=== PATIENT | female | born 1955 | race Caucasian/White ===

== ENCOUNTER 2018-05-23 21:36 | Inpatient (IN) | payer MEDICARE, OTHER ==
[2018-05-23 21:37] VITALS: BMI 39.9
[2018-05-23] MEDS ORDERED: (Novolin R) Insulin Human Regular 100 units/ml vial IV STA (21:51)
[2018-05-23] MEDS ORDERED: Albuterol-Ipratrop 3 mg / 0.5 (3 ml) UD ONE (22:05)
[2018-05-23 22:27] LABS: BASO # 0.1 K/uL (0.0-0.2); BASO % 0.5 % (0.0-2.0); EOS # 0.1 K/uL (0.0-0.7); EOS % 0.5 % (0.0-4.0); HEMOGLOBIN 10.4 g/dL (11.0-16.0); LYMPH # 2.6 K/uL (1.0-4.3); LYMPH % 11.9 % (20.0-40.0); MEAN CELL VOLUME 92.2 fL (81.0-99.0); MEAN CORPUSCULAR HEMOGLOBIN 29.3 pg (27.0-31.0); MEAN CORPUSCULAR HGB CONC 31.8 g/dL (33.0-37.0); MEAN PLATELET VOLUME 9.6 fL (7.2-11.7); MONO % 4.4 % (0.0-10.0); NEUT # 17.9 K/uL (1.8-7.0); NEUT % 82.7 % (50.0-75.0); NRBC % 0.1 % (0.0-2.0); RBC 3.56 Mil/uL (3.80-5.20); RED CELL DISTRIBUTION WIDTH 15.1 % (11.5-14.5); WHITE BLOOD COUNT 21.7 K/uL (4.8-10.8)
[2018-05-23 22:28] LABS: VENOUS BLOOD GAS BASE EXCESS -8.9 mmol/L (0.0-2.0); VENOUS BLOOD GAS PCO2 57 mmHg (40-60); VENOUS BLOOD GAS PO2 28 mm/Hg (30-55); VENOUS BLOOD PH 7.16 (7.32-7.43)
[2018-05-23] MEDS ORDERED: (Novolin R) Insulin Human Regular 100 units/ml vial ONE (22:28)
[2018-05-23 22:34] LABS: INR 0.9
[2018-05-23 22:36] LABS: PROTHROMBIN TIME 9.8 SECONDS (9.7-12.2)
[2018-05-23 22:48] LABS: URINE BACTERIA RARE (<OCC); URINE BILIRUBIN NEGATIVE (NEGATIVE); URINE BLOOD NEGATIVE (NEGATIVE); URINE CLARITY Clear (Clear); URINE COLOR Colorless (YELLOW); URINE GLUCOSE (UA) 3+ mg/dL (Normal); URINE LEUKOCYTE ESTERASE NEG Leu/uL (Negative); URINE PROTEIN 2+ mg/dL (NEGATIVE); URINE UROBILINOGEN NORMAL mg/dL (0.2-1.0)
[2018-05-23 22:51] LABS: TROPONIN I 0.088 ng/mL (0.00-0.120)
[2018-05-23 22:53] LABS: ALB/GLOB RATIO 1.2 (1.0-2.1); ALBUMIN 3.5 g/dL (3.5-5.0); CALCIUM 8.6 mg/dl (8.6-10.4)
[2018-05-23] MEDS ORDERED: (Novolog) Insulin Aspart, Recombinant 100 u/ml 10 ml vial SC SCH (23:15)
[2018-05-23] MEDS ORDERED: (Lantus) Insulin Glargine, Recombinant SC SCH (23:30)
[2018-05-23 23:33] LABS: B-TYPE NATRIURETIC PEPTIDE 1010 pg/mL (0-900)
[2018-05-23 23:34] LABS: BARBITURATES, UR NEGATIVE (NEGATIVE); BENZODIAZEPINES, UR NEGATIVE (NEGATIVE); OPIATES, UR NEGATIVE (NEGATIVE); PHENCYCLIDINE, UR NEGATIVE (NEGATIVE)
[2018-05-23] MEDS ORDERED: (Lantus) Insulin Glargine, Recombinant SC ONE (23:54)
--- NOTE | 2018-05-24 00:34 | C.PDOC ---
History Of Present Illness 63 year old female brought in by ALS for respiratory arrest with transient cardiac arrest in the field. Patient with Hx of COPD, CHF, uncontrolled diabetes, had significant respiratory distress during the day, BLS witnessed respiratory arrest and loss of pulse, CPR initiated for 1-2 minutes, ALS claims patient had banding pulses and was aao, started on bipap in the field. Time Seen by Provider: 05/23/18 21:50 Chief Complaint (Nursing): Respiratory Distress History Per: EMS History/Exam Limitations: no limitations Onset/Duration Of Symptoms: Hrs Current Symptoms Are (Timing): Still Present Current Respiratory Medications: See Home Med List Recent travel outside of the [place]: No Past Medical History Reviewed: Historical Data, Nursing Documentation, Vital Signs Vital Signs: Last Vital Signs Temp 99.2 F 05/23/18 22:40 Pulse 105 H 05/23/18 23:45 Resp 20 05/23/18 23:45 BP 161/77 H 05/23/18 23:45 Pulse Ox 95 05/23/18 23:45 - Medical History PMH: Anemia, Asthma, Depression, Diabetes, HTN, Hypercholesterolemia, Osteoporosis Denies: Chronic Kidney Disease Surgical History: [facility] CLOSURE SKIN & SUBCUTANEOUS NEC (07/01/13) EXCIS DEBRIDE OF WOUND, INFECT, OR BURN (07/01/13) OCCUPATIONAL THERAPY (07/01/13) OTH WOUND IRRIGATION (07/01/13) PHYSICAL THERAPY NEC (07/01/13) PRESSURE DRESSING APPLIC (07/01/13) VENOUS CATHETERIZATION NEC (06/26/13) Family History: States: Unknown Family Hx - Social History Hx Tobacco Use: No Hx Alcohol Use: No Hx Substance Use: No - Immunization History Hx Tetanus Toxoid Vaccination: No Hx Influenza Vaccination: No Hx Pneumococcal Vaccination: No Review Of Systems Review Of Systems: ROS cannot be obtained secondary to pt's inabilty to answer questions. Physical Exam - Physical Exam Appears: Other (Severe respiratory distress, morbidly obese female) Skin: Normal Color, Warm Head: Atraumatic, Normacephalic Eye(s): bilateral: Normal Inspection Oral Mucosa: Moist Neck: Supple Chest: Symmetrical Cardiovascular: Rhythm Regular, JVD Respiratory: Rales, No Rhonchi, Wheezing (Throughout) Gastrointestinal/Abdominal: Soft, No Tenderness, Other (Obese, Globus) Extremity: Other (Lower extremity 2/4 pitting edema) ED Course And Treatment - Laboratory Results Result Diagrams: 05/24/18 06:09 05/24/18 06:09 Lab Results: pO2 28 mm/Hg (30-55) L 05/23/18 22:20 VBG pH 7.16 (7.32-7.43) L* 05/23/18 22:20 VBG pCO2 57 mmHg (40-60) 05/23/18 22:20 VBG HCO3 16.3 mmol/L 05/23/18 22:20 VBG Total CO2 22.0 mmol/L (22-28) 05/23/18 22:20 VBG O2 Sat (Calc) 49.7 % (40-65) 05/23/18 22:20 VBG Base Excess -8.9 mmol/L (0.0-2.0) L 05/23/18 22:20 VBG Potassium 4.7 mmol/L (3.6-5.2) 05/23/18 22:20 Sodium 139.0 mmol/l (132-148) 05/23/18 22:20 Chloride 104.0 mmol/L (98-107) 05/23/18 22:20 Glucose 525 mg/dl (65-105) H* 05/23/18 22:20 Lactate 4.6 mmol/L (0.7-2.1) H* 05/23/18 22:20 FiO2 70.0 % 05/23/18 22:20 Expiratory BiPAP 9 05/23/18 22:20 Crit Value Called To Dr burgess 05/23/18 22:20 Crit Value Called By [facility] 05/23/18 22:20 Crit Value Read Back Y 05/23/18 22:20 Blood Gas Notified Time 222705/23/18 22:20 PT 9.8 SECONDS (9.7-12.2) 05/23/18 10:10 INR 0.9 05/23/18 10:10 APTT 32 SECONDS (21-34) 05/23/18 10:10 Troponin I 0.0890 ng/mL (0.00-0.120) 05/23/18 23:07 NT-Pro-B Natriuret Pep 1010 pg/mL (0-900) H 05/23/18 23:07 Total Bilirubin 0.4 mg/dL (0.2-1.3) 05/23/18 10:10 AST 36 U/L (14-36) 05/23/18 10:10 ALT 18 U/L (9-52) 05/23/18 10:10 Alkaline Phosphatase 121 U/L (38-126) 05/23/18 10:10 Total Protein 6.4 g/dL (6.3-8.3) 05/23/18 10:10 Albumin 3.5 g/dL (3.5-5.0) 05/23/18 10:10 Globulin 2.9 gm/dL (2.2-3.9) 05/23/18 10:10 Albumin/Globulin Ratio 1.2 (1.0-2.1) 05/23/18 10:10 Urine Color Colorless (YELLOW) 05/23/18 22:42 Urine Clarity Clear (Clear) 05/23/18 22:42 Urine pH 6.0 (5.0-8.0) 05/23/18 22:42 Ur Specific [place] 1.007 (1.003-1.030) 05/23/18 22:42 Urine Protein 2+ mg/dL (NEGATIVE) H 05/23/18 22:42 Urine Glucose (UA) 3+ mg/dL (Normal) H 05/23/18 22:42 Urine Ketones Negative mg/dL (NEGATIVE) 05/23/18 22:42 Urine Blood Negative (NEGATIVE) 05/23/18 22:42 Urine Nitrate Negative (NEGATIVE) 05/23/18 22:42 Urine Bilirubin Negative (NEGATIVE) 05/23/18 22:42 Urine Urobilinogen Normal mg/dL (0.2-1.0) 05/23/18 22:42 Ur Leukocyte Esterase Neg [place]/uL (Negative) 05/23/18 22:42 Urine WBC (Auto) 2 /hpf (0-5) 05/23/18 22:42 Urine RBC (Auto) 1 /hpf (0-3) 05/23/18 22:42 Urine Bacteria Rare (<OCC) 05/23/18 22:42 O2 Sat by Pulse Oximetry: 95 Disposition Doctor Will See Patient In The: Hospital Counseled Patient/Family Regarding: Studies Performed, Diagnosis - Disposition Disposition: HOSPITALIZED Disposition Time: 06:00 Condition: GOOD - Clinical Impression Clinical Impression: Asthma with status asthmaticus, Congestive heart failure - Scribe Statement The provider has reviewed the documentation as recorded by the Scribe Juan Gray All medical record entries made by the Scribe were at my direction and personally dictated by me. I have reviewed the chart and agree that the record accurately reflects my personal performance of the history, physical exam, medical decision making, and the department course for this patient. I have also personally directed, reviewed, and agree with the discharge instructions and disposition.
[2018-05-24] MEDS ORDERED: (Novolin R) Insulin Human Regular 100 units/ml vial IVP ONE (00:46)
--- NOTE | 2018-05-24 00:57 | CP.PCM.CON ---
History of Present Illness - History of Present Illness History of Present Illness: 63 y/o female with pmx of COPD, CAD (not taking antiplatelets), Dm (uncontrolled/?compliance insulin), presents to [facility] w/ith SOB. EMS reported ?cardiac arrest. Patient not able to provide much details as patient currently on bi-pAP. Pmx: CAD/Dm/COPD/obseity SH: s/p PCI unable to provide where stent was placed Social history: (+)smoking "tracey", deneis any other illicit drugs Review of Systems - Review of Systems Systems not reviewed;Unavailable: Unstable Vital Signs, Respiratory Distress Past Patient History - Infectious Disease Hx of Infectious Diseases: None - Tetanus Immunizations Tetanus Immunization: Unknown - Past Medical History & Family History Past Medical History?: Yes - Past Social History Smoking Status: Current Some Days Smoker - CARDIAC Hx Hypercholesterolemia: Yes Hx Hypertension: Yes - PULMONARY Hx Asthma: Yes - NEUROLOGICAL Hx Neurological Disorder: No - HEENT Hx HEENT Problems: No - RENAL Hx Chronic Kidney Disease: No - ENDOCRINE/METABOLIC Hx Endocrine Disorders: Yes Hx Diabetes Mellitus Type 1: Yes (diabetic right foot) Hx Diabetes Mellitus Type 2: Yes - HEMATOLOGICAL/ONCOLOGICAL Hx Anemia: Yes - INTEGUMENTARY Hx Dermatological Problems: Yes Other/Comment: CELLULITIS OF RIGHT BIG TOE.H/O OF OSTEOMYELITIS - MUSCULOSKELETAL/RHEUMATOLOGICAL Hx Osteoporosis: Yes - GASTROINTESTINAL Hx Gastrointestinal Disorders: No - GENITOURINARY/GYNECOLOGICAL Hx Genitourinary Disorders: No - PSYCHIATRIC Hx Depression: Yes Hx Substance Use: No - SURGICAL HISTORY Hx Coronary Stent: Yes (2 stents) - ANESTHESIA Hx Anesthesia: Yes Hx Anesthesia Reactions: No (unknown) Hx Malignant Hyperthermia: No Meds Allergies/Adverse Reactions: Allergies Allergy/AdvReac Type Severity Reaction Status Date / Time No Known Allergies Allergy Verified 05/23/18 21:48 - Medications Medications: Current Medications Albuterol/Ipratropium (Duoneb 3 Mg/0.5 Mg (3 Ml) Ud) 3 ml INH RQ6 [facility] Carvedilol (Coreg) 12.5 mg PO BID [facility] Last Admin: 05/23/18 23:43 Dose: 12.5 mg Heparin Sodium (Porcine) (Heparin) 5,000 units SC Q8 [facility] Last Admin: 05/24/18 00:00 Dose: 5,000 units Hydralazine HCl (Apresoline) 50 mg PO BID [facility] Last Admin: 05/23/18 23:43 Dose: 50 mg Ceftriaxone Sodium 2 gm/ (Sodium Chloride) 100 mls @ 100 mls/hr IVPB DAILY FRANCY; Protocol Insulin Aspart (Novolog) 0 unit SC Q4H FRANCY; Protocol Insulin Glargine (Lantus) 30 unit SC BID [facility] Last Admin: 05/24/18 00:00 Dose: 30 unit Insulin Human Regular (Novolin R) 10 unit IVP ONCE ONE Stop: 05/24/18 00:47 Pantoprazole Sodium (Protonix Inj) 40 mg IVP Q12H [facility] Last Admin: 05/24/18 00:01 Dose: 40 mg Ticagrelor (Brilinta) 60 mg PO BID [facility] Physical Exam - Head Exam Head Exam: ATRAUMATIC, NORMAL INSPECTION, NORMOCEPHALIC - Eye Exam Eye Exam: EOMI Pupil Exam: PERRL - ENT Exam ENT Exam: Mucous Membranes Moist - Respiratory Exam Respiratory Exam: Decreased Breath Sounds, Rales, Respiratory Distress. absent: Chest Wall Tenderness, Prolonged Expiratory Phase, Rhonchi, Wheezes, Stridor - Cardiovascular Exam Cardiovascular Exam: REGULAR RHYTHM, +S1, +S2, Systolic Murmur - GI/Abdominal Exam GI & Abdominal Exam: Normal Bowel Sounds, Soft. absent: Distended, Guarding, Hernia, Tenderness - Neurological Exam Neurological exam: Alert, Oriented x3 - Skin Skin Exam: Normal Color, Warm Results - Vital Signs Recent Vital Signs: Last Vital Signs Temp 99.2 F 05/23/18 22:40 Pulse 105 H 05/23/18 23:45 Resp 20 05/23/18 23:45 BP 161/77 H 05/23/18 23:45 Pulse Ox 95 05/24/18 00:36 - Labs Result Diagrams: 05/24/18 06:09 05/24/18 06:09 Labs: Laboratory Results - last 24 hr 05/23/18 05/23/18 05/23/18 10:10 10:10 10:10 WBC 21.7 H D RBC 3.56 L Hgb 10.4 L Hct 32.8 L MCV 92.2 D MCH 29.3 MCHC 31.8 L RDW 15.1 H Plt Count 478 H D MPV 9.6 Neut % (Auto) 82.7 H Lymph % (Auto) 11.9 L [place] % (Auto) 4.4 Eos % (Auto) 0.5 Baso % (Auto) 0.5 Neut # (Auto) 17.9 H Lymph # (Auto) 2.6 [place] # (Auto) 1.0 H Eos # (Auto) 0.1 Baso # (Auto) 0.1 PT 9.8 INR 0.9 APTT 32 pO2 VBG pH VBG pCO2 VBG HCO3 VBG Total CO2 VBG O2 Sat (Calc) VBG Base Excess VBG Potassium Glucose Lactate FiO2 Expiratory BiPAP Crit Value Called To Crit Value Called By Crit Value Read Back Blood Gas Notified Time Sodium 135 Potassium 4.8 Chloride 106 Carbon Dioxide 19 L Anion Gap 15 BUN 20 H Creatinine 2.3 H Est GFR ( Amer) 26 Est GFR (Non-Af Amer) 21 POC Glucose (mg/dL) Random Glucose 517 H* D Calcium 8.6 Total Bilirubin 0.4 AST 36 ALT 18 Alkaline Phosphatase 121 Troponin I 0.0880 NT-Pro-B Natriuret Pep 1030 H Total Protein 6.4 Albumin 3.5 Globulin 2.9 Albumin/Globulin Ratio 1.2 TSH 3rd Generation Venous Blood Potassium Urine Color Urine Clarity Urine pH Ur Specific [place] Urine Protein Urine Glucose (UA) Urine Ketones Urine Blood Urine Nitrate Urine Bilirubin Urine Urobilinogen Ur Leukocyte Esterase Urine WBC (Auto) Urine RBC (Auto) Urine Bacteria Urine Opiates Screen Urine Methadone Screen Ur Barbiturates Screen Ur Phencyclidine Scrn Ur Amphetamines Screen U Benzodiazepines Scrn U Oth Cocaine Metabols U Cannabinoids Screen Alcohol, Quantitative B-Hydroxybutyrate 05/23/18 05/23/18 05/23/18 21:45 22:20 22:42 WBC RBC Hgb Hct MCV MCH MCHC RDW Plt Count MPV Neut % (Auto) Lymph % (Auto) [place] % (Auto) Eos % (Auto) Baso % (Auto) Neut # (Auto) Lymph # (Auto) [place] # (Auto) Eos # (Auto) Baso # (Auto) PT INR APTT pO2 28 L VBG pH 7.16 L* VBG pCO2 57 VBG HCO3 16.3 VBG Total CO2 22.0 VBG O2 Sat (Calc) 49.7 VBG Base Excess -8.9 L VBG Potassium 4.7 Glucose 525 H* Lactate 4.6 H* FiO2 70.0 Expiratory BiPAP 9 Crit Value Called To Dr jenifer Crit Value Called By [facility] Crit Value Read Back Y Blood Gas Notified Time 2228 Sodium 139.0 Potassium Chloride 104.0 Carbon Dioxide Anion Gap BUN Creatinine Est GFR ( Amer) Est GFR (Non-Af Amer) POC Glucose (mg/dL) 465 H* Random Glucose Calcium Total Bilirubin AST ALT Alkaline Phosphatase Troponin I NT-Pro-B Natriuret Pep Total Protein Albumin Globulin Albumin/Globulin Ratio TSH 3rd Generation Venous Blood Potassium 4.7 Urine Color Colorless Urine Clarity Clear Urine pH 6.0 Ur Specific [place] 1.007 Urine Protein 2+ H Urine Glucose (UA) 3+ H Urine Ketones Negative Urine Blood Negative Urine Nitrate Negative Urine Bilirubin Negative Urine Urobilinogen Normal Ur Leukocyte Esterase Neg Urine WBC (Auto) 2 Urine RBC (Auto) 1 Urine Bacteria Rare Urine Opiates Screen Urine Methadone Screen Ur Barbiturates Screen Ur Phencyclidine Scrn Ur Amphetamines Screen U Benzodiazepines Scrn U Oth Cocaine Metabols U Cannabinoids Screen Alcohol, Quantitative B-Hydroxybutyrate 05/23/18 05/23/18 05/23/18 22:53 23:07 23:07 WBC RBC Hgb Hct MCV MCH MCHC RDW Plt Count MPV Neut % (Auto) Lymph % (Auto) [place] % (Auto) Eos % (Auto) Baso % (Auto) Neut # (Auto) Lymph # (Auto) [place] # (Auto) Eos # (Auto) Baso # (Auto) PT INR APTT pO2 VBG pH VBG pCO2 VBG HCO3 VBG Total CO2 VBG O2 Sat (Calc) VBG Base Excess VBG Potassium Glucose Lactate FiO2 Expiratory BiPAP Crit Value Called To Crit Value Called By Crit Value Read Back Blood Gas Notified Time Sodium Potassium Chloride Carbon Dioxide Anion Gap BUN Creatinine Est GFR ( Amer) Est GFR (Non-Af Amer) POC Glucose (mg/dL) 487 H* Random Glucose Calcium Total Bilirubin AST ALT Alkaline Phosphatase Troponin I 0.0890 NT-Pro-B Natriuret Pep 1010 H Total Protein Albumin Globulin Albumin/Globulin Ratio TSH 3rd Generation Venous Blood Potassium Urine Color Urine Clarity Urine pH Ur Specific [place] Urine Protein Urine Glucose (UA) Urine Ketones Urine Blood Urine Nitrate Urine Bilirubin Urine Urobilinogen Ur Leukocyte Esterase Urine WBC (Auto) Urine RBC (Auto) Urine Bacteria Urine Opiates Screen Negative Urine Methadone Screen Negative Ur Barbiturates Screen Negative Ur Phencyclidine Scrn Negative Ur Amphetamines Screen Negative U Benzodiazepines Scrn Negative U Oth Cocaine Metabols Negative U Cannabinoids Screen Negative Alcohol, Quantitative < 10 B-Hydroxybutyrate 0.16 05/23/18 23:40 WBC RBC Hgb Hct MCV MCH MCHC RDW Plt Count MPV Neut % (Auto) Lymph % (Auto) [place] % (Auto) Eos % (Auto) Baso % (Auto) Neut # (Auto) Lymph # (Auto) [place] # (Auto) Eos # (Auto) Baso # (Auto) PT INR APTT pO2 VBG pH VBG pCO2 VBG HCO3 VBG Total CO2 VBG O2 Sat (Calc) VBG Base Excess VBG Potassium Glucose Lactate FiO2 Expiratory BiPAP Crit Value Called To Crit Value Called By Crit Value Read Back Blood Gas Notified Time Sodium Potassium Chloride Carbon Dioxide Anion Gap BUN Creatinine Est GFR ( Amer) Est GFR (Non-Af Amer) POC Glucose (mg/dL) Random Glucose Calcium Total Bilirubin AST ALT Alkaline Phosphatase Troponin I NT-Pro-B Natriuret Pep Total Protein Albumin Globulin Albumin/Globulin Ratio TSH 3rd Generation 2.12 Venous Blood Potassium Urine Color Urine Clarity Urine pH Ur Specific [place] Urine Protein Urine Glucose (UA) Urine Ketones Urine Blood Urine Nitrate Urine Bilirubin Urine Urobilinogen Ur Leukocyte Esterase Urine WBC (Auto) Urine RBC (Auto) Urine Bacteria Urine Opiates Screen Urine Methadone Screen Ur Barbiturates Screen Ur Phencyclidine Scrn Ur Amphetamines Screen U Benzodiazepines Scrn U Oth Cocaine Metabols U Cannabinoids Screen Alcohol, Quantitative B-Hydroxybutyrate Assessment & Plan - Assessment and Plan (Free Text) Assessment: - ACute hypoxic respiratory failure: 2nd fluid overloaded/heart failure/ucontrolled blood sugar and uncontrolled blood pressure, continue bi-pap to keep Spo2 >91 -BILLY: suspect 2nd losartan, avoid neprhotoxi drugs, continue to monitor -DM: check HBA1c, Insulin, monitor serial blood sugar -CAD/likely chronic diastolic heart failure: at risk, patient stopped taking brilynta (exact reason unknown), start DAPT, hold acei 2nd renal failure, lasix, avoid fluid overloaded, continue oral nitrates and hydralazine -Leukocytosis: suspect aspiration, start empirical abx, serial lactic, briceño culture, continue to monitor -dvt ppx heparin SQ -PUD ppx protonix -History is not clear as to whether patient had cardiac arrest, since patient is not intubated and awake without any distress -Prognosis guarded, as patient is not compliant with likely diabetes and smoking related ASHD and CKD. patient will benefit from ICU level care. - Date & Time Date: 05/24/18 Time: 01:06
[2018-05-24] MEDS ORDERED: Labetalol 25mg/5ml Syringe IVP STA (01:06)
--- NOTE | 2018-05-24 01:09 | PCM.SEPTIC ---
Sepsis Progress Note - Reassessment Type Date of Evaluation: 05/24/18 Time of Evaluation: 01:08 Reassessment Type: Non-invasive reassessment - Non Invasive Reassessment Were the most recent vital sign reviewed: Yes Vital Sign (Latest): Temp Pulse Resp BP Pulse Ox 99.2 F 105 H 20 161/77 H 95 05/23/18 22:40 05/23/18 23:45 05/23/18 23:45 05/23/18 23:45 05/24/18 00:36 Cardiovascular: Yes: Regular Rate, Rhythm. No: Bradycardia, Tachycardia Respiratory: Yes: Normal Breath Sounds, Rales. No: Wheezing Capillary Refill: Normal (Less than 2 sec) Pulses: Normal Radial, Normal Dorsalis Pedis, Normal Posterior Tibialis Skin: Normal Color - Invasive Reassessment (complete 2 of 4) Was a Central Venous Pressure Measurement obtained within 6 Hours after the presentation of septic shock: No Was a central venous oxygen measurement obtained within 6 hours after the presentation of septic shock: No Was a bedside cardiovascular ultrasound performed within 6 hours after the presentation of septic shock: No Was a passive leg raise performed or was a fluid challenge performed within 6 hrs of the initial fluid bolus: No
[2018-05-24] MEDS ORDERED: hydrALAZINE 12.5 mg Tab PO ONE (01:26)
[2018-05-24] MEDS ORDERED: Insulin Human Regular 100 UNIT in Sodium Chloride 0.9% 99 ML SC SCH (02:30)
[2018-05-24] MEDS: Albuterol-Ipratrop 3 mg / 0.5 (3 ml) UD INH SCH ×4 (02:47→19:37)
[2018-05-24] MEDS: Insulin Human Regular 100 UNIT in Sodium Chloride 0.9% 99 ML IV PRN ×2 (02:50→09:47)
[2018-05-24] MEDS ORDERED: Insulin Human Regular 100 UNIT in Sodium Chloride 0.9% 99 ML IV SCH (03:00)
[2018-05-24] MEDS: Nitroglycerin 50mg in D5W 50 MG/250 ML BOTTLE IV SCH (03:28)
[2018-05-24 06:20] LABS: BASO % 0.2 % (0.0-2.0); HEMOGLOBIN 9.9 g/dL (11.0-16.0); LYMPH % 6.1 % (20.0-40.0); MEAN CORPUSCULAR HEMOGLOBIN 28.7 pg (27.0-31.0); MEAN CORPUSCULAR HGB CONC 31.9 g/dL (33.0-37.0); MEAN PLATELET VOLUME 9.7 fL (7.2-11.7); MONO # 0.2 K/uL (0.0-0.8); MONO % 1.4 % (0.0-10.0); NEUT # 14.4 K/uL (1.8-7.0); NEUT % 92.3 % (50.0-75.0); PLATELET COUNT 446 K/uL (130-400); RBC 3.46 Mil/uL (3.80-5.20); RED CELL DISTRIBUTION WIDTH 14.5 % (11.5-14.5); WHITE BLOOD COUNT 15.6 K/uL (4.8-10.8)
[2018-05-24 06:36] LABS: ALB/GLOB RATIO 1.1 (1.0-2.1); ALBUMIN 3.6 g/dL (3.5-5.0); CALCIUM 9.5 mg/dl (8.6-10.4)
[2018-05-24 06:48] LABS: TROPONIN I 0.649 ng/mL (0.00-0.120)
[2018-05-24 09:38] LABS: ABG ALLEN TEST N/A ALINE; ARTERIAL BLOOD GAS HCO3 23.8 mmol/L (21-28); ARTERIAL BLOOD GAS O2 SAT 99.9 % (95-98); ARTERIAL BLOOD GAS PCO2 44 mm/Hg (35-45); ARTERIAL BLOOD GAS PH 7.35 (7.35-7.45); ARTERIAL BLOOD GAS PO2 322 mm/Hg (80-100); ARTERIAL BLOOD GAS TCO2 25.7 mmol/L (22-28)
[2018-05-24] MEDS: cefTRIAXone 2 GM in Sodium Chloride 0.9% 100 ML IVPB SCH (09:43)
[2018-05-24 10:02] LABS: BANDS 1 % (0-2); LYMPHOCYTE 7 % (20-40); MONOCYTE 2 % (0-10); NEUTROPHIL 90 % (50-75); PLATELET ESTIMATE SLIGHTLY INCREASED (NORMAL); TOTAL CELLS COUNTED 100
[2018-05-24 10:03] LABS: HYPOCHROMIC SLIGHT; LARGE PLATELETS PRESENT
--- NOTE | 2018-05-24 10:37 | RAD ---
Date of service: 05/23/2018 PROCEDURE: CHEST RADIOGRAPH, 1 VIEW HISTORY: SOB COMPARISON: Comparison is made with 06/29/2013 FINDINGS: LUNGS: DIFFUSE PROMINENT RETICULAR OPACITIES NOTED IN THE LUNGS. POSSIBLE MODERATE PULMONARY VASCULAR CONGESTION. PATCHY OPACITIES AT THE RIGHT LUNG IS ALSO NOTED. PLEURA: There is small right pleural effusion. CARDIOVASCULAR: No aortic atherosclerotic calcification present. The cardiac silhouette is mildly enlarged. OSSEOUS STRUCTURES: No significant abnormalities. VISUALIZED UPPER ABDOMEN: Normal. OTHER FINDINGS: None. IMPRESSION: Findings suggestive of CHF and moderate pulmonary vascular congestion. Small right pleural effusion.
--- NOTE | 2018-05-24 11:23 | CP.PCM.CON ---
History of Present Illness - History of Present Illness History of Present Illness: 63 year old lady with DM, HTN, ? CAD, COPD, no details reported severe SOB, ? loss of pulse, found by ALS alert oriented with adequate pulse. no reported CP, no EKG changes 3rd TNI 0.6 with GFR of 25. no VT. needs ECho, unlikely CHF with adequate oxygenation, ok BNP, elevated lactate, uncontrolled DM discussed with daughter, patient had coronary artery disease with stent deployment in 2014 and 2016 was not taken medication since then, when the medics arrived no treatment was given and the patient was okay as per daughter. Discussed with the aws developer unlikely cardiac arrest to recover at this good. Currently the patient is awake alert oriented x3 with stable vitals. With renal failure we will observe her coronary artery disease status and no cardiac catheterization urgent at this time. Review of Systems - Review of Systems Systems not reviewed;Unavailable: Respiratory Distress - Constitutional Constitutional: Anorexia, Weakness - EENT Eyes: absent: Discharge Ears: absent: Ear Discharge Nose/Mouth/Throat: absent: Epistaxis - Cardiovascular Cardiovascular: absent: Acrocyanosis, Chest Pain, Diaphoresis, Edema, Lightheadedness, Palpitations, Syncope - Respiratory Respiratory: Cough, Dyspnea. absent: Hemoptysis - Gastrointestinal Gastrointestinal: absent: Abdominal Pain, Constipation, Diarrhea, Melena, Vomiting - Genitourinary Genitourinary: absent: Change in Urinary Stream - Reproductive: Female Reproductive:Female: Menopausal Past Patient History - Infectious Disease Hx of Infectious Diseases: None - Tetanus Immunizations Tetanus Immunization: Unknown - Past Medical History & Family History Past Medical History?: Yes - Past Social History Smoking Status: Current Some Days Smoker - CARDIAC Hx Hypercholesterolemia: Yes Hx Hypertension: Yes - PULMONARY Hx Asthma: Yes - NEUROLOGICAL Hx Neurological Disorder: No - HEENT Hx HEENT Problems: No - RENAL Hx Chronic Kidney Disease: No - ENDOCRINE/METABOLIC Hx Endocrine Disorders: Yes Hx Diabetes Mellitus Type 1: Yes (diabetic right foot) Hx Diabetes Mellitus Type 2: Yes - HEMATOLOGICAL/ONCOLOGICAL Hx Anemia: Yes - INTEGUMENTARY Hx Dermatological Problems: Yes Other/Comment: CELLULITIS OF RIGHT BIG TOE.H/O OF OSTEOMYELITIS - MUSCULOSKELETAL/RHEUMATOLOGICAL Hx Osteoporosis: Yes - GASTROINTESTINAL Hx Gastrointestinal Disorders: No - GENITOURINARY/GYNECOLOGICAL Hx Genitourinary Disorders: No - PSYCHIATRIC Hx Depression: Yes Hx Substance Use: No - SURGICAL HISTORY Hx Coronary Stent: Yes (2 stents) - ANESTHESIA Hx Anesthesia: Yes Hx Anesthesia Reactions: No (unknown) Hx Malignant Hyperthermia: No Meds Allergies/Adverse Reactions: Allergies Allergy/AdvReac Type Severity Reaction Status Date / Time No Known Allergies Allergy Verified 05/23/18 21:48 - Medications Medications: Current Medications Albuterol/Ipratropium (Duoneb 3 Mg/0.5 Mg (3 Ml) Ud) 3 ml INH RQ6 [facility] Last Admin: 05/24/18 07:30 Dose: 3 ml Aspirin (Aspirin Chewable) 81 mg PO DAILY [facility] Last Admin: 05/24/18 09:35 Dose: 81 mg Carvedilol (Coreg) 12.5 mg PO BID [facility] Last Admin: 05/24/18 09:35 Dose: 12.5 mg Furosemide (Lasix) 40 mg PO DAILY [facility] Last Admin: 05/24/18 09:34 Dose: 40 mg Heparin Sodium (Porcine) (Heparin) 5,000 units SC Q8 [facility] Last Admin: 05/24/18 06:02 Dose: 5,000 units Hydralazine HCl (Apresoline) 100 mg PO TID [facility] Last Admin: 05/24/18 09:33 Dose: 100 mg Ceftriaxone Sodium 2 gm/ (Sodium Chloride) 100 mls @ 100 mls/hr IVPB DAILY [facility]; Protocol Last Admin: 05/24/18 09:43 Dose: 100 mls/hr Insulin Human Regular 100 unit (/ Sodium Chloride) 100 mls @ 10.204 mls/hr IV .Q9H48M PRN; Protocol Last Titration: 05/24/18 10:04 Dose: 5 units/hr, 5 mls/hr Nitroglycerin/Dextrose (Nitroglycerin 50 Mg/250 Ml D5w) 50 mg in 250 mls @ 1.5 mls/hr IV .Q24H [facility]; Protocol Last Titration: 05/24/18 09:00 Dose: 15 mcg/min, 4.5 mls/hr Isosorbide Mononitrate (Imdur Er) 30 mg PO DAILY [facility] Last Admin: 05/24/18 09:34 Dose: 30 mg Pantoprazole Sodium (Protonix Inj) 40 mg IVP Q12H [facility] Last Admin: 05/24/18 10:33 Dose: 40 mg Ticagrelor (Brilinta) 60 mg PO BID [facility] Last Admin: 05/24/18 09:46 Dose: 60 mg Physical Exam - Constitutional Appears: Non-toxic - Head Exam Head Exam: ATRAUMATIC - Eye Exam Eye Exam: EOMI - ENT Exam ENT Exam: Mucous Membranes Moist - Neck Exam Neck exam: Negative for: Lymphadenopathy, Thyromegaly - Respiratory Exam Respiratory Exam: Rhonchi, Wheezes. absent: Rales - Cardiovascular Exam Cardiovascular Exam: REGULAR RHYTHM, Systolic Murmur. absent: Gallop - GI/Abdominal Exam GI & Abdominal Exam: Normal Bowel Sounds. absent: Organomegaly - Rectal Exam Rectal Exam: Deferred - Extremities Exam Extremities exam: Positive for: normal capillary refill, pedal pulses present. Negative for: calf tenderness - Neurological Exam Neurological exam: Alert, Oriented x3 - Psychiatric Exam Psychiatric exam: Normal Affect - Skin Skin Exam: Dry Results - Vital Signs Recent Vital Signs: Last Vital Signs Temp 98.1 F 05/24/18 04:00 Pulse 76 05/24/18 08:09 Resp 18 05/24/18 08:09 BP 170/80 H 05/24/18 09:35 Pulse Ox 90 L 05/24/18 08:09 - Labs Result Diagrams: 05/24/18 06:09 05/24/18 06:09 Labs: Laboratory Results - last 24 hr 05/23/18 05/23/18 05/23/18 10:10 10:10 10:10 WBC 21.7 H D RBC 3.56 L Hgb 10.4 L Hct 32.8 L MCV 92.2 D MCH 29.3 MCHC 31.8 L RDW 15.1 H Plt Count 478 H D MPV 9.6 Neut % (Auto) 82.7 H Lymph % (Auto) 11.9 L [place] % (Auto) 4.4 Eos % (Auto) 0.5 Baso % (Auto) 0.5 Neut # (Auto) 17.9 H Lymph # (Auto) 2.6 [place] # (Auto) 1.0 H Eos # (Auto) 0.1 Baso # (Auto) 0.1 Neutrophils % (Manual) Band Neutrophils % Lymphocytes % (Manual) Monocytes % (Manual) Platelet Estimate Large Platelets Hypochromasia (manual) PT 9.8 INR 0.9 APTT 32 Puncture Site pCO2 pO2 HCO3 ABG pH ABG Total CO2 ABG O2 Saturation ABG Base Excess Enrique Test ABG Potassium VBG pH VBG pCO2 VBG HCO3 VBG Total CO2 VBG O2 Sat (Calc) VBG Base Excess VBG Potassium A-a O2 Difference Respiratory Index Glucose Lactate Vent Mode Mechanical Rate FiO2 Tidal Volume PEEP Expiratory BiPAP Crit Value Called To Crit Value Called By Crit Value Read Back Blood Gas Notified Time Sodium 135 Potassium 4.8 Chloride 106 Carbon Dioxide 19 L Anion Gap 15 BUN 20 H Creatinine 2.3 H Est GFR ( Amer) 26 Est GFR (Non-Af Amer) 21 POC Glucose (mg/dL) Random Glucose 517 H* D Hemoglobin A1c Lactic Acid Calcium 8.6 Phosphorus Magnesium Total Bilirubin 0.4 AST 36 ALT 18 Alkaline Phosphatase 121 Troponin I 0.0880 NT-Pro-B Natriuret Pep 1030 H Total Protein 6.4 Albumin 3.5 Globulin 2.9 Albumin/Globulin Ratio 1.2 Procalcitonin TSH 3rd Generation Arterial Blood Potassium Venous Blood Potassium Urine Color Urine Clarity Urine pH Ur Specific [place] Urine Protein Urine Glucose (UA) Urine Ketones Urine Blood Urine Nitrate Urine Bilirubin Urine Urobilinogen Ur Leukocyte Esterase Urine WBC (Auto) Urine RBC (Auto) Urine Bacteria Urine Opiates Screen Urine Methadone Screen Ur Barbiturates Screen Ur Phencyclidine Scrn Ur Amphetamines Screen U Benzodiazepines Scrn U Oth Cocaine Metabols U Cannabinoids Screen Alcohol, Quantitative B-Hydroxybutyrate 05/23/18 05/23/18 05/23/18 21:45 22:20 22:42 WBC RBC Hgb Hct MCV MCH MCHC RDW Plt Count MPV Neut % (Auto) Lymph % (Auto) [place] % (Auto) Eos % (Auto) Baso % (Auto) Neut # (Auto) Lymph # (Auto) [place] # (Auto) Eos # (Auto) Baso # (Auto) Neutrophils % (Manual) Band Neutrophils % Lymphocytes % (Manual) Monocytes % (Manual) Platelet Estimate Large Platelets Hypochromasia (manual) PT INR APTT Puncture Site pCO2 pO2 28 L HCO3 ABG pH ABG Total CO2 ABG O2 Saturation ABG Base Excess Enrique Test ABG Potassium VBG pH 7.16 L* VBG pCO2 57 VBG HCO3 16.3 VBG Total CO2 22.0 VBG O2 Sat (Calc) 49.7 VBG Base Excess -8.9 L VBG Potassium 4.7 A-a O2 Difference Respiratory Index Glucose 525 H* Lactate 4.6 H* Vent Mode Mechanical Rate FiO2 70.0 Tidal Volume PEEP Expiratory BiPAP 9 Crit Value Called To Dr burgess Crit Value Called By [facility] Crit Value Read Back Y Blood Gas Notified Time 2228 Sodium 139.0 Potassium Chloride 104.0 Carbon Dioxide Anion Gap BUN Creatinine Est GFR ( Amer) Est GFR (Non-Af Amer) POC Glucose (mg/dL) 465 H* Random Glucose Hemoglobin A1c Lactic Acid Calcium Phosphorus Magnesium Total Bilirubin AST ALT Alkaline Phosphatase Troponin I NT-Pro-B Natriuret Pep Total Protein Albumin Globulin Albumin/Globulin Ratio Procalcitonin TSH 3rd Generation Arterial Blood Potassium Venous Blood Potassium 4.7 Urine Color Colorless Urine Clarity Clear Urine pH 6.0 Ur Specific [place] 1.007 Urine Protein 2+ H Urine Glucose (UA) 3+ H Urine Ketones Negative Urine Blood Negative Urine Nitrate Negative Urine Bilirubin Negative Urine Urobilinogen Normal Ur Leukocyte Esterase Neg Urine WBC (Auto) 2 Urine RBC (Auto) 1 Urine Bacteria Rare Urine Opiates Screen Urine Methadone Screen Ur Barbiturates Screen Ur Phencyclidine Scrn Ur Amphetamines Screen U Benzodiazepines Scrn U Oth Cocaine Metabols U Cannabinoids Screen Alcohol, Quantitative B-Hydroxybutyrate 05/23/18 05/23/18 05/23/18 22:53 23:07 23:07 WBC RBC Hgb Hct MCV MCH MCHC RDW Plt Count MPV Neut % (Auto) Lymph % (Auto) [place] % (Auto) Eos % (Auto) Baso % (Auto) Neut # (Auto) Lymph # (Auto) [place] # (Auto) Eos # (Auto) Baso # (Auto) Neutrophils % (Manual) Band Neutrophils % Lymphocytes % (Manual) Monocytes % (Manual) Platelet Estimate Large Platelets Hypochromasia (manual) PT INR APTT Puncture Site pCO2 pO2 HCO3 ABG pH ABG Total CO2 ABG O2 Saturation ABG Base Excess Enrique Test ABG Potassium VBG pH VBG pCO2 VBG HCO3 VBG Total CO2 VBG O2 Sat (Calc) VBG Base Excess VBG Potassium A-a O2 Difference Respiratory Index Glucose Lactate Vent Mode Mechanical Rate FiO2 Tidal Volume PEEP Expiratory BiPAP Crit Value Called To Crit Value Called By Crit Value Read Back Blood Gas Notified Time Sodium Potassium Chloride Carbon Dioxide Anion Gap BUN Creatinine Est GFR ( Amer) Est GFR (Non-Af Amer) POC Glucose (mg/dL) 487 H* Random Glucose Hemoglobin A1c Lactic Acid Calcium Phosphorus Magnesium Total Bilirubin AST ALT Alkaline Phosphatase Troponin I 0.0890 NT-Pro-B Natriuret Pep 1010 H Total Protein Albumin Globulin Albumin/Globulin Ratio Procalcitonin TSH 3rd Generation Arterial Blood Potassium Venous Blood Potassium Urine Color Urine Clarity Urine pH Ur Specific [place] Urine Protein Urine Glucose (UA) Urine Ketones Urine Blood Urine Nitrate Urine Bilirubin Urine Urobilinogen Ur Leukocyte Esterase Urine WBC (Auto) Urine RBC (Auto) Urine Bacteria Urine Opiates Screen Negative Urine Methadone Screen Negative Ur Barbiturates Screen Negative Ur Phencyclidine Scrn Negative Ur Amphetamines Screen Negative U Benzodiazepines Scrn Negative U Oth Cocaine Metabols Negative U Cannabinoids Screen Negative Alcohol, Quantitative < 10 B-Hydroxybutyrate 0.16 05/23/18 05/23/18 05/24/18 23:40 23:40 00:45 WBC RBC Hgb Hct MCV MCH MCHC RDW Plt Count MPV Neut % (Auto) Lymph % (Auto) [place] % (Auto) Eos % (Auto) Baso % (Auto) Neut # (Auto) Lymph # (Auto) [place] # (Auto) Eos # (Auto) Baso # (Auto) Neutrophils % (Manual) Band Neutrophils % Lymphocytes % (Manual) Monocytes % (Manual) Platelet Estimate Large Platelets Hypochromasia (manual) PT INR APTT Puncture Site pCO2 pO2 HCO3 ABG pH ABG Total CO2 ABG O2 Saturation ABG Base Excess Enrique Test ABG Potassium VBG pH VBG pCO2 VBG HCO3 VBG Total CO2 VBG O2 Sat (Calc) VBG Base Excess VBG Potassium A-a O2 Difference Respiratory Index Glucose Lactate Vent Mode Mechanical Rate FiO2 Tidal Volume PEEP Expiratory BiPAP Crit Value Called To Crit Value Called By Crit Value Read Back Blood Gas Notified Time Sodium Potassium Chloride Carbon Dioxide Anion Gap BUN Creatinine Est GFR ( Amer) Est GFR (Non-Af Amer) POC Glucose (mg/dL) > 500 H* Random Glucose Hemoglobin A1c 7.9 H D Lactic Acid Calcium Phosphorus Magnesium Total Bilirubin AST ALT Alkaline Phosphatase Troponin I NT-Pro-B Natriuret Pep Total Protein Albumin Globulin Albumin/Globulin Ratio Procalcitonin TSH 3rd Generation 2.12 Arterial Blood Potassium Venous Blood Potassium Urine Color Urine Clarity Urine pH Ur Specific [place] Urine Protein Urine Glucose (UA) Urine Ketones Urine Blood Urine Nitrate Urine Bilirubin Urine Urobilinogen Ur Leukocyte Esterase Urine WBC (Auto) Urine RBC (Auto) Urine Bacteria Urine Opiates Screen Urine Methadone Screen Ur Barbiturates Screen Ur Phencyclidine Scrn Ur Amphetamines Screen U Benzodiazepines Scrn U Oth Cocaine Metabols U Cannabinoids Screen Alcohol, Quantitative B-Hydroxybutyrate 05/24/18 05/24/18 05/24/18 02:13 02:50 04:12 WBC RBC Hgb Hct MCV MCH MCHC RDW Plt Count MPV Neut % (Auto) Lymph % (Auto) [place] % (Auto) Eos % (Auto) Baso % (Auto) Neut # (Auto) Lymph # (Auto) [place] # (Auto) Eos # (Auto) Baso # (Auto) Neutrophils % (Manual) Band Neutrophils % Lymphocytes % (Manual) Monocytes % (Manual) Platelet Estimate Large Platelets Hypochromasia (manual) PT INR APTT Puncture Site pCO2 pO2 HCO3 ABG pH ABG Total CO2 ABG O2 Saturation ABG Base Excess Enrique Test ABG Potassium VBG pH VBG pCO2 VBG HCO3 VBG Total CO2 VBG O2 Sat (Calc) VBG Base Excess VBG Potassium A-a O2 Difference Respiratory Index Glucose Lactate Vent Mode Mechanical Rate FiO2 Tidal Volume PEEP Expiratory BiPAP Crit Value Called To Crit Value Called By Crit Value Read Back Blood Gas Notified Time Sodium Potassium Chloride Carbon Dioxide Anion Gap BUN Creatinine Est GFR ( Amer) Est GFR (Non-Af Amer) POC Glucose (mg/dL) 471 H* 374 H Random Glucose Hemoglobin A1c Lactic Acid 3.7 H Calcium Phosphorus Magnesium Total Bilirubin AST ALT Alkaline Phosphatase Troponin I NT-Pro-B Natriuret Pep Total Protein Albumin Globulin Albumin/Globulin Ratio Procalcitonin TSH 3rd Generation Arterial Blood Potassium Venous Blood Potassium Urine Color Urine Clarity Urine pH Ur Specific [place] Urine Protein Urine Glucose (UA) Urine Ketones Urine Blood Urine Nitrate Urine Bilirubin Urine Urobilinogen Ur Leukocyte Esterase Urine WBC (Auto) Urine RBC (Auto) Urine Bacteria Urine Opiates Screen Urine Methadone Screen Ur Barbiturates Screen Ur Phencyclidine Scrn Ur Amphetamines Screen U Benzodiazepines Scrn U Oth Cocaine Metabols U Cannabinoids Screen Alcohol, Quantitative B-Hydroxybutyrate 05/24/18 05/24/18 05/24/18 06:09 06:09 06:09 WBC 15.6 H RBC 3.46 L Hgb 9.9 L Hct 31.2 L MCV 90.0 D MCH 28.7 MCHC 31.9 L RDW 14.5 Plt Count 446 H MPV 9.7 Neut % (Auto) 92.3 H Lymph % (Auto) 6.1 L [place] % (Auto) 1.4 Eos % (Auto) 0.0 Baso % (Auto) 0.2 Neut # (Auto) 14.4 H Lymph # (Auto) 1.0 [place] # (Auto) 0.2 Eos # (Auto) 0.0 Baso # (Auto) 0.0 Neutrophils % (Manual) 90 H Band Neutrophils % 1 Lymphocytes % (Manual) 7 L Monocytes % (Manual) 2 Platelet Estimate Slightly increased H Large Platelets Present Hypochromasia (manual) Slight PT INR APTT Puncture Site pCO2 pO2 HCO3 ABG pH ABG Total CO2 ABG O2 Saturation ABG Base Excess Enrique Test ABG Potassium VBG pH VBG pCO2 VBG HCO3 VBG Total CO2 VBG O2 Sat (Calc) VBG Base Excess VBG Potassium A-a O2 Difference Respiratory Index Glucose Lactate Vent Mode Mechanical Rate FiO2 Tidal Volume PEEP Expiratory BiPAP Crit Value Called To Crit Value Called By Crit Value Read Back Blood Gas Notified Time Sodium 137 Potassium 5.5 H Chloride 109 H Carbon Dioxide 20 L Anion Gap 14 BUN 24 H Creatinine 2.4 H Est GFR ( Amer) 25 Est GFR (Non-Af Amer) 20 POC Glucose (mg/dL) Random Glucose 304 H D Hemoglobin A1c Lactic Acid Calcium 9.5 Phosphorus 2.6 Magnesium 2.7 H Total Bilirubin 0.4 AST 37 H ALT 10 Alkaline Phosphatase 106 Troponin I 0.6490 H* NT-Pro-B Natriuret Pep Total Protein 6.7 Albumin 3.6 Globulin 3.1 Albumin/Globulin Ratio 1.1 Procalcitonin 8.05 H TSH 3rd Generation Arterial Blood Potassium Venous Blood Potassium Urine Color Urine Clarity Urine pH Ur Specific [place] Urine Protein Urine Glucose (UA) Urine Ketones Urine Blood Urine Nitrate Urine Bilirubin Urine Urobilinogen Ur Leukocyte Esterase Urine WBC (Auto) Urine RBC (Auto) Urine Bacteria Urine Opiates Screen Urine Methadone Screen Ur Barbiturates Screen Ur Phencyclidine Scrn Ur Amphetamines Screen U Benzodiazepines Scrn U Oth Cocaine Metabols U Cannabinoids Screen Alcohol, Quantitative B-Hydroxybutyrate 05/24/18 05/24/18 05/24/18 06:15 08:01 08:20 WBC RBC Hgb Hct MCV MCH MCHC RDW Plt Count MPV Neut % (Auto) Lymph % (Auto) [place] % (Auto) Eos % (Auto) Baso % (Auto) Neut # (Auto) Lymph # (Auto) [place] # (Auto) Eos # (Auto) Baso # (Auto) Neutrophils % (Manual) Band Neutrophils % Lymphocytes % (Manual) Monocytes % (Manual) Platelet Estimate Large Platelets Hypochromasia (manual) PT INR APTT Puncture Site Gladys pCO2 44 pO2 322 H HCO3 23.8 ABG pH 7.35 ABG Total CO2 25.7 ABG O2 Saturation 99.9 H ABG Base Excess -1.5 Enrique Test N/a gladys ABG Potassium 3.3 L VBG pH VBG pCO2 VBG HCO3 VBG Total CO2 VBG O2 Sat (Calc) VBG Base Excess VBG Potassium A-a O2 Difference 336.0 Respiratory Index 1.0 Glucose 123 H Lactate 1.3 Vent Mode Prvc Mechanical Rate 10 FiO2 100.0 Tidal Volume 500 PEEP 5 Expiratory BiPAP Crit Value Called To Crit Value Called By Crit Value Read Back Blood Gas Notified Time Sodium 155.0 H Potassium Chloride 126.0 H Carbon Dioxide Anion Gap BUN Creatinine Est GFR ( Amer) Est GFR (Non-Af Amer) POC Glucose (mg/dL) 254 H Random Glucose Hemoglobin A1c Lactic Acid 2.9 H Calcium Phosphorus Magnesium Total Bilirubin AST ALT Alkaline Phosphatase Troponin I NT-Pro-B Natriuret Pep Total Protein Albumin Globulin Albumin/Globulin Ratio Procalcitonin TSH 3rd Generation Arterial Blood Potassium 3.3 L Venous Blood Potassium Urine Color Urine Clarity Urine pH Ur Specific [place] Urine Protein Urine Glucose (UA) Urine Ketones Urine Blood Urine Nitrate Urine Bilirubin Urine Urobilinogen Ur Leukocyte Esterase Urine WBC (Auto) Urine RBC (Auto) Urine Bacteria Urine Opiates Screen Urine Methadone Screen Ur Barbiturates Screen Ur Phencyclidine Scrn Ur Amphetamines Screen U Benzodiazepines Scrn U Oth Cocaine Metabols U Cannabinoids Screen Alcohol, Quantitative B-Hydroxybutyrate 05/24/18 08:59 WBC RBC Hgb Hct MCV MCH MCHC RDW Plt Count MPV Neut % (Auto) Lymph % (Auto) [place] % (Auto) Eos % (Auto) Baso % (Auto) Neut # (Auto) Lymph # (Auto) [place] # (Auto) Eos # (Auto) Baso # (Auto) Neutrophils % (Manual) Band Neutrophils % Lymphocytes % (Manual) Monocytes % (Manual) Platelet Estimate Large Platelets Hypochromasia (manual) PT INR APTT Puncture Site pCO2 pO2 HCO3 ABG pH ABG Total CO2 ABG O2 Saturation ABG Base Excess Enrique Test ABG Potassium VBG pH VBG pCO2 VBG HCO3 VBG Total CO2 VBG O2 Sat (Calc) VBG Base Excess VBG Potassium A-a O2 Difference Respiratory Index Glucose Lactate Vent Mode Mechanical Rate FiO2 Tidal Volume PEEP Expiratory BiPAP Crit Value Called To Crit Value Called By Crit Value Read Back Blood Gas Notified Time Sodium Potassium Chloride Carbon Dioxide Anion Gap BUN Creatinine Est GFR ( Amer) Est GFR (Non-Af Amer) POC Glucose (mg/dL) 231 H Random Glucose Hemoglobin A1c Lactic Acid Calcium Phosphorus Magnesium Total Bilirubin AST ALT Alkaline Phosphatase Troponin I NT-Pro-B Natriuret Pep Total Protein Albumin Globulin Albumin/Globulin Ratio Procalcitonin TSH 3rd Generation Arterial Blood Potassium Venous Blood Potassium Urine Color Urine Clarity Urine pH Ur Specific [place] Urine Protein Urine Glucose (UA) Urine Ketones Urine Blood Urine Nitrate Urine Bilirubin Urine Urobilinogen Ur Leukocyte Esterase Urine WBC (Auto) Urine RBC (Auto) Urine Bacteria Urine Opiates Screen Urine Methadone Screen Ur Barbiturates Screen Ur Phencyclidine Scrn Ur Amphetamines Screen U Benzodiazepines Scrn U Oth Cocaine Metabols U Cannabinoids Screen Alcohol, Quantitative B-Hydroxybutyrate Assessment & Plan (1) Elevated troponin I measurement Status: Acute Comment: unlikely VT f/u with echo and likely a cardiac arrest at this (2) Cellulitis Status: Acute (3) History of percutaneous coronary intervention Status: Chronic Comment: Apparently with stent deployment in 2014 and 16
--- NOTE | 2018-05-24 13:44 | RAD ---
Date of service: 05/24/2018 HISTORY: CHF COMPARISON: Comparison is made with 05/23/2018 TECHNIQUE: 1 view obtained. FINDINGS: LUNGS: Again noted are diffuse reticular and reticulonodular opacities in the lungs likely associated with pulmonary vascular congestion. PLEURA: No significant pleural effusion identified, no pneumothorax apparent. CARDIOVASCULAR: No aortic atherosclerotic calcification present. Cardiomegaly is again noted. 0 OSSEOUS STRUCTURES: No significant abnormalities. VISUALIZED UPPER ABDOMEN: Normal. OTHER FINDINGS: None. IMPRESSION: Possible moderate pulmonary vascular congestion and cardiomegaly. Diffuse reticular opacities in the lungs.
[2018-05-24] MEDS ORDERED: (Novolin R) Insulin Human Regular 100 units/ml vial SC SCH (16:30)
[2018-05-24] MEDS: (Novolog) Insulin Aspart, Recombinant 100 u/ml 10 ml vial SC SCH ×3 (16:41→21:17)
[2018-05-24] MEDS ORDERED: (Lantus) Insulin Glargine, Recombinant SC SCH (22:00)
--- NOTE | 2018-05-25 01:28 | CON ---
DATE: 05/24/2018 ENDOCRINOLOGY CONSULTATION LOCATION: ICU room 14-A. HISTORY OF PRESENT ILLNESS: This is a 63-year-old female with known history of type 2 insulin-requiring diabetes, presenting here with acute and marked respiratory distress with supervening acute respiratory failure and subsequent intubation and is now being referred for diabetic evaluation for persistent hyperglycemic accelerations as noted thereof. PAST MEDICAL HISTORY: As mentioned above, history of type 2 insulin-requiring diabetes, on a combination of Levemir given as 100 units daily and NovoLog given at the variable dose per sliding scale at home. Again, the exact details are not known at this time as the patient is unable to give further history on her exact insulin dose. She was also on Janumet b.i.d. History of hypertension and dyslipidemia. History of coronary artery disease with previous coronary stent placements. History of hypertension and dyslipidemia, on antihypertensive and statin medications as given. History of generalized anxiety and depression. History of chronic bronchial asthma with subsequent chronic obstructive lung disease and previous admissions for exacerbations of the same. History of diffuse osteoarthritis and underlying osteoporosis. FAMILY HISTORY: Positive for hypertension and diabetes. SOCIAL HISTORY: The patient is an active current smoker at this time with no other substance use, has a supportive family otherwise. REVIEW OF SYSTEMS: Not possible at this time, but the chart has been reviewed in detail and the consultants notes have also been reviewed with the current ICU management as noted. PHYSICAL EXAMINATION: GENERAL: This is an obese female who was just extubated and currently placed on oxygen by nasal cannula. VITAL SIGNS: With a blood pressure of 150/90, pulse of 100 beats per minute and regular, temperature 99, respirations 20. Height is 5 feet 6 inches. Weight is 239 pounds. HEENT: Head: Normocephalic. Eyes: Anicteric with pink conjunctivae. Funduscopy not possible at this time. Ears, nose and throat: Otherwise, normal. NECK: Supple. Thyroid gland is in normal size. No carotid bruits or any cervical adenopathy. CARDIOPULMONARY: Some adynamic precordium. S1 and S2. Rapid and regular. LUNGS: Shows scattered rhonchi. ABDOMEN: Obese, soft with positive bowel sounds. EXTREMITIES: No peripheral edema. Pulses are +2 bilaterally. LABORATORY DATA: Today shows a BUN of 24, sodium 137, potassium 5.5, chloride 109, CO2 of 20, glucose 304, and creatinine 2.4. Her A1c is 7.9%. TSH is 2.12. The proBNP is 1010. The initial glucose levels were extremely elevated at 465 to 487 mg/dL, and the initial random glucose done yesterday was 517 mg/dL. ASSESSMENT: This is a 63-year-old female with uncontrolled and decompensated type 2 insulin-requiring diabetes with marked hyperglycemic accelerations, presenting here with hyperosmolar hyperglycemic state and mild ketosis and with supervening acute respiratory failure and concomitant congestive heart failure and is now being referred for diabetic evaluation and management. She also has diabetic microvascular complications of retinopathy, polyneuropathy, and nephropathy with underlying chronic kidney disease and diabetic macrovascular complications of coronary artery disease and peripheral vasculopathy as noted. PLAN OF MANAGEMENT: As the patient has just been extubated and is tolerating fairly well the oxygen delivery by nasal cannula and her diet has also been advanced as noted then, we will start her also on a more physiologic basal and bolus insulin drug combination today as ordered. We will modify the coverage scale using a low-dose NovoLog coverage as ordered to obviate hypoglycemia, and detailed orders have been given. We will add NovoLog given as 6 units t.i.d. before meals to start today as ordered. We will add basal insulin with Lantus given as 24 units subcutaneous at bedtime daily to start tonight. We will titrate incrementally as indicated to optimize metabolic control. We will also obtain serial chemistries and supplement accordingly as needed. We will follow. Rachel Brown MD
[2018-05-25] MEDS: Albuterol-Ipratrop 3 mg / 0.5 (3 ml) UD INH SCH ×4 (02:44→19:13)
[2018-05-25 06:25] LABS: BASO % 0.2 % (0.0-2.0); HEMOGLOBIN 10.1 g/dL (11.0-16.0); LYMPH # 2.3 K/uL (1.0-4.3); LYMPH % 11.6 % (20.0-40.0); MEAN CELL VOLUME 88.9 fL (81.0-99.0); MEAN CORPUSCULAR HGB CONC 32.6 g/dL (33.0-37.0); MEAN PLATELET VOLUME 9.7 fL (7.2-11.7); MONO % 5.2 % (0.0-10.0); NEUT # 16.5 K/uL (1.8-7.0); RBC 3.51 Mil/uL (3.80-5.20); RED CELL DISTRIBUTION WIDTH 15.1 % (11.5-14.5); WHITE BLOOD COUNT 19.9 K/uL (4.8-10.8)
[2018-05-25 06:40] LABS: ALB/GLOB RATIO 1.1 (1.0-2.1); ALBUMIN 3.5 g/dL (3.5-5.0); CALCIUM 9.4 mg/dl (8.6-10.4)
--- NOTE | 2018-05-25 07:34 | CP.CCUPN ---
CCU Subjective - Physician Review Subjective (Free Text): ICU Progress Note for Dr. Nolasco Pt seen and examined at bedside this am. Denies any acute complaints, observed OOB to chair, saturating well on 4 L NC. No acute events reported overnight by staff. 12-point ROS obtained, otherwise neg as per pt. CCU Objective - Vital Signs / Intake & Output Vital Signs (Last 4 hours): Vital Signs Pulse Resp BP Pulse Ox 05/25/18 06:20 95 05/25/18 06:12 83 25 H 194/91 H 95 05/25/18 05:08 83 18 171/83 H 94 L 05/25/18 04:08 88 23 165/58 H 93 L Intake and Output (Last 8hrs): Intake & Output 05/24/18 05/25/18 05/25/18 22:59 06:59 14:59 Intake Total 375 100 Output Total 800 200 Balance -425 -100 Weight 237 lb 10.533 oz Intake: Oral 375 100 Output: Urine 800 200 Urine, Voided 800 200 Other: # Voids Urine, Voided 1 1 - Physical Exam Head: Positive for: Atraumatic, Normocephalic Pupils: Positive for: PERRL Extroacular Muscles: Positive for: EOMI Conjunctiva: Positive for: Normal Mouth: Positive for: Moist Mucous Membranes Neck: Positive for: Normal Range of Motion. Negative for: JVD Respiratory/Chest: Positive for: Clear to Auscultation, Good Air Exchange. Negative for: Respiratory Distress, Accessory Muscle Use, Wheezes, Rales, Rhonchi Cardiovascular: Positive for: Regular Rate and Rhythm, Normal S1, S2. Negative for: Murmurs, Rub, Gallop Abdomen: Positive for: Normal Bowel Sounds. Negative for: Tenderness, Distention, Mass/Organomegaly Upper Extremity: Positive for: Normal Inspection, NORMAL PULSES, Neurovascularly Intact, Capillary Refill < 2s. Negative for: Cyanosis, Edema Lower Extremity: Positive for: Normal Inspection, NORMAL PULSES, Neurovascularly Intact, Capillary Refill < 2 s. Negative for: Edema Neurological: Positive for: GCS=15, CN II-XII Intact Skin: Positive for: Warm, Dry, Normal Color Psychiatric: Positive for: Alert, Oriented x 3 - Medications Active Medications: Active Medications Generic Name Dose Route Start Last Admin Trade Name Freq PRN Reason Stop Dose Admin Albuterol/Ipratropium 3 ml 05/24/18 02:00 05/25/18 02:44 Duoneb 3 Mg/0.5 Mg (3 Ml) Ud INH Not Given RQ6 FRANCY Aspirin 81 mg 05/24/18 10:00 05/24/18 09:35 Aspirin Chewable PO 81 mg DAILY FRANCY Administration Carvedilol 12.5 mg 05/23/18 23:15 05/24/18 17:08 Coreg PO 12.5 mg BID FRANCY Administration Furosemide 40 mg 05/24/18 10:00 05/24/18 09:34 Lasix PO 40 mg DAILY FRANCY Administration Heparin Sodium (Porcine) 5,000 units 05/23/18 23:30 05/25/18 05:55 Heparin SC 5,000 units Q8 FRANCY Administration Hydralazine HCl 100 mg 05/24/18 10:00 05/24/18 17:10 Apresoline PO 100 mg TID FRANCY Administration Ceftriaxone Sodium 2 gm/ 100 mls @ 100 mls/hr 05/24/18 10:00 05/24/18 09:43 Sodium Chloride IVPB 100 mls/hr DAILY FRANCY Administration Protocol Nitroglycerin/Dextrose 50 mg in 250 mls @ 1.5 mls/hr 05/24/18 03:30 05/24/18 12:30 Nitroglycerin 50 Mg/250 Ml D5w IV 0 mcg/min .Q24H FRANCY 0 mls/hr Titration Protocol 5 MCG/MIN Insulin Aspart 6 unit 05/24/18 16:30 05/24/18 16:41 Novolog SC 6 units AC FRANCY Administration Insulin Aspart 0 unit 05/24/18 16:30 05/24/18 21:17 Novolog SC Not Given ACHS [facility] Insulin Glargine 24 unit 05/24/18 22:00 05/24/18 21:23 Lantus SC 24 units HS FRANCY Administration Isosorbide Mononitrate 30 mg 05/24/18 10:00 05/25/18 06:16 Imdur Er PO 30 mg DAILY FRANCY Administration Pantoprazole Sodium 40 mg 05/23/18 23:30 05/24/18 23:35 Protonix Inj IVP 40 mg Q12H FRANCY Administration Ticagrelor 60 mg 05/24/18 10:00 05/24/18 17:08 Brilinta PO 60 mg BID FRANCY Administration - Patient Studies Lab Studies: Microbiology Studies 05/24/18 01:51 Blood Culture - Preliminary Blood NO GROWTH AFTER 24 HOURS 05/24/18 01:50 Blood Culture - Preliminary Blood NO GROWTH AFTER 24 HOURS Lab Studies 05/25/18 05/25/18 05/24/18 Range/Units 06:13 06:12 16:17 WBC 19.9 H (4.8-10.8) K/uL RBC 3.51 L (3.80-5.20) Mil/uL Hgb 10.1 L (11.0-16.0) g/dL Hct 31.2 L (34.0-47.0) % MCV 88.9 (81.0-99.0) fL MCH 29.0 (27.0-31.0) pg MCHC 32.6 L (33.0-37.0) g/dL RDW 15.1 H (11.5-14.5) % Plt Count 500 H (130-400) K/uL MPV 9.7 (7.2-11.7) fL Neut % (Auto) 83.0 H (50.0-75.0) % Lymph % (Auto) 11.6 L (20.0-40.0) % Alexander % (Auto) 5.2 (0.0-10.0) % Eos % (Auto) 0.0 (0.0-4.0) % Baso % (Auto) 0.2 (0.0-2.0) % Neut # (Auto) 16.5 H (1.8-7.0) K/uL Lymph # (Auto) 2.3 (1.0-4.3) K/uL Alexander # (Auto) 1.0 H (0.0-0.8) K/uL Eos # (Auto) 0.0 (0.0-0.7) K/uL Baso # (Auto) 0.0 (0.0-0.2) K/uL Neutrophils % (Manual) (50-75) % Band Neutrophils % (0-2) % Lymphocytes % (Manual) (20-40) % Monocytes % (Manual) (0-10) % Platelet Estimate (NORMAL) Large Platelets Hypochromasia (manual) Puncture Site pCO2 (35-45) mm/Hg pO2 (80-100) mm/Hg HCO3 (21-28) mmol/L ABG pH (7.35-7.45) ABG Total CO2 (22-28) mmol/L ABG O2 Saturation (95-98) % ABG Base Excess (-2.0-3.0) mmol/L Enrique Test ABG Potassium (3.6-5.2) mmol/L A-a O2 Difference mm/Hg Respiratory Index Sodium 137 (132-148) mmol/l Chloride 109 H (98-107) mmol/L Glucose (65-105) mg/dl Lactate (0.7-2.1) mmol/L Vent Mode Mechanical Rate FiO2 % Tidal Volume PEEP Potassium 4.8 (3.6-5.2) mmol/L Carbon Dioxide 23 (22-30) mmol/L Anion Gap 11 (10-20) BUN 33 H (7-17) mg/dL Creatinine 2.5 H (0.7-1.2) mg/dL Est GFR ( Amer) 24 Est GFR (Non-Af Amer) 19 POC Glucose (mg/dL) 306 H (65-110) mg/dL Random Glucose 191 H D (65-105) mg/dL Hemoglobin A1c (4.2-6.5) % Calcium 9.4 (8.6-10.4) mg/dl Phosphorus 4.2 (2.5-4.5) mg/dL Magnesium 2.4 H (1.6-2.3) mg/dL Total Bilirubin 0.6 (0.2-1.3) mg/dL AST 35 (14-36) U/L ALT 20 (9-52) U/L Alkaline Phosphatase 102 (38-126) U/L Total Protein 6.7 (6.3-8.3) g/dL Albumin 3.5 (3.5-5.0) g/dL Globulin 3.2 (2.2-3.9) gm/dL Albumin/Globulin Ratio 1.1 (1.0-2.1) Procalcitonin (0.19-0.49) NG/ML Arterial Blood Potassium (3.6-5.2) mmol/L 05/24/18 05/24/18 05/24/18 Range/Units 11:01 09:53 08:59 WBC (4.8-10.8) K/uL RBC (3.80-5.20) Mil/uL Hgb (11.0-16.0) g/dL Hct (34.0-47.0) % MCV (81.0-99.0) fL MCH (27.0-31.0) pg MCHC (33.0-37.0) g/dL RDW (11.5-14.5) % Plt Count (130-400) K/uL MPV (7.2-11.7) fL Neut % (Auto) (50.0-75.0) % Lymph % (Auto) (20.0-40.0) % Alexander % (Auto) (0.0-10.0) % Eos % (Auto) (0.0-4.0) % Baso % (Auto) (0.0-2.0) % Neut # (Auto) (1.8-7.0) K/uL Lymph # (Auto) (1.0-4.3) K/uL Alexander # (Auto) (0.0-0.8) K/uL Eos # (Auto) (0.0-0.7) K/uL Baso # (Auto) (0.0-0.2) K/uL Neutrophils % (Manual) (50-75) % Band Neutrophils % (0-2) % Lymphocytes % (Manual) (20-40) % Monocytes % (Manual) (0-10) % Platelet Estimate (NORMAL) Large Platelets Hypochromasia (manual) Puncture Site pCO2 (35-45) mm/Hg pO2 (80-100) mm/Hg HCO3 (21-28) mmol/L ABG pH (7.35-7.45) ABG Total CO2 (22-28) mmol/L ABG O2 Saturation (95-98) % ABG Base Excess (-2.0-3.0) mmol/L Enrique Test ABG Potassium (3.6-5.2) mmol/L A-a O2 Difference mm/Hg Respiratory Index Sodium (132-148) mmol/l Chloride (98-107) mmol/L Glucose (65-105) mg/dl Lactate (0.7-2.1) mmol/L Vent Mode Mechanical Rate FiO2 % Tidal Volume PEEP Potassium (3.6-5.2) mmol/L Carbon Dioxide (22-30) mmol/L Anion Gap (10-20) BUN (7-17) mg/dL Creatinine (0.7-1.2) mg/dL Est GFR ( Amer) Est GFR (Non-Af Amer) POC Glucose (mg/dL) 180 H 204 H 231 H (65-110) mg/dL Random Glucose (65-105) mg/dL Hemoglobin A1c (4.2-6.5) % Calcium (8.6-10.4) mg/dl Phosphorus (2.5-4.5) mg/dL Magnesium (1.6-2.3) mg/dL Total Bilirubin (0.2-1.3) mg/dL AST (14-36) U/L ALT (9-52) U/L Alkaline Phosphatase (38-126) U/L Total Protein (6.3-8.3) g/dL Albumin (3.5-5.0) g/dL Globulin (2.2-3.9) gm/dL Albumin/Globulin Ratio (1.0-2.1) Procalcitonin (0.19-0.49) NG/ML Arterial Blood Potassium (3.6-5.2) mmol/L 05/24/18 05/24/18 05/24/18 Range/Units 08:20 08:01 06:09 WBC (4.8-10.8) K/uL RBC (3.80-5.20) Mil/uL Hgb (11.0-16.0) g/dL Hct (34.0-47.0) % MCV (81.0-99.0) fL MCH (27.0-31.0) pg MCHC (33.0-37.0) g/dL RDW (11.5-14.5) % Plt Count (130-400) K/uL MPV (7.2-11.7) fL Neut % (Auto) (50.0-75.0) % Lymph % (Auto) (20.0-40.0) % Alexander % (Auto) (0.0-10.0) % Eos % (Auto) (0.0-4.0) % Baso % (Auto) (0.0-2.0) % Neut # (Auto) (1.8-7.0) K/uL Lymph # (Auto) (1.0-4.3) K/uL Alexander # (Auto) (0.0-0.8) K/uL Eos # (Auto) (0.0-0.7) K/uL Baso # (Auto) (0.0-0.2) K/uL Neutrophils % (Manual) 90 H (50-75) % Band Neutrophils % 1 (0-2) % Lymphocytes % (Manual) 7 L (20-40) % Monocytes % (Manual) 2 (0-10) % Platelet Estimate Slightly increased H (NORMAL) Large Platelets Present Hypochromasia (manual) Slight Puncture Site [place] pCO2 44 (35-45) mm/Hg pO2 322 H (80-100) mm/Hg HCO3 23.8 (21-28) mmol/L ABG pH 7.35 (7.35-7.45) ABG Total CO2 25.7 (22-28) mmol/L ABG O2 Saturation 99.9 H (95-98) % ABG Base Excess -1.5 (-2.0-3.0) mmol/L Enrique Test N/a gladys ABG Potassium 3.3 L (3.6-5.2) mmol/L A-a O2 Difference 336.0 mm/Hg Respiratory Index 1.0 Sodium 155.0 H (132-148) mmol/l Chloride 126.0 H (98-107) mmol/L Glucose 123 H (65-105) mg/dl Lactate 1.3 (0.7-2.1) mmol/L Vent Mode Prvc Mechanical Rate 10 FiO2 100.0 % Tidal Volume 500 PEEP 5 Potassium (3.6-5.2) mmol/L Carbon Dioxide (22-30) mmol/L Anion Gap (10-20) BUN (7-17) mg/dL Creatinine (0.7-1.2) mg/dL Est GFR ( Amer) Est GFR (Non-Af Amer) POC Glucose (mg/dL) 254 H (65-110) mg/dL Random Glucose (65-105) mg/dL Hemoglobin A1c (4.2-6.5) % Calcium (8.6-10.4) mg/dl Phosphorus (2.5-4.5) mg/dL Magnesium (1.6-2.3) mg/dL Total Bilirubin (0.2-1.3) mg/dL AST (14-36) U/L ALT (9-52) U/L Alkaline Phosphatase (38-126) U/L Total Protein (6.3-8.3) g/dL Albumin (3.5-5.0) g/dL Globulin (2.2-3.9) gm/dL Albumin/Globulin Ratio (1.0-2.1) Procalcitonin (0.19-0.49) NG/ML Arterial Blood Potassium 3.3 L (3.6-5.2) mmol/L 05/24/18 05/23/18 Range/Units 06:09 23:40 WBC (4.8-10.8) K/uL RBC (3.80-5.20) Mil/uL Hgb (11.0-16.0) g/dL Hct (34.0-47.0) % MCV (81.0-99.0) fL MCH (27.0-31.0) pg MCHC (33.0-37.0) g/dL RDW (11.5-14.5) % Plt Count (130-400) K/uL MPV (7.2-11.7) fL Neut % (Auto) (50.0-75.0) % Lymph % (Auto) (20.0-40.0) % Alexander % (Auto) (0.0-10.0) % Eos % (Auto) (0.0-4.0) % Baso % (Auto) (0.0-2.0) % Neut # (Auto) (1.8-7.0) K/uL Lymph # (Auto) (1.0-4.3) K/uL Alexander # (Auto) (0.0-0.8) K/uL Eos # (Auto) (0.0-0.7) K/uL Baso # (Auto) (0.0-0.2) K/uL Neutrophils % (Manual) (50-75) % Band Neutrophils % (0-2) % Lymphocytes % (Manual) (20-40) % Monocytes % (Manual) (0-10) % Platelet Estimate (NORMAL) Large Platelets Hypochromasia (manual) Puncture Site pCO2 (35-45) mm/Hg pO2 (80-100) mm/Hg HCO3 (21-28) mmol/L ABG pH (7.35-7.45) ABG Total CO2 (22-28) mmol/L ABG O2 Saturation (95-98) % ABG Base Excess (-2.0-3.0) mmol/L Enrique Test ABG Potassium (3.6-5.2) mmol/L A-a O2 Difference mm/Hg Respiratory Index Sodium (132-148) mmol/l Chloride (98-107) mmol/L Glucose (65-105) mg/dl Lactate (0.7-2.1) mmol/L Vent Mode Mechanical Rate FiO2 % Tidal Volume PEEP Potassium (3.6-5.2) mmol/L Carbon Dioxide (22-30) mmol/L Anion Gap (10-20) BUN (7-17) mg/dL Creatinine (0.7-1.2) mg/dL Est GFR ( Amer) Est GFR (Non-Af Amer) POC Glucose (mg/dL) (65-110) mg/dL Random Glucose (65-105) mg/dL Hemoglobin A1c 7.9 H D (4.2-6.5) % Calcium (8.6-10.4) mg/dl Phosphorus (2.5-4.5) mg/dL Magnesium (1.6-2.3) mg/dL Total Bilirubin (0.2-1.3) mg/dL AST (14-36) U/L ALT (9-52) U/L Alkaline Phosphatase (38-126) U/L Total Protein (6.3-8.3) g/dL Albumin (3.5-5.0) g/dL Globulin (2.2-3.9) gm/dL Albumin/Globulin Ratio (1.0-2.1) Procalcitonin 8.05 H (0.19-0.49) NG/ML Arterial Blood Potassium (3.6-5.2) mmol/L Laboratory Results - last 24 hr 05/23/18 05/24/18 05/24/18 23:40 06:09 06:09 WBC RBC Hgb Hct MCV MCH MCHC RDW Plt Count MPV Neut % (Auto) Lymph % (Auto) Alexander % (Auto) Eos % (Auto) Baso % (Auto) Neut # (Auto) Lymph # (Auto) Alexander # (Auto) Eos # (Auto) Baso # (Auto) Neutrophils % (Manual) 90 H Band Neutrophils % 1 Lymphocytes % (Manual) 7 L Monocytes % (Manual) 2 Platelet Estimate Slightly increased H Large Platelets Present Hypochromasia (manual) Slight Puncture Site pCO2 pO2 HCO3 ABG pH ABG Total CO2 ABG O2 Saturation ABG Base Excess Enrique Test ABG Potassium A-a O2 Difference Respiratory Index Sodium Chloride Glucose Lactate Vent Mode Mechanical Rate FiO2 Tidal Volume PEEP Potassium Carbon Dioxide Anion Gap BUN Creatinine Est GFR ( Amer) Est GFR (Non-Af Amer) POC Glucose (mg/dL) Random Glucose Hemoglobin A1c 7.9 H D Calcium Phosphorus Magnesium Total Bilirubin AST ALT Alkaline Phosphatase Total Protein Albumin Globulin Albumin/Globulin Ratio Procalcitonin 8.05 H Arterial Blood Potassium 05/24/18 05/24/18 05/24/18 08:01 08:20 08:59 WBC RBC Hgb Hct MCV MCH MCHC RDW Plt Count MPV Neut % (Auto) Lymph % (Auto) Alexander % (Auto) Eos % (Auto) Baso % (Auto) Neut # (Auto) Lymph # (Auto) Alexander # (Auto) Eos # (Auto) Baso # (Auto) Neutrophils % (Manual) Band Neutrophils % Lymphocytes % (Manual) Monocytes % (Manual) Platelet Estimate Large Platelets Hypochromasia (manual) Puncture Site Gladys pCO2 44 pO2 322 H HCO3 23.8 ABG pH 7.35 ABG Total CO2 25.7 ABG O2 Saturation 99.9 H ABG Base Excess -1.5 Enrique Test N/a gladys ABG Potassium 3.3 L A-a O2 Difference 336.0 Respiratory Index 1.0 Sodium 155.0 H Chloride 126.0 H Glucose 123 H Lactate 1.3 Vent Mode Prvc Mechanical Rate 10 FiO2 100.0 Tidal Volume 500 PEEP 5 Potassium Carbon Dioxide Anion Gap BUN Creatinine Est GFR ( Amer) Est GFR (Non-Af Amer) POC Glucose (mg/dL) 254 H 231 H Random Glucose Hemoglobin A1c Calcium Phosphorus Magnesium Total Bilirubin AST ALT Alkaline Phosphatase Total Protein Albumin Globulin Albumin/Globulin Ratio Procalcitonin Arterial Blood Potassium 3.3 L 05/24/18 05/24/18 05/24/18 09:53 11:01 16:17 WBC RBC Hgb Hct MCV MCH MCHC RDW Plt Count MPV Neut % (Auto) Lymph % (Auto) Alexander % (Auto) Eos % (Auto) Baso % (Auto) Neut # (Auto) Lymph # (Auto) Alexander # (Auto) Eos # (Auto) Baso # (Auto) Neutrophils % (Manual) Band Neutrophils % Lymphocytes % (Manual) Monocytes % (Manual) Platelet Estimate Large Platelets Hypochromasia (manual) Puncture Site pCO2 pO2 HCO3 ABG pH ABG Total CO2 ABG O2 Saturation ABG Base Excess Enrique Test ABG Potassium A-a O2 Difference Respiratory Index Sodium Chloride Glucose Lactate Vent Mode Mechanical Rate FiO2 Tidal Volume PEEP Potassium Carbon Dioxide Anion Gap BUN Creatinine Est GFR ( Amer) Est GFR (Non-Af Amer) POC Glucose (mg/dL) 204 H 180 H 306 H Random Glucose Hemoglobin A1c Calcium Phosphorus Magnesium Total Bilirubin AST ALT Alkaline Phosphatase Total Protein Albumin Globulin Albumin/Globulin Ratio Procalcitonin Arterial Blood Potassium 05/25/18 05/25/18 06:12 06:13 WBC 19.9 H RBC 3.51 L Hgb 10.1 L Hct 31.2 L MCV 88.9 MCH 29.0 MCHC 32.6 L RDW 15.1 H Plt Count 500 H MPV 9.7 Neut % (Auto) 83.0 H Lymph % (Auto) 11.6 L Alexander % (Auto) 5.2 Eos % (Auto) 0.0 Baso % (Auto) 0.2 Neut # (Auto) 16.5 H Lymph # (Auto) 2.3 Alexander # (Auto) 1.0 H Eos # (Auto) 0.0 Baso # (Auto) 0.0 Neutrophils % (Manual) Band Neutrophils % Lymphocytes % (Manual) Monocytes % (Manual) Platelet Estimate Large Platelets Hypochromasia (manual) Puncture Site pCO2 pO2 HCO3 ABG pH ABG Total CO2 ABG O2 Saturation ABG Base Excess Enrique Test ABG Potassium A-a O2 Difference Respiratory Index Sodium 137 Chloride 109 H Glucose Lactate Vent Mode Mechanical Rate FiO2 Tidal Volume PEEP Potassium 4.8 Carbon Dioxide 23 Anion Gap 11 BUN 33 H Creatinine 2.5 H Est GFR ( Amer) 24 Est GFR (Non-Af Amer) 19 POC Glucose (mg/dL) Random Glucose 191 H D Hemoglobin A1c Calcium 9.4 Phosphorus 4.2 Magnesium 2.4 H Total Bilirubin 0.6 AST 35 ALT 20 Alkaline Phosphatase 102 Total Protein 6.7 Albumin 3.5 Globulin 3.2 Albumin/Globulin Ratio 1.1 Procalcitonin Arterial Blood Potassium Radiology Impressions: Radiology Impressions Chest X-Ray 05/23/18 21:51 IMPRESSION: Findings suggestive of CHF and moderate pulmonary vascular congestion. Small right pleural effusion. Chest X-Ray 05/24/18 13:05 IMPRESSION: Possible moderate pulmonary vascular congestion and cardiomegaly. Diffuse reticular opacities in the lungs. Fingerstick Blood Sugar Results: 268 Review of Systems - EENT Eyes: UNREMARKABLE Ears: UNREMARKABLE Nose/Mouth/Throat: UNREMARKABLE - Cardiovascular Cardiovascular: UNREMARKABLE - Respiratory Respiratory: UNREMARKABLE - Gastrointestinal Gastrointestinal: UNREMARKABLE - Genitourinary Genitourinary: UNREMARKABLE - Musculoskeletal Musculoskeletal: UNREMARKABLE - Integumentary Integumentary: UNREMARKABLE - Neurological Neurological: Tremor Critical Care Progress Note - Nutrition Nutrition: Nutrition Category Date Time Status Heart Healthy Diet [DIET] Diets 05/24/18 Lunch Active Assessment/Plan - Assessment and Plan (Free Text) Assessment: 63 y o female with PMhx HLD, DM, HTN, CAD s/p 2 stents, asthma, depression, COPD, CHF, osteoporosis, hx non-compliance with medications, who presented to the ED [facility] for respiratory arrest with ?transient cardiac arrest in field. CPR initiated for 1-2 mins, pt then had bounding pulse as per EMS, and was started on BiPap in field. Pt admitted to ICU for management of acute hypoxic respiratory failure, likely 2/2 fluid overload, heart failure, hyperglycemia. Plan: Neuro: -AAOx3 -No gross deficits on exam -Will cont to monitor Cardio: -Hx HLD, HTN, CAD s/p 2 stents, CHF -EKG on admission: sinus tachycardia with short [place] interval, ST depressions in lateral leads -Tachycardia resolved, hemodynamically stable, cont to monitor -Echo ordered -Dr. Conteh consulted, recs appreciated -Trop 0.64 on 05/24/18 -V/Q scan and venous doppler LE b/l ordered to r/o PE and DVT, respectively -Briilinta bid, ASA daily -Coreg, Lasix, Hydralazine, Imdur Pulm: -Acute hypoxic respiratory failure, may be 2/2 fluid overload, CHF, hyperglycemia, HTN -Did not require intubation on admission -Saturating well on NC, titrated down from BiPap -Cont to titrate down -Pulm toilet -Maintain O2 sat > 92% -Recent CXR 3/31: Possible moderate pulmonary vascular congestion and cardiomegaly. Diffuse reticular opacities in the lungs. -Duonebs q6h -C/w Rocephin for possible aspiration PNA -Blood cxs NGTD -Leukocytosis trending up -Lactate 3.7 => 2.9 GI: -HHD -Protonix q12h Endo: -Hyperosmolar hyperglycemic state, FS 517 on admission -Hx DM2 -Fingersticks q6h -Hypoglycemic protocol -Insulin glargine 24 U sc hs, Insulin aspart 6 U sc ac -Endocrinology (Dr. Brown) consulted, recs appreciated Heme: -H/H stable ID: -Ceftriaxone, possible aspiration PNA -Lactate trending down -Blood cxs NGTD -Leukocytosis trending up -CXR findings as noted above PPX: -Protonix bid -SCD, Heparin q8h Pt seen, examined with, and plan discussed with Dr. Nolasco, attending physician. Enrique Willams DO PGY-1, [employer] Pager #[phone]
--- NOTE | 2018-05-25 08:05 | CP.PCM.PN ---
Subjective - Date & Time of Evaluation Date of Evaluation: 05/25/18 Time of Evaluation: 07:30 - Subjective Subjective: [id number] Endocrinology Progress note for Dr. Brown Patient seen and examined at bedside in ICU. Overnight patient was hypertensive. AM blood sugar was 191. Patient denies any abd pain, chest pain but reports headache. She states she has not eaten breakfast yet. 12 point ROS negative except as stated. Objective - Vital Signs/Intake and Output Vital Signs (last 24 hours): Temp Pulse Resp BP Pulse Ox 98.2 F 78 20 158/78 H 99 05/25/18 00:00 05/25/18 07:48 05/25/18 07:48 05/25/18 07:48 05/25/18 07:48 Intake and Output: 05/25/18 05/25/18 06:59 18:59 Intake Total 300 100 Output Total 400 Balance -100 100 - Medications Medications: Current Medications Albuterol/Ipratropium (Duoneb 3 Mg/0.5 Mg (3 Ml) Ud) 3 ml INH RQ6 [facility] Last Admin: 05/25/18 02:44 Dose: Not Given Aspirin (Aspirin Chewable) 81 mg PO DAILY [facility] Last Admin: 05/24/18 09:35 Dose: 81 mg Carvedilol (Coreg) 12.5 mg PO BID [facility] Last Admin: 05/24/18 17:08 Dose: 12.5 mg Furosemide (Lasix) 40 mg PO DAILY [facility] Last Admin: 05/24/18 09:34 Dose: 40 mg Heparin Sodium (Porcine) (Heparin) 5,000 units SC Q8 [facility] Last Admin: 05/25/18 05:55 Dose: 5,000 units Hydralazine HCl (Apresoline) 100 mg PO TID [facility] Last Admin: 05/24/18 17:10 Dose: 100 mg Ceftriaxone Sodium 2 gm/ (Sodium Chloride) 100 mls @ 100 mls/hr IVPB DAILY [facility]; Protocol Last Admin: 05/24/18 09:43 Dose: 100 mls/hr Nitroglycerin/Dextrose (Nitroglycerin 50 Mg/250 Ml D5w) 50 mg in 250 mls @ 1.5 mls/hr IV .Q24H [facility]; Protocol Last Titration: 05/24/18 12:30 Dose: 0 mcg/min, 0 mls/hr Insulin Aspart (Novolog) 6 unit SC AC [facility] Last Admin: 05/24/18 16:41 Dose: 6 units Insulin Aspart (Novolog) 0 unit SC ACHS [facility] Last Admin: 05/24/18 21:17 Dose: Not Given Insulin Glargine (Lantus) 24 unit SC HS [facility] Last Admin: 05/24/18 21:23 Dose: 24 units Isosorbide Mononitrate (Imdur Er) 30 mg PO DAILY [facility] Last Admin: 05/25/18 06:16 Dose: 30 mg Pantoprazole Sodium (Protonix Inj) 40 mg IVP Q12H [facility] Last Admin: 05/24/18 23:35 Dose: 40 mg Ticagrelor (Brilinta) 60 mg PO BID [facility] Last Admin: 05/24/18 17:08 Dose: 60 mg - Labs Labs: 05/25/18 06:13 05/25/18 06:12 PT 9.8 SECONDS (9.7-12.2) 05/23/18 10:10 INR 0.9 05/23/18 10:10 APTT 32 SECONDS (21-34) 05/23/18 10:10 - Constitutional Appears: No Acute Distress - Head Exam Head Exam: ATRAUMATIC, NORMAL INSPECTION, NORMOCEPHALIC - Eye Exam Eye Exam: EOMI, Normal appearance - ENT Exam ENT Exam: Mucous Membranes Moist - Respiratory Exam Respiratory Exam: Clear to Ausculation Bilateral, NORMAL BREATHING PATTERN. absent: Rhonchi, Wheezes, Respiratory Distress Additional comments: NC in place - Cardiovascular Exam Cardiovascular Exam: REGULAR RHYTHM, +S1, +S2. absent: Bradycardia, Tachycardia - GI/Abdominal Exam GI & Abdominal Exam: Soft, Normal Bowel Sounds. absent: Distended, Firm, Guarding, Tenderness - Extremities Exam Extremities Exam: Normal Inspection. absent: Pedal Edema, Tenderness - Neurological Exam Neurological Exam: Alert, Awake, Oriented x3 - Skin Skin Exam: Dry, Intact, Normal Color, Warm Assessment and Plan - Assessment and Plan (Free Text) Assessment: 63 yo female with PMH of uncontrolled type 2 insulin dependent diabetes, HTN, hyperlidpemia, CAD presented to hospital with acute respiratory failure requiring intubation, currently extubated on nasal cannula. Endocrinology was consulted for hyperosmolar hyperglycemic states. Plan: This morning patients blood sugar was 191. Over the past 24 hours her sugars have ranged from 180- 306. Currently patient is in heart health, carb consistent diet. She is on Lantus 24 units HS, novolog 6 units ac and insulin sliding scale. Yesterday afternoon she require 3 units. On 05/23 Hgba1c was 7.5 and TSH was within normal range. Will continue to monitor. case reviewed and discussed with Dr. Brown
[2018-05-25] MEDS: (Novolog) Insulin Aspart, Recombinant 100 u/ml 10 ml vial SC SCH ×7 (08:06→21:41)
[2018-05-25] MEDS: Nitroglycerin 50mg in D5W 50 MG/250 ML BOTTLE IV SCH (08:30)
--- NOTE | 2018-05-25 12:23 | CP.PCM.PN ---
Subjective - Date & Time of Evaluation Date of Evaluation: 05/25/18 Time of Evaluation: 12:00 - Subjective Subjective: No acute distress, no further loss of consciousness, no arrhythmia in ICU overnight, await an echo stable hemodynamically, other campaign marketing specialist was called without notifying me? will sign off Objective - Vital Signs/Intake and Output Vital Signs (last 24 hours): Temp Pulse Resp BP Pulse Ox 98.2 F 83 22 131/53 L 90 L 05/25/18 00:00 05/25/18 09:08 05/25/18 09:08 05/25/18 09:08 05/25/18 09:08 Intake and Output: 05/25/18 05/25/18 06:59 18:59 Intake Total 300 350 Output Total 400 200 Balance -100 150 - Medications Medications: Current Medications Albuterol/Ipratropium (Duoneb 3 Mg/0.5 Mg (3 Ml) Ud) 3 ml INH RQ6 [facility] Last Admin: 05/25/18 07:50 Dose: 3 ml Aspirin (Aspirin Chewable) 81 mg PO DAILY [facility] Last Admin: 05/24/18 09:35 Dose: 81 mg Carvedilol (Coreg) 12.5 mg PO BID [facility] Last Admin: 05/24/18 17:08 Dose: 12.5 mg Furosemide (Lasix) 40 mg PO DAILY [facility] Last Admin: 05/24/18 09:34 Dose: 40 mg Heparin Sodium (Porcine) (Heparin) 5,000 units SC Q8 [facility] Last Admin: 05/25/18 05:55 Dose: 5,000 units Hydralazine HCl (Apresoline) 100 mg PO TID [facility] Last Admin: 05/24/18 17:10 Dose: 100 mg Ceftriaxone Sodium 2 gm/ (Sodium Chloride) 100 mls @ 100 mls/hr IVPB DAILY [facility]; Protocol Last Admin: 05/24/18 09:43 Dose: 100 mls/hr Nitroglycerin/Dextrose (Nitroglycerin 50 Mg/250 Ml D5w) 50 mg in 250 mls @ 1.5 mls/hr IV .Q24H [facility]; Protocol Last Admin: 05/25/18 08:30 Dose: Not Given Insulin Aspart (Novolog) 6 unit SC AC [facility] Last Admin: 05/24/18 16:41 Dose: 6 units Insulin Aspart (Novolog) 0 unit SC ACHS [facility] Last Admin: 05/25/18 08:50 Dose: Not Given Insulin Glargine (Lantus) 24 unit SC HS [facility] Last Admin: 05/24/18 21:23 Dose: 24 units Isosorbide Mononitrate (Imdur Er) 30 mg PO DAILY [facility] Last Admin: 05/25/18 06:16 Dose: 30 mg Pantoprazole Sodium (Protonix Inj) 40 mg IVP Q12H [facility] Last Admin: 05/24/18 23:35 Dose: 40 mg Ticagrelor (Brilinta) 60 mg PO BID [facility] Last Admin: 05/24/18 17:08 Dose: 60 mg - Labs Labs: 05/25/18 06:13 05/25/18 06:12 PT 9.8 SECONDS (9.7-12.2) 05/23/18 10:10 INR 0.9 05/23/18 10:10 APTT 32 SECONDS (21-34) 05/23/18 10:10 - Constitutional Appears: Non-toxic - Head Exam Head Exam: ATRAUMATIC - Eye Exam Eye Exam: EOMI - ENT Exam ENT Exam: Mucous Membranes Moist - Neck Exam Neck Exam: absent: Lymphadenopathy, Thyromegaly - Respiratory Exam Respiratory Exam: Clear to Ausculation Bilateral. absent: Rales - Cardiovascular Exam Cardiovascular Exam: REGULAR RHYTHM, Murmur - GI/Abdominal Exam GI & Abdominal Exam: Normal Bowel Sounds. absent: Organomegaly - Rectal Exam Rectal Exam: Deferred - Extremities Exam Extremities Exam: Normal Capillary Refill. absent: Calf Tenderness - Neurological Exam Neurological Exam: Alert, Oriented x3 - Psychiatric Exam Psychiatric exam: Normal Mood - Skin Skin Exam: Dry Assessment and Plan (1) Elevated troponin I measurement Status: Acute (2) Cellulitis Status: Acute (3) History of percutaneous coronary intervention Status: Chronic
[2018-05-25] MEDS: cefTRIAXone 2 GM in Sodium Chloride 0.9% 100 ML IVPB SCH (12:30)
--- NOTE | 2018-05-25 13:20 | NM ---
Date of service: 05/25/2018 COMPARISON: 05/24/2018. Single-view chest TECHNIQUE: 7.9 mCi technetium 99-m Xe-133 Gas. 3.4 mCI technetium 99-m MAA administered intravenously. FINDINGS: VENTILATION COMPONENT: Heterogeneous consistent with findings on recent chest x-ray. PERFUSION COMPONENT: Heterogeneous distribution of radionuclide. No geographic, segmental, lobar abnormalities apparent on the present examination. IMPRESSION: Low probability ventilation perfusion scan for pulmonary embolism.
--- NOTE | 2018-05-25 17:47 | CP.PCM.PN ---
Subjective - Date & Time of Evaluation Date of Evaluation: 05/25/18 Time of Evaluation: 17:56 - Subjective Subjective: Pt reports feeling better. Per RN pt had one episode of hypoxemia in the 80's off oxygen. Pt did not however complained of sob at the time. Pt reports she was placed on Brelinta recently when she was admitted to [facility] with similar episode of sob and states it was given for her heart. Pt today however reports some rectal bledding at home recently. Today she has been coughing up blood. Pt however in no acute distress. Pt sister at bed time. Pt has sleep apnea, but has not gotten CPAP for home as she reports did not want to go to sleep in the hospital overnight. Pt repots her sugars have been in the 150-200 range at home, but tend to be elevated in the morning in the 300. Pt states she checks her sugars frequently. Pt had sugars in the 500 range on admission, was placed on IV drip but now on sq injections. Objective - Vital Signs/Intake and Output Vital Signs (last 24 hours): Temp Pulse Resp BP Pulse Ox 98.2 F 76 20 156/77 H 96 05/25/18 00:00 05/25/18 17:00 05/25/18 17:00 05/25/18 13:03 05/25/18 17:00 Intake and Output: 05/25/18 05/25/18 06:59 18:59 Intake Total 300 1050 Output Total 400 850 Balance -100 200 - Medications Medications: Current Medications Albuterol/Ipratropium (Duoneb 3 Mg/0.5 Mg (3 Ml) Ud) 3 ml INH RQ6 [facility] Last Admin: 05/25/18 13:44 Dose: 3 ml Aspirin (Aspirin Chewable) 81 mg PO DAILY [facility] Last Admin: 05/25/18 12:28 Dose: Not Given Carvedilol (Coreg) 12.5 mg PO BID [facility] Last Admin: 05/25/18 12:29 Dose: Not Given Furosemide (Lasix) 40 mg PO DAILY [facility] Last Admin: 05/25/18 12:30 Dose: Not Given Hydralazine HCl (Apresoline) 100 mg PO Q8H [facility] Ceftriaxone Sodium 2 gm/ (Sodium Chloride) 100 mls @ 100 mls/hr IVPB DAILY [facility]; Protocol Last Admin: 05/25/18 12:30 Dose: Not Given Nitroglycerin/Dextrose (Nitroglycerin 50 Mg/250 Ml D5w) 50 mg in 250 mls @ 1.5 mls/hr IV .Q24H [facility]; Protocol Last Admin: 05/25/18 08:30 Dose: Not Given Insulin Aspart (Novolog) 0 unit SC ACHS [facility] Last Admin: 05/25/18 13:07 Dose: Not Given Insulin Aspart (Novolog) 8 unit SC AC [facility] Insulin Glargine (Lantus) 28 unit SC HS [facility] Isosorbide Mononitrate (Imdur Er) 30 mg PO DAILY [facility] Last Admin: 05/25/18 12:29 Dose: Not Given Pantoprazole Sodium (Protonix Inj) 40 mg IVP Q12H [facility] Last Admin: 05/25/18 12:30 Dose: Not Given Ticagrelor (Brilinta) 60 mg PO BID [facility] Last Admin: 05/25/18 12:29 Dose: Not Given - Labs Labs: 05/25/18 06:13 05/25/18 06:12 PT 9.8 SECONDS (9.7-12.2) 05/23/18 10:10 INR 0.9 05/23/18 10:10 APTT 32 SECONDS (21-34) 05/23/18 10:10 - Constitutional Appears: Well, Non-toxic, No Acute Distress - Eye Exam Eye Exam: Normal appearance - ENT Exam ENT Exam: Mucous Membranes Moist - Respiratory Exam Respiratory Exam: Decreased Breath Sounds. absent: Rales, Rhonchi - Cardiovascular Exam Cardiovascular Exam: REGULAR RHYTHM. absent: JVD - GI/Abdominal Exam GI & Abdominal Exam: absent: Tenderness - Extremities Exam Extremities Exam: absent: Joint Swelling - Neurological Exam Neurological Exam: Alert, Awake, Oriented x3 Assessment and Plan - Assessment and Plan (Free Text) Plan: 1. Sp cardiao/pumonary arrest VQ low prob CXR; congestion and opacities +initial cardiac enzyme 2. hempotysis 3. Diabetes latest aic 11.3 compliance? ho of extremely high insulin tolerance , was in study protocol at [facility] years ago, but sugars much better inpatient with hospital dietuys 4. Acute renal failure 5. anemia ( ho recent bloody stools) 6. Sleep apnea 7. Diabetic neuropathy has been on Lyria for many years started by previous primary 8. HTN 9. Transient mental status changes Discussed hemoptysis with Dr. Nolasco will hold off asa and Rebekahlinta follow cbc closely, stool studies consulted her cardiologyst Dr. Joshua Cuellar who has been following her outpatient. case discussed in detail with patient and sister at bedside.
[2018-05-25] MEDS ORDERED: (Novolog) Insulin Aspart, Recombinant 100 u/ml 10 ml vial SC ONE (18:00)
[2018-05-25] MEDS: (Lantus) Insulin Glargine, Recombinant SC SCH (22:40)
--- NOTE | 2018-05-26 00:30 | PN ---
DATE: 05/25/2018 ENDOCRINOLOGY FOLLOWUP NOTE LOCATION: ICU room 14 A. SUBJECTIVE: This is a 63-year-old female with recent uncontrolled type 2 insulin-requiring diabetes, presenting here with progressive shortness of breath and supervening acute respiratory failure and is now being followed closely for metabolic management. She has since then extubated and currently tolerating oxygen by nasal cannula delivery as noted. Her glycemic levels are fluctuating as noted overnight, and the glucose values have ranged from 183 to 268 mg/dL. It was 306 at bedtime last night. LABORATORY DATA: Her chemistry showed a BUN of 33, sodium 137, potassium 4.8, chloride 109, CO2 of 23, glucose 191, and creatinine 2.5. ASSESSMENT: This is a 63-year-old female with uncontrolled type 2 insulin-requiring diabetes with recent acute respiratory failure and endotracheal intubation and has since then improved clinically and hemodynamically with subsequent extubation and now is tolerating oxygen by nasal cannula delivery as noted. She also has diabetic microvascular complications of retinopathy, polyneuropathy, and nephropathy with underlying chronic kidney disease as noted. She also has diabetic macrovascular complications of coronary artery disease and peripheral arterial disease and vasculopathy. PLAN OF MANAGEMENT: We will modify once again her basal and bolus insulin regimen and increase the NovoLog to 8 units t.i.d. before meals to start today as ordered. We will also modify her basal insulin and increase the Lantus to 28 units subcu at bedtime daily to start tonight. We will continue the low-dose correction scale using NovoLog insulin as ordered to obviate hypoglycemia and detailed orders have been given. We will obtain serial chemistries and supplement accordingly as needed. We will follow. Rachel Brown MD
[2018-05-26] MEDS: Albuterol-Ipratrop 3 mg / 0.5 (3 ml) UD INH SCH ×4 (02:21→19:46)
[2018-05-26] MEDS: Nitroglycerin 50mg in D5W 50 MG/250 ML BOTTLE IV SCH (03:00)
[2018-05-26] MEDS: (Novolog) Insulin Aspart, Recombinant 100 u/ml 10 ml vial SC SCH ×8 (05:20→21:27)
[2018-05-26 06:12] LABS: BASO # 0.2 K/uL (0.0-0.2); BASO % 1.2 % (0.0-2.0); EOS % 0.4 % (0.0-4.0); HEMOGLOBIN 10.2 g/dL (11.0-16.0); LYMPH # 2.7 K/uL (1.0-4.3); LYMPH % 21.7 % (20.0-40.0); MEAN CELL VOLUME 89.2 fL (81.0-99.0); MEAN CORPUSCULAR HEMOGLOBIN 29.1 pg (27.0-31.0); MEAN CORPUSCULAR HGB CONC 32.6 g/dL (33.0-37.0); MEAN PLATELET VOLUME 9.6 fL (7.2-11.7); MONO # 1.1 K/uL (0.0-0.8); MONO % 8.4 % (0.0-10.0); NEUT # 8.6 K/uL (1.8-7.0); NEUT % 68.3 % (50.0-75.0); RBC 3.5 Mil/uL (3.80-5.20); RED CELL DISTRIBUTION WIDTH 15.1 % (11.5-14.5); WHITE BLOOD COUNT 12.5 K/uL (4.8-10.8)
[2018-05-26 06:29] LABS: IRON 25 ug/dL (37-170)
[2018-05-26 06:39] LABS: % IRON SATURATION 10 (20-55); TOTAL IRON BINDING CAPACITY 242 ug/dL (250-450)
[2018-05-26 06:47] LABS: ALB/GLOB RATIO 1.2 (1.0-2.1); ALBUMIN 3.5 g/dL (3.5-5.0); ALT/SGPT < 6 U/L (9-52); AST/SGOT 27 U/L (14-36); BLOOD UREA NITROGEN 32 mg/dL (7-17); CALCIUM 8.8 mg/dl (8.6-10.4); CK-MB 1.12 ng/mL (0.0-3.38); GFR NON-AFRICAN AMERICAN 16
[2018-05-26 07:04] LABS: FERRITIN 59.9 ng/mL
--- NOTE | 2018-05-26 07:14 | CP.CCUPN ---
<Enrique Willams - Last Filed: 05/26/18 14:20> CCU Subjective - Physician Review Subjective (Free Text): ICU Progress Note for Dr. Staton Pt seen and examined at bedside this am. C/o pinpoint chest pain that comes and goes this am, non-radiating, denies associated shortness of breath or chest tig htness. No acute events reported overnight by staff. 12-point ROS obtained, otherwise neg as per pt. CCU Objective - Vital Signs / Intake & Output Vital Signs (Last 4 hours): Vital Signs Pulse Resp BP Pulse Ox 05/26/18 06:08 72 18 123/63 96 05/26/18 05:52 77 19 120/65 94 L 05/26/18 05:07 74 17 126/59 L 95 05/26/18 04:08 77 22 119/59 L 90 L Intake and Output (Last 8hrs): Intake & Output 05/25/18 05/26/18 05/26/18 22:59 06:59 14:59 Intake Total 470 120 240 Output Total 650 400 0 Balance -180 -280 240 Weight 243 lb 2.718 oz Intake: Intake, IV Amount 0 Left Hand 0 Right Hand Y-Site 0 Oral 470 120 240 Output: Urine 650 400 0 Urine, Voided 650 400 0 - Physical Exam Head: Positive for: Atraumatic, Normocephalic Pupils: Positive for: PERRL Extroacular Muscles: Positive for: EOMI Conjunctiva: Positive for: Normal Mouth: Positive for: Moist Mucous Membranes Neck: Positive for: Normal Range of Motion. Negative for: JVD Respiratory/Chest: Positive for: Clear to Auscultation, Good Air Exchange. Negative for: Respiratory Distress, Accessory Muscle Use, Wheezes, Rales, Rhonchi Cardiovascular: Positive for: Regular Rate and Rhythm, Normal S1, S2. Negative for: Murmurs, Rub, Gallop Abdomen: Positive for: Normal Bowel Sounds. Negative for: Tenderness, Distention, Mass/Organomegaly Upper Extremity: Positive for: Normal Inspection, NORMAL PULSES, Neurovascularly Intact, Capillary Refill < 2s. Negative for: Cyanosis, Edema Lower Extremity: Positive for: Normal Inspection, NORMAL PULSES, Neurovascularly Intact, Capillary Refill < 2 s. Negative for: Edema Neurological: Positive for: GCS=15, CN II-XII Intact Skin: Positive for: Warm, Dry, Normal Color Psychiatric: Positive for: Alert, Oriented x 3 - Medications Active Medications: Active Medications Generic Name Dose Route Start Last Admin Trade Name Jose David PRN Reason Stop Dose Admin Albuterol/Ipratropium 3 ml 05/24/18 02:00 05/26/18 02:21 Duoneb 3 Mg/0.5 Mg (3 Ml) Ud INH Not Given RQ6 [facility] Aspirin 81 mg 05/24/18 10:00 05/25/18 12:28 Aspirin Chewable PO Not Given DAILY [facility] Carvedilol 12.5 mg 05/23/18 23:15 05/25/18 18:37 Coreg PO 12.5 mg BID FRANCY Administration Furosemide 40 mg 05/24/18 10:00 05/25/18 12:30 Lasix PO Not Given DAILY [facility] Hydralazine HCl 100 mg 05/25/18 14:30 05/26/18 06:12 Apresoline PO 100 mg Q8H [facility] Administration Ceftriaxone Sodium 2 gm/ 100 mls @ 100 mls/hr 05/24/18 10:00 05/25/18 12:30 Sodium Chloride IVPB Not Given DAILY [facility] Protocol Nitroglycerin/Dextrose 50 mg in 250 mls @ 1.5 mls/hr 05/24/18 03:30 05/26/18 03:00 Nitroglycerin 50 Mg/250 Ml D5w IV Not Given .Q24H [facility] Protocol 5 MCG/MIN Insulin Aspart 0 unit 05/24/18 16:30 05/25/18 21:41 Novolog SC Not Given ACHS [facility] Insulin Aspart 8 unit 05/25/18 16:30 05/25/18 18:38 Novolog SC Not Given AC [facility] Insulin Glargine 28 unit 05/25/18 22:00 05/25/18 22:40 Lantus SC 28 units HS [facility] Administration Isosorbide Mononitrate 30 mg 05/24/18 10:00 05/25/18 12:29 Imdur Er PO Not Given DAILY [facility] Pantoprazole Sodium 40 mg 05/23/18 23:30 05/25/18 22:44 Protonix Inj IVP 40 mg Q12H FRANCY Administration Ticagrelor 60 mg 05/24/18 10:00 05/25/18 12:29 Brilinta PO Not Given BID FRANCY - Patient Studies Lab Studies: Microbiology Studies 05/24/18 01:51 Blood Culture - Preliminary Blood NO GROWTH AFTER 48 HOURS 05/24/18 01:50 Blood Culture - Preliminary Blood NO GROWTH AFTER 48 HOURS 05/24/18 09:31 MRSA Culture (Admit) - Final Naris MRSA NOT DETECTED Lab Studies 05/26/18 05/26/18 05/26/18 Range/Units 06:00 06:00 06:00 WBC 12.5 H (4.8-10.8) K/uL RBC 3.50 L (3.80-5.20) Mil/uL Hgb 10.2 L (11.0-16.0) g/dL Hct 31.3 L (34.0-47.0) % MCV 89.2 (81.0-99.0) fL MCH 29.1 (27.0-31.0) pg MCHC 32.6 L (33.0-37.0) g/dL RDW 15.1 H (11.5-14.5) % Plt Count 487 H (130-400) K/uL MPV 9.6 (7.2-11.7) fL Neut % (Auto) 68.3 (50.0-75.0) % Lymph % (Auto) 21.7 (20.0-40.0) % Real % (Auto) 8.4 (0.0-10.0) % Eos % (Auto) 0.4 (0.0-4.0) % Baso % (Auto) 1.2 (0.0-2.0) % Neut # (Auto) 8.6 H (1.8-7.0) K/uL Lymph # (Auto) 2.7 (1.0-4.3) K/uL Real # (Auto) 1.1 H (0.0-0.8) K/uL Eos # (Auto) 0.0 (0.0-0.7) K/uL Baso # (Auto) 0.2 (0.0-0.2) K/uL Sodium 137 (132-148) mmol/L Potassium 4.6 (3.6-5.2) mmol/L Chloride 108 H (98-107) mmol/L Carbon Dioxide 22 (22-30) mmol/L Anion Gap 12 (10-20) BUN 32 H (7-17) mg/dL Creatinine 2.9 H (0.7-1.2) mg/dL Est GFR ( Amer) 20 Est GFR (Non-Af Amer) 16 POC Glucose (mg/dL) (65-110) mg/dL Random Glucose 157 H (65-105) mg/dL Calcium 8.8 (8.6-10.4) mg/dl Phosphorus 5.2 H (2.5-4.5) mg/dL Magnesium 2.2 (1.6-2.3) mg/dL Iron 25 L (37-170) ug/dL TIBC 242 L (250-450) ug/dL % Saturation 10 L (20-55) Ferritin 59.9 ng/mL Total Bilirubin 0.5 (0.2-1.3) mg/dL AST 27 (14-36) U/L ALT < 6 L D (9-52) U/L Alkaline Phosphatase 101 (38-126) U/L Total Creatine Kinase 74 (30-135) U/L CK-MB (Mass) 1.12 (0.0-3.38) ng/mL Troponin I 0.1420 H* (0.00-0.120) ng/mL Total Protein 6.5 (6.3-8.3) g/dL Albumin 3.5 (3.5-5.0) g/dL Globulin 2.9 (2.2-3.9) gm/dL Albumin/Globulin Ratio 1.2 (1.0-2.1) 05/26/18 Range/Units 04:16 WBC (4.8-10.8) K/uL RBC (3.80-5.20) Mil/uL Hgb (11.0-16.0) g/dL Hct (34.0-47.0) % MCV (81.0-99.0) fL MCH (27.0-31.0) pg MCHC (33.0-37.0) g/dL RDW (11.5-14.5) % Plt Count (130-400) K/uL MPV (7.2-11.7) fL Neut % (Auto) (50.0-75.0) % Lymph % (Auto) (20.0-40.0) % Real % (Auto) (0.0-10.0) % Eos % (Auto) (0.0-4.0) % Baso % (Auto) (0.0-2.0) % Neut # (Auto) (1.8-7.0) K/uL Lymph # (Auto) (1.0-4.3) K/uL Real # (Auto) (0.0-0.8) K/uL Eos # (Auto) (0.0-0.7) K/uL Baso # (Auto) (0.0-0.2) K/uL Sodium (132-148) mmol/L Potassium (3.6-5.2) mmol/L Chloride (98-107) mmol/L Carbon Dioxide (22-30) mmol/L Anion Gap (10-20) BUN (7-17) mg/dL Creatinine (0.7-1.2) mg/dL Est GFR ( Amer) Est GFR (Non-Af Amer) POC Glucose (mg/dL) 131 H (65-110) mg/dL Random Glucose (65-105) mg/dL Calcium (8.6-10.4) mg/dl Phosphorus (2.5-4.5) mg/dL Magnesium (1.6-2.3) mg/dL Iron (37-170) ug/dL TIBC (250-450) ug/dL % Saturation (20-55) Ferritin ng/mL Total Bilirubin (0.2-1.3) mg/dL AST (14-36) U/L ALT (9-52) U/L Alkaline Phosphatase (38-126) U/L Total Creatine Kinase (30-135) U/L CK-MB (Mass) (0.0-3.38) ng/mL Troponin I (0.00-0.120) ng/mL Total Protein (6.3-8.3) g/dL Albumin (3.5-5.0) g/dL Globulin (2.2-3.9) gm/dL Albumin/Globulin Ratio (1.0-2.1) Laboratory Results - last 24 hr 05/26/18 05/26/18 05/26/18 04:16 06:00 06:00 WBC 12.5 H RBC 3.50 L Hgb 10.2 L Hct 31.3 L MCV 89.2 MCH 29.1 MCHC 32.6 L RDW 15.1 H Plt Count 487 H MPV 9.6 Neut % (Auto) 68.3 Lymph % (Auto) 21.7 Real % (Auto) 8.4 Eos % (Auto) 0.4 Baso % (Auto) 1.2 Neut # (Auto) 8.6 H Lymph # (Auto) 2.7 Real # (Auto) 1.1 H Eos # (Auto) 0.0 Baso # (Auto) 0.2 Sodium 137 Potassium 4.6 Chloride 108 H Carbon Dioxide 22 Anion Gap 12 BUN 32 H Creatinine 2.9 H Est GFR ( Amer) 20 Est GFR (Non-Af Amer) 16 POC Glucose (mg/dL) 131 H Random Glucose 157 H Calcium 8.8 Phosphorus 5.2 H Magnesium 2.2 Iron TIBC % Saturation Ferritin 59.9 Total Bilirubin 0.5 AST 27 ALT < 6 L D Alkaline Phosphatase 101 Total Creatine Kinase 74 CK-MB (Mass) 1.12 Troponin I 0.1420 H* Total Protein 6.5 Albumin 3.5 Globulin 2.9 Albumin/Globulin Ratio 1.2 05/26/18 06:00 WBC RBC Hgb Hct MCV MCH MCHC RDW Plt Count MPV Neut % (Auto) Lymph % (Auto) Real % (Auto) Eos % (Auto) Baso % (Auto) Neut # (Auto) Lymph # (Auto) Real # (Auto) Eos # (Auto) Baso # (Auto) Sodium Potassium Chloride Carbon Dioxide Anion Gap BUN Creatinine Est GFR ( Amer) Est GFR (Non-Af Amer) POC Glucose (mg/dL) Random Glucose Calcium Phosphorus Magnesium Iron 25 L TIBC 242 L % Saturation 10 L Ferritin Total Bilirubin AST ALT Alkaline Phosphatase Total Creatine Kinase CK-MB (Mass) Troponin I Total Protein Albumin Globulin Albumin/Globulin Ratio Radiology Impressions: Radiology Impressions Lung Scan Nuclear Medicine 05/25/18 11:20 IMPRESSION: Low probability ventilation perfusion scan for pulmonary embolism. Fingerstick Blood Sugar Results: 132 Review of Systems - Constitutional Constitutional: absent: Fever, Chills - EENT Eyes: UNREMARKABLE - Cardiovascular Cardiovascular: Chest Pain. absent: Diaphoresis, Dyspnea, Edema, Palpitations, Syncope - Respiratory Respiratory: absent: Cough, Dyspnea, Wheezing - Gastrointestinal Gastrointestinal: absent: Abdominal Pain, Constipation, Diarrhea, Nausea, Vomiting - Genitourinary Genitourinary: UNREMARKABLE Critical Care Progress Note - Nutrition Nutrition: Nutrition Category Date Time Status Heart Healthy Diet [DIET] Diets 05/24/18 Lunch Active Assessment/Plan - Assessment and Plan (Free Text) Assessment: 63 y o female with PMhx HLD, DM, HTN, CAD s/p 2 stents, asthma, depression, COPD, CHF, osteoporosis, hx non-compliance with medications, who presented to the ED [facility] for respiratory arrest with ?transient cardiac arrest in field. CPR initiated for 1-2 mins, pt then had bounding pulse as per EMS, and was started on BiPap in field. Pt admitted to ICU for management of acute hypoxic respiratory failure, likely 2/2 fluid overload, heart failure, hyperglycemia. Nuclear stress test ordered as per Cardiology recs. Plan: Neuro: -AAOx3 -No gross deficits on exam -Will cont to monitor Cardio: -Hx HLD, HTN, CAD s/p 2 stents, CHF -EKG on admission: sinus tachycardia with short OK interval, ST depressions in lateral leads; repeat EKG this am no acute changes -Tachycardia resolved, hemodynamically stable, cont to monitor -Echo done, f/u results -Dr. Rodriguez consulted, recs appreciated -Trop 0.64 on 05/24/18 => 0.14 this am -V/Q scan and venous doppler LE b/l neg for PE and DVT, respectively -Briilinta on hold, ASA daily -Coreg, Lasix, Hydralazine, Imdur -Pending nuclear stress test as per Cardio recs Pulm: -Acute hypoxic respiratory failure, may be 2/2 fluid overload, CHF, hyperglycemia, HTN -Did not require intubation on admission -Saturating well on NC, titrated down from BiPap -ABG this am improved compared to admission -Cont to titrate down -Pulm toilet -Maintain O2 sat > 92% -Recent CXR 05/24: Possible moderate pulmonary vascular congestion and cardiomegaly. Diffuse reticular opacities in the lungs. -Duonebs q6h -C/w Rocephin for possible aspiration PNA -Blood cxs NGTD -Leukocytosis trending up -Lactate 3.7 => 2.9 GI: -HHD -Protonix q12h Endo: -Hyperosmolar hyperglycemic state, FS 517 on admission -Hx DM2 -Fingersticks q6h -Hypoglycemic protocol -Insulin glargine 28 U sc hs, Insulin aspart 8 U sc ac -Endocrinology (Dr. Brown) consulted, recs appreciated Heme: -H/H stable -Iron studies low ID: -Ceftriaxone, possible aspiration PNA -Lactate trending down -Blood cxs NGTD -Leukocytosis trending down -CXR findings as noted above PPX: -Protonix bid -SCD, Heparin q8h Pt seen, examined with, and plan discussed with Dr. Staton, attending physician. Enrique Willams DO PGY-1, Plating Engineer Pager #[phone] <Osvaldo Staton S - Last Filed: 05/26/18 17:13> CCU Subjective - Physician Review Critical Care Time Spent (in minutes): 40 CCU Objective - Vital Signs / Intake & Output Vital Signs (Last 4 hours): Vital Signs Pulse Resp 05/26/18 14:00 76 21 Intake and Output (Last 8hrs): Intake & Output 05/26/18 05/26/18 05/26/18 06:59 14:59 22:59 Intake Total 120 1300 Output Total 400 400 Balance -280 900 Weight 243 lb 2.718 oz Intake: Intake, IV Amount 100 Right Hand Y-Site 100 Oral 120 1200 Output: Urine 400 400 Urine, Voided 400 400 Stool 0 Emesis 0 Other: # Voids Urine, Voided 1 - Medications Active Medications: Active Medications Generic Name Dose Route Start Last Admin Trade Name Freq PRN Reason Stop Dose Admin Albuterol/Ipratropium 3 ml 05/24/18 02:00 05/26/18 14:13 Duoneb 3 Mg/0.5 Mg (3 Ml) Ud INH 3 ml RQ6 FRANCY Administration Aspirin 81 mg 05/24/18 10:00 05/25/18 12:28 Aspirin Chewable PO Not Given DAILY FRANCY Carvedilol 12.5 mg 05/23/18 23:15 05/26/18 09:54 Coreg PO 12.5 mg BID FRANCY Administration Docusate Sodium 100 mg 05/26/18 15:00 05/26/18 15:14 Colace PO 100 mg BID FRANCY Administration Furosemide 40 mg 05/24/18 10:00 05/26/18 09:56 Lasix PO 40 mg DAILY FRANCY Administration Heparin Sodium (Porcine) 5,000 units 05/26/18 10:00 05/26/18 11:31 Heparin SC 5,000 units Q12H FRANCY Administration Hydralazine HCl 100 mg 05/25/18 14:30 05/26/18 15:14 Apresoline PO 100 mg Q8H FRANCY Administration Ceftriaxone Sodium 2 gm/ 100 mls @ 100 mls/hr 05/24/18 10:00 05/26/18 09:53 Sodium Chloride IVPB 100 mls/hr DAILY FRANCY Administration Protocol Insulin Aspart 0 unit 05/24/18 16:30 05/26/18 12:16 Novolog SC Not Given ACHS FRANCY Insulin Aspart 8 unit 05/25/18 16:30 05/26/18 12:15 Novolog SC 8 units AC FRANCY Administration Insulin Glargine 28 unit 05/25/18 22:00 05/25/18 22:40 Lantus SC 28 units HS FRANCY Administration Isosorbide Mononitrate 30 mg 05/24/18 10:00 05/26/18 09:56 Imdur Er PO 30 mg DAILY FRANCY Administration Pantoprazole Sodium 40 mg 05/23/18 23:30 05/26/18 12:25 Protonix Inj IVP 40 mg Q12H FRANCY Administration Polyethylene Glycol 17 gm 05/26/18 14:47 Miralax PO DAILY PRN Constipation Ticagrelor 60 mg 05/24/18 10:00 05/25/18 12:29 Brilinta PO Not Given BID [facility] - Patient Studies Lab Studies: Microbiology Studies 05/24/18 01:51 Blood Culture - Preliminary Blood NO GROWTH AFTER 48 HOURS 05/24/18 01:50 Blood Culture - Preliminary Blood NO GROWTH AFTER 48 HOURS 05/24/18 09:31 MRSA Culture (Admit) - Final Naris MRSA NOT DETECTED Lab Studies 05/26/18 05/26/18 05/26/18 Range/Units 12:27 11:19 07:24 WBC (4.8-10.8) K/uL RBC (3.80-5.20) Mil/uL Hgb (11.0-16.0) g/dL Hct (34.0-47.0) % MCV (81.0-99.0) fL MCH (27.0-31.0) pg MCHC (33.0-37.0) g/dL RDW (11.5-14.5) % Plt Count (130-400) K/uL MPV (7.2-11.7) fL Neut % (Auto) (50.0-75.0) % Lymph % (Auto) (20.0-40.0) % Real % (Auto) (0.0-10.0) % Eos % (Auto) (0.0-4.0) % Baso % (Auto) (0.0-2.0) % Neut # (Auto) (1.8-7.0) K/uL Lymph # (Auto) (1.0-4.3) K/uL Real # (Auto) (0.0-0.8) K/uL Eos # (Auto) (0.0-0.7) K/uL Baso # (Auto) (0.0-0.2) K/uL Puncture Site Lb pCO2 36 (35-45) mm/Hg pO2 68 L (80-100) mm/Hg HCO3 23.7 (21-28) mmol/L ABG pH 7.41 (7.35-7.45) ABG Total CO2 23.9 (22-28) mmol/L ABG O2 Saturation 97.0 (95-98) % ABG Base Excess -1.4 (-2.0-3.0) mmol/L Enrique Test Na ABG Potassium 4.7 (3.6-5.2) mmol/L Glucose 231 H (65-105) mg/dl Lactate 0.8 (0.7-2.1) mmol/L Liter Flow 3.0 Sodium 138.0 (132-148) mmol/L Potassium (3.6-5.2) mmol/L Chloride 107.0 (98-107) mmol/L Carbon Dioxide (22-30) mmol/L Anion Gap (10-20) BUN (7-17) mg/dL Creatinine (0.7-1.2) mg/dL Est GFR ( Amer) Est GFR (Non-Af Amer) POC Glucose (mg/dL) 262 H 197 H (65-110) mg/dL Random Glucose (65-105) mg/dL Calcium (8.6-10.4) mg/dl Phosphorus (2.5-4.5) mg/dL Magnesium (1.6-2.3) mg/dL Iron (37-170) ug/dL TIBC (250-450) ug/dL % Saturation (20-55) Ferritin ng/mL Total Bilirubin (0.2-1.3) mg/dL AST (14-36) U/L ALT (9-52) U/L Alkaline Phosphatase (38-126) U/L Total Creatine Kinase (30-135) U/L CK-MB (Mass) (0.0-3.38) ng/mL Troponin I (0.00-0.120) ng/mL Total Protein (6.3-8.3) g/dL Albumin (3.5-5.0) g/dL Globulin (2.2-3.9) gm/dL Albumin/Globulin Ratio (1.0-2.1) Arterial Blood Potassium 4.7 (3.6-5.2) mmol/L Butalbital Confirm Opiates (GC/MS) Codeine Confirmation Morphine Confirm Hydrocodone Confirm Oxycodone Confirm Methadone (GC/MS) Methadone Confirm Free Hydromorphone Conf Propoxyphenes Norpropoxyphene Barbiturates Phencyclidine (PCP) Phencyclidine (GC/MS) Amphetamines Amphetamines Confirm Methamphetamine Confirm Methylenedioxyamph MDA MDMA Amobarbital Confirm Butabarbital Pentobarbital Confirm Phenobarbital Confirm Secobarbital Confirm Alprazolam Confirm Benzodiazepines Nordiazepam Confirm Desalkylfluraze Cnfrm Lorazepam Confirm Oxazepam Confirmation Cocaine & Metabolite Cocaine Confirmation Cocaethylene Confirm Benzoylecgonine Confrm Ecgonine Methyl Adeline Marijuana THC Confirmation Carboxy THC Confirm Drugs of Abuse Comment 05/26/18 05/26/18 05/26/18 Range/Units 06:00 06:00 06:00 WBC 12.5 H (4.8-10.8) K/uL RBC 3.50 L (3.80-5.20) Mil/uL Hgb 10.2 L (11.0-16.0) g/dL Hct 31.3 L (34.0-47.0) % MCV 89.2 (81.0-99.0) fL MCH 29.1 (27.0-31.0) pg MCHC 32.6 L (33.0-37.0) g/dL RDW 15.1 H (11.5-14.5) % Plt Count 487 H (130-400) K/uL MPV 9.6 (7.2-11.7) fL Neut % (Auto) 68.3 (50.0-75.0) % Lymph % (Auto) 21.7 (20.0-40.0) % Real % (Auto) 8.4 (0.0-10.0) % Eos % (Auto) 0.4 (0.0-4.0) % Baso % (Auto) 1.2 (0.0-2.0) % Neut # (Auto) 8.6 H (1.8-7.0) K/uL Lymph # (Auto) 2.7 (1.0-4.3) K/uL Real # (Auto) 1.1 H (0.0-0.8) K/uL Eos # (Auto) 0.0 (0.0-0.7) K/uL Baso # (Auto) 0.2 (0.0-0.2) K/uL Puncture Site pCO2 (35-45) mm/Hg pO2 (80-100) mm/Hg HCO3 (21-28) mmol/L ABG pH (7.35-7.45) ABG Total CO2 (22-28) mmol/L ABG O2 Saturation (95-98) % ABG Base Excess (-2.0-3.0) mmol/L Enrique Test ABG Potassium (3.6-5.2) mmol/L Glucose (65-105) mg/dl Lactate (0.7-2.1) mmol/L Liter Flow Sodium 137 (132-148) mmol/L Potassium 4.6 (3.6-5.2) mmol/L Chloride 108 H (98-107) mmol/L Carbon Dioxide 22 (22-30) mmol/L Anion Gap 12 (10-20) BUN 32 H (7-17) mg/dL Creatinine 2.9 H (0.7-1.2) mg/dL Est GFR ( Amer) 20 Est GFR (Non-Af Amer) 16 POC Glucose (mg/dL) (65-110) mg/dL Random Glucose 157 H (65-105) mg/dL Calcium 8.8 (8.6-10.4) mg/dl Phosphorus 5.2 H (2.5-4.5) mg/dL Magnesium 2.2 (1.6-2.3) mg/dL Iron 25 L (37-170) ug/dL TIBC 242 L (250-450) ug/dL % Saturation 10 L (20-55) Ferritin 59.9 ng/mL Total Bilirubin 0.5 (0.2-1.3) mg/dL AST 27 (14-36) U/L ALT < 6 L D (9-52) U/L Alkaline Phosphatase 101 (38-126) U/L Total Creatine Kinase 74 (30-135) U/L CK-MB (Mass) 1.12 (0.0-3.38) ng/mL Troponin I 0.1420 H* (0.00-0.120) ng/mL Total Protein 6.5 (6.3-8.3) g/dL Albumin 3.5 (3.5-5.0) g/dL Globulin 2.9 (2.2-3.9) gm/dL Albumin/Globulin Ratio 1.2 (1.0-2.1) Arterial Blood Potassium (3.6-5.2) mmol/L Butalbital Confirm Opiates (GC/MS) Codeine Confirmation Morphine Confirm Hydrocodone Confirm Oxycodone Confirm Methadone (GC/MS) Methadone Confirm Free Hydromorphone Conf Propoxyphenes Norpropoxyphene Barbiturates Phencyclidine (PCP) Phencyclidine (GC/MS) Amphetamines Amphetamines Confirm Methamphetamine Confirm Methylenedioxyamph MDA MDMA Amobarbital Confirm Butabarbital Pentobarbital Confirm Phenobarbital Confirm Secobarbital Confirm Alprazolam Confirm Benzodiazepines Nordiazepam Confirm Desalkylfluraze Cnfrm Lorazepam Confirm Oxazepam Confirmation Cocaine & Metabolite Cocaine Confirmation Cocaethylene Confirm Benzoylecgonine Confrm Ecgonine Methyl Adeline Marijuana THC Confirmation Carboxy THC Confirm Drugs of Abuse Comment 05/26/18 05/24/18 Range/Units 04:16 06:09 WBC (4.8-10.8) K/uL RBC (3.80-5.20) Mil/uL Hgb (11.0-16.0) g/dL Hct (34.0-47.0) % MCV (81.0-99.0) fL MCH (27.0-31.0) pg MCHC (33.0-37.0) g/dL RDW (11.5-14.5) % Plt Count (130-400) K/uL MPV (7.2-11.7) fL Neut % (Auto) (50.0-75.0) % Lymph % (Auto) (20.0-40.0) % Real % (Auto) (0.0-10.0) % Eos % (Auto) (0.0-4.0) % Baso % (Auto) (0.0-2.0) % Neut # (Auto) (1.8-7.0) K/uL Lymph # (Auto) (1.0-4.3) K/uL Real # (Auto) (0.0-0.8) K/uL Eos # (Auto) (0.0-0.7) K/uL Baso # (Auto) (0.0-0.2) K/uL Puncture Site pCO2 (35-45) mm/Hg pO2 (80-100) mm/Hg HCO3 (21-28) mmol/L ABG pH (7.35-7.45) ABG Total CO2 (22-28) mmol/L ABG O2 Saturation (95-98) % ABG Base Excess (-2.0-3.0) mmol/L Enrique Test ABG Potassium (3.6-5.2) mmol/L Glucose (65-105) mg/dl Lactate (0.7-2.1) mmol/L Liter Flow Sodium (132-148) mmol/L Potassium (3.6-5.2) mmol/L Chloride (98-107) mmol/L Carbon Dioxide (22-30) mmol/L Anion Gap (10-20) BUN (7-17) mg/dL Creatinine (0.7-1.2) mg/dL Est GFR ( Amer) Est GFR (Non-Af Amer) POC Glucose (mg/dL) 131 H (65-110) mg/dL Random Glucose (65-105) mg/dL Calcium (8.6-10.4) mg/dl Phosphorus (2.5-4.5) mg/dL Magnesium (1.6-2.3) mg/dL Iron (37-170) ug/dL TIBC (250-450) ug/dL % Saturation (20-55) Ferritin ng/mL Total Bilirubin (0.2-1.3) mg/dL AST (14-36) U/L ALT (9-52) U/L Alkaline Phosphatase (38-126) U/L Total Creatine Kinase (30-135) U/L CK-MB (Mass) (0.0-3.38) ng/mL Troponin I (0.00-0.120) ng/mL Total Protein (6.3-8.3) g/dL Albumin (3.5-5.0) g/dL Globulin (2.2-3.9) gm/dL Albumin/Globulin Ratio (1.0-2.1) Arterial Blood Potassium (3.6-5.2) mmol/L Butalbital Confirm TNP Opiates (GC/MS) TNP Codeine Confirmation TNP Morphine Confirm TNP Hydrocodone Confirm TNP Oxycodone Confirm TNP Methadone (GC/MS) TNP Methadone Confirm TNP Free Hydromorphone Conf TNP Propoxyphenes TNP Norpropoxyphene TNP Barbiturates TNP Phencyclidine (PCP) TNP Phencyclidine (GC/MS) TNP Amphetamines TNP Amphetamines Confirm TNP Methamphetamine Confirm TNP Methylenedioxyamph MDA TNP MDMA TNP Amobarbital Confirm TNP Butabarbital TNP Pentobarbital Confirm TNP Phenobarbital Confirm TNP Secobarbital Confirm TNP Alprazolam Confirm TNP Benzodiazepines TNP Nordiazepam Confirm TNP Desalkylfluraze Cnfrm TNP Lorazepam Confirm TNP Oxazepam Confirmation TNP Cocaine & Metabolite TNP Cocaine Confirmation TNP Cocaethylene Confirm TNP Benzoylecgonine Confrm TNP Ecgonine Methyl Adeline TNP Marijuana TNP THC Confirmation TNP Carboxy THC Confirm TNP Drugs of Abuse Comment TNP Laboratory Results - last 24 hr 05/24/18 05/26/18 05/26/18 06:09 04:16 06:00 WBC 12.5 H RBC 3.50 L Hgb 10.2 L Hct 31.3 L MCV 89.2 MCH 29.1 MCHC 32.6 L RDW 15.1 H Plt Count 487 H MPV 9.6 Neut % (Auto) 68.3 Lymph % (Auto) 21.7 Real % (Auto) 8.4 Eos % (Auto) 0.4 Baso % (Auto) 1.2 Neut # (Auto) 8.6 H Lymph # (Auto) 2.7 Real # (Auto) 1.1 H Eos # (Auto) 0.0 Baso # (Auto) 0.2 Puncture Site pCO2 pO2 HCO3 ABG pH ABG Total CO2 ABG O2 Saturation ABG Base Excess Enrique Test ABG Potassium Glucose Lactate Liter Flow Sodium Potassium Chloride Carbon Dioxide Anion Gap BUN Creatinine Est GFR ( Amer) Est GFR (Non-Af Amer) POC Glucose (mg/dL) 131 H Random Glucose Calcium Phosphorus Magnesium Iron TIBC % Saturation Ferritin Total Bilirubin AST ALT Alkaline Phosphatase Total Creatine Kinase CK-MB (Mass) Troponin I Total Protein Albumin Globulin Albumin/Globulin Ratio Arterial Blood Potassium Butalbital Confirm TNP Opiates (GC/MS) TNP Codeine Confirmation TNP Morphine Confirm TNP Hydrocodone Confirm TNP Oxycodone Confirm TNP Methadone (GC/MS) TNP Methadone Confirm TNP Free Hydromorphone Conf TNP Propoxyphenes TNP Norpropoxyphene TNP Barbiturates TNP Phencyclidine (PCP) TNP Phencyclidine (GC/MS) TNP Amphetamines TNP Amphetamines Confirm TNP Methamphetamine Confirm TNP Methylenedioxyamph MDA TNP MDMA TNP Amobarbital Confirm TNP Butabarbital TNP Pentobarbital Confirm TNP Phenobarbital Confirm TNP Secobarbital Confirm TNP Alprazolam Confirm TNP Benzodiazepines TNP Nordiazepam Confirm TNP Desalkylfluraze Cnfrm TNP Lorazepam Confirm TNP Oxazepam Confirmation TNP Cocaine & Metabolite TNP Cocaine Confirmation TNP Cocaethylene Confirm TNP Benzoylecgonine Confrm TNP Ecgonine Methyl Adeline TNP Marijuana TNP THC Confirmation TNP Carboxy THC Confirm TNP Drugs of Abuse Comment TNP 05/26/18 05/26/18 05/26/18 06:00 06:00 07:24 WBC RBC Hgb Hct MCV MCH MCHC RDW Plt Count MPV Neut % (Auto) Lymph % (Auto) Real % (Auto) Eos % (Auto) Baso % (Auto) Neut # (Auto) Lymph # (Auto) Real # (Auto) Eos # (Auto) Baso # (Auto) Puncture Site pCO2 pO2 HCO3 ABG pH ABG Total CO2 ABG O2 Saturation ABG Base Excess Enrique Test ABG Potassium Glucose Lactate Liter Flow Sodium 137 Potassium 4.6 Chloride 108 H Carbon Dioxide 22 Anion Gap 12 BUN 32 H Creatinine 2.9 H Est GFR ( Amer) 20 Est GFR (Non-Af Amer) 16 POC Glucose (mg/dL) 197 H Random Glucose 157 H Calcium 8.8 Phosphorus 5.2 H Magnesium 2.2 Iron 25 L TIBC 242 L % Saturation 10 L Ferritin 59.9 Total Bilirubin 0.5 AST 27 ALT < 6 L D Alkaline Phosphatase 101 Total Creatine Kinase 74 CK-MB (Mass) 1.12 Troponin I 0.1420 H* Total Protein 6.5 Albumin 3.5 Globulin 2.9 Albumin/Globulin Ratio 1.2 Arterial Blood Potassium Butalbital Confirm Opiates (GC/MS) Codeine Confirmation Morphine Confirm Hydrocodone Confirm Oxycodone Confirm Methadone (GC/MS) Methadone Confirm Free Hydromorphone Conf Propoxyphenes Norpropoxyphene Barbiturates Phencyclidine (PCP) Phencyclidine (GC/MS) Amphetamines Amphetamines Confirm Methamphetamine Confirm Methylenedioxyamph MDA MDMA Amobarbital Confirm Butabarbital Pentobarbital Confirm Phenobarbital Confirm Secobarbital Confirm Alprazolam Confirm Benzodiazepines Nordiazepam Confirm Desalkylfluraze Cnfrm Lorazepam Confirm Oxazepam Confirmation Cocaine & Metabolite Cocaine Confirmation Cocaethylene Confirm Benzoylecgonine Confrm Ecgonine Methyl Adeline Marijuana THC Confirmation Carboxy THC Confirm Drugs of Abuse Comment 05/26/18 05/26/18 11:19 12:27 WBC RBC Hgb Hct MCV MCH MCHC RDW Plt Count MPV Neut % (Auto) Lymph % (Auto) Real % (Auto) Eos % (Auto) Baso % (Auto) Neut # (Auto) Lymph # (Auto) Real # (Auto) Eos # (Auto) Baso # (Auto) Puncture Site Lb pCO2 36 pO2 68 L HCO3 23.7 ABG pH 7.41 ABG Total CO2 23.9 ABG O2 Saturation 97.0 ABG Base Excess -1.4 Enrique Test Na ABG Potassium 4.7 Glucose 231 H Lactate 0.8 Liter Flow 3.0 Sodium 138.0 Potassium Chloride 107.0 Carbon Dioxide Anion Gap BUN Creatinine Est GFR ( Amer) Est GFR (Non-Af Amer) POC Glucose (mg/dL) 262 H Random Glucose Calcium Phosphorus Magnesium Iron TIBC % Saturation Ferritin Total Bilirubin AST ALT Alkaline Phosphatase Total Creatine Kinase CK-MB (Mass) Troponin I Total Protein Albumin Globulin Albumin/Globulin Ratio Arterial Blood Potassium 4.7 Butalbital Confirm Opiates (GC/MS) Codeine Confirmation Morphine Confirm Hydrocodone Confirm Oxycodone Confirm Methadone (GC/MS) Methadone Confirm Free Hydromorphone Conf Propoxyphenes Norpropoxyphene Barbiturates Phencyclidine (PCP) Phencyclidine (GC/MS) Amphetamines Amphetamines Confirm Methamphetamine Confirm Methylenedioxyamph MDA MDMA Amobarbital Confirm Butabarbital Pentobarbital Confirm Phenobarbital Confirm Secobarbital Confirm Alprazolam Confirm Benzodiazepines Nordiazepam Confirm Desalkylfluraze Cnfrm Lorazepam Confirm Oxazepam Confirmation Cocaine & Metabolite Cocaine Confirmation Cocaethylene Confirm Benzoylecgonine Confrm Ecgonine Methyl Adeline Marijuana THC Confirmation Carboxy THC Confirm Drugs of Abuse Comment Radiology Impressions: Radiology Impressions Duplex Scan Lower Extremity Artery 05/25/18 10:24 IMPRESSION: Right: No evidence of deep or superficial vein thrombosis of the right lower extremity. Normal valve function noted of the right side. Left: No evidence of deep or superficial vein thrombosis of the left lower extremity. Normal valve function noted of the left side. EKG/Cardiology Studies: Cardiology / EKG Studies 05/26/18 08:12 EKG [ELECTROCARDIOGRAM] Stat Comment: Mode Of Transportation: Reason For Exam: chest pain Critical Care Progress Note - Nutrition Nutrition: Nutrition Category Date Time Status Heart Healthy Diet [DIET] Diets 05/24/18 Lunch Active Attending/Attestation - Attestation I have personally seen and examined this patient.: Yes I have fully participated in the care of the patient.: Yes I have reviewed all pertinent clinical information: Yes Notes (Text): 05/26/18 17:13 Patient seen and examined in the intensive care unit. Case discussed with housestaff in the morning rounds. Seen by cardiology and ordered nuclear stress test Patient awake alert oriented Continue present treatment for now Monitor renal function
--- NOTE | 2018-05-26 07:56 | CP.PCM.PN ---
Subjective - Date & Time of Evaluation Date of Evaluation: 05/26/18 Time of Evaluation: 07:30 - Subjective Subjective: Endocrinology Progress note for Dr. Brown Patient seen and examined at bedside in ICU. Overnight patient was comfortable. Patient reports chest wall tenderness. She denies any abd pain, nausea or vomiting,headache or dizziness. Yesterday she was able to eat without any issues. 12 point ROS negative except as stated. Objective - Vital Signs/Intake and Output Vital Signs (last 24 hours): Temp Pulse Resp BP Pulse Ox 98.0 F 72 18 123/63 96 05/26/18 04:00 05/26/18 06:08 05/26/18 06:08 05/26/18 06:08 05/26/18 06:08 Intake and Output: 05/26/18 05/26/18 06:59 18:59 Intake Total 240 240 Output Total 400 0 Balance -160 240 - Medications Medications: Current Medications Albuterol/Ipratropium (Duoneb 3 Mg/0.5 Mg (3 Ml) Ud) 3 ml INH RQ6 [facility] Last Admin: 05/26/18 07:25 Dose: 3 ml Aspirin (Aspirin Chewable) 81 mg PO DAILY [facility] Last Admin: 05/25/18 12:28 Dose: Not Given Carvedilol (Coreg) 12.5 mg PO BID [facility] Last Admin: 05/25/18 18:37 Dose: 12.5 mg Furosemide (Lasix) 40 mg PO DAILY [facility] Last Admin: 05/25/18 12:30 Dose: Not Given Hydralazine HCl (Apresoline) 100 mg PO Q8H [facility] Last Admin: 05/26/18 06:12 Dose: 100 mg Ceftriaxone Sodium 2 gm/ (Sodium Chloride) 100 mls @ 100 mls/hr IVPB DAILY [facility]; Protocol Last Admin: 05/25/18 12:30 Dose: Not Given Nitroglycerin/Dextrose (Nitroglycerin 50 Mg/250 Ml D5w) 50 mg in 250 mls @ 1.5 mls/hr IV .Q24H [facility]; Protocol Last Admin: 05/26/18 03:00 Dose: Not Given Insulin Aspart (Novolog) 0 unit SC ACHS [facility] Last Admin: 05/25/18 21:41 Dose: Not Given Insulin Aspart (Novolog) 8 unit SC AC [facility] Last Admin: 05/25/18 18:38 Dose: Not Given Insulin Glargine (Lantus) 28 unit SC HS [facility] Last Admin: 05/25/18 22:40 Dose: 28 units Isosorbide Mononitrate (Imdur Er) 30 mg PO DAILY [facility] Last Admin: 05/25/18 12:29 Dose: Not Given Pantoprazole Sodium (Protonix Inj) 40 mg IVP Q12H [facility] Last Admin: 05/25/18 22:44 Dose: 40 mg Ticagrelor (Brilinta) 60 mg PO BID [facility] Last Admin: 05/25/18 12:29 Dose: Not Given - Labs Labs: 05/26/18 06:00 05/26/18 06:00 PT 9.8 SECONDS (9.7-12.2) 05/23/18 10:10 INR 0.9 05/23/18 10:10 APTT 32 SECONDS (21-34) 05/23/18 10:10 - Additional Findings Additional findings: - Constitutional Appears: No Acute Distress - Head Exam Head Exam: ATRAUMATIC, NORMAL INSPECTION, NORMOCEPHALIC - Eye Exam Eye Exam: EOMI, Normal appearance - ENT Exam ENT Exam: Mucous Membranes Moist - Respiratory Exam Respiratory Exam: Clear to Ausculation Bilateral, NORMAL BREATHING PATTERN. absent: Rhonchi, Wheezes, Respiratory Distress - Cardiovascular Exam Cardiovascular Exam: REGULAR RHYTHM, +S1, +S2. absent: Bradycardia, Tachycardia Additional comments: tenderness to palpation left chest wall - GI/Abdominal Exam GI & Abdominal Exam: Soft, Normal Bowel Sounds. absent: Distended, Firm, Guarding, Tenderness - Extremities Exam Extremities Exam: Normal Inspection. absent: Pedal Edema, Tenderness - Neurological Exam Neurological Exam: Alert, Awake, Oriented x3 - Skin Skin Exam: Dry, Intact, Normal Color, Warm Assessment and Plan - Assessment and Plan (Free Text) Assessment: 63 yo female with PMH of type 2 insulin dependent diabetes, HTN, hyperlidpemia, CAD presented to hospital with acute respiratory failure requiring intubation, currently extubated on nasal cannula. Endocrinology was consulted for hyperosmolar hyperglycemic states. Plan: This morning patients blood sugar was 157. Over the past 24 hours her sugars have ranged from 131- 306. Currently patient is in heart health, carb consistent diet. Her insulin was increased yesterday, currently she is on Lantus 28 units HS, novolog 8 units ac and insulin sliding scale. On 05/23 Hgba1c was 7.5 and TSH was within normal range. Will continue to monitor. Continue care per primary team. case reviewed and discussed with Dr. Brown
[2018-05-26] MEDS: cefTRIAXone 2 GM in Sodium Chloride 0.9% 100 ML IVPB SCH (09:53)
--- NOTE | 2018-05-26 10:23 | CP.PCM.CON ---
History of Present Illness - History of Present Illness History of Present Illness: The pt is a 63 yo female diabetic with HTN and CAD. Pt had [facility] to [facility] in 2016. the patient was at home, had recent increasing CHU and finally dyspnea at rest, 911 was called. On the scene pt recieved brief cpr fir apparent PEA, but in retrospect probably just hypotensive. Pt came to ICU, never intubated or needed pressors, and treated with Bipap. There is a trivial TNI elevation. CXR is read as chf. Echo, unread, but my interpretation: normal LV EF, moderate LVH, type II pseudonornal diastolic dysfunction (elevated filling pressures). Pt has chronic CKD, sees Dr Dailey, and baseline cr 2.0, now higher. Pt now has atypical chest pain both upper left side of chest, comes and goes, repeat ecg no acute changes. The pt had an almost identical presentation to [facility] two months ago in Feb 2018, with again trivial TNi elevation. Pt was advised to undergo angelito nuc stress test, and had not so far. Cr is now higher. The pts ecg today is unchanged from outpatient ecg. pt is now on brillinta, she was not as an outpatient. Review of Systems - Review of Systems All systems: reviewed and no additional remarkable complaints except (as above.) Past Patient History - Infectious Disease Hx of Infectious Diseases: None - Tetanus Immunizations Tetanus Immunization: Unknown - Past Medical History & Family History Past Medical History?: Yes - Past Social History Smoking Status: Current Some Days Smoker - CARDIAC Hx Hypercholesterolemia: Yes Hx Hypertension: Yes - PULMONARY Hx Asthma: Yes - NEUROLOGICAL Hx Neurological Disorder: No - HEENT Hx HEENT Problems: No - RENAL Hx Chronic Kidney Disease: No - ENDOCRINE/METABOLIC Hx Endocrine Disorders: Yes Hx Diabetes Mellitus Type 1: Yes (diabetic right foot) Hx Diabetes Mellitus Type 2: Yes - HEMATOLOGICAL/ONCOLOGICAL Hx Anemia: Yes - INTEGUMENTARY Hx Dermatological Problems: Yes Other/Comment: CELLULITIS OF RIGHT BIG TOE.H/O OF OSTEOMYELITIS - MUSCULOSKELETAL/RHEUMATOLOGICAL Hx Osteoporosis: Yes - GASTROINTESTINAL Hx Gastrointestinal Disorders: No - GENITOURINARY/GYNECOLOGICAL Hx Genitourinary Disorders: No - PSYCHIATRIC Hx Depression: Yes Hx Substance Use: No - SURGICAL HISTORY Hx Coronary Stent: Yes (2 stents) - ANESTHESIA Hx Anesthesia: Yes Hx Anesthesia Reactions: No (unknown) Hx Malignant Hyperthermia: No Meds Allergies/Adverse Reactions: Allergies Allergy/AdvReac Type Severity Reaction Status Date / Time No Known Allergies Allergy Verified 05/23/18 21:48 - Medications Medications: Current Medications Albuterol/Ipratropium (Duoneb 3 Mg/0.5 Mg (3 Ml) Ud) 3 ml INH RQ6 [facility] Last Admin: 05/26/18 07:25 Dose: 3 ml Aspirin (Aspirin Chewable) 81 mg PO DAILY [facility] Last Admin: 05/25/18 12:28 Dose: Not Given Carvedilol (Coreg) 12.5 mg PO BID [facility] Last Admin: 05/26/18 09:54 Dose: 12.5 mg Furosemide (Lasix) 40 mg PO DAILY [facility] Last Admin: 05/26/18 09:56 Dose: 40 mg Heparin Sodium (Porcine) (Heparin) 5,000 units SC Q12H [facility] Hydralazine HCl (Apresoline) 100 mg PO Q8H [facility] Last Admin: 05/26/18 06:12 Dose: 100 mg Ceftriaxone Sodium 2 gm/ (Sodium Chloride) 100 mls @ 100 mls/hr IVPB DAILY [facility]; Protocol Last Admin: 05/26/18 09:53 Dose: 100 mls/hr Insulin Aspart (Novolog) 0 unit SC ACHS [facility] Last Admin: 05/26/18 07:30 Dose: Not Given Insulin Aspart (Novolog) 8 unit SC AC [facility] Last Admin: 05/26/18 07:30 Dose: 8 units Insulin Glargine (Lantus) 28 unit SC HS [facility] Last Admin: 05/25/18 22:40 Dose: 28 units Isosorbide Mononitrate (Imdur Er) 30 mg PO DAILY [facility] Last Admin: 05/26/18 09:56 Dose: 30 mg Pantoprazole Sodium (Protonix Inj) 40 mg IVP Q12H [facility] Last Admin: 05/25/18 22:44 Dose: 40 mg Ticagrelor (Brilinta) 60 mg PO BID [facility] Last Admin: 05/25/18 12:29 Dose: Not Given Physical Exam - Constitutional Appears: Well - Head Exam Head Exam: ATRAUMATIC - Eye Exam Eye Exam: EOMI - ENT Exam ENT Exam: Mucous Membranes Moist - Neck Exam Neck exam: Positive for: Normal Inspection - Respiratory Exam Respiratory Exam: NORMAL BREATHING PATTERN - Cardiovascular Exam Cardiovascular Exam: REGULAR RHYTHM - GI/Abdominal Exam GI & Abdominal Exam: Normal Bowel Sounds - Extremities Exam Extremities exam: Positive for: normal inspection - Back Exam Back exam: NORMAL INSPECTION - Neurological Exam Neurological exam: Alert, Normal Gait, Oriented x3 - Psychiatric Exam Psychiatric exam: Normal Affect - Skin Skin Exam: Normal Color Results - Vital Signs Recent Vital Signs: Last Vital Signs Temp 98.0 F 05/26/18 04:00 Pulse 76 05/26/18 08:08 Resp 17 05/26/18 08:08 BP 130/67 05/26/18 09:56 Pulse Ox 97 05/26/18 08:08 - Labs Result Diagrams: 05/26/18 06:00 05/26/18 06:00 Labs: Laboratory Results - last 24 hr 05/26/18 05/26/18 05/26/18 04:16 06:00 06:00 WBC 12.5 H RBC 3.50 L Hgb 10.2 L Hct 31.3 L MCV 89.2 MCH 29.1 MCHC 32.6 L RDW 15.1 H Plt Count 487 H MPV 9.6 Neut % (Auto) 68.3 Lymph % (Auto) 21.7 [place] % (Auto) 8.4 Eos % (Auto) 0.4 Baso % (Auto) 1.2 Neut # (Auto) 8.6 H Lymph # (Auto) 2.7 [place] # (Auto) 1.1 H Eos # (Auto) 0.0 Baso # (Auto) 0.2 Sodium 137 Potassium 4.6 Chloride 108 H Carbon Dioxide 22 Anion Gap 12 BUN 32 H Creatinine 2.9 H Est GFR ( Amer) 20 Est GFR (Non-Af Amer) 16 POC Glucose (mg/dL) 131 H Random Glucose 157 H Calcium 8.8 Phosphorus 5.2 H Magnesium 2.2 Iron TIBC % Saturation Ferritin 59.9 Total Bilirubin 0.5 AST 27 ALT < 6 L D Alkaline Phosphatase 101 Total Creatine Kinase 74 CK-MB (Mass) 1.12 Troponin I 0.1420 H* Total Protein 6.5 Albumin 3.5 Globulin 2.9 Albumin/Globulin Ratio 1.2 05/26/18 06:00 WBC RBC Hgb Hct MCV MCH MCHC RDW Plt Count MPV Neut % (Auto) Lymph % (Auto) [place] % (Auto) Eos % (Auto) Baso % (Auto) Neut # (Auto) Lymph # (Auto) [place] # (Auto) Eos # (Auto) Baso # (Auto) Sodium Potassium Chloride Carbon Dioxide Anion Gap BUN Creatinine Est GFR ( Amer) Est GFR (Non-Af Amer) POC Glucose (mg/dL) Random Glucose Calcium Phosphorus Magnesium Iron 25 L TIBC 242 L % Saturation 10 L Ferritin Total Bilirubin AST ALT Alkaline Phosphatase Total Creatine Kinase CK-MB (Mass) Troponin I Total Protein Albumin Globulin Albumin/Globulin Ratio - EKG Data EKG Interpreted by: Myself (Last st [facility]ron, chronic. peaked t waves. by me) EKG shows normal: Sinus rhythm Assessment & Plan - Assessment and Plan (Free Text) Assessment: 1. The pt has recurrent chf, likely due to signficant to diastolic dysfunction. Normal LV EF and LVH. Small TNI elevations are seen with heart failure and not necessarily acute ischemia. As pt has h/o cad, investigation is therefore warranted nevertheless, but cath not advised due to elevated CR. A nuclear stress test is advised. 2. Chest pain is also atypical, and possible from cpr. Stress test ordered.
--- NOTE | 2018-05-26 11:26 | VASCLAB ---
Date of service: 05/25/2018 PROCEDURE: Lower Extremity Venous Duplex Exam. HISTORY: Leg pain PRIORS: None. TECHNIQUE: Bilateral common femoral, femoral, popliteal and posterior tibial, peroneal and great saphenous veins were evaluated. Flow was assessed with color Doppler, compressibility, assessment of phasic flow and augmentation response. Report prepared by Juan Fulton, FRED, RVT FINDINGS: RIGHT: 1. Common Femoral Vein: 1.1. Compressibility - Fully compressible: Thrombus - None : Flow - Phasic: Augmentation -Normal: Reflux - None. 2. Femoral Vein: 2.1. Compressibility - Fully compressible: Thrombus - None : Flow - Phasic: Augmentation -Normal: Reflux - None. 3. Popliteal Vein: 3.1. Compressibility - Fully compressible: Thrombus - None : Flow - Phasic: Augmentation -Normal: Reflux - None. 4. Posterior Tibial Vein: 4.1. Compressibility - Fully compressible: Thrombus - None: Flow - Phasic: Augmentation -Normal: Reflux - None. 5. Peroneal Vein: 5.1. Compressibility - Fully compressible: Thrombus - None: Flow - Phasic: Augmentation -Normal: Reflux - None. 6. Great Saphenous Vein: 6.1. Compressibility - Fully compressible: Thrombus - None: Flow - Phasic: Augmentation - Normal: Reflux - None. LEFT: 1. Common Femoral Vein: 1.1. Compressibility - Fully compressible: Thrombus - None: Flow - Phasic: Augmentation -Normal: Reflux - None. 2. Femoral Vein: 2.1. Compressibility - Fully compressible: Thrombus - None: Flow - Phasic: Augmentation -Normal: Reflux - None. 3. Popliteal Vein: 3.1. Compressibility - Fully compressible: Thrombus - None : Flow - Phasic: Augmentation -Normal: Reflux - None. 4. Posterior Tibial Vein: 4.1. Compressibility - Fully compressible: Thrombus - None: Flow - Phasic: Augmentation -Normal: Reflux - None. 5. Peroneal Vein: 5.1. Compressibility - Fully compressible: Thrombus - None: Flow - Phasic: Augmentation -Normal: Reflux - None. 6. Great Saphenous Vein: 6.1. Compressibility - Fully compressible: Thrombus - None: Flow - Phasic: Augmentation - Normal: Reflux - None. OTHER FINDINGS: Right: None significant. Left: None significant. IMPRESSION: Right: No evidence of deep or superficial vein thrombosis of the right lower extremity. Normal valve function noted of the right side. Left: No evidence of deep or superficial vein thrombosis of the left lower extremity. Normal valve function noted of the left side.
[2018-05-26 12:30] LABS: ARTERIAL BLOOD GAS HCO3 23.7 mmol/L (21-28); ARTERIAL BLOOD GAS PCO2 36 mm/Hg (35-45); ARTERIAL BLOOD GAS PH 7.41 (7.35-7.45); ARTERIAL BLOOD GAS PO2 68 mm/Hg (80-100); ARTERIAL BLOOD GAS TCO2 23.9 mmol/L (22-28)
--- NOTE | 2018-05-26 14:19 | PN ---
DATE: 05/26/2018 ENDOCRINOLOGY FOLLOWUP NOTE LOCATION: In ICU room 14 A. SUBJECTIVE: This is a 63-year-old female with recent uncontrolled type 2 insulin-requiring diabetes, presenting here with diabetic ketoacidosis and dehydration and since then improved clinically and metabolically as noted thereof. She also had supervening acute respiratory failure and since then improved hemodynamically with subsequent extubation and is doing very well on the nasal cannula oxygen delivery as noted. However, her appetite is quite variable with suboptimal meal portions as per the nursing staff with supervening glycemic fluctuations thereof. Her glucose levels have ranged from 152-197 and 123 mg/dL. LABORATORY DATA: Her chemistry showed a BUN of 32, sodium 137, potassium 4.6, chloride 108, CO2 of 22, glucose 157, and creatinine 2.9. ASSESSMENT AND PLAN: So at this time, we will continue the same basal and bolus insulin regimen to allow for full dose equilibration and keep her on the Lantus given as 28 unit subcutaneous at bedtime daily as given. We will also continue the NovoLog given as 8 units t.i.d. before meals as ordered. We will obtain serial chemistries and supplement accordingly as needed. We will follow and advise accordingly. Rachel Brown MD
--- NOTE | 2018-05-26 18:40 | CP.PCM.PN ---
Subjective - Date & Time of Evaluation Date of Evaluation: 05/26/18 Time of Evaluation: 18:45 - Subjective Subjective: PT states she feels very tired. States she had feels very sob with minimal exertion. PT states she has had a few episodes of chest pain. PT states at home she has been having similar episodes. She states much less blood in her sputum o r nose. ASA and BRilinta held yesterday and today. Hemoglobin has been stable. Objective - Vital Signs/Intake and Output Vital Signs (last 24 hours): Temp Pulse Resp BP Pulse Ox 98.0 F 83 23 143/58 L 95 05/26/18 04:00 05/26/18 18:08 05/26/18 18:08 05/26/18 18:08 05/26/18 18:08 Intake and Output: 05/26/18 05/26/18 06:59 18:59 Intake Total 240 1540 Output Total 400 400 Balance -160 1140 - Medications Medications: Current Medications Albuterol/Ipratropium (Duoneb 3 Mg/0.5 Mg (3 Ml) Ud) 3 ml INH RQ6 [facility] Last Admin: 05/26/18 14:13 Dose: 3 ml Aspirin (Aspirin Chewable) 81 mg PO DAILY [facility] Last Admin: 05/25/18 12:28 Dose: Not Given Aspirin (Aspirin Chewable) 81 mg PO DAILY [facility] Carvedilol (Coreg) 12.5 mg PO BID [facility] Last Admin: 05/26/18 09:54 Dose: 12.5 mg Docusate Sodium (Colace) 100 mg PO BID [facility] Last Admin: 05/26/18 15:14 Dose: 100 mg Furosemide (Lasix) 40 mg PO DAILY [facility] Last Admin: 05/26/18 09:56 Dose: 40 mg Heparin Sodium (Porcine) (Heparin) 5,000 units SC Q12H [facility] Last Admin: 05/26/18 11:31 Dose: 5,000 units Hydralazine HCl (Apresoline) 100 mg PO Q8H [facility] Last Admin: 05/26/18 15:14 Dose: 100 mg Ceftriaxone Sodium 2 gm/ (Sodium Chloride) 100 mls @ 100 mls/hr IVPB DAILY [facility]; Protocol Last Admin: 05/26/18 09:53 Dose: 100 mls/hr Insulin Aspart (Novolog) 0 unit SC ACHS [facility] Last Admin: 05/26/18 17:47 Dose: Not Given Insulin Aspart (Novolog) 8 unit SC AC [facility] Last Admin: 05/26/18 12:15 Dose: 8 units Insulin Glargine (Lantus) 28 unit SC HS [facility] Last Admin: 05/25/18 22:40 Dose: 28 units Isosorbide Mononitrate (Imdur Er) 30 mg PO DAILY [facility] Last Admin: 05/26/18 09:56 Dose: 30 mg Pantoprazole Sodium (Protonix Inj) 40 mg IVP Q12H [facility] Last Admin: 05/26/18 12:25 Dose: 40 mg Polyethylene Glycol (Miralax) 17 gm PO DAILY PRN PRN Reason: Constipation Ticagrelor (Brilinta) 60 mg PO BID [facility] Last Admin: 05/25/18 12:29 Dose: Not Given - Labs Labs: 05/26/18 06:00 05/26/18 06:00 PT 9.8 SECONDS (9.7-12.2) 05/23/18 10:10 INR 0.9 05/23/18 10:10 APTT 32 SECONDS (21-34) 05/23/18 10:10 - Constitutional Appears: Non-toxic - Eye Exam Eye Exam: Normal appearance - ENT Exam ENT Exam: Mucous Membranes Moist - Respiratory Exam Respiratory Exam: Decreased Breath Sounds. absent: Accessory Muscle Use, Wheezes - Cardiovascular Exam Cardiovascular Exam: REGULAR RHYTHM, +S1, +S2 - GI/Abdominal Exam GI & Abdominal Exam: absent: Tenderness - Extremities Exam Extremities Exam: absent: Joint Swelling - Neurological Exam Neurological Exam: Alert, Awake Assessment and Plan - Assessment and Plan (Free Text) Assessment: 63 year old sp cardiopulmonary event, no coughing of blood or nasal bleeding. Her hemoglobin has remained stable. +TNI mild elevation, further work up by Cardio. Read and appreciate cardio input. Diabetes. on insulin and being closely monitor HTN [id number]. will continue to work on getting her a CPAP study Anemia: stable hbg, Monitor closely.
[2018-05-26] MEDS: (Lantus) Insulin Glargine, Recombinant SC SCH (21:26)
--- NOTE | 2018-05-26 23:07 | CARD ---
APPROVED REPORT Date of service: 05/25/2018 EXAM: Two-dimensional and M-mode echocardiogram with Doppler and color Doppler. Other Information Quality : GoodRhythm : INDICATION Chest Pain Congestive Heart Failure COPD RISK FACTORS Hypertension Hyperlipidemia Diabetes 2D DIMENSIONS IVSd1.3 (0.7-1.1cm)LVDd4.9 (3.9-5.9cm) PWd1.3 (0.7-1.1cm)LA [id number] (18-58mL) LVDs3.1 (2.5-4.0cm)FS (%) 35.7 % LVEF (%)65.0 (>50%)LVEF (Chan's)65 % M-Mode DIMENSIONS Left Atrium (MM)4.98 (2.5-4.0cm)IVSd1.34 (0.7-1.1cm) Aortic Root3.16 (2.2-3.7cm)LVDd5.14 (4.0-5.6cm) Aortic Cusp Exc.2.00 (1.5-2.0cm)PWd1.24 (0.7-1.1cm) FS (%) 42 %LVDs3.00 (2.0-3.8cm) LVEF (%)72 (>50%) Mitral Valve MV E [id number]/sMV A Rhurxofm05.7cm/sE/A ratio2.1 TDI Lateral E' Peak V5.64cm/sMedial E' Peak V4.22cm/sE/Lateral E'20.8 E/Medial E'27.7 Tricuspid Valve TR Peak [id number] Peak [id number] <Conclusion> Left ventricle: thickness: mild concentric thickening; size: normal; overall ejection fraction: 65%: diastolic filling pressures: elevated Mitral valve: annulus: normal: leaflets: normal: excursion: normal; no significant trans-mitral gradient: mild incompetence: left atrium: dilated Aortic valve: leaflets: normal: excursion: normal; no significant trans-aortic gradient: No significant incompetence: aortic root: normal Right sided Structures: Pulmonary valve: normal; no significant incompetence; Tricuspid valve: normal; no significant incompetence: Intra-cardiac hemodynamics: pulmonary systolic pressures: 40 mmHg; central venous pressures: normal No pericardial effusion
[2018-05-27] MEDS: Albuterol-Ipratrop 3 mg / 0.5 (3 ml) UD INH SCH ×3 (02:56→19:00)
[2018-05-27 05:56] LABS: BASO # 0.1 K/uL (0.0-0.2); BASO % 0.7 % (0.0-2.0); EOS # 0.1 K/uL (0.0-0.7); HEMOGLOBIN 9.8 g/dL (11.0-16.0); LYMPH # 2.3 K/uL (1.0-4.3); LYMPH % 18.1 % (20.0-40.0); MEAN CELL VOLUME 89.3 fL (81.0-99.0); MEAN CORPUSCULAR HEMOGLOBIN 28.3 pg (27.0-31.0); MEAN CORPUSCULAR HGB CONC 31.7 g/dL (33.0-37.0); MEAN PLATELET VOLUME 9.9 fL (7.2-11.7); MONO % 8.2 % (0.0-10.0); NEUT # 9.2 K/uL (1.8-7.0); RBC 3.47 Mil/uL (3.80-5.20); RED CELL DISTRIBUTION WIDTH 15.1 % (11.5-14.5); WHITE BLOOD COUNT 12.7 K/uL (4.8-10.8)
[2018-05-27 06:11] LABS: ALB/GLOB RATIO 1.1 (1.0-2.1); ALBUMIN 3.4 g/dL (3.5-5.0); CALCIUM 8.8 mg/dl (8.6-10.4)
[2018-05-27 07:15] LABS: ARTERIAL BLOOD GAS HCO3 22.6 mmol/L (21-28); ARTERIAL BLOOD GAS O2 SAT 97.5 % (95-98); ARTERIAL BLOOD GAS PCO2 33 mm/Hg (35-45); ARTERIAL BLOOD GAS PH 7.41 (7.35-7.45); ARTERIAL BLOOD GAS PO2 69 mm/Hg (80-100); ARTERIAL BLOOD GAS TCO2 21.9 mmol/L (22-28)
--- NOTE | 2018-05-27 07:28 | CP.PCM.PN ---
Subjective - Date & Time of Evaluation Date of Evaluation: 05/27/18 Time of Evaluation: 07:24 - Subjective Subjective: Endocrinology Progress note for Dr. Brown Patient seen and examined at bedside in ICU. No acute events overnight per nurse, patient is comfortable. Patient denies any abd pain, chest pain, sob, nausea or vomiting,headache or dizziness. She is tolertaing diet but is NPO for stress test. 12 point ROS negative except as stated. Objective - Vital Signs/Intake and Output Vital Signs (last 24 hours): Temp Pulse Resp BP Pulse Ox 99.5 F 84 19 124/53 L 95 05/27/18 04:00 05/27/18 06:00 05/27/18 06:00 05/27/18 05:53 05/27/18 06:00 Intake and Output: 05/27/18 05/27/18 06:59 18:59 Intake Total 340 Output Total 800 Balance -460 - Medications Medications: Current Medications Albuterol/Ipratropium (Duoneb 3 Mg/0.5 Mg (3 Ml) Ud) 3 ml INH RQ6 [facility] Last Admin: 05/27/18 02:56 Dose: Not Given Aspirin (Aspirin Chewable) 81 mg PO DAILY [facility] Last Admin: 05/25/18 12:28 Dose: Not Given Aspirin (Aspirin Chewable) 81 mg PO DAILY [facility] Carvedilol (Coreg) 12.5 mg PO BID [facility] Last Admin: 05/26/18 19:20 Dose: 12.5 mg Docusate Sodium (Colace) 100 mg PO BID [facility] Last Admin: 05/26/18 19:22 Dose: 100 mg Furosemide (Lasix) 40 mg PO DAILY [facility] Last Admin: 05/26/18 09:56 Dose: 40 mg Heparin Sodium (Porcine) (Heparin) 5,000 units SC Q12H [facility] Last Admin: 05/26/18 21:26 Dose: 5,000 units Hydralazine HCl (Apresoline) 100 mg PO Q8H [facility] Last Admin: 05/27/18 06:24 Dose: 100 mg Ceftriaxone Sodium 2 gm/ (Sodium Chloride) 100 mls @ 100 mls/hr IVPB DAILY [facility]; Protocol Last Admin: 05/26/18 09:53 Dose: 100 mls/hr Insulin Aspart (Novolog) 0 unit SC ACHS [facility] Last Admin: 05/26/18 21:27 Dose: Not Given Insulin Aspart (Novolog) 8 unit SC AC [facility] Last Admin: 05/26/18 12:15 Dose: 8 units Insulin Glargine (Lantus) 28 unit SC HS [facility] Last Admin: 05/26/18 21:26 Dose: 28 units Isosorbide Mononitrate (Imdur Er) 30 mg PO DAILY [facility] Last Admin: 05/26/18 09:56 Dose: 30 mg Pantoprazole Sodium (Protonix Inj) 40 mg IVP Q12H [facility] Last Admin: 05/26/18 23:25 Dose: 40 mg Polyethylene Glycol (Miralax) 17 gm PO DAILY PRN PRN Reason: Constipation Ticagrelor (Brilinta) 60 mg PO BID [facility] Last Admin: 05/25/18 12:29 Dose: Not Given - Labs Labs: 05/27/18 05:47 05/27/18 05:47 PT 9.8 SECONDS (9.7-12.2) 05/23/18 10:10 INR 0.9 05/23/18 10:10 APTT 32 SECONDS (21-34) 05/23/18 10:10 - Additional Findings Additional findings: - Constitutional Appears: No Acute Distress, sitting up on edge of bed - Head Exam Head Exam: ATRAUMATIC, NORMAL INSPECTION, NORMOCEPHALIC - Eye Exam Eye Exam: EOMI, Normal appearance - ENT Exam ENT Exam: Mucous Membranes Moist - Respiratory Exam Respiratory Exam: Clear to Ausculation Bilateral, NORMAL BREATHING PATTERN. absent: Rhonchi, Wheezes, Respiratory Distress - Cardiovascular Exam Cardiovascular Exam: REGULAR RHYTHM, +S1, +S2. absent: Bradycardia, Tachycardia - GI/Abdominal Exam GI & Abdominal Exam: Soft, Normal Bowel Sounds. absent: Distended, Firm, Guarding, Tenderness - Extremities Exam Extremities Exam: Normal Inspection. absent: Pedal Edema, Tenderness - Neurological Exam Neurological Exam: Alert, Awake, Oriented x3 - Skin Skin Exam: Dry, Intact, Normal Color, Warm Assessment and Plan - Assessment and Plan (Free Text) Assessment: 63 yo female with PMH of type 2 insulin dependent diabetes, HTN, hyperlidpemia, CAD presented to hospital with acute respiratory failure requiring intubation, currently extubated on nasal cannula. Endocrinology was consulted for hyperosmolar hyperglycemic states. Plan: This morning patients blood sugar was 200. Over the past 24 hours her sugars have ranged from 152- 222. Currently patient is NPO for stress test. Currently she is on Lantus 28 units HS, novolog 8 units ac and insulin sliding scale. On 05/23 Hgba1c was 7.5 and TSH was within normal range. Will continue to monitor. Continue care per primary team. case reviewed and discussed with Dr. Brown
--- NOTE | 2018-05-27 07:40 | CP.CCUPN ---
CCU Subjective - Physician Review Subjective (Free Text): ICU Progress Note for Dr. Staton Pt seen and examined at bedside this am. C/o pinpoint chest pain that comes and goes this am, non-radiating, denies associated shortness of breath or chest tightness. No acute events reported overnight by staff. 12-point ROS obtained, otherwise neg as per pt. CCU Objective - Vital Signs / Intake & Output Vital Signs (Last 4 hours): Vital Signs Temp Pulse Resp BP Pulse Ox 05/27/18 06:00 84 19 95 05/27/18 05:53 124/53 L 05/27/18 05:00 80 17 95 05/27/18 04:54 135/88 05/27/18 04:00 99.5 F 82 19 96 05/27/18 03:53 115/43 L Intake and Output (Last 8hrs): Intake & Output 05/26/18 05/27/18 05/27/18 22:59 06:59 14:59 Intake Total 600 100 Output Total 100 700 Balance 500 -600 Weight 244 lb Intake: Intake, IV Amount 0 Right Hand Y-Site 0 Oral 600 100 Output: Urine 100 700 Urine, Voided 100 700 Stool 0 Emesis 0 Other: # Voids Urine, Voided 0 - Physical Exam Head: Positive for: Atraumatic, Normocephalic Pupils: Positive for: PERRL Extroacular Muscles: Positive for: EOMI Conjunctiva: Positive for: Normal Mouth: Positive for: Moist Mucous Membranes Neck: Positive for: Normal Range of Motion. Negative for: JVD Respiratory/Chest: Positive for: Clear to Auscultation, Good Air Exchange. Negative for: Respiratory Distress, Accessory Muscle Use, Wheezes, Rales, Rhonchi Cardiovascular: Positive for: Regular Rate and Rhythm, Normal S1, S2. Negative for: Murmurs, Rub, Gallop Abdomen: Positive for: Normal Bowel Sounds. Negative for: Tenderness, Distention, Mass/Organomegaly Upper Extremity: Positive for: Normal Inspection, NORMAL PULSES, Neurovascularly Intact, Capillary Refill < 2s. Negative for: Cyanosis, Edema Lower Extremity: Positive for: Normal Inspection, NORMAL PULSES, Neurovascularly Intact, Capillary Refill < 2 s. Negative for: Edema Neurological: Positive for: GCS=15, CN II-XII Intact Skin: Positive for: Warm, Dry, Normal Color Psychiatric: Positive for: Alert, Oriented x 3 - Medications Active Medications: Active Medications Generic Name Dose Route Start Last Admin Trade Name Freq PRN Reason Stop Dose Admin Albuterol/Ipratropium 3 ml 05/24/18 02:00 05/27/18 02:56 Duoneb 3 Mg/0.5 Mg (3 Ml) Ud INH Not Given RQ6 FRANCY Aspirin 81 mg 05/24/18 10:00 05/25/18 12:28 Aspirin Chewable PO Not Given DAILY [facility] Aspirin 81 mg 05/27/18 10:00 Aspirin Chewable PO DAILY [facility] Carvedilol 12.5 mg 05/23/18 23:15 05/26/18 19:20 Coreg PO 12.5 mg BID [facility] Administration Docusate Sodium 100 mg 05/26/18 15:00 05/26/18 19:22 Colace PO 100 mg BID FRANCY Administration Furosemide 40 mg 05/24/18 10:00 05/26/18 09:56 Lasix PO 40 mg DAILY [facility] Administration Heparin Sodium (Porcine) 5,000 units 05/26/18 10:00 05/26/18 21:26 Heparin SC 5,000 units Q12H FRANCY Administration Hydralazine HCl 100 mg 05/25/18 14:30 05/27/18 06:24 Apresoline PO 100 mg Q8H [facility] Administration Ceftriaxone Sodium 2 gm/ 100 mls @ 100 mls/hr 05/24/18 10:00 05/26/18 09:53 Sodium Chloride IVPB 100 mls/hr DAILY FRANCY Administration Protocol Insulin Aspart 0 unit 05/24/18 16:30 05/26/18 21:27 Novolog SC Not Given ACHS [facility] Insulin Aspart 8 unit 05/25/18 16:30 05/26/18 12:15 Novolog SC 8 units AC FRANCY Administration Insulin Glargine 28 unit 05/25/18 22:00 05/26/18 21:26 Lantus SC 28 units HS [facility] Administration Isosorbide Mononitrate 30 mg 05/24/18 10:00 05/26/18 09:56 Imdur Er PO 30 mg DAILY FRANCY Administration Pantoprazole Sodium 40 mg 05/23/18 23:30 05/26/18 23:25 Protonix Inj IVP 40 mg Q12H [facility] Administration Polyethylene Glycol 17 gm 05/26/18 14:47 Miralax PO DAILY PRN Constipation Ticagrelor 60 mg 05/24/18 10:00 05/25/18 12:29 Brilinta PO Not Given BID FRANCY - Patient Studies Lab Studies: Microbiology Studies 05/24/18 01:51 Blood Culture - Preliminary Blood NO GROWTH AFTER 3 DAYS 05/24/18 01:50 Blood Culture - Preliminary Blood NO GROWTH AFTER 3 DAYS Lab Studies 05/27/18 05/27/18 05/27/18 Range/Units 06:52 05:47 05:47 WBC 12.7 H (4.8-10.8) K/uL RBC 3.47 L (3.80-5.20) Mil/uL Hgb 9.8 L (11.0-16.0) g/dL Hct 31.0 L (34.0-47.0) % MCV 89.3 (81.0-99.0) fL MCH 28.3 (27.0-31.0) pg MCHC 31.7 L (33.0-37.0) g/dL RDW 15.1 H (11.5-14.5) % Plt Count 446 H (130-400) K/uL MPV 9.9 (7.2-11.7) fL Neut % (Auto) 72.0 (50.0-75.0) % Lymph % (Auto) 18.1 L (20.0-40.0) % [place] % (Auto) 8.2 (0.0-10.0) % Eos % (Auto) 1.0 (0.0-4.0) % Baso % (Auto) 0.7 (0.0-2.0) % Neut # (Auto) 9.2 H (1.8-7.0) K/uL Lymph # (Auto) 2.3 (1.0-4.3) K/uL [place] # (Auto) 1.0 H (0.0-0.8) K/uL Eos # (Auto) 0.1 (0.0-0.7) K/uL Baso # (Auto) 0.1 (0.0-0.2) K/uL Puncture Site L brac pCO2 33 L (35-45) mm/Hg pO2 69 L (80-100) mm/Hg HCO3 22.6 (21-28) mmol/L ABG pH 7.41 (7.35-7.45) ABG Total CO2 21.9 L (22-28) mmol/L ABG O2 Saturation 97.5 (95-98) % ABG Base Excess -2.9 L (-2.0-3.0) mmol/L Enrique Test Na ABG Potassium 4.6 (3.6-5.2) mmol/L Sodium 138.0 138 (132-148) mmol/l Chloride 109.0 H 108 H (98-107) mmol/L Glucose 223 H (65-105) mg/dl Lactate 0.6 L (0.7-2.1) mmol/L Liter Flow 4.0 Potassium 4.8 (3.6-5.2) mmol/L Carbon Dioxide 21 L (22-30) mmol/L Anion Gap 13 (10-20) BUN 36 H (7-17) mg/dL Creatinine 3.1 H (0.7-1.2) mg/dL Est GFR ( Amer) 18 Est GFR (Non-Af Amer) 15 POC Glucose (mg/dL) (65-110) mg/dL Random Glucose 200 H D (65-105) mg/dL Calcium 8.8 (8.6-10.4) mg/dl Phosphorus 5.1 H (2.5-4.5) mg/dL Magnesium 2.2 (1.6-2.3) mg/dL Total Bilirubin 0.7 (0.2-1.3) mg/dL AST 32 (14-36) U/L ALT 21 (9-52) U/L Alkaline Phosphatase 101 (38-126) U/L Troponin I (0.00-0.120) ng/mL Total Protein 6.5 (6.3-8.3) g/dL Albumin 3.4 L (3.5-5.0) g/dL Globulin 3.1 (2.2-3.9) gm/dL Albumin/Globulin Ratio 1.1 (1.0-2.1) Arterial Blood Potassium 4.6 (3.6-5.2) mmol/L Butalbital Confirm Opiates (GC/MS) Codeine Confirmation Morphine Confirm Hydrocodone Confirm Oxycodone Confirm Methadone (GC/MS) Methadone Confirm Free Hydromorphone Conf Propoxyphenes Norpropoxyphene Barbiturates Phencyclidine (PCP) Phencyclidine (GC/MS) Amphetamines Amphetamines Confirm Methamphetamine Confirm Methylenedioxyamph MDA MDMA Amobarbital Confirm Butabarbital Pentobarbital Confirm Phenobarbital Confirm Secobarbital Confirm Alprazolam Confirm Benzodiazepines Nordiazepam Confirm Desalkylfluraze Cnfrm Lorazepam Confirm Oxazepam Confirmation Cocaine & Metabolite Cocaine Confirmation Cocaethylene Confirm Benzoylecgonine Confrm Ecgonine Methyl Adeline Marijuana THC Confirmation Carboxy THC Confirm Drugs of Abuse Comment 05/26/18 05/26/18 05/26/18 Range/Units 21:01 17:09 16:11 WBC (4.8-10.8) K/uL RBC (3.80-5.20) Mil/uL Hgb (11.0-16.0) g/dL Hct (34.0-47.0) % MCV (81.0-99.0) fL MCH (27.0-31.0) pg MCHC (33.0-37.0) g/dL RDW (11.5-14.5) % Plt Count (130-400) K/uL MPV (7.2-11.7) fL Neut % (Auto) (50.0-75.0) % Lymph % (Auto) (20.0-40.0) % [place] % (Auto) (0.0-10.0) % Eos % (Auto) (0.0-4.0) % Baso % (Auto) (0.0-2.0) % Neut # (Auto) (1.8-7.0) K/uL Lymph # (Auto) (1.0-4.3) K/uL [place] # (Auto) (0.0-0.8) K/uL Eos # (Auto) (0.0-0.7) K/uL Baso # (Auto) (0.0-0.2) K/uL Puncture Site pCO2 (35-45) mm/Hg pO2 (80-100) mm/Hg HCO3 (21-28) mmol/L ABG pH (7.35-7.45) ABG Total CO2 (22-28) mmol/L ABG O2 Saturation (95-98) % ABG Base Excess (-2.0-3.0) mmol/L Enrique Test ABG Potassium (3.6-5.2) mmol/L Sodium (132-148) mmol/l Chloride (98-107) mmol/L Glucose (65-105) mg/dl Lactate (0.7-2.1) mmol/L Liter Flow Potassium (3.6-5.2) mmol/L Carbon Dioxide (22-30) mmol/L Anion Gap (10-20) BUN (7-17) mg/dL Creatinine (0.7-1.2) mg/dL Est GFR ( Amer) Est GFR (Non-Af Amer) POC Glucose (mg/dL) 222 H 152 H (65-110) mg/dL Random Glucose (65-105) mg/dL Calcium (8.6-10.4) mg/dl Phosphorus (2.5-4.5) mg/dL Magnesium (1.6-2.3) mg/dL Total Bilirubin (0.2-1.3) mg/dL AST (14-36) U/L ALT (9-52) U/L Alkaline Phosphatase (38-126) U/L Troponin I 0.1040 (0.00-0.120) ng/mL Total Protein (6.3-8.3) g/dL Albumin (3.5-5.0) g/dL Globulin (2.2-3.9) gm/dL Albumin/Globulin Ratio (1.0-2.1) Arterial Blood Potassium (3.6-5.2) mmol/L Butalbital Confirm Opiates (GC/MS) Codeine Confirmation Morphine Confirm Hydrocodone Confirm Oxycodone Confirm Methadone (GC/MS) Methadone Confirm Free Hydromorphone Conf Propoxyphenes Norpropoxyphene Barbiturates Phencyclidine (PCP) Phencyclidine (GC/MS) Amphetamines Amphetamines Confirm Methamphetamine Confirm Methylenedioxyamph MDA MDMA Amobarbital Confirm Butabarbital Pentobarbital Confirm Phenobarbital Confirm Secobarbital Confirm Alprazolam Confirm Benzodiazepines Nordiazepam Confirm Desalkylfluraze Cnfrm Lorazepam Confirm Oxazepam Confirmation Cocaine & Metabolite Cocaine Confirmation Cocaethylene Confirm Benzoylecgonine Confrm Ecgonine Methyl Adeline Marijuana THC Confirmation Carboxy THC Confirm Drugs of Abuse Comment 05/26/18 05/26/18 05/26/18 Range/Units 12:27 11:19 07:24 WBC (4.8-10.8) K/uL RBC (3.80-5.20) Mil/uL Hgb (11.0-16.0) g/dL Hct (34.0-47.0) % MCV (81.0-99.0) fL MCH (27.0-31.0) pg MCHC (33.0-37.0) g/dL RDW (11.5-14.5) % Plt Count (130-400) K/uL MPV (7.2-11.7) fL Neut % (Auto) (50.0-75.0) % Lymph % (Auto) (20.0-40.0) % [place] % (Auto) (0.0-10.0) % Eos % (Auto) (0.0-4.0) % Baso % (Auto) (0.0-2.0) % Neut # (Auto) (1.8-7.0) K/uL Lymph # (Auto) (1.0-4.3) K/uL [place] # (Auto) (0.0-0.8) K/uL Eos # (Auto) (0.0-0.7) K/uL Baso # (Auto) (0.0-0.2) K/uL Puncture Site Lb pCO2 36 (35-45) mm/Hg pO2 68 L (80-100) mm/Hg HCO3 23.7 (21-28) mmol/L ABG pH 7.41 (7.35-7.45) ABG Total CO2 23.9 (22-28) mmol/L ABG O2 Saturation 97.0 (95-98) % ABG Base Excess -1.4 (-2.0-3.0) mmol/L Enrique Test Na ABG Potassium 4.7 (3.6-5.2) mmol/L Sodium 138.0 (132-148) mmol/l Chloride 107.0 (98-107) mmol/L Glucose 231 H (65-105) mg/dl Lactate 0.8 (0.7-2.1) mmol/L Liter Flow 3.0 Potassium (3.6-5.2) mmol/L Carbon Dioxide (22-30) mmol/L Anion Gap (10-20) BUN (7-17) mg/dL Creatinine (0.7-1.2) mg/dL Est GFR ( Amer) Est GFR (Non-Af Amer) POC Glucose (mg/dL) 262 H 197 H (65-110) mg/dL Random Glucose (65-105) mg/dL Calcium (8.6-10.4) mg/dl Phosphorus (2.5-4.5) mg/dL Magnesium (1.6-2.3) mg/dL Total Bilirubin (0.2-1.3) mg/dL AST (14-36) U/L ALT (9-52) U/L Alkaline Phosphatase (38-126) U/L Troponin I (0.00-0.120) ng/mL Total Protein (6.3-8.3) g/dL Albumin (3.5-5.0) g/dL Globulin (2.2-3.9) gm/dL Albumin/Globulin Ratio (1.0-2.1) Arterial Blood Potassium 4.7 (3.6-5.2) mmol/L Butalbital Confirm Opiates (GC/MS) Codeine Confirmation Morphine Confirm Hydrocodone Confirm Oxycodone Confirm Methadone (GC/MS) Methadone Confirm Free Hydromorphone Conf Propoxyphenes Norpropoxyphene Barbiturates Phencyclidine (PCP) Phencyclidine (GC/MS) Amphetamines Amphetamines Confirm Methamphetamine Confirm Methylenedioxyamph MDA MDMA Amobarbital Confirm Butabarbital Pentobarbital Confirm Phenobarbital Confirm Secobarbital Confirm Alprazolam Confirm Benzodiazepines Nordiazepam Confirm Desalkylfluraze Cnfrm Lorazepam Confirm Oxazepam Confirmation Cocaine & Metabolite Cocaine Confirmation Cocaethylene Confirm Benzoylecgonine Confrm Ecgonine Methyl Adeline Marijuana THC Confirmation Carboxy THC Confirm Drugs of Abuse Comment 05/24/18 Range/Units 06:09 WBC (4.8-10.8) K/uL RBC (3.80-5.20) Mil/uL Hgb (11.0-16.0) g/dL Hct (34.0-47.0) % MCV (81.0-99.0) fL MCH (27.0-31.0) pg MCHC (33.0-37.0) g/dL RDW (11.5-14.5) % Plt Count (130-400) K/uL MPV (7.2-11.7) fL Neut % (Auto) (50.0-75.0) % Lymph % (Auto) (20.0-40.0) % [place] % (Auto) (0.0-10.0) % Eos % (Auto) (0.0-4.0) % Baso % (Auto) (0.0-2.0) % Neut # (Auto) (1.8-7.0) K/uL Lymph # (Auto) (1.0-4.3) K/uL [place] # (Auto) (0.0-0.8) K/uL Eos # (Auto) (0.0-0.7) K/uL Baso # (Auto) (0.0-0.2) K/uL Puncture Site pCO2 (35-45) mm/Hg pO2 (80-100) mm/Hg HCO3 (21-28) mmol/L ABG pH (7.35-7.45) ABG Total CO2 (22-28) mmol/L ABG O2 Saturation (95-98) % ABG Base Excess (-2.0-3.0) mmol/L Enrique Test ABG Potassium (3.6-5.2) mmol/L Sodium (132-148) mmol/l Chloride (98-107) mmol/L Glucose (65-105) mg/dl Lactate (0.7-2.1) mmol/L Liter Flow Potassium (3.6-5.2) mmol/L Carbon Dioxide (22-30) mmol/L Anion Gap (10-20) BUN (7-17) mg/dL Creatinine (0.7-1.2) mg/dL Est GFR ( Amer) Est GFR (Non-Af Amer) POC Glucose (mg/dL) (65-110) mg/dL Random Glucose (65-105) mg/dL Calcium (8.6-10.4) mg/dl Phosphorus (2.5-4.5) mg/dL Magnesium (1.6-2.3) mg/dL Total Bilirubin (0.2-1.3) mg/dL AST (14-36) U/L ALT (9-52) U/L Alkaline Phosphatase (38-126) U/L Troponin I (0.00-0.120) ng/mL Total Protein (6.3-8.3) g/dL Albumin (3.5-5.0) g/dL Globulin (2.2-3.9) gm/dL Albumin/Globulin Ratio (1.0-2.1) Arterial Blood Potassium (3.6-5.2) mmol/L Butalbital Confirm TNP Opiates (GC/MS) TNP Codeine Confirmation TNP Morphine Confirm TNP Hydrocodone Confirm TNP Oxycodone Confirm TNP Methadone (GC/MS) TNP Methadone Confirm TNP Free Hydromorphone Conf TNP Propoxyphenes TNP Norpropoxyphene TNP Barbiturates TNP Phencyclidine (PCP) TNP Phencyclidine (GC/MS) TNP Amphetamines TNP Amphetamines Confirm TNP Methamphetamine Confirm TNP Methylenedioxyamph MDA TNP MDMA TNP Amobarbital Confirm TNP Butabarbital TNP Pentobarbital Confirm TNP Phenobarbital Confirm TNP Secobarbital Confirm TNP Alprazolam Confirm TNP Benzodiazepines TNP Nordiazepam Confirm TNP Desalkylfluraze Cnfrm TNP Lorazepam Confirm TNP Oxazepam Confirmation TNP Cocaine & Metabolite TNP Cocaine Confirmation TNP Cocaethylene Confirm TNP Benzoylecgonine Confrm TNP Ecgonine Methyl Adeline TNP Marijuana TNP THC Confirmation TNP Carboxy THC Confirm TNP Drugs of Abuse Comment TNP Laboratory Results - last 24 hr 05/24/18 05/26/18 05/26/18 06:09 07:24 11:19 WBC RBC Hgb Hct MCV MCH MCHC RDW Plt Count MPV Neut % (Auto) Lymph % (Auto) [place] % (Auto) Eos % (Auto) Baso % (Auto) Neut # (Auto) Lymph # (Auto) [place] # (Auto) Eos # (Auto) Baso # (Auto) Puncture Site pCO2 pO2 HCO3 ABG pH ABG Total CO2 ABG O2 Saturation ABG Base Excess Enrique Test ABG Potassium Sodium Chloride Glucose Lactate Liter Flow Potassium Carbon Dioxide Anion Gap BUN Creatinine Est GFR ( Amer) Est GFR (Non-Af Amer) POC Glucose (mg/dL) 197 H 262 H Random Glucose Calcium Phosphorus Magnesium Total Bilirubin AST ALT Alkaline Phosphatase Troponin I Total Protein Albumin Globulin Albumin/Globulin Ratio Arterial Blood Potassium Butalbital Confirm TNP Opiates (GC/MS) TNP Codeine Confirmation TNP Morphine Confirm TNP Hydrocodone Confirm TNP Oxycodone Confirm TNP Methadone (GC/MS) TNP Methadone Confirm TNP Free Hydromorphone Conf TNP Propoxyphenes TNP Norpropoxyphene TNP Barbiturates TNP Phencyclidine (PCP) TNP Phencyclidine (GC/MS) TNP Amphetamines TNP Amphetamines Confirm TNP Methamphetamine Confirm TNP Methylenedioxyamph MDA TNP MDMA TNP Amobarbital Confirm TNP Butabarbital TNP Pentobarbital Confirm TNP Phenobarbital Confirm TNP Secobarbital Confirm TNP Alprazolam Confirm TNP Benzodiazepines TNP Nordiazepam Confirm TNP Desalkylfluraze Cnfrm TNP Lorazepam Confirm TNP Oxazepam Confirmation TNP Cocaine & Metabolite TNP Cocaine Confirmation TNP Cocaethylene Confirm TNP Benzoylecgonine Confrm TNP Ecgonine Methyl Adeline TNP Marijuana TNP THC Confirmation TNP Carboxy THC Confirm TNP Drugs of Abuse Comment TNP 05/26/18 05/26/18 05/26/18 12:27 16:11 17:09 WBC RBC Hgb Hct MCV MCH MCHC RDW Plt Count MPV Neut % (Auto) Lymph % (Auto) [place] % (Auto) Eos % (Auto) Baso % (Auto) Neut # (Auto) Lymph # (Auto) [place] # (Auto) Eos # (Auto) Baso # (Auto) Puncture Site Lb pCO2 36 pO2 68 L HCO3 23.7 ABG pH 7.41 ABG Total CO2 23.9 ABG O2 Saturation 97.0 ABG Base Excess -1.4 Enrique Test Na ABG Potassium 4.7 Sodium 138.0 Chloride 107.0 Glucose 231 H Lactate 0.8 Liter Flow 3.0 Potassium Carbon Dioxide Anion Gap BUN Creatinine Est GFR ( Amer) Est GFR (Non-Af Amer) POC Glucose (mg/dL) 152 H Random Glucose Calcium Phosphorus Magnesium Total Bilirubin AST ALT Alkaline Phosphatase Troponin I 0.1040 Total Protein Albumin Globulin Albumin/Globulin Ratio Arterial Blood Potassium 4.7 Butalbital Confirm Opiates (GC/MS) Codeine Confirmation Morphine Confirm Hydrocodone Confirm Oxycodone Confirm Methadone (GC/MS) Methadone Confirm Free Hydromorphone Conf Propoxyphenes Norpropoxyphene Barbiturates Phencyclidine (PCP) Phencyclidine (GC/MS) Amphetamines Amphetamines Confirm Methamphetamine Confirm Methylenedioxyamph MDA MDMA Amobarbital Confirm Butabarbital Pentobarbital Confirm Phenobarbital Confirm Secobarbital Confirm Alprazolam Confirm Benzodiazepines Nordiazepam Confirm Desalkylfluraze Cnfrm Lorazepam Confirm Oxazepam Confirmation Cocaine & Metabolite Cocaine Confirmation Cocaethylene Confirm Benzoylecgonine Confrm Ecgonine Methyl Adeline Marijuana THC Confirmation Carboxy THC Confirm Drugs of Abuse Comment 05/26/18 05/27/18 05/27/18 21:01 05:47 05:47 WBC 12.7 H RBC 3.47 L Hgb 9.8 L Hct 31.0 L MCV 89.3 MCH 28.3 MCHC 31.7 L RDW 15.1 H Plt Count 446 H MPV 9.9 Neut % (Auto) 72.0 Lymph % (Auto) 18.1 L [place] % (Auto) 8.2 Eos % (Auto) 1.0 Baso % (Auto) 0.7 Neut # (Auto) 9.2 H Lymph # (Auto) 2.3 [place] # (Auto) 1.0 H Eos # (Auto) 0.1 Baso # (Auto) 0.1 Puncture Site pCO2 pO2 HCO3 ABG pH ABG Total CO2 ABG O2 Saturation ABG Base Excess Enrique Test ABG Potassium Sodium 138 Chloride 108 H Glucose Lactate Liter Flow Potassium 4.8 Carbon Dioxide 21 L Anion Gap 13 BUN 36 H Creatinine 3.1 H Est GFR ( Amer) 18 Est GFR (Non-Af Amer) 15 POC Glucose (mg/dL) 222 H Random Glucose 200 H D Calcium 8.8 Phosphorus 5.1 H Magnesium 2.2 Total Bilirubin 0.7 AST 32 ALT 21 Alkaline Phosphatase 101 Troponin I Total Protein 6.5 Albumin 3.4 L Globulin 3.1 Albumin/Globulin Ratio 1.1 Arterial Blood Potassium Butalbital Confirm Opiates (GC/MS) Codeine Confirmation Morphine Confirm Hydrocodone Confirm Oxycodone Confirm Methadone (GC/MS) Methadone Confirm Free Hydromorphone Conf Propoxyphenes Norpropoxyphene Barbiturates Phencyclidine (PCP) Phencyclidine (GC/MS) Amphetamines Amphetamines Confirm Methamphetamine Confirm Methylenedioxyamph MDA MDMA Amobarbital Confirm Butabarbital Pentobarbital Confirm Phenobarbital Confirm Secobarbital Confirm Alprazolam Confirm Benzodiazepines Nordiazepam Confirm Desalkylfluraze Cnfrm Lorazepam Confirm Oxazepam Confirmation Cocaine & Metabolite Cocaine Confirmation Cocaethylene Confirm Benzoylecgonine Confrm Ecgonine Methyl Adeline Marijuana THC Confirmation Carboxy THC Confirm Drugs of Abuse Comment 05/27/18 06:52 WBC RBC Hgb Hct MCV MCH MCHC RDW Plt Count MPV Neut % (Auto) Lymph % (Auto) [place] % (Auto) Eos % (Auto) Baso % (Auto) Neut # (Auto) Lymph # (Auto) [place] # (Auto) Eos # (Auto) Baso # (Auto) Puncture Site L brac pCO2 33 L pO2 69 L HCO3 22.6 ABG pH 7.41 ABG Total CO2 21.9 L ABG O2 Saturation 97.5 ABG Base Excess -2.9 L Enrique Test Na ABG Potassium 4.6 Sodium 138.0 Chloride 109.0 H Glucose 223 H Lactate 0.6 L Liter Flow 4.0 Potassium Carbon Dioxide Anion Gap BUN Creatinine Est GFR ( Amer) Est GFR (Non-Af Amer) POC Glucose (mg/dL) Random Glucose Calcium Phosphorus Magnesium Total Bilirubin AST ALT Alkaline Phosphatase Troponin I Total Protein Albumin Globulin Albumin/Globulin Ratio Arterial Blood Potassium 4.6 Butalbital Confirm Opiates (GC/MS) Codeine Confirmation Morphine Confirm Hydrocodone Confirm Oxycodone Confirm Methadone (GC/MS) Methadone Confirm Free Hydromorphone Conf Propoxyphenes Norpropoxyphene Barbiturates Phencyclidine (PCP) Phencyclidine (GC/MS) Amphetamines Amphetamines Confirm Methamphetamine Confirm Methylenedioxyamph MDA MDMA Amobarbital Confirm Butabarbital Pentobarbital Confirm Phenobarbital Confirm Secobarbital Confirm Alprazolam Confirm Benzodiazepines Nordiazepam Confirm Desalkylfluraze Cnfrm Lorazepam Confirm Oxazepam Confirmation Cocaine & Metabolite Cocaine Confirmation Cocaethylene Confirm Benzoylecgonine Confrm Ecgonine Methyl Adeline Marijuana THC Confirmation Carboxy THC Confirm Drugs of Abuse Comment Radiology Impressions: Radiology Impressions Duplex Scan Lower Extremity Artery 05/25/18 10:24 IMPRESSION: Right: No evidence of deep or superficial vein thrombosis of the right lower extremity. Normal valve function noted of the right side. Left: No evidence of deep or superficial vein thrombosis of the left lower extremity. Normal valve function noted of the left side. EKG/Cardiology Studies: Cardiology / EKG Studies 05/26/18 08:12 EKG [ELECTROCARDIOGRAM] Stat Comment: Mode Of Transportation: Reason For Exam: chest pain Fingerstick Blood Sugar Results: 222 Critical Care Progress Note - Nutrition Nutrition: Nutrition Category Date Time Status Heart Healthy Diet [DIET] Diets 05/24/18 Lunch Active
[2018-05-27] MEDS: (Novolog) Insulin Aspart, Recombinant 100 u/ml 10 ml vial SC SCH ×6 (08:08→22:03)
[2018-05-27] MEDS ORDERED: Caffeine Citrated **INJ** 20 MG/ML IV ONE (10:49)
--- NOTE | 2018-05-27 11:38 | RAD ---
Date of service: 05/27/2018 HISTORY: eval interval change COMPARISON: 05/24/2018 TECHNIQUE: 1 view obtained. FINDINGS: LUNGS: No active pulmonary disease. PLEURA: No significant pleural effusion identified, no pneumothorax apparent. CARDIOVASCULAR: No aortic atherosclerotic calcification present. Normal cardiac size. No pulmonary vascular congestion. OSSEOUS STRUCTURES: No significant abnormalities. VISUALIZED UPPER ABDOMEN: Normal. OTHER FINDINGS: None. IMPRESSION: No active disease.
--- NOTE | 2018-05-27 11:56 | CP.PCM.PN ---
Subjective - Date & Time of Evaluation Date of Evaluation: 05/27/18 Time of Evaluation: 11:52 - Subjective Subjective: Pt feels better, she can lie flat. had nuclear stress, waiting for images. Bp is hoigh, but meds held for test. Brillinta asa held for bleeding. Objective - Vital Signs/Intake and Output Vital Signs (last 24 hours): Temp Pulse Resp BP Pulse Ox 97.9 F 84 19 134/41 L 96 05/27/18 08:00 05/27/18 08:00 05/27/18 06:53 05/27/18 06:53 05/27/18 06:53 Intake and Output: 05/27/18 05/27/18 06:59 18:59 Intake Total 340 0 Output Total 800 250 Balance -460 -250 - Medications Medications: Current Medications Albuterol/Ipratropium (Duoneb 3 Mg/0.5 Mg (3 Ml) Ud) 3 ml INH RQ6 [facility] Last Admin: 05/27/18 07:30 Dose: 3 ml Aspirin (Aspirin Chewable) 81 mg PO DAILY [facility] Last Admin: 05/25/18 12:28 Dose: Not Given Aspirin (Aspirin Chewable) 81 mg PO DAILY [facility] Carvedilol (Coreg) 12.5 mg PO BID [facility] Last Admin: 05/26/18 19:20 Dose: 12.5 mg Docusate Sodium (Colace) 100 mg PO BID [facility] Last Admin: 05/26/18 19:22 Dose: 100 mg Furosemide (Lasix) 40 mg PO DAILY [facility] Last Admin: 05/26/18 09:56 Dose: 40 mg Heparin Sodium (Porcine) (Heparin) 5,000 units SC Q12H [facility] Last Admin: 05/26/18 21:26 Dose: 5,000 units Hydralazine HCl (Apresoline) 100 mg PO Q8H [facility] Last Admin: 05/27/18 06:24 Dose: 100 mg Ceftriaxone Sodium 2 gm/ (Sodium Chloride) 100 mls @ 100 mls/hr IVPB DAILY [facility]; Protocol Last Admin: 05/26/18 09:53 Dose: 100 mls/hr Insulin Aspart (Novolog) 0 unit SC ACHS [facility] Last Admin: 05/27/18 08:08 Dose: Not Given Insulin Aspart (Novolog) 8 unit SC AC [facility] Last Admin: 05/27/18 08:09 Dose: Not Given Insulin Glargine (Lantus) 28 unit SC HS [facility] Last Admin: 05/26/18 21:26 Dose: 28 units Isosorbide Mononitrate (Imdur Er) 30 mg PO DAILY [facility] Last Admin: 05/26/18 09:56 Dose: 30 mg Pantoprazole Sodium (Protonix Inj) 40 mg IVP Q12H [facility] Last Admin: 05/26/18 23:25 Dose: 40 mg Polyethylene Glycol (Miralax) 17 gm PO DAILY PRN PRN Reason: Constipation Ticagrelor (Brilinta) 60 mg PO BID [facility] Last Admin: 05/25/18 12:29 Dose: Not Given - Labs Labs: 05/27/18 05:47 05/27/18 05:47 PT 9.8 SECONDS (9.7-12.2) 05/23/18 10:10 INR 0.9 05/23/18 10:10 APTT 32 SECONDS (21-34) 05/23/18 10:10 - Constitutional Appears: Chronically Ill - Head Exam Head Exam: ATRAUMATIC - Eye Exam Eye Exam: EOMI - ENT Exam ENT Exam: Mucous Membranes Moist - Neck Exam Neck Exam: Full ROM - Respiratory Exam Respiratory Exam: Decreased Breath Sounds - Cardiovascular Exam Cardiovascular Exam: REGULAR RHYTHM - GI/Abdominal Exam GI & Abdominal Exam: Normal Bowel Sounds - Back Exam Back Exam: NORMAL INSPECTION - Neurological Exam Neurological Exam: Alert, Awake, Oriented x3 - Psychiatric Exam Psychiatric exam: Normal Affect, Normal Mood Assessment and Plan - Assessment and Plan (Free Text) Assessment: 1. CHF: cxr now clear: pt has normal LV EF with diastolic dysfunction. heart failure with normal EF. 2 Follow bp. 3. CAD: await nuclear images. If normal, then BP control is best way to prevent CHF recurrences. Trivial TNi elevations are commonly and chronically seen in kidney patients. 4. Once bleeding risk has subsided, asa alone will suffice, can stop brillinta.
[2018-05-27] MEDS: cefTRIAXone 2 GM in Sodium Chloride 0.9% 100 ML IVPB SCH (13:02)
--- NOTE | 2018-05-27 14:03 | CARD ---
APPROVED REPORT Date of service: 05/27/2018 Protocol: LEXISCAN Test Type: LEXISCAN STRESS Test Indications: CHF Medical History: CP Target HR: 157 bpm Resting Heart Rate: 81 bpm Resting Blood Pressure: 154/80mmHg submaximum (85%): 133 bpm TEST SUMMARY PREINFSNHYPERV.48:[id number]/80.0. INFUSIONDOSE 100:300.00.01.090/.0. [id number]:[id number]/80.0. PROCEDURE Pharmacologic stress testing was performed using 0.4mg per 5ml of regadenoson given intravenously over 7-10 seconds. POST EXERCISE Target HR: No Max HR: 90 bpm 61% of Maximum Predicted HR: 157 bpm Exercise duration: 00:30 min:sec, 0 Stage Exercise capacity: 1.0METs Max Blood Pressure: 160/80mmHg Chest Pain: Yes, Angina index: 0 Arrhythmia: Yes, ST Change: Yes, Deviation: 0 mm INTERPRETATION Stress EKG Conclusion: During pharm stress, no echo changes were noted. Negative for ischemia. No arrhythmias Blunted bp response. EXAM: Myocardial Perfusion STRESS/REST Imaging Protocol The imaging protocol used to acquire images was Stress Tc-99m/rest Tc-99m 1 day Rest Spect myocardial perfusion imaging was performed in supine position 45 minutes following the injection of 13.1 mCi of Tc-99 Myoview. Gated Stress Spect was performed 46 minutes after intravenous 32 mCi Tc-99 Myoview injection. The images were gated to evaluate regional wall motion and calculate ventricular ejection fraction.Images were reconstructed using backfilter projection method in short horizontal and verticle long axis. Spect slices were generated. RESTING DATA GRY478.08frAX9.30L/min ESV36.00mlMyocardial Nucw185.00g Av. Heart Rate79.00bpm EF69.00% STRESS DATA PCQ668.86anQO0.30L/min ESV34.00mlMyocardial Nxjw432.00g EF71.00% Regional WT score at stress:1.00 Regional WM score at stress:0.00 Summed WT score at stress:6.00 Av. Heart Rate86.00bpmSummed WM score at stress:0.00 LV Perf. Quant 17 Seg. SSS1.00 17 Seg. SRS5.00 17 Seg. SDS0.00 Stress Defect Extent (% LAD)0.00Rest Defect Extent (% LAD)0.00Rev. Defect Extent (% LAD)0.00 Stress Defect Extent (% LCX)15.00Rest Defect Extent (% LCX)56.30Rev. Defect Extent (% LCX)0.00 Stress Defect Extent (% RCA)0.00Rest Defect Extent (% RCA)0.00Rev. Defect Extent (% RCA)0.00 Stress Defect Extent (% BRIAN)2.60Rest Defect Extent (% BRIAN)11.10Rev. Defect Extent (% BRIAN)0.00 Conclusion 1. Good technical quality. 2. Both post stress and resting LV myocardial perfusion was normal. 3. Normal LV ejection fraction of 71%. 4. Impression: 5. Normal Study
--- NOTE | 2018-05-27 16:19 | CP.PCM.PN ---
Subjective - Date & Time of Evaluation Date of Evaluation: 05/27/18 Time of Evaluation: 16:20 - Subjective Subjective: Pt reports feeling much better. No sob no chest pain Denies coughing up blood Objective - Vital Signs/Intake and Output Vital Signs (last 24 hours): Temp Pulse Resp BP Pulse Ox 97.3 F L 84 20 107/57 L 100 05/27/18 14:29 05/27/18 14:29 05/27/18 14:29 05/27/18 14:29 05/27/18 14:29 Intake and Output: 05/27/18 05/27/18 06:59 18:59 Intake Total 340 150 Output Total 800 450 Balance -460 -300 - Medications Medications: Current Medications Albuterol/Ipratropium (Duoneb 3 Mg/0.5 Mg (3 Ml) Ud) 3 ml INH RQ6 [facility] Last Admin: 05/27/18 07:30 Dose: 3 ml Aspirin (Aspirin Chewable) 81 mg PO DAILY [facility] Last Admin: 05/25/18 12:28 Dose: Not Given Aspirin (Aspirin Chewable) 81 mg PO DAILY [facility] Last Admin: 05/27/18 13:08 Dose: 81 mg Carvedilol (Coreg) 12.5 mg PO BID [facility] Last Admin: 05/27/18 13:05 Dose: 12.5 mg Docusate Sodium (Colace) 100 mg PO BID [facility] Last Admin: 05/27/18 13:03 Dose: 100 mg Heparin Sodium (Porcine) (Heparin) 5,000 units SC Q12H [facility] Last Admin: 05/27/18 13:01 Dose: 5,000 units Hydralazine HCl (Apresoline) 100 mg PO Q8H [facility] Last Admin: 05/27/18 13:41 Dose: 100 mg Ceftriaxone Sodium 2 gm/ (Sodium Chloride) 100 mls @ 100 mls/hr IVPB DAILY [facility]; Protocol Last Admin: 05/27/18 13:02 Dose: 100 mls/hr Insulin Aspart (Novolog) 0 unit SC ACHS [facility] Last Admin: 05/27/18 12:55 Dose: Not Given Insulin Aspart (Novolog) 10 unit SC AC [facility] Insulin Glargine (Lantus) 30 unit SC HS [facility] Isosorbide Mononitrate (Imdur Er) 30 mg PO DAILY [facility] Last Admin: 05/27/18 13:08 Dose: 30 mg Pantoprazole Sodium (Protonix Inj) 40 mg IVP Q12H [facility] Last Admin: 05/27/18 13:03 Dose: 40 mg Polyethylene Glycol (Miralax) 17 gm PO DAILY PRN PRN Reason: Constipation - Labs Labs: 05/27/18 05:47 05/27/18 05:47 PT 9.8 SECONDS (9.7-12.2) 05/23/18 10:10 INR 0.9 05/23/18 10:10 APTT 32 SECONDS (21-34) 05/23/18 10:10 - Constitutional Appears: Well, Non-toxic - Eye Exam Eye Exam: Normal appearance - ENT Exam ENT Exam: Mucous Membranes Moist - Respiratory Exam Respiratory Exam: Clear to Ausculation Bilateral - Cardiovascular Exam Cardiovascular Exam: REGULAR RHYTHM, RRR, +S1, +S2. absent: JVD - GI/Abdominal Exam GI & Abdominal Exam: Soft. absent: Tenderness - Extremities Exam Extremities Exam: absent: Joint Swelling - Neurological Exam Neurological Exam: Alert, Awake Assessment and Plan - Assessment and Plan (Free Text) Assessment: Sp Cardiopulmonary event likely flash Pulmonary edema per Cardio stress test negative lungs are clear, DC lasix, Dc Brilinta cont asa and tight BP control pt does seem to have sleep apnea and does not have CPAP will work with her to optain cpap outpatient Diabetes; better anemia; stable OOB Ambulate Lytes in AM Home soon
--- NOTE | 2018-05-27 17:51 | PN ---
DATE: 05/27/2018 ENDOCRINOLOGY FOLLOWUP NOTE LOCATIONS: ICU room 14E. SUBJECTIVE: This is a 63-year-old female with recent acute respiratory failure that has since then improved clinically and hemodynamically as noted thereof. Her glycemic levels are fluctuating with the variability of her oral intake as noted. Her glucose levels have ranged from 222-249 mmHg. Her chemistries showed a BUN of 36, sodium 138, potassium 4.8, chloride 108, CO2 of 21, glucose 200 and creatinine 3.1. ASSESSMENT: This is a 63-year-old female with recent uncontrolled type 2 insulin-requiring diabetes presenting here with diabetic ketoacidosis and dehydration with supervening acute respiratory failure and endotracheal intubation since them improved clinically and hemodynamically and has since been extubated and is currently on oxygen delivered by nasal cannula as noted. She also has diabetic microvascular complications of retinopathy, polyneuropathy and nephropathy with underlying chronic kidney disease as noted. Moreover she also has diabetic macrovascular complications of coronary artery disease with previous multiple coronary stent placements with underlying peripheral arterial disease and vasculopathy. PLAN OF MANAGEMENT: We will modify once again her current insulin regimen and switch her to a more physiologic basal and bolus insulin drug combination as indicated. She is scheduled for a stress test today. We will modify her NovoLog to 10 units subcutaneous 3 times daily starting today as ordered. We will also continue her low-dose correction scale using NovoLog insulin as given. We will also modify her basal insulin with Lantus to be given as 30 units subcutaneous at bedtime daily to start tonight as ordered. We will obtain serial chemistries and supplement accordingly as needed. We will follow and advise accordingly. Rachel Brown MD
[2018-05-27] MEDS: (Lantus) Insulin Glargine, Recombinant SC SCH (22:04)
[2018-05-27 22:50] LABS: BASO # 0.2 K/uL (0.0-0.2); BASO % 1.4 % (0.0-2.0); EOS # 0.1 K/uL (0.0-0.7); HEMOGLOBIN 9.6 g/dL (11.0-16.0); LYMPH # 1.4 K/uL (1.0-4.3); LYMPH % 9.1 % (20.0-40.0); MEAN CELL VOLUME 88.1 fL (81.0-99.0); MEAN CORPUSCULAR HGB CONC 31.8 g/dL (33.0-37.0); MEAN PLATELET VOLUME 9.5 fL (7.2-11.7); MONO # 0.9 K/uL (0.0-0.8); MONO % 5.9 % (0.0-10.0); NEUT # 12.4 K/uL (1.8-7.0); NEUT % 82.6 % (50.0-75.0); PLATELET COUNT 450 K/uL (130-400); RBC 3.42 Mil/uL (3.80-5.20); RED CELL DISTRIBUTION WIDTH 14.8 % (11.5-14.5)
--- NOTE | 2018-05-27 23:31 | CP.PCM.PN ---
Subjective - Date & Time of Evaluation Date of Evaluation: 05/27/18 Time of Evaluation: 22:00 - Subjective Subjective: House doctor note Called at approximately 9:30pm to evaluate patient for fever and vomiting. Vitals: 101.7 Temp, 93HR, 180/79 BP, 20RR SpO2 93% on 4L NC. Patient complains of nausea and slight shortness of breath. Patient given tylenol and zofran. Patient was placed on bipap-initially refused stating it was uncomfortable, but later cooperated. The following were ordered: CBC, lactate, Blood cx, UA, urine cx and CXR. Dr. Freeman was notified and agreed with plan. I re-evaluated patient patient at 11:30. She reported improvement in symptoms and looked much more comfortable. Vitals: 98.5 Temp, 75HR, 102/56, 100% SpO2 on bipap. Dose of hydralazine was held at that time due to low blood pressure, 102/56. BP was re- checked an hour later: 115/68. Patient remained comfortable. Objective - Vital Signs/Intake and Output Vital Signs (last 24 hours): Temp Pulse Resp BP Pulse Ox 101.7 F H 73 20 165/77 H 99 05/27/18 22:43 05/27/18 16:00 05/27/18 15:20 05/27/18 18:02 05/27/18 15:20 Intake and Output: 05/27/18 05/28/18 18:59 06:59 Intake Total 150 Output Total 450 Balance -300 - Medications Medications: Current Medications Albuterol/Ipratropium (Duoneb 3 Mg/0.5 Mg (3 Ml) Ud) 3 ml INH RQ6 [facility] Last Admin: 05/27/18 07:30 Dose: 3 ml Aspirin (Aspirin Chewable) 81 mg PO DAILY [facility] Last Admin: 05/25/18 12:28 Dose: Not Given Aspirin (Aspirin Chewable) 81 mg PO DAILY [facility] Last Admin: 05/27/18 13:08 Dose: 81 mg Carvedilol (Coreg) 12.5 mg PO BID [facility] Last Admin: 05/27/18 18:02 Dose: 12.5 mg Docusate Sodium (Colace) 100 mg PO BID [facility] Last Admin: 05/27/18 18:01 Dose: 100 mg Heparin Sodium (Porcine) (Heparin) 5,000 units SC Q12H [facility] Last Admin: 05/27/18 22:04 Dose: Not Given Hydralazine HCl (Apresoline) 100 mg PO Q8H [facility] Last Admin: 05/27/18 13:41 Dose: 100 mg Ceftriaxone Sodium 2 gm/ (Sodium Chloride) 100 mls @ 100 mls/hr IVPB DAILY [facility]; Protocol Last Admin: 05/27/18 13:02 Dose: 100 mls/hr Insulin Aspart (Novolog) 0 unit SC ACHS [facility] Last Admin: 05/27/18 22:03 Dose: 3 unit Insulin Aspart (Novolog) 10 unit SC AC [facility] Last Admin: 05/27/18 18:06 Dose: Not Given Insulin Glargine (Lantus) 30 unit SC HS [facility] Last Admin: 05/27/18 22:04 Dose: Not Given Isosorbide Mononitrate (Imdur Er) 30 mg PO DAILY [facility] Last Admin: 05/27/18 13:08 Dose: 30 mg Pantoprazole Sodium (Protonix Inj) 40 mg IVP Q12H [facility] Last Admin: 05/27/18 13:03 Dose: 40 mg Polyethylene Glycol (Miralax) 17 gm PO DAILY PRN PRN Reason: Constipation - Labs Labs: 05/27/18 22:45 05/27/18 05:47 PT 9.8 SECONDS (9.7-12.2) 05/23/18 10:10 INR 0.9 05/23/18 10:10 APTT 32 SECONDS (21-34) 05/23/18 10:10
[2018-05-27 23:35] LABS: BANDS 1 % (0-2); EOSINOPHIL 2 % (0-4); LYMPHOCYTE 9 % (20-40); MONOCYTE 6 % (0-10); NEUTROPHIL 82 % (50-75); PLATELET ESTIMATE NORMAL (NORMAL); TOTAL CELLS COUNTED 100
[2018-05-27 23:36] LABS: HYPOCHROMIC SLIGHT; LARGE PLATELETS PRESENT; MICROCYTOSIS SLIGHT
[2018-05-28] MEDS: Albuterol-Ipratrop 3 mg / 0.5 (3 ml) UD INH SCH ×4 (01:23→19:38)
[2018-05-28] MEDS: (Novolog) Insulin Aspart, Recombinant 100 u/ml 10 ml vial SC SCH ×7 (07:00→21:59)
--- NOTE | 2018-05-28 07:16 | CARD ---
APPROVED REPORT Date of service: 05/23/2018 EKG Measurement Heart [id number] <Conclusion> Sinus tachycardia with short [place] Marked ST abnormality, possible lateral subendocardial injury Abnormal ECG
[2018-05-28 08:20] LABS: BASO # 0.1 K/uL (0.0-0.2); BASO % 1.2 % (0.0-2.0); EOS # 0.2 K/uL (0.0-0.7); EOS % 1.3 % (0.0-4.0); HEMOGLOBIN 9.6 g/dL (11.0-16.0); LYMPH # 2.1 K/uL (1.0-4.3); LYMPH % 18.6 % (20.0-40.0); MEAN CORPUSCULAR HEMOGLOBIN 29.1 pg (27.0-31.0); MEAN CORPUSCULAR HGB CONC 32.2 g/dL (33.0-37.0); MEAN PLATELET VOLUME 9.5 fL (7.2-11.7); MONO % 8.9 % (0.0-10.0); NEUT # 8.1 K/uL (1.8-7.0); NRBC % 0.1 % (0.0-2.0); RBC 3.3 Mil/uL (3.80-5.20); RED CELL DISTRIBUTION WIDTH 14.8 % (11.5-14.5); WHITE BLOOD COUNT 11.5 K/uL (4.8-10.8)
[2018-05-28 08:35] LABS: MEAN CELL VOLUME 90.2 fL (81.0-99.0)
[2018-05-28 08:47] LABS: ALB/GLOB RATIO 1.3 (1.0-2.1); ALBUMIN 3.6 g/dL (3.5-5.0); CALCIUM 8.9 mg/dl (8.6-10.4)
[2018-05-28] MEDS: cefTRIAXone 2 GM in Sodium Chloride 0.9% 100 ML IVPB SCH (10:00)
--- NOTE | 2018-05-28 10:59 | RAD ---
Chest x-ray single frontal view HISTORY: Shortness of breath. COMPARISON: 05/27/2018 FINDINGS: Moderate venous congestion. Confluent consolidative opacification in the right midlung zone. Biapical pleural thickening with upper lobe granulomatous changes. Cardiomegaly. Enlarged ectatic aorta. Degenerative changes in the spine. IMPRESSION: Moderate venous congestion. Confluent consolidative opacification in the right midlung zone. Biapical pleural thickening with upper lobe granulomatous changes. Cardiomegaly. Enlarged ectatic aorta.
--- NOTE | 2018-05-28 16:01 | PN ---
DATE: 05/28/2018 ENDOCRINOLOGY FOLLOWUP NOTE LOCATION: Room 656. SUBJECTIVE: This is a 63-year-old female with recent uncontrolled type 2 insulin-requiring diabetes presenting here with diabetic ketoacidosis and dehydration and has since then improved clinically and metabolically as noted thereof. However, she had episodic bouts of vomiting overnight and very nil oral intake and has been refusing the insulin therapy as per the nursing staff. Her glucose levels overnight have ranged from 240 to 324 and 308 mg/dL. Her chemistries showed a BUN of 38, sodium 136, potassium 4.7, chloride 107, CO2 of 23, glucose of 222, and creatinine 3.3. So at this time, we will modify once again her basal and bolus insulin regimen and increase the NovoLog to 12 units t.i.d. before meals to start today as ordered. We will continue the low-dose correction scale using NovoLog insulin to obviate hypoglycemia and detailed orders have been given. We will also continue the basal insulin given as Lantus at 30 units subcu at bedtime daily as given and will titrate incrementally as indicated to optimize metabolic control. We will follow and advice accordingly, Rachel Brown MD
--- NOTE | 2018-05-28 17:26 | CP.PCM.PN ---
Subjective - Date & Time of Evaluation Date of Evaluation: 05/28/18 Time of Evaluation: 17:37 - Subjective Subjective: cc; fever Spoke to international marketing coordinator last night who was called around 9:30pm to evaluate patient for fever and vomiting. Vitals: 101.7 Temp, 93HR, 180/79 BP, 20RR SpO2 93% on 4L NC. Patient complains of nausea and slight shortness of breath. Pt had repeat CXR which showed mid lung infiltrate and some pulmonary vascular congestion. Today pt had one episode of desaturation into the 80's% when she walked to the bathroom. This afternoon she has spiked another temperature. Pt is awake and alert and denies chest pain or sob. Objective - Vital Signs/Intake and Output Vital Signs (last 24 hours): Temp Pulse Resp BP Pulse Ox 102.6 F H 77 20 151/59 H 96 05/28/18 16:15 05/28/18 07:00 05/28/18 07:00 05/28/18 10:24 05/28/18 07:00 - Medications Medications: Current Medications Acetaminophen (Tylenol 325mg Tab) 650 mg PO Q6 PRN PRN Reason: Fever >100.4 F Last Admin: 05/28/18 16:15 Dose: 650 mg Albuterol/Ipratropium (Duoneb 3 Mg/0.5 Mg (3 Ml) Ud) 3 ml INH RQ6 [facility] Last Admin: 05/28/18 13:21 Dose: Not Given Aspirin (Aspirin Chewable) 81 mg PO DAILY [facility] Last Admin: 05/25/18 12:28 Dose: Not Given Aspirin (Aspirin Chewable) 81 mg PO DAILY [facility] Last Admin: 05/28/18 10:23 Dose: 81 mg Carvedilol (Coreg) 25 mg PO BID [facility] Docusate Sodium (Colace) 100 mg PO BID [facility] Last Admin: 05/28/18 10:21 Dose: 100 mg Heparin Sodium (Porcine) (Heparin) 5,000 units SC Q12H [facility] Last Admin: 05/28/18 10:22 Dose: 5,000 units Hydralazine HCl (Apresoline) 100 mg PO Q8H [facility] Last Admin: 05/28/18 13:49 Dose: 100 mg Ceftriaxone Sodium 2 gm/ (Sodium Chloride) 100 mls @ 100 mls/hr IVPB DAILY [facility]; Protocol Last Admin: 05/28/18 10:00 Dose: 100 mls/hr Vancomycin HCl 1 gm/ Sodium (Chloride) 250 mls @ 166.7 mls/hr IVPB STAT [facility]; Protocol Stop: 05/28/18 18:44 Azithromycin (Zithromax 500mg In Ns Addvantage) 500 mg in 250 mls @ 167 mls/hr IVPB Q24H [facility]; Protocol Insulin Aspart (Novolog) 0 unit SC ACHS [facility] Last Admin: 05/28/18 12:12 Dose: Not Given Insulin Aspart (Novolog) 12 unit SC AC [facility] Insulin Glargine (Lantus) 30 unit SC HS [facility] Last Admin: 05/27/18 22:04 Dose: Not Given Isosorbide Mononitrate (Imdur Er) 30 mg PO DAILY [facility] Last Admin: 05/28/18 10:22 Dose: 30 mg Ondansetron HCl (Zofran Inj) 4 mg IVP Q6H PRN PRN Reason: Nausea/Vomiting Pantoprazole Sodium (Protonix Inj) 40 mg IVP Q12H [facility] Last Admin: 05/28/18 12:30 Dose: 40 mg Pneumococcal Polyvalent Vaccine (Pneumovax 23 Vaccine) 0.5 ml IM .ONCE ONE Stop: 06/01/18 10:01 Polyethylene Glycol (Miralax) 17 gm PO DAILY PRN PRN Reason: Constipation - Labs Labs: 05/28/18 08:07 05/28/18 08:07 PT 9.8 SECONDS (9.7-12.2) 05/23/18 10:10 INR 0.9 05/23/18 10:10 APTT 32 SECONDS (21-34) 05/23/18 10:10 - Constitutional Appears: Non-toxic, Chronically Ill - Eye Exam Eye Exam: Normal appearance - ENT Exam ENT Exam: Mucous Membranes Moist - Respiratory Exam Respiratory Exam: Rales, Rhonchi - Cardiovascular Exam Cardiovascular Exam: REGULAR RHYTHM. absent: JVD, RRR - GI/Abdominal Exam GI & Abdominal Exam: Soft, Normal Bowel Sounds. absent: Tenderness - Extremities Exam Extremities Exam: absent: Joint Swelling - Psychiatric Exam Psychiatric exam: Flat Affect Assessment and Plan - Assessment and Plan (Free Text) Plan: 63 year old 1. Pnem[place]; mid lung consolidation 2. fever 3. ua pending 4. Pulmonary vascular congestion 5. DM with renal insuff 6. SP cardiopulmonary arrest 7. DM; insulin and checks Repeat blood culture UA sent one dose of Vanco, added zithromax cont ROcephin ID eval Pulm consult BP is better but not ideal tight bp control as recommended by cardio increased coreg likely sleep apnea cpap at night for sleep resume sp herparin no further coughing up sputum
[2018-05-28] MEDS ORDERED: Azithromycin 500 MG in Sodium Chloride 0.9% 250 ML IVPB SCH (17:30)
[2018-05-28] MEDS ORDERED: Vancomycin 1 gm/NS 200 ml 1 GM/200 ML BAG IVPB ONE (19:00)
[2018-05-28 19:41] LABS: SQUAMOUS EPITHIAL 7 /hpf (0-5); URINE BACTERIA MOD (<OCC); URINE BILIRUBIN NEGATIVE (NEGATIVE); URINE BLOOD NEGATIVE (NEGATIVE); URINE CLARITY Clear (Clear); URINE COLOR Yellow (YELLOW); URINE GLUCOSE (UA) 2+ mg/dL (Normal); URINE LEUKOCYTE ESTERASE NEG Leu/uL (Negative); URINE PROTEIN 3+ mg/dL (NEGATIVE); URINE UROBILINOGEN NORMAL mg/dL (0.2-1.0)
[2018-05-28 21:09] LABS: CALCIUM 8.9 mg/dl (8.6-10.4)
[2018-05-28] MEDS: (Lantus) Insulin Glargine, Recombinant SC SCH (21:58)
--- NOTE | 2018-05-28 22:40 | CP.PCM.CON ---
History of Present Illness - History of Present Illness History of Present Illness: Pulmonary evaluation for shortness of breath HPI: 63-year-old female with a history of diabetes, hypertension, CAD Patient had a drug-eluting stent to RCA in 2016. Patient admitted to the hospital following a brief episode of shortness of breath, dyspnea and hypotension and an episode of questionable cardiac arrest. Patient was initially monitored in the ICU. Patient was given diuretics, and patient is feeling improving now. Patient had a similar admission in February 2018. Each time patient had a mild elevation of the cardiac enzymes. She also has elevated Creatinine level. Pulmonary evaluation was called for suspected sleep apnea. Past medical history: Hypertension, diabetes, CAD and possible COPD and obstructive sleep apnea. Patient supposed to be getting the CPAP in the house but she is not. Patient is also somewhat noncompliance with medications and her sugar is not controlled and also blood pressure. Patient is also not taking the antiplatelets properly. Surgical history: Stent placement. Social history: Patient is a smoker. Nonalcoholic. Review of system: Patient complaining of shortness of breath. Also complaining of chest discomfort. Dyspnea noted. Even at rest sometimes. Patient is not walking that much. Leg swelling also noted On examination: Vital signs are stable now. Chest good air entry bilaterally. Heart sounds are regular Pedal edema noted. Chest x-ray initially showed no evidence of CHF pattern. Repeat x-rays noted, less CHF now Repeat blood gas analysis revealed Labs also reviewed Possible CO2 retention noted also. VQ scan is negative. Venous Doppler is also negative. Assessment and recommendation: 63-year-old female with a history of COPD, CAD, diabetes, hypertension, hypercholesterolemia. CAD and stent placement. Obstructive sleep apnea. Patient currently on antihypertensives. Carvedilol 25 twice daily Isosorbide Patient currently on Rocephin and Zithromax . I would like to get the CT Continue the current treatment BiPAP as needed. In my opinion patient might need a CT scan of the chest to rule out underlying inflammatory lung disease. We will follow the patient Past Patient History - Infectious Disease Hx of Infectious Diseases: None - Tetanus Immunizations Tetanus Immunization: Unknown - Past Medical History & Family History Past Medical History?: Yes - Past Social History Smoking Status: Current Some Days Smoker - CARDIAC Hx Hypercholesterolemia: Yes Hx Hypertension: Yes - PULMONARY Hx Chronic Obstructive Pulmonary Disease (COPD): Yes - NEUROLOGICAL Hx Neurological Disorder: No - HEENT Hx HEENT Problems: No - RENAL Hx Chronic Kidney Disease: No - ENDOCRINE/METABOLIC Hx Endocrine Disorders: Yes Hx Diabetes Mellitus Type 1: Yes (diabetic right foot) Hx Diabetes Mellitus Type 2: Yes - HEMATOLOGICAL/ONCOLOGICAL Hx Anemia: Yes - INTEGUMENTARY Hx Dermatological Problems: Yes Other/Comment: CELLULITIS OF RIGHT BIG TOE.H/O OF OSTEOMYELITIS - MUSCULOSKELETAL/RHEUMATOLOGICAL Hx Osteoporosis: Yes - GASTROINTESTINAL Hx Gastrointestinal Disorders: No - GENITOURINARY/GYNECOLOGICAL Hx Genitourinary Disorders: No - PSYCHIATRIC Hx Depression: Yes Hx Substance Use: No - SURGICAL HISTORY Hx Coronary Stent: Yes (2 stents) - ANESTHESIA Hx Anesthesia: Yes Hx Anesthesia Reactions: No (unknown) Hx Malignant Hyperthermia: No Meds Allergies/Adverse Reactions: Allergies Allergy/AdvReac Type Severity Reaction Status Date / Time No Known Allergies Allergy Verified 05/23/18 21:48 - Medications Medications: Current Medications Acetaminophen (Tylenol 325mg Tab) 650 mg PO Q6 PRN PRN Reason: Fever >100.4 F Last Admin: 05/28/18 22:03 Dose: 650 mg Albuterol/Ipratropium (Duoneb 3 Mg/0.5 Mg (3 Ml) Ud) 3 ml INH RQ6 [facility] Last Admin: 05/28/18 19:38 Dose: 3 ml Aspirin (Aspirin Chewable) 81 mg PO DAILY [facility] Last Admin: 05/25/18 12:28 Dose: Not Given Aspirin (Aspirin Chewable) 81 mg PO DAILY [facility] Last Admin: 05/28/18 10:23 Dose: 81 mg Carvedilol (Coreg) 25 mg PO BID [facility] Last Admin: 05/28/18 18:18 Dose: 25 mg Docusate Sodium (Colace) 100 mg PO BID [facility] Last Admin: 05/28/18 18:18 Dose: 100 mg Heparin Sodium (Porcine) (Heparin) 5,000 units SC Q12H [facility] Last Admin: 05/28/18 21:58 Dose: 5,000 units Hydralazine HCl (Apresoline) 100 mg PO Q8H [facility] Last Admin: 05/28/18 21:57 Dose: 100 mg Ceftriaxone Sodium 2 gm/ (Sodium Chloride) 100 mls @ 100 mls/hr IVPB DAILY [facility]; Protocol Last Admin: 05/28/18 10:00 Dose: 100 mls/hr Azithromycin 500 mg/ Sodium (Chloride) 250 mls @ 167 mls/hr IVPB Q24H [facility]; Protocol Last Admin: 05/28/18 18:14 Dose: 167 mls/hr Insulin Aspart (Novolog) 0 unit SC ACHS [facility] Last Admin: 05/28/18 21:59 Dose: Not Given Insulin Aspart (Novolog) 12 unit SC AC [facility] Last Admin: 05/28/18 18:11 Dose: Not Given Insulin Glargine (Lantus) 30 unit SC HS [facility] Last Admin: 05/28/18 21:58 Dose: 30 units Isosorbide Mononitrate (Imdur Er) 30 mg PO DAILY [facility] Last Admin: 05/28/18 10:22 Dose: 30 mg Ondansetron HCl (Zofran Inj) 4 mg IVP Q6H PRN PRN Reason: Nausea/Vomiting Pantoprazole Sodium (Protonix Inj) 40 mg IVP Q12H [facility] Last Admin: 05/28/18 12:30 Dose: 40 mg Pneumococcal Polyvalent Vaccine (Pneumovax 23 Vaccine) 0.5 ml IM .ONCE ONE Stop: 06/01/18 10:01 Polyethylene Glycol (Miralax) 17 gm PO DAILY PRN PRN Reason: Constipation Results - Vital Signs Recent Vital Signs: Last Vital Signs Temp 100.4 F H 05/28/18 22:23 Pulse 73 05/28/18 22:23 Resp 20 05/28/18 22:23 BP 150/73 05/28/18 22:23 Pulse Ox 97 05/28/18 22:23 - Labs Result Diagrams: 05/28/18 08:07 05/28/18 21:02 Labs: Laboratory Results - last 24 hr 05/24/18 05/27/18 05/27/18 06:09 17:03 22:45 WBC 15.0 H RBC 3.42 L Hgb 9.6 L Hct 30.1 L MCV 88.1 MCH 28.0 MCHC 31.8 L RDW 14.8 H Plt Count 450 H MPV 9.5 Neut % (Auto) 82.6 H Lymph % (Auto) 9.1 L Christian % (Auto) 5.9 Eos % (Auto) 1.0 Baso % (Auto) 1.4 Neut # (Auto) 12.4 H Lymph # (Auto) 1.4 Christian # (Auto) 0.9 H Eos # (Auto) 0.1 Baso # (Auto) 0.2 Neutrophils % (Manual) 82 H Band Neutrophils % 1 Lymphocytes % (Manual) 9 L Monocytes % (Manual) 6 Eosinophils % (Manual) 2 Platelet Estimate Normal Large Platelets Present Hypochromasia (manual) Slight Microcytosis (manual) Slight Sodium Potassium Chloride Carbon Dioxide Anion Gap BUN Creatinine Est GFR ( Amer) Est GFR (Non-Af Amer) POC Glucose (mg/dL) 380 H Random Glucose Lactic Acid Calcium Phosphorus Magnesium Total Bilirubin AST ALT Alkaline Phosphatase Total Protein Albumin Globulin Albumin/Globulin Ratio Ethanolamine None detected Urine Color Urine Clarity Urine pH Ur Specific [place] Urine Protein Urine Glucose (UA) Urine Ketones Urine Blood Urine Nitrate Urine Bilirubin Urine Urobilinogen Ur Leukocyte Esterase Urine WBC (Auto) Urine RBC (Auto) Ur Squamous Epith Cells Urine Bacteria Toxicology Panel see note Methyl Alcohol Level None detected Isopropanol None detected Acetone Level None detected 05/27/18 05/28/18 05/28/18 22:45 02:24 06:19 WBC RBC Hgb Hct MCV MCH MCHC RDW Plt Count MPV Neut % (Auto) Lymph % (Auto) Christian % (Auto) Eos % (Auto) Baso % (Auto) Neut # (Auto) Lymph # (Auto) Christian # (Auto) Eos # (Auto) Baso # (Auto) Neutrophils % (Manual) Band Neutrophils % Lymphocytes % (Manual) Monocytes % (Manual) Eosinophils % (Manual) Platelet Estimate Large Platelets Hypochromasia (manual) Microcytosis (manual) Sodium Potassium Chloride Carbon Dioxide Anion Gap BUN Creatinine Est GFR ( Amer) Est GFR (Non-Af Amer) POC Glucose (mg/dL) 324 H 240 H Random Glucose Lactic Acid 1.0 Calcium Phosphorus Magnesium Total Bilirubin AST ALT Alkaline Phosphatase Total Protein Albumin Globulin Albumin/Globulin Ratio Ethanolamine Urine Color Urine Clarity Urine pH Ur Specific [place] Urine Protein Urine Glucose (UA) Urine Ketones Urine Blood Urine Nitrate Urine Bilirubin Urine Urobilinogen Ur Leukocyte Esterase Urine WBC (Auto) Urine RBC (Auto) Ur Squamous Epith Cells Urine Bacteria Toxicology Panel Methyl Alcohol Level Isopropanol Acetone Level 05/28/18 05/28/18 05/28/18 08:07 08:07 11:53 WBC 11.5 H RBC 3.30 L Hgb 9.6 L Hct 29.8 L MCV 90.2 D MCH 29.1 MCHC 32.2 L RDW 14.8 H Plt Count 411 H MPV 9.5 Neut % (Auto) 70.0 Lymph % (Auto) 18.6 L Christian % (Auto) 8.9 Eos % (Auto) 1.3 Baso % (Auto) 1.2 Neut # (Auto) 8.1 H Lymph # (Auto) 2.1 Christian # (Auto) 1.0 H Eos # (Auto) 0.2 Baso # (Auto) 0.1 Neutrophils % (Manual) Band Neutrophils % Lymphocytes % (Manual) Monocytes % (Manual) Eosinophils % (Manual) Platelet Estimate Large Platelets Hypochromasia (manual) Microcytosis (manual) Sodium 136 Potassium 4.7 Chloride 107 Carbon Dioxide 23 Anion Gap 11 BUN 38 H Creatinine 3.3 H Est GFR ( Amer) 17 Est GFR (Non-Af Amer) 14 POC Glucose (mg/dL) 308 H Random Glucose 222 H Lactic Acid Calcium 8.9 Phosphorus 5.7 H Magnesium 2.4 H Total Bilirubin 0.7 AST 27 ALT 16 Alkaline Phosphatase 110 Total Protein 6.4 Albumin 3.6 Globulin 2.8 Albumin/Globulin Ratio 1.3 Ethanolamine Urine Color Urine Clarity Urine pH Ur Specific [place] Urine Protein Urine Glucose (UA) Urine Ketones Urine Blood Urine Nitrate Urine Bilirubin Urine Urobilinogen Ur Leukocyte Esterase Urine WBC (Auto) Urine RBC (Auto) Ur Squamous Epith Cells Urine Bacteria Toxicology Panel Methyl Alcohol Level Isopropanol Acetone Level 05/28/18 05/28/18 19:29 21:02 WBC RBC Hgb Hct MCV MCH MCHC RDW Plt Count MPV Neut % (Auto) Lymph % (Auto) Christian % (Auto) Eos % (Auto) Baso % (Auto) Neut # (Auto) Lymph # (Auto) Christian # (Auto) Eos # (Auto) Baso # (Auto) Neutrophils % (Manual) Band Neutrophils % Lymphocytes % (Manual) Monocytes % (Manual) Eosinophils % (Manual) Platelet Estimate Large Platelets Hypochromasia (manual) Microcytosis (manual) Sodium 135 Potassium 5.1 Chloride 107 Carbon Dioxide 19 L Anion Gap 14 BUN 38 H Creatinine 3.3 H Est GFR ( Amer) 17 Est GFR (Non-Af Amer) 14 POC Glucose (mg/dL) Random Glucose 317 H D Lactic Acid Calcium 8.9 Phosphorus Magnesium Total Bilirubin AST ALT Alkaline Phosphatase Total Protein Albumin Globulin Albumin/Globulin Ratio Ethanolamine Urine Color Yellow Urine Clarity Clear Urine pH 6.0 Ur Specific [place] 1.014 Urine Protein 3+ H Urine Glucose (UA) 2+ H Urine Ketones Negative Urine Blood Negative Urine Nitrate Negative Urine Bilirubin Negative Urine Urobilinogen Normal Ur Leukocyte Esterase Neg Urine WBC (Auto) 3 Urine RBC (Auto) < 1 Ur Squamous Epith Cells 7 H Urine Bacteria Mod H Toxicology Panel Methyl Alcohol Level Isopropanol Acetone Level
--- NOTE | 2018-05-28 23:15 | CP.PCM.CON ---
History of Present Illness - History of Present Illness History of Present Illness: vv 63 yo female diabetic with HTN and CAD s/p PTCA Morbid obesity admitted with possible sepsis / resp failure Recently transferred to floors Still spiking fever despite IV antibiotics ID consulted for antibiotic management after recent transfer from ICU HPI Patient was at home, had recent increasing CHU and finally dyspnea at rest, 911 was called. On the scene pt recieved brief cpr for apparent PEA, but in retrospect probably just hypotensive. Pt came to ICU, never intubated or needed pressors, and treated with Bipap and IV antibiotics Pt has chronic CKD, sees Dr Dailey, and baseline cr 2.0, now higher. Pt now has atypical chest pain both upper left side of chest, comes and goes, repeat ecg no acute changes. The pt had an almost identical presentation to [facility] [place] two [place] ago in Feb 2018, PMH - HTN CAD DM II Obesity CKD NKDA FH + DM Review of Systems - Review of Systems All systems: reviewed and no additional remarkable complaints except - Constitutional Constitutional: As Per HPI, Daytime Sleepiness, Lethargy, Malaise - EENT Eyes: absent: As Per HPI, Blind Spots, Blurred Vision, Change in Vision, Decreased Night Vision, Diplopia, Discharge, Dry Eye, Exophthalmos, Floaters, Irritation, Itchy Eyes, Loss of Peripheral Vision, Pain, Photophobia, Requires Corrective Lenses, Sees Flashes, Spots in Vision, Tunnel Vision, Other Visual Disturbances, Loss of Vision, Other Ears: absent: As Per HPI, Decreased Hearing, Ear Discharge, Ear Pain, Tinnitus, Abnormal Hearing, Disequilibrium, Dizziness, Other Nose/Mouth/Throat: absent: As Per HPI, Epistaxis, Nasal Congestion, Nasal Discharge, Nasal Obstruction, Nasal Trauma, Nose Pain, Post Nasal Drip, Sinus Pain, Sinus Pressure, Bleeding Gums, Change in Voice, Dental Pain, Dry Mouth, Dysphagia, Halitosis, Hoarsness, Lip Swelling, Mouth Lesions, Mouth Pain, Odynophagia, Sore Throat, Throat Swelling, Tongue Swelling, Facial Pain, Neck Pain, Neck Mass, Other - Breasts Breasts: absent: As Per HPI, Change in Shape, Mass, Pain, Nipple Discharge, Nipple Inversion, Skin Changes, Swelling, Other - Cardiovascular Cardiovascular: As Per HPI - Respiratory Respiratory: As Per HPI, Dyspnea - Gastrointestinal Gastrointestinal: absent: As Per HPI, Abdominal Pain, Belching, Bloating, Change in Bowel Habits, Change in Stool Character, Coffee Ground Emesis, Constipation, Cramping, Diarrhea, Dyspepsia, Dysphagia, Early Satiety, Excessive Flatus, Fecal Incontinence, Heartburn, Hematemesis, Hematochezia, Loose Stools, Melena, Nausea, Odynophagia, Temesmus, Vomiting, Other - Genitourinary Genitourinary: absent: As Per HPI, Change in Urinary Stream, Difficulty Urinating, Dysuria, Flank Pain, Hematuria, Pyuria, Nocturia, Urinary Incontinence, Urinary Frequency, Urinary Hesitance, Urinary Urgency, Voiding Freq/Small Amts, Freq UTI, Hx Renal/Bladder Calculi, Hx /Renal Surgery, Bladder Distension, Other - Reproductive: Female Reproductive:Female: absent: As Per HPI, Amenorrhea, Amenorrhea/ Control, Currently Menstual, Cycle <21 Days, Cycle >35 Days, Cycle Variable, Menses 1-7 Days, Menses >/= 8 Days, Menses Variable, Cycle > 4 Weeks Between, No Menses for 6 Months, Heavy Menses, Light Menses, Normal Menses, Spotting Between Cycles, S/P Hysterectomy, Menopausal, Post Menopausal, Premenarche, Abnormal Vaginal Bleeding, Dysmenorrhea, Dyspareunia, Genital Lesions, Genital Pruritis, Pelvic Pain, Prolapse Symptoms, Sexual Dysfunction, Vaginal Discharge, Vaginal Dryness, Vaginal Odor, Vaginal Pruritis, Other - Menstruation Menstruation: absent: As Per HPI, Amenorrhea, Amenorrhea/ Control, Currently Menstual, Cycle <21 Days, Cycle >35 Days, Cycle Variable, Menses 1-7 Days, Menses >/= 8 Days, Menses Variable, Cycle > 4 Weeks Between, No Menses for 6 Months, Heavy Menses, Light Menses, Normal Menses, Spotting Between Cycles, S/P Hysterectomy, Menopausal, Post Menopausal, Premenarche, Abnormal Vaginal Bleeding, Dysmenorrhea, Other - Musculoskeletal Musculoskeletal: absent: As Per HPI, Abnormal Gait, Arthralgias, Atrophy, Back Pain, Deformity, Joint Swelling, Limited Range of Motion, Loss of Height, Muscle Cramps, Muscle Weakness, Myalgias, Neck Pain, Numbness, Radiating Pain into Limb, Stiffness, Tingling, Other - Integumentary Integumentary: absent: As Per HPI, Acne, Alopecia, Bleeding Lesions, Change in Hair, Change in Nails, Change in Pigmentation, Changing Lesions, Dry Skin, Erythema, Furuncle, Hirsutism, Lesions, New Lesions, Non-Healing Lesions, Photosensitivity, Pruritus, Rash, Skin Pain, Skin Ulcer, Sores, Striae, Swelling, Unusual Bruising, Wounds, Jaundice, Other - Neurological Neurological: absent: As Per HPI, Abnormal Gait, Abnormal Hearing, Abnormal Movements, Abnormal Speech, Behavioral Changes, Burning Sensations, Confusion, Convulsions, Disequilibrium, Dizziness, Numbness, Focal Weakness, Frequent Falls, Headaches, Lack of Coordination, Loss of Vision, Memory Loss, Paresthesias, Radicular Pain, Restless Legs, Sensory Deficit, Syncope, Tingling, Tremor, Vertigo, Weakness, Other Visual Disturbances, Other - Psychiatric Psychiatric: absent: As Per HPI, Abnormal Sleep Pattern, Anhedonia, Anxiety, Auditory Hallucinations, Behavioral Changes, Change in Appetite, Change in Libido, Confusion, Depression, Difficulty Concentrating, Hallucinations, Homicidal Ideation, Hopelessness, Irritability, Memory Loss, Mood Swings, Panic Attacks, Paranoia, Suicidal Ideation, Visual Hallucinations, Tactile Hallucinations, Other - Endocrine Endocrine: As Per HPI - Hematologic/Lymphatic Hematologic: As Per HPI Past Patient History - Infectious Disease Hx of Infectious Diseases: None - Tetanus Immunizations Tetanus Immunization: Unknown - Past Medical History & Family History Past Medical History?: Yes - Past Social History Smoking Status: Current Some Days Smoker - CARDIAC Hx Hypercholesterolemia: Yes Hx Hypertension: Yes - PULMONARY Hx Chronic Obstructive Pulmonary Disease (COPD): Yes - NEUROLOGICAL Hx Neurological Disorder: No - HEENT Hx HEENT Problems: No - RENAL Hx Chronic Kidney Disease: No - ENDOCRINE/METABOLIC Hx Endocrine Disorders: Yes Hx Diabetes Mellitus Type 1: Yes (diabetic right foot) Hx Diabetes Mellitus Type 2: Yes - HEMATOLOGICAL/ONCOLOGICAL Hx Anemia: Yes - INTEGUMENTARY Hx Dermatological Problems: Yes Other/Comment: CELLULITIS OF RIGHT BIG TOE.H/O OF OSTEOMYELITIS - MUSCULOSKELETAL/RHEUMATOLOGICAL Hx Osteoporosis: Yes - GASTROINTESTINAL Hx Gastrointestinal Disorders: No - GENITOURINARY/GYNECOLOGICAL Hx Genitourinary Disorders: No - PSYCHIATRIC Hx Depression: Yes Hx Substance Use: No - SURGICAL HISTORY Hx Coronary Stent: Yes (2 stents) - ANESTHESIA Hx Anesthesia: Yes Hx Anesthesia Reactions: No (unknown) Hx Malignant Hyperthermia: No Meds Allergies/Adverse Reactions: Allergies Allergy/AdvReac Type Severity Reaction Status Date / Time No Known Allergies Allergy Verified 05/23/18 21:48 - Medications Medications: Current Medications Acetaminophen (Tylenol 325mg Tab) 650 mg PO Q6 PRN PRN Reason: Fever >100.4 F Last Admin: 05/28/18 22:03 Dose: 650 mg Albuterol/Ipratropium (Duoneb 3 Mg/0.5 Mg (3 Ml) Ud) 3 ml INH RQ6 [facility] Last Admin: 05/28/18 19:38 Dose: 3 ml Aspirin (Aspirin Chewable) 81 mg PO DAILY [facility] Last Admin: 05/25/18 12:28 Dose: Not Given Aspirin (Aspirin Chewable) 81 mg PO DAILY [facility] Last Admin: 05/28/18 10:23 Dose: 81 mg Carvedilol (Coreg) 25 mg PO BID [facility] Last Admin: 05/28/18 18:18 Dose: 25 mg Docusate Sodium (Colace) 100 mg PO BID [facility] Last Admin: 05/28/18 18:18 Dose: 100 mg Heparin Sodium (Porcine) (Heparin) 5,000 units SC Q12H [facility] Last Admin: 05/28/18 21:58 Dose: 5,000 units Hydralazine HCl (Apresoline) 100 mg PO Q8H [facility] Last Admin: 05/28/18 21:57 Dose: 100 mg Ceftriaxone Sodium 2 gm/ (Sodium Chloride) 100 mls @ 100 mls/hr IVPB DAILY [facility]; Protocol Last Admin: 05/28/18 10:00 Dose: 100 mls/hr Azithromycin 500 mg/ Sodium (Chloride) 250 mls @ 167 mls/hr IVPB Q24H [facility]; Protocol Last Admin: 05/28/18 18:14 Dose: 167 mls/hr Insulin Aspart (Novolog) 0 unit SC ACHS [facility] Last Admin: 05/28/18 21:59 Dose: Not Given Insulin Aspart (Novolog) 12 unit SC AC [facility] Last Admin: 05/28/18 18:11 Dose: Not Given Insulin Glargine (Lantus) 30 unit SC HS [facility] Last Admin: 05/28/18 21:58 Dose: 30 units Isosorbide Mononitrate (Imdur Er) 30 mg PO DAILY [facility] Last Admin: 05/28/18 10:22 Dose: 30 mg Ondansetron HCl (Zofran Inj) 4 mg IVP Q6H PRN PRN Reason: Nausea/Vomiting Pantoprazole Sodium (Protonix Inj) 40 mg IVP Q12H [facility] Last Admin: 05/28/18 12:30 Dose: 40 mg Pneumococcal Polyvalent Vaccine (Pneumovax 23 Vaccine) 0.5 ml IM .ONCE ONE Stop: 06/01/18 10:01 Polyethylene Glycol (Miralax) 17 gm PO DAILY PRN PRN Reason: Constipation Physical Exam - Constitutional Appears: Non-toxic, No Acute Distress, Chronically Ill - Head Exam Head Exam: ATRAUMATIC, NORMAL INSPECTION, NORMOCEPHALIC - Eye Exam Eye Exam: EOMI, PERRL. absent: Scleral icterus Pupil Exam: NORMAL ACCOMODATION - ENT Exam ENT Exam: Mucous Membranes Moist, Normal External Ear Exam, Normal Oropharynx - Neck Exam Neck exam: Negative for: Lymphadenopathy - Respiratory Exam Respiratory Exam: Decreased Breath Sounds, Prolonged Expiratory Phase, Rhonchi - Cardiovascular Exam Cardiovascular Exam: REGULAR RHYTHM, +S1, +S2 - Rectal Exam Rectal Exam: Deferred - Exam Exam: NORMAL INSPECTION - Extremities Exam Extremities exam: Positive for: pedal pulses present. Negative for: calf tenderness, pedal edema, tenderness - Back Exam Back exam: absent: CVA tenderness (L), CVA tenderness (R), paraspinal tenderness - Neurological Exam Neurological exam: Alert, CN II-XII Intact, Oriented x3, Reflexes Normal - Psychiatric Exam Psychiatric exam: Normal Mood - Skin Skin Exam: Dry Results - Vital Signs Recent Vital Signs: Last Vital Signs Temp 100.4 F H 05/28/18 22:23 Pulse 73 05/28/18 22:23 Resp 20 05/28/18 22:23 BP 150/73 05/28/18 22:23 Pulse Ox 97 05/28/18 22:23 - Labs Result Diagrams: 05/28/18 08:07 05/28/18 21:02 Labs: Laboratory Results - last 24 hr 05/24/18 05/27/18 05/27/18 06:09 17:03 22:45 WBC 15.0 H RBC 3.42 L Hgb 9.6 L Hct 30.1 L MCV 88.1 MCH 28.0 MCHC 31.8 L RDW 14.8 H Plt Count 450 H MPV 9.5 Neut % (Auto) 82.6 H Lymph % (Auto) 9.1 L [place] % (Auto) 5.9 Eos % (Auto) 1.0 Baso % (Auto) 1.4 Neut # (Auto) 12.4 H Lymph # (Auto) 1.4 [place] # (Auto) 0.9 H Eos # (Auto) 0.1 Baso # (Auto) 0.2 Neutrophils % (Manual) 82 H Band Neutrophils % 1 Lymphocytes % (Manual) 9 L Monocytes % (Manual) 6 Eosinophils % (Manual) 2 Platelet Estimate Normal Large Platelets Present Hypochromasia (manual) Slight Microcytosis (manual) Slight Sodium Potassium Chloride Carbon Dioxide Anion Gap BUN Creatinine Est GFR ( Amer) Est GFR (Non-Af Amer) POC Glucose (mg/dL) 380 H Random Glucose Lactic Acid Calcium Phosphorus Magnesium Total Bilirubin AST ALT Alkaline Phosphatase Total Protein Albumin Globulin Albumin/Globulin Ratio Ethanolamine None detected Urine Color Urine Clarity Urine pH Ur Specific [place] Urine Protein Urine Glucose (UA) Urine Ketones Urine Blood Urine Nitrate Urine Bilirubin Urine Urobilinogen Ur Leukocyte Esterase Urine WBC (Auto) Urine RBC (Auto) Ur Squamous Epith Cells Urine Bacteria Toxicology Panel see note Methyl Alcohol Level None detected Isopropanol None detected Acetone Level None detected 05/27/18 05/28/18 05/28/18 22:45 02:24 06:19 WBC RBC Hgb Hct MCV MCH MCHC RDW Plt Count MPV Neut % (Auto) Lymph % (Auto) [place] % (Auto) Eos % (Auto) Baso % (Auto) Neut # (Auto) Lymph # (Auto) [place] # (Auto) Eos # (Auto) Baso # (Auto) Neutrophils % (Manual) Band Neutrophils % Lymphocytes % (Manual) Monocytes % (Manual) Eosinophils % (Manual) Platelet Estimate Large Platelets Hypochromasia (manual) Microcytosis (manual) Sodium Potassium Chloride Carbon Dioxide Anion Gap BUN Creatinine Est GFR ( Amer) Est GFR (Non-Af Amer) POC Glucose (mg/dL) 324 H 240 H Random Glucose Lactic Acid 1.0 Calcium Phosphorus Magnesium Total Bilirubin AST ALT Alkaline Phosphatase Total Protein Albumin Globulin Albumin/Globulin Ratio Ethanolamine Urine Color Urine Clarity Urine pH Ur Specific [place] Urine Protein Urine Glucose (UA) Urine Ketones Urine Blood Urine Nitrate Urine Bilirubin Urine Urobilinogen Ur Leukocyte Esterase Urine WBC (Auto) Urine RBC (Auto) Ur Squamous Epith Cells Urine Bacteria Toxicology Panel Methyl Alcohol Level Isopropanol Acetone Level 05/28/18 05/28/18 05/28/18 08:07 08:07 11:53 WBC 11.5 H RBC 3.30 L Hgb 9.6 L Hct 29.8 L MCV 90.2 D MCH 29.1 MCHC 32.2 L RDW 14.8 H Plt Count 411 H MPV 9.5 Neut % (Auto) 70.0 Lymph % (Auto) 18.6 L [place] % (Auto) 8.9 Eos % (Auto) 1.3 Baso % (Auto) 1.2 Neut # (Auto) 8.1 H Lymph # (Auto) 2.1 [place] # (Auto) 1.0 H Eos # (Auto) 0.2 Baso # (Auto) 0.1 Neutrophils % (Manual) Band Neutrophils % Lymphocytes % (Manual) Monocytes % (Manual) Eosinophils % (Manual) Platelet Estimate Large Platelets Hypochromasia (manual) Microcytosis (manual) Sodium 136 Potassium 4.7 Chloride 107 Carbon Dioxide 23 Anion Gap 11 BUN 38 H Creatinine 3.3 H Est GFR ( Amer) 17 Est GFR (Non-Af Amer) 14 POC Glucose (mg/dL) 308 H Random Glucose 222 H Lactic Acid Calcium 8.9 Phosphorus 5.7 H Magnesium 2.4 H Total Bilirubin 0.7 AST 27 ALT 16 Alkaline Phosphatase 110 Total Protein 6.4 Albumin 3.6 Globulin 2.8 Albumin/Globulin Ratio 1.3 Ethanolamine Urine Color Urine Clarity Urine pH Ur Specific [place] Urine Protein Urine Glucose (UA) Urine Ketones Urine Blood Urine Nitrate Urine Bilirubin Urine Urobilinogen Ur Leukocyte Esterase Urine WBC (Auto) Urine RBC (Auto) Ur Squamous Epith Cells Urine Bacteria Toxicology Panel Methyl Alcohol Level Isopropanol Acetone Level 05/28/18 05/28/18 19:29 21:02 WBC RBC Hgb Hct MCV MCH MCHC RDW Plt Count MPV Neut % (Auto) Lymph % (Auto) [place] % (Auto) Eos % (Auto) Baso % (Auto) Neut # (Auto) Lymph # (Auto) [place] # (Auto) Eos # (Auto) Baso # (Auto) Neutrophils % (Manual) Band Neutrophils % Lymphocytes % (Manual) Monocytes % (Manual) Eosinophils % (Manual) Platelet Estimate Large Platelets Hypochromasia (manual) Microcytosis (manual) Sodium 135 Potassium 5.1 Chloride 107 Carbon Dioxide 19 L Anion Gap 14 BUN 38 H Creatinine 3.3 H Est GFR ( Amer) 17 Est GFR (Non-Af Amer) 14 POC Glucose (mg/dL) Random Glucose 317 H D Lactic Acid Calcium 8.9 Phosphorus Magnesium Total Bilirubin AST ALT Alkaline Phosphatase Total Protein Albumin Globulin Albumin/Globulin Ratio Ethanolamine Urine Color Yellow Urine Clarity Clear Urine pH 6.0 Ur Specific [place] 1.014 Urine Protein 3+ H Urine Glucose (UA) 2+ H Urine Ketones Negative Urine Blood Negative Urine Nitrate Negative Urine Bilirubin Negative Urine Urobilinogen Normal Ur Leukocyte Esterase Neg Urine WBC (Auto) 3 Urine RBC (Auto) < 1 Ur Squamous Epith Cells 7 H Urine Bacteria Mod H Toxicology Panel Methyl Alcohol Level Isopropanol Acetone Level Assessment & Plan (1) Asthma with status asthmaticus Status: Acute (2) Congestive heart failure Status: Acute (3) Elevated troponin I measurement Status: Acute (4) History of percutaneous coronary intervention Status: Chronic (5) Morbid obesity Status: Acute (6) CKD (chronic kidney disease) stage 3, GFR 30-59 ml/min Status: Acute (7) Pneumonia Status: Acute (8) Respiratory failure Status: Acute - Assessment and Plan (Free Text) Assessment: recultured cont broad spectrum IV antibiotics May need CT angio chest / venous dopplers if not done yet check cultures and serologies
[2018-05-28] MEDS ORDERED: Cefepime IV 2 gm in Dextrose 2 GM/100 ML BAG IVPB SCH (23:30)
[2018-05-29] MEDS: Cefepime 2 GM in Sodium Chloride 0.9% 100 ML IVPB SCH ×2 (00:17→22:41)
[2018-05-29] MEDS: Albuterol-Ipratrop 3 mg / 0.5 (3 ml) UD INH SCH ×4 (01:13→19:21)
[2018-05-29] MEDS: (Novolog) Insulin Aspart, Recombinant 100 u/ml 10 ml vial SC SCH ×7 (08:36→22:42)
[2018-05-29 09:16] LABS: BASO # 0.2 K/uL (0.0-0.2); BASO % 1.4 % (0.0-2.0); EOS # 0.2 K/uL (0.0-0.7); EOS % 1.8 % (0.0-4.0); HEMOGLOBIN 9.6 g/dL (11.0-16.0); LYMPH # 1.4 K/uL (1.0-4.3); LYMPH % 12.3 % (20.0-40.0); MEAN CELL VOLUME 89.4 fL (81.0-99.0); MEAN CORPUSCULAR HEMOGLOBIN 28.9 pg (27.0-31.0); MEAN CORPUSCULAR HGB CONC 32.3 g/dL (33.0-37.0); MEAN PLATELET VOLUME 9.9 fL (7.2-11.7); MONO # 0.7 K/uL (0.0-0.8); MONO % 6.2 % (0.0-10.0); NEUT # 9.1 K/uL (1.8-7.0); NEUT % 78.3 % (50.0-75.0); NRBC % 0.1 % (0.0-2.0); RBC 3.33 Mil/uL (3.80-5.20); RED CELL DISTRIBUTION WIDTH 14.5 % (11.5-14.5); WHITE BLOOD COUNT 11.6 K/uL (4.8-10.8)
[2018-05-29 09:38] LABS: ALB/GLOB RATIO 1.2 (1.0-2.1); ALBUMIN 3.7 g/dL (3.5-5.0); CALCIUM 9.1 mg/dl (8.6-10.4)
--- NOTE | 2018-05-29 14:02 | CT ---
Date of service: 05/29/2018 PROCEDURE: CT Chest without contrast HISTORY: PNA COMPARISON: 05/27/2018 single-view chest TECHNIQUE: Contiguous axial images were obtained through the chest without intravenous contrast enhancement. Sagittal and coronal reconstructions were performed. Radiation dose: Total exam DLP = 773.45 mGy-cm. This CT exam was performed using one or more of the following dose reduction techniques: Automated exposure control, adjustment of the mA and/or kV according to patient size, and/or use of iterative reconstruction technique. FINDINGS: LUNGS: Perihilar infiltrates/pulmonary vascular congestion. MEDIASTINUM: Unremarkable thoracic aorta. No aneurysm. Cardiomegaly. Main pulmonary artery unremarkable. No vascular congestion. No lymphadenopathy. No aortic atherosclerotic calcification. PLEURA: No pleural fluid. No pneumothorax. BONES: No fracture. No destructive lesion. UPPER ABDOMEN: Possible gallstones. OTHER FINDINGS: None. IMPRESSION: Cardiomegaly and perihilar infiltrates upper lobe predilection. The appearance suggests pulmonary vascular congestion, atypical pulmonary edema.
--- NOTE | 2018-05-29 15:55 | CP.PCM.PN ---
Subjective - Date & Time of Evaluation Date of Evaluation: 05/29/18 Time of Evaluation: 08:00 - Subjective Subjective: fever again today awake / alert family at bedside NAD Objective - Vital Signs/Intake and Output Vital Signs (last 24 hours): Temp Pulse Resp BP Pulse Ox 98.6 F 78 20 149/71 100 05/29/18 14:38 05/29/18 07:00 05/29/18 07:00 05/29/18 07:00 05/29/18 07:00 Intake and Output: 05/29/18 05/29/18 06:59 18:59 Intake Total 770 Output Total 900 Balance -130 - Medications Medications: Current Medications Acetaminophen (Tylenol 325mg Tab) 650 mg PO Q6 PRN PRN Reason: Fever >100.4 F Last Admin: 05/28/18 22:03 Dose: 650 mg Albuterol/Ipratropium (Duoneb 3 Mg/0.5 Mg (3 Ml) Ud) 3 ml INH RQ6 [facility] Last Admin: 05/29/18 13:23 Dose: Not Given Aspirin (Aspirin Chewable) 81 mg PO DAILY [facility] Last Admin: 05/25/18 12:28 Dose: Not Given Aspirin (Aspirin Chewable) 81 mg PO DAILY [facility] Last Admin: 05/29/18 09:37 Dose: 81 mg Docusate Sodium (Colace) 100 mg PO BID [facility] Last Admin: 05/29/18 09:37 Dose: 100 mg Heparin Sodium (Porcine) (Heparin) 5,000 units SC Q12H [facility] Last Admin: 05/29/18 09:37 Dose: 5,000 units Hydralazine HCl (Apresoline) 100 mg PO Q8H [facility] Last Admin: 05/29/18 14:33 Dose: 100 mg Azithromycin 500 mg/ Sodium (Chloride) 250 mls @ 167 mls/hr IVPB Q24H [facility]; Protocol Last Admin: 05/28/18 18:14 Dose: 167 mls/hr Vancomycin/Sodium Chloride (Vancomycin 1 Gm/Ns 200 Ml) 1 gm in 200 mls @ 133 mls/hr IVPB Q24H [facility]; Protocol Stop: 06/03/18 18:01 Cefepime HCl 2 gm/ Sodium (Chloride) 100 mls @ 100 mls/hr IVPB Q24H [facility]; Protocol Last Admin: 05/29/18 00:17 Dose: 100 mls/hr Insulin Aspart (Novolog) 0 unit SC ACHS [facility] Last Admin: 05/29/18 14:32 Dose: 4 unit Insulin Aspart (Novolog) 12 unit SC AC [facility] Last Admin: 05/29/18 14:33 Dose: 12 u Insulin Glargine (Lantus) 30 unit SC HS [facility] Last Admin: 05/28/18 21:58 Dose: 30 units Isosorbide Mononitrate (Imdur Er) 30 mg PO DAILY [facility] Last Admin: 05/29/18 09:39 Dose: 30 mg Ondansetron HCl (Zofran Inj) 4 mg IVP Q6H PRN PRN Reason: Nausea/Vomiting Pantoprazole Sodium (Protonix Inj) 40 mg IVP Q12H [facility] Last Admin: 05/29/18 14:33 Dose: 40 mg Pneumococcal Polyvalent Vaccine (Pneumovax 23 Vaccine) 0.5 ml IM .ONCE ONE Stop: 06/01/18 10:01 Polyethylene Glycol (Miralax) 17 gm PO DAILY PRN PRN Reason: Constipation - Labs Labs: 05/29/18 09:08 05/29/18 09:08 PT 9.8 SECONDS (9.7-12.2) 05/23/18 10:10 INR 0.9 05/23/18 10:10 APTT 32 SECONDS (21-34) 05/23/18 10:10 - Constitutional Appears: Non-toxic, No Acute Distress - Head Exam Head Exam: NORMOCEPHALIC - Eye Exam Eye Exam: absent: Scleral icterus - ENT Exam ENT Exam: Mucous Membranes Dry - Neck Exam Neck Exam: absent: Lymphadenopathy - Respiratory Exam Respiratory Exam: Decreased Breath Sounds, Prolonged Expiratory Phase, Rhonchi - Cardiovascular Exam Cardiovascular Exam: Tachycardia, REGULAR RHYTHM, +S1, +S2 - GI/Abdominal Exam GI & Abdominal Exam: Distended, Soft. absent: Tenderness - Rectal Exam Rectal Exam: Deferred - Exam Exam: NORMAL INSPECTION - Extremities Exam Extremities Exam: absent: Pedal Edema - Back Exam Back Exam: absent: CVA tenderness (L), CVA tenderness (R), paraspinal tenderness - Neurological Exam Neurological Exam: Alert, Awake, CN II-XII Intact, Normal Gait, Oriented x3. absent: Motor Sensory Deficit Neuro motor strength exam: Left Upper Extremity: 4, Right Upper Extremity: 4, Left Lower Extremity: 4, Right Lower Extremity: 4 - Psychiatric Exam Psychiatric exam: Anxious, Depressed - Skin Skin Exam: Dry Assessment and Plan (1) Asthma with status asthmaticus Status: Acute (2) Congestive heart failure Status: Acute (3) Elevated troponin I measurement Status: Acute (4) History of percutaneous coronary intervention Status: Chronic (5) Morbid obesity Status: Acute (6) CKD (chronic kidney disease) stage 3, GFR 30-59 ml/min Status: Acute (7) Pneumonia Status: Acute (8) Respiratory failure Status: Acute (9) Sepsis Status: Acute - Assessment and Plan (Free Text) Assessment: will treat for Hospital Aquired Pneumonia- was treated at [facility] [place] [facility] [place] in recent past Dr Santillan on board for pulmonary cont CPAP as needed Zyvox/ Cefepime added
--- NOTE | 2018-05-29 17:38 | PN ---
DATE: 05/29/2018 ENDOCRINOLOGY FOLLOWUP NOTE LOCATION: Room 665. SUBJECTIVE: This is a 63-year-old female with recent uncontrolled type 2 insulin-requiring diabetes, now being followed closely for metabolic management. Her oral intake has been quite variable and the patient has been actually refusing the insulin therapy as per the nursing staff. She has developed several intermittent febrile episodes as noted and spiked to 102 last night as noted. Her glycemic levels are fluctuating, not improved, and the glucose values have ranged from 248 to 275 mg/dL early this morning as noted. However, at lunch time today, she has spiked to 391 mg/dL. LABORATORY DATA: Her chemistry showed a BUN of 33, sodium 135, potassium 5.2, chloride 107, CO2 of 22, glucose 305 and creatinine 3.1. ASSESSMENT: This is a 63-year-old female with uncontrolled and decompensated type 2 insulin-requiring diabetes with marked hyperglycemic accelerations. The intercurrent glycemic fluctuations are suboptimal metabolic control thereof and just oral hypoglycemic drug therapy as given. PLAN OF MANAGEMENT: As discussed, the patient will continue the same basal and bolus insulin regimen to allow for full dose equilibration as the patient has very a variable oral intake with suboptimal meal portions as noted. We will continue her NovoLog given as 12 units t.i.d. before meals as ordered. We will continue also her Lantus given as 30 units subcu at bedtime daily as given. We will obtain serial chemistries and supplement accordingly as needed. We will follow. Rachel Brown MD
[2018-05-29] MEDS: Linezolid 600 mg in D5W 300 ml 600 MG/300 ML BAG IVPB SCH (17:45)
[2018-05-29] MEDS ORDERED: Vancomycin 1 gm/NS 200 ml 1 GM/200 ML BAG IVPB SCH (18:00)
--- NOTE | 2018-05-29 18:39 | CP.PCM.PN ---
Subjective - Date & Time of Evaluation Date of Evaluation: 05/29/18 Time of Evaluation: 18:40 - Subjective Subjective: PT states she feels better today Family at bed side pt states she sleep well with cpap Pt's daughter states patient was confused earlier for a few seconds, did not recognized her for a couple of minutes. Objective - Vital Signs/Intake and Output Vital Signs (last 24 hours): Temp Pulse Resp BP Pulse Ox 98.5 F 84 20 149/75 96 05/29/18 16:00 05/29/18 15:00 05/29/18 15:00 05/29/18 15:00 05/29/18 15:00 Intake and Output: 05/29/18 05/29/18 06:59 18:59 Intake Total 770 Output Total 900 Balance -130 - Medications Medications: Current Medications Acetaminophen (Tylenol 325mg Tab) 650 mg PO Q6 PRN PRN Reason: Fever >100.4 F Last Admin: 05/29/18 15:57 Dose: 650 mg Albuterol/Ipratropium (Duoneb 3 Mg/0.5 Mg (3 Ml) Ud) 3 ml INH RQ6 [facility] Last Admin: 05/29/18 13:23 Dose: Not Given Aspirin (Aspirin Chewable) 81 mg PO DAILY [facility] Last Admin: 05/25/18 12:28 Dose: Not Given Aspirin (Aspirin Chewable) 81 mg PO DAILY [facility] Last Admin: 05/29/18 09:37 Dose: 81 mg Docusate Sodium (Colace) 100 mg PO BID [facility] Last Admin: 05/29/18 17:58 Dose: 100 mg Heparin Sodium (Porcine) (Heparin) 5,000 units SC Q12H [facility] Last Admin: 05/29/18 09:37 Dose: 5,000 units Hydralazine HCl (Apresoline) 100 mg PO Q8H [facility] Last Admin: 05/29/18 14:33 Dose: 100 mg Cefepime HCl 2 gm/ Sodium (Chloride) 100 mls @ 100 mls/hr IVPB Q24H [facility]; Protocol Last Admin: 05/29/18 00:17 Dose: 100 mls/hr Linezolid (Zyvox 600mg/300ml D5w) 600 mg in 300 mls @ 200 mls/hr IVPB Q12H [facility]; Protocol Last Admin: 05/29/18 17:45 Dose: 200 mls/hr Azithromycin 500 mg/ Sodium (Chloride) 250 mls @ 167 mls/hr IVPB Q24H [facility]; Protocol Insulin Aspart (Novolog) 0 unit SC ACHS [facility] Last Admin: 05/29/18 17:30 Dose: Not Given Insulin Aspart (Novolog) 12 unit SC AC [facility] Last Admin: 05/29/18 17:00 Dose: 12 u Insulin Glargine (Lantus) 30 unit SC HS [facility] Last Admin: 05/28/18 21:58 Dose: 30 units Isosorbide Mononitrate (Imdur Er) 30 mg PO DAILY [facility] Last Admin: 05/29/18 09:39 Dose: 30 mg Ondansetron HCl (Zofran Inj) 4 mg IVP Q6H PRN PRN Reason: Nausea/Vomiting Oseltamivir Phosphate (Tamiflu Cap) 30 mg PO Q12H [facility]; Protocol Pantoprazole Sodium (Protonix Inj) 40 mg IVP Q12H [facility] Last Admin: 05/29/18 14:33 Dose: 40 mg Pneumococcal Polyvalent Vaccine (Pneumovax 23 Vaccine) 0.5 ml IM .ONCE ONE Stop: 06/01/18 10:01 Polyethylene Glycol (Miralax) 17 gm PO DAILY PRN PRN Reason: Constipation - Labs Labs: 05/29/18 09:08 05/29/18 09:08 PT 9.8 SECONDS (9.7-12.2) 05/23/18 10:10 INR 0.9 05/23/18 10:10 APTT 32 SECONDS (21-34) 05/23/18 10:10 - Constitutional Appears: Non-toxic - Eye Exam Eye Exam: Normal appearance - ENT Exam ENT Exam: Mucous Membranes Moist - Respiratory Exam Respiratory Exam: Clear to Ausculation Bilateral - Cardiovascular Exam Cardiovascular Exam: REGULAR RHYTHM, RRR. absent: JVD - GI/Abdominal Exam GI & Abdominal Exam: Soft Assessment and Plan - Assessment and Plan (Free Text) Assessment: pneumonia; cont abx per id ho heavy smoking quit 10 years ago; her degree of hypoxemia with minimal activity is out of proportion to her current pnemonia will discuss with Dr. Nolasco cont supplement oxygen ID; blood cultures neg so far abx adjusted by ID DM; pt's family admits her diet is rich in carbs and fast food will get nutrition conslt BP; much better sleep apnea; cpap renal insuf; avoid nephrotoxins Discussed case with pt and her family at bed side Episodes of confusion may be secondary to hypoxemia but will get MRI of brain
[2018-05-29] MEDS: Oseltamivir 6 MG/ML PO SCH (19:22)
[2018-05-29] MEDS: Azithromycin 500 MG in Sodium Chloride 0.9% 250 ML IVPB SCH (20:23)
[2018-05-29 20:58] LABS: HEPATITIS B SURFACE AG Negative (NEGATIVE)
[2018-05-29 21:04] LABS: HEPATITIS A IGM NEGATIVE (NEGATIVE); HEPATITIS B CORE AB NEGATIVE (NEGATIVE)
[2018-05-29 21:15] LABS: HEPATITIS C ANTIBODY NEGATIVE (NEGATIVE)
[2018-05-29 22:14] LABS: INTRACELLULAR PARASITE NEGATIVE (NEGATIVE)
[2018-05-29] MEDS: (Lantus) Insulin Glargine, Recombinant SC SCH (23:06)
[2018-05-30] MEDS ORDERED: Aluminum Hydroxide/Magnesium Hydroxide Susp (30 mL) PO ONE (00:58)
--- NOTE | 2018-05-30 01:12 | CP.PCM.PCO ---
Physician Communication Note - Physician Communication Note Physician Communication Note: Called to see pt due to abdominal pain.
[2018-05-30] MEDS: Albuterol-Ipratrop 3 mg / 0.5 (3 ml) UD INH SCH ×4 (02:13→19:43)
[2018-05-30] MEDS: POLYETHYLENE GLYCOL 3350 17 GM/Dose PACKET PO PRN (04:16)
[2018-05-30] MEDS: Linezolid 600 mg in D5W 300 ml 600 MG/300 ML BAG IVPB SCH ×2 (05:11→18:49)
[2018-05-30 07:09] LABS: BASO # 0.1 K/uL (0.0-0.2); BASO % 0.6 % (0.0-2.0); EOS # 0.3 K/uL (0.0-0.7); EOS % 2.6 % (0.0-4.0); HEMOGLOBIN 9.9 g/dL (11.0-16.0); LYMPH % 18.6 % (20.0-40.0); MEAN CELL VOLUME 89.2 fL (81.0-99.0); MEAN CORPUSCULAR HEMOGLOBIN 29.3 pg (27.0-31.0); MEAN CORPUSCULAR HGB CONC 32.9 g/dL (33.0-37.0); MEAN PLATELET VOLUME 10.1 fL (7.2-11.7); MONO # 0.8 K/uL (0.0-0.8); MONO % 7.3 % (0.0-10.0); NEUT # 7.7 K/uL (1.8-7.0); NEUT % 70.9 % (50.0-75.0); RBC 3.38 Mil/uL (3.80-5.20); RED CELL DISTRIBUTION WIDTH 14.3 % (11.5-14.5); WHITE BLOOD COUNT 10.9 K/uL (4.8-10.8)
[2018-05-30] MEDS: Oseltamivir 6 MG/ML PO SCH ×2 (07:15→18:53)
[2018-05-30 07:30] LABS: ALB/GLOB RATIO 1.3 (1.0-2.1); ALBUMIN 3.8 g/dL (3.5-5.0); ALT/SGPT < 6 U/L (9-52); AST/SGOT 19 U/L (14-36); BLOOD UREA NITROGEN 29 mg/dL (7-17); GFR NON-AFRICAN AMERICAN 17
[2018-05-30] MEDS: (Novolog) Insulin Aspart, Recombinant 100 u/ml 10 ml vial SC SCH ×7 (07:59→22:18)
--- NOTE | 2018-05-30 09:05 | CP.PCM.PN ---
Subjective - Date & Time of Evaluation Date of Evaluation: 05/30/18 Time of Evaluation: 09:05 - Subjective Subjective: Pt reports feeling well this AM. seating up in bed eating breakfast, does state her appetite has not been the best. Denies sob or chest pain, but seating in bed. Objective - Vital Signs/Intake and Output Vital Signs (last 24 hours): Temp Pulse Resp BP Pulse Ox 98.4 F 83 20 147/68 95 05/30/18 00:52 05/30/18 07:00 05/30/18 00:52 05/30/18 06:55 05/30/18 00:52 Intake and Output: 05/30/18 05/30/18 06:59 18:59 Intake Total 780 Output Total 400 Balance 380 - Medications Medications: Current Medications Acetaminophen (Tylenol 325mg Tab) 650 mg PO Q6 PRN PRN Reason: Fever >100.4 F Last Admin: 05/29/18 15:57 Dose: 650 mg Albuterol/Ipratropium (Duoneb 3 Mg/0.5 Mg (3 Ml) Ud) 3 ml INH RQ6 [facility] Last Admin: 05/30/18 08:31 Dose: 3 ml Aspirin (Aspirin Chewable) 81 mg PO DAILY [facility] Last Admin: 05/25/18 12:28 Dose: Not Given Aspirin (Aspirin Chewable) 81 mg PO DAILY [facility] Last Admin: 05/29/18 09:37 Dose: 81 mg Docusate Sodium (Colace) 100 mg PO BID [facility] Last Admin: 05/29/18 17:58 Dose: 100 mg Heparin Sodium (Porcine) (Heparin) 5,000 units SC Q12H [facility] Last Admin: 05/29/18 22:41 Dose: 5,000 units Hydralazine HCl (Apresoline) 100 mg PO Q8H [facility] Last Admin: 05/30/18 07:02 Dose: 100 mg Cefepime HCl 2 gm/ Sodium (Chloride) 100 mls @ 100 mls/hr IVPB Q24H [facility]; Protocol Last Admin: 05/29/18 22:41 Dose: 100 mls/hr Linezolid (Zyvox 600mg/300ml D5w) 600 mg in 300 mls @ 200 mls/hr IVPB Q12H [facility]; Protocol Last Admin: 05/30/18 05:11 Dose: 200 mls/hr Azithromycin 500 mg/ Sodium (Chloride) 250 mls @ 167 mls/hr IVPB Q24H [facility]; Protocol Last Admin: 05/29/18 20:23 Dose: 167 mls/hr Insulin Aspart (Novolog) 0 unit SC ACHS [facility] Last Admin: 05/30/18 07:59 Dose: Not Given Insulin Aspart (Novolog) 12 unit SC AC [facility] Last Admin: 05/30/18 08:13 Dose: 12 u Isosorbide Mononitrate (Imdur Er) 30 mg PO DAILY [facility] Last Admin: 05/29/18 09:39 Dose: 30 mg Ondansetron HCl (Zofran Inj) 4 mg IVP Q6H PRN PRN Reason: Nausea/Vomiting Oseltamivir Phosphate (Tamiflu Susp) 30 mg PO Q12H [facility]; Protocol Last Admin: 05/30/18 07:15 Dose: 30 mg Pantoprazole Sodium (Protonix Inj) 40 mg IVP Q12H [facility] Last Admin: 05/29/18 22:43 Dose: 40 mg Pneumococcal Polyvalent Vaccine (Pneumovax 23 Vaccine) 0.5 ml IM .ONCE ONE Stop: 06/01/18 10:01 Polyethylene Glycol (Miralax) 17 gm PO DAILY PRN PRN Reason: Constipation Last Admin: 05/30/18 04:16 Dose: 17 gm Sucralfate (Carafate Tab) 1 gm PO TID [facility] - Labs Labs: 05/30/18 06:54 05/30/18 06:54 PT 9.8 SECONDS (9.7-12.2) 05/23/18 10:10 INR 0.9 05/23/18 10:10 APTT 32 SECONDS (21-34) 05/23/18 10:10 - Constitutional Appears: Non-toxic - Eye Exam Eye Exam: Normal appearance - ENT Exam ENT Exam: Mucous Membranes Moist - Respiratory Exam Respiratory Exam: Clear to Ausculation Bilateral - Cardiovascular Exam Cardiovascular Exam: REGULAR RHYTHM, RRR, +S1, +S2. absent: JVD - GI/Abdominal Exam GI & Abdominal Exam: Soft. absent: Tenderness - Extremities Exam Extremities Exam: Full ROM. absent: Joint Swelling - Neurological Exam Neurological Exam: Alert, Awake - Skin Skin Exam: Dry, Intact Assessment and Plan - Assessment and Plan (Free Text) Assessment: pneumonia sp Pulmonary edema discussed case with Dr. Pelayo, suspect interstial lung disease will need home O2, agree with bronch in the near future once current infection treated DM; sugars starting to go up adjusted insulin oob to chair cpap at night/sleep apnea bp are better
--- NOTE | 2018-05-30 13:34 | MRI ---
Date of service: 05/30/2018 PROCEDURE: MRI BRAIN WITHOUT CONTRAST HISTORY: mental status changes COMPARISON: None available. TECHNIQUE: Multiplanar, multisequence MR images of the brain were obtained without intravenous contrast enhancement. FINDINGS: HEMORRHAGE: None DWI: No evidence of an acute or early subacute infarction. BRAIN PARENCHYMA: No mass effect or edema. Mild volume loss and mild white matter changes likely represent chronic microvascular ischemic disease. VENTRICLES: Unremarkable. No hydrocephalus. CRANIUM: Unremarkable. ORBITS: Grossly unremarkable. PARANASAL SINUSES/MASTOIDS: [id number] mucosal thickening noted in the frontal maxillary is small it and sphenoid sinuses suggestive of sinusitis. VASCULAR SYSTEM: Skull base flow voids intact. OTHER FINDINGS: None. IMPRESSION: No evidence of acute infarction or intracranial hemorrhage. No evidence of mass lesion mass effect or midline shift. [id number] sinuses mucosal disease.
--- NOTE | 2018-05-30 17:36 | PN ---
DATE: 05/30/2018 ENDOCRINOLOGY FOLLOWUP NOTE LOCATION: Room 665. SUBJECTIVE: This is a 63-year-old female with recent uncontrolled type 2 insulin-requiring diabetes, now being followed closely for metabolic management. Her oral intake continues to be quite variable with suboptimal meal portions as per the nursing staff. She also continues to have vague upper abdominal pain with persistent nausea and dyspepsia as noted. Her temperatures have been labile with episodic febrile episodes as noted. Her latest glucose values are still fluctuating as noted overnight with glucose levels ranging from 249 to 293 mg/dL. It was 146 at bedtime last night. LABORATORY DATA: Her chemistry showed a BUN of 29, sodium 134, potassium 4.4, chloride 105, CO2 of 19, glucose 223 and creatinine 2.8. ASSESSMENT: This is a 63-year-old female with uncontrolled and decompensated type 2 insulin-requiring diabetes with extremes of glycemic fluctuations and variable oral intake because of persistent gastrointestinal-related symptoms and is now being followed closely for metabolic management. She also has diabetic microvascular complications of retinopathy, polyneuropathy, and nephropathy with underlying chronic kidney disease. PLAN OF MANAGEMENT: We will modify once again her basal and bolus insulin regimen and increase the Lantus or basal insulin to 40 units subcu at bedtime daily to start tonight. We will continue the low dose correction scale using Novolog insulin as given at a very low dose algorithm to obviate hypoglycemia as ordered. We will obtain serial chemistries and supplement accordingly as needed. We will also modify her bolus insulin with Novolog to be given at 14 units subcu t.i.d. to start today as ordered. We will follow. Rachel Brown MD
[2018-05-30] MEDS: Azithromycin 500 MG in Sodium Chloride 0.9% 250 ML IVPB SCH (21:01)
[2018-05-30] MEDS ORDERED: (Lantus) Insulin Glargine, Recombinant SC SCH (22:00)
[2018-05-30] MEDS: (Lantus) Insulin Glargine, Recombinant SC SCH (22:17)
[2018-05-30] MEDS: Cefepime 2 GM in Sodium Chloride 0.9% 100 ML IVPB SCH (22:32)
[2018-05-31] MEDS: Albuterol-Ipratrop 3 mg / 0.5 (3 ml) UD INH SCH ×3 (01:20→13:33)
[2018-05-31] MEDS: Linezolid 600 mg in D5W 300 ml 600 MG/300 ML BAG IVPB SCH ×2 (06:24→18:05)
[2018-05-31] MEDS: Oseltamivir 6 MG/ML PO SCH ×2 (06:25→18:00)
[2018-05-31] MEDS: (Novolog) Insulin Aspart, Recombinant 100 u/ml 10 ml vial SC SCH ×7 (07:26→21:54)
[2018-05-31 08:56] LABS: HEMOGLOBIN 9.6 g/dL (11.0-16.0); MEAN CELL VOLUME 89.3 fL (81.0-99.0); MEAN CORPUSCULAR HEMOGLOBIN 29.5 pg (27.0-31.0); MEAN CORPUSCULAR HGB CONC 33.1 g/dL (33.0-37.0); MEAN PLATELET VOLUME 10.1 fL (7.2-11.7); RBC 3.25 Mil/uL (3.80-5.20); RED CELL DISTRIBUTION WIDTH 14.6 % (11.5-14.5); WHITE BLOOD COUNT 9.6 K/uL (4.8-10.8)
[2018-05-31 09:15] LABS: ALB/GLOB RATIO 1.2 (1.0-2.1); ALBUMIN 3.4 g/dL (3.5-5.0); CALCIUM 8.9 mg/dl (8.6-10.4)
--- NOTE | 2018-05-31 15:45 | CP.PCM.PN ---
Subjective - Date & Time of Evaluation Date of Evaluation: 05/31/18 Time of Evaluation: 08:00 - Subjective Subjective: afeb no chest pain or SOB VRE urine all other cultures neg Objective - Vital Signs/Intake and Output Vital Signs (last 24 hours): Temp Pulse Resp BP Pulse Ox 98.2 F 75 20 142/67 95 05/31/18 08:51 05/31/18 08:51 05/31/18 08:51 05/31/18 08:51 05/31/18 08:51 Intake and Output: 05/31/18 05/31/18 06:59 18:59 Intake Total 420 Balance 420 - Medications Medications: Current Medications Acetaminophen (Tylenol 325mg Tab) 650 mg PO Q6 PRN PRN Reason: Fever >100.4 F Last Admin: 05/31/18 12:24 Dose: 650 mg Albuterol/Ipratropium (Duoneb 3 Mg/0.5 Mg (3 Ml) Ud) 3 ml INH RQ6 [facility] Last Admin: 05/31/18 13:33 Dose: 3 ml Aspirin (Aspirin Chewable) 81 mg PO DAILY [facility] Last Admin: 05/25/18 12:28 Dose: Not Given Aspirin (Aspirin Chewable) 81 mg PO DAILY [facility] Last Admin: 05/31/18 09:24 Dose: 81 mg Docusate Sodium (Colace) 100 mg PO BID [facility] Last Admin: 05/31/18 09:23 Dose: 100 mg Heparin Sodium (Porcine) (Heparin) 5,000 units SC Q12H [facility] Last Admin: 05/31/18 09:24 Dose: 5,000 units Hydralazine HCl (Apresoline) 100 mg PO Q8H [facility] Last Admin: 05/31/18 06:26 Dose: 100 mg Cefepime HCl 2 gm/ Sodium (Chloride) 100 mls @ 100 mls/hr IVPB Q24H [facility]; Protoc ol Last Admin: 05/30/18 22:32 Dose: 100 mls/hr Linezolid (Zyvox 600mg/300ml D5w) 600 mg in 300 mls @ 200 mls/hr IVPB Q12H [facility]; Protocol Last Admin: 05/31/18 06:24 Dose: 200 mls/hr Azithromycin 500 mg/ Sodium (Chloride) 250 mls @ 167 mls/hr IVPB Q24H [facility]; Protocol Last Admin: 05/30/18 21:01 Dose: 167 mls/hr Insulin Aspart (Novolog) 0 unit SC ACHS [facility] Last Admin: 05/31/18 12:25 Dose: Not Given Insulin Aspart (Novolog) 14 unit SC AC [facility] Last Admin: 05/31/18 12:50 Dose: 14 u Insulin Glargine (Lantus) 40 unit SC HS [facility] Last Admin: 05/30/18 22:17 Dose: 40 u Isosorbide Mononitrate (Imdur Er) 30 mg PO DAILY [facility] Last Admin: 05/31/18 09:24 Dose: 30 mg Ondansetron HCl (Zofran Inj) 4 mg IVP Q6H PRN PRN Reason: Nausea/Vomiting Oseltamivir Phosphate (Tamiflu Susp) 30 mg PO Q12H [facility]; Protocol Last Admin: 05/31/18 06:25 Dose: 5 ml Pantoprazole Sodium (Protonix Inj) 40 mg IVP Q12H [facility] Last Admin: 05/30/18 22:33 Dose: 40 mg Pneumococcal Polyvalent Vaccine (Pneumovax 23 Vaccine) 0.5 ml IM .ONCE ONE Stop: 06/01/18 10:01 Polyethylene Glycol (Miralax) 17 gm PO DAILY PRN PRN Reason: Constipation Last Admin: 05/30/18 04:16 Dose: 17 gm Sucralfate (Carafate Tab) 1 gm PO TID [facility] Last Admin: 05/31/18 09:24 Dose: 1 gm - Labs Labs: 05/31/18 08:43 05/31/18 08:43 PT 9.8 SECONDS (9.7-12.2) 05/23/18 10:10 INR 0.9 05/23/18 10:10 APTT 32 SECONDS (21-34) 05/23/18 10:10 - Constitutional Appears: Non-toxic, Chronically Ill - Head Exam Head Exam: NORMOCEPHALIC - Eye Exam Eye Exam: absent: Scleral icterus - ENT Exam ENT Exam: Mucous Membranes Dry - Neck Exam Neck Exam: absent: Lymphadenopathy - Respiratory Exam Respiratory Exam: Decreased Breath Sounds - Cardiovascular Exam Cardiovascular Exam: REGULAR RHYTHM - GI/Abdominal Exam GI & Abdominal Exam: Distended, Soft - Rectal Exam Rectal Exam: Deferred - Exam Exam: NORMAL INSPECTION - Extremities Exam Extremities Exam: absent: Pedal Edema - Back Exam Back Exam: absent: CVA tenderness (L), CVA tenderness (R) - Neurological Exam Neurological Exam: Alert, Awake, Oriented x3 Assessment and Plan (1) Asthma with status asthmaticus Status: Acute (2) Congestive heart failure Status: Acute (3) Elevated troponin I measurement Status: Acute (4) History of percutaneous coronary intervention Status: Chronic (5) Morbid obesity Status: Acute (6) CKD (chronic kidney disease) stage 3, GFR 30-59 ml/min Status: Acute (7) Pneumonia Status: Acute (8) Respiratory failure Status: Acute (9) Sepsis Status: Acute - Assessment and Plan (Free Text) Assessment: IV rx reordered cont zyvox for VRE
--- NOTE | 2018-05-31 18:27 | CP.PCM.PN ---
Subjective - Date & Time of Evaluation Date of Evaluation: 05/29/18 Time of Evaluation: 18:27 - Subjective Subjective: I reviewed the patient's CAT scan. CAT scan showing evidence of interstitial lung changes especially in the basal on the pleural-based. Lung fibrosis cannot be ruled out. Currently patient is on antibiotic we will follow the patient about the oxygen saturation Objective - Vital Signs/Intake and Output Vital Signs (last 24 hours): Temp Pulse Resp BP Pulse Ox 98.3 F 73 20 138/79 94 L 05/31/18 16:31 05/31/18 16:31 05/31/18 16:31 05/31/18 16:31 05/31/18 16:31 Intake and Output: 05/31/18 05/31/18 06:59 18:59 Intake Total 420 Balance 420 - Medications Medications: Current Medications Acetaminophen (Tylenol 325mg Tab) 650 mg PO Q6 PRN PRN Reason: Fever >100.4 F Last Admin: 05/31/18 12:24 Dose: 650 mg Albuterol/Ipratropium (Duoneb 3 Mg/0.5 Mg (3 Ml) Ud) 3 ml INH RQ6 [facility] Last Admin: 05/31/18 13:33 Dose: 3 ml Aspirin (Aspirin Chewable) 81 mg PO DAILY [facility] Last Admin: 05/25/18 12:28 Dose: Not Given Aspirin (Aspirin Chewable) 81 mg PO DAILY [facility] Last Admin: 05/31/18 09:24 Dose: 81 mg Docusate Sodium (Colace) 100 mg PO BID [facility] Last Admin: 05/31/18 18:06 Dose: 100 mg Heparin Sodium (Porcine) (Heparin) 5,000 units SC Q12H [facility] Last Admin: 05/31/18 09:24 Dose: 5,000 units Hydralazine HCl (Apresoline) 100 mg PO Q8H [facility] Last Admin: 05/31/18 15:44 Dose: 100 mg Cefepime HCl 2 gm/ Sodium (Chloride) 100 mls @ 100 mls/hr IVPB Q24H [facility]; Prot ocol Last Admin: 05/30/18 22:32 Dose: 100 mls/hr Linezolid (Zyvox 600mg/300ml D5w) 600 mg in 300 mls @ 200 mls/hr IVPB Q12H [facility]; Protocol Last Admin: 05/31/18 18:05 Dose: 200 mls/hr Azithromycin 500 mg/ Sodium (Chloride) 250 mls @ 167 mls/hr IVPB Q24H [facility]; Protocol Last Admin: 05/30/18 21:01 Dose: 167 mls/hr Insulin Aspart (Novolog) 0 unit SC ACHS [facility] Last Admin: 05/31/18 18:00 Dose: Not Given Insulin Aspart (Novolog) 14 unit SC AC [facility] Last Admin: 05/31/18 18:07 Dose: 14 u Insulin Glargine (Lantus) 40 unit SC HS [facility] Last Admin: 05/30/18 22:17 Dose: 40 u Isosorbide Mononitrate (Imdur Er) 30 mg PO DAILY [facility] Last Admin: 05/31/18 09:24 Dose: 30 mg Ondansetron HCl (Zofran Inj) 4 mg IVP Q6H PRN PRN Reason: Nausea/Vomiting Oseltamivir Phosphate (Tamiflu Susp) 30 mg PO Q12H [facility]; Protocol Last Admin: 05/31/18 06:25 Dose: 5 ml Pantoprazole Sodium (Protonix Inj) 40 mg IVP Q12H [facility] Last Admin: 05/31/18 09:24 Dose: 40 mg Pneumococcal Polyvalent Vaccine (Pneumovax 23 Vaccine) 0.5 ml IM .ONCE ONE Stop: 06/01/18 10:01 Polyethylene Glycol (Miralax) 17 gm PO DAILY PRN PRN Reason: Constipation Last Admin: 05/30/18 04:16 Dose: 17 gm Sucralfate (Carafate Tab) 1 gm PO TID [facility] Last Admin: 05/31/18 18:06 Dose: 1 gm - Labs Labs: 05/31/18 08:43 05/31/18 08:43 PT 9.8 SECONDS (9.7-12.2) 05/23/18 10:10 INR 0.9 05/23/18 10:10 APTT 32 SECONDS (21-34) 05/23/18 10:10
--- NOTE | 2018-05-31 18:28 | CP.PCM.PN ---
Subjective - Date & Time of Evaluation Date of Evaluation: 05/30/18 Time of Evaluation: 18:27 - Subjective Subjective: Patient is showing significant improvement. Less cough Patient is eating well. Complaining of constipation. Lung point of view patient is improving at this time. Currently on antibiotic we will continue to monitor. Objective - Vital Signs/Intake and Output Vital Signs (last 24 hours): Temp Pulse Resp BP Pulse Ox 98.3 F 73 20 138/79 94 L 05/31/18 16:31 05/31/18 16:31 05/31/18 16:31 05/31/18 16:31 05/31/18 16:31 Intake and Output: 05/31/18 05/31/18 06:59 18:59 Intake Total 420 Balance 420 - Medications Medications: Current Medications Acetaminophen (Tylenol 325mg Tab) 650 mg PO Q6 PRN PRN Reason: Fever >100.4 F Last Admin: 05/31/18 12:24 Dose: 650 mg Albuterol/Ipratropium (Duoneb 3 Mg/0.5 Mg (3 Ml) Ud) 3 ml INH RQ6 [facility] Last Admin: 05/31/18 13:33 Dose: 3 ml Aspirin (Aspirin Chewable) 81 mg PO DAILY [facility] Last Admin: 05/25/18 12:28 Dose: Not Given Aspirin (Aspirin Chewable) 81 mg PO DAILY [facility] Last Admin: 05/31/18 09:24 Dose: 81 mg Docusate Sodium (Colace) 100 mg PO BID [facility] Last Admin: 05/31/18 18:06 Dose: 100 mg Heparin Sodium (Porcine) (Heparin) 5,000 units SC Q12H [facility] Last Admin: 05/31/18 09:24 Dose: 5,000 units Hydralazine HCl (Apresoline) 100 mg PO Q8H [facility] Last Admin: 05/31/18 15:44 Dose: 100 mg Cefepime HCl 2 gm/ Sodium (Chloride) 100 mls @ 100 mls/hr IVPB Q24H [facility]; Protocol Last Admin: 05/30/18 22:32 Dose: 100 mls/hr Linezolid (Zyvox 600mg/300ml D5w) 600 mg in 300 mls @ 200 mls/hr IVPB Q12H [facility]; Protocol Last Admin: 05/31/18 18:05 Dose: 200 mls/hr Azithromycin 500 mg/ Sodium (Chloride) 250 mls @ 167 mls/hr IVPB Q24H [facility]; Protocol Last Admin: 05/30/18 21:01 Dose: 167 mls/hr Insulin Aspart (Novolog) 0 unit SC ACHS [facility] Last Admin: 05/31/18 18:00 Dose: Not Given Insulin Aspart (Novolog) 14 unit SC AC [facility] Last Admin: 05/31/18 18:07 Dose: 14 u Insulin Glargine (Lantus) 40 unit SC HS [facility] Last Admin: 05/30/18 22:17 Dose: 40 u Isosorbide Mononitrate (Imdur Er) 30 mg PO DAILY [facility] Last Admin: 05/31/18 09:24 Dose: 30 mg Ondansetron HCl (Zofran Inj) 4 mg IVP Q6H PRN PRN Reason: Nausea/Vomiting Oseltamivir Phosphate (Tamiflu Susp) 30 mg PO Q12H [facility]; Protocol Last Admin: 05/31/18 06:25 Dose: 5 ml Pantoprazole Sodium (Protonix Inj) 40 mg IVP Q12H [facility] Last Admin: 05/31/18 09:24 Dose: 40 mg Pneumococcal Polyvalent Vaccine (Pneumovax 23 Vaccine) 0.5 ml IM .ONCE ONE Stop: 06/01/18 10:01 Polyethylene Glycol (Miralax) 17 gm PO DAILY PRN PRN Reason: Constipation Last Admin: 05/30/18 04:16 Dose: 17 gm Sucralfate (Carafate Tab) 1 gm PO TID [facility] Last Admin: 05/31/18 18:06 Dose: 1 gm - Labs Labs: 05/31/18 08:43 05/31/18 08:43 PT 9.8 SECONDS (9.7-12.2) 05/23/18 10:10 INR 0.9 05/23/18 10:10 APTT 32 SECONDS (21-34) 05/23/18 10:10
--- NOTE | 2018-05-31 18:29 | CP.PCM.PN ---
Subjective - Date & Time of Evaluation Date of Evaluation: 05/31/18 Time of Evaluation: 18:28 - Subjective Subjective: Patient room air oxygen saturation is 97% now. No cough noted Chest is clear at this time. Heart sounds are regular Patient is also improving with markedly with antibiotic. The chance of having a lung fibrosis less likely at this time. We will continue to monitor. Outpatient PFT has to be done. Patient also will need a sleep study evaluation and monitoring and management and will follow the patient Objective - Vital Signs/Intake and Output Vital Signs (last 24 hours): Temp Pulse Resp BP Pulse Ox 98.3 F 73 20 138/79 94 L 05/31/18 16:31 05/31/18 16:31 05/31/18 16:31 05/31/18 16:31 05/31/18 16:31 Intake and Output: 05/31/18 05/31/18 06:59 18:59 Intake Total 420 Balance 420 - Medications Medications: Current Medications Acetaminophen (Tylenol 325mg Tab) 650 mg PO Q6 PRN PRN Reason: Fever >100.4 F Last Admin: 05/31/18 12:24 Dose: 650 mg Albuterol/Ipratropium (Duoneb 3 Mg/0.5 Mg (3 Ml) Ud) 3 ml INH RQ6 [facility] Last Admin: 05/31/18 13:33 Dose: 3 ml Aspirin (Aspirin Chewable) 81 mg PO DAILY [facility] Last Admin: 05/25/18 12:28 Dose: Not Given Aspirin (Aspirin Chewable) 81 mg PO DAILY [facility] Last Admin: 05/31/18 09:24 Dose: 81 mg Docusate Sodium (Colace) 100 mg PO BID [facility] Last Admin: 05/31/18 18:06 Dose: 100 mg Heparin Sodium (Porcine) (Heparin) 5,000 units SC Q12H [facility] Last Admin: 05/31/18 09:24 Dose: 5,000 units Hydralazine HCl (Apresoline) 100 mg PO Q8H [facility] Last Admin: 05/31/18 15:44 Dose: 100 mg Cefepime HCl 2 gm/ Sodium (Chloride) 100 mls @ 100 mls/hr IVPB Q24H [facility]; Protocol Last Admin: 05/30/18 22:32 Dose: 100 mls/hr Linezolid (Zyvox 600mg/300ml D5w) 600 mg in 300 mls @ 200 mls/hr IVPB Q12H [facility]; Protocol Last Admin: 05/31/18 18:05 Dose: 200 mls/hr Azithromycin 500 mg/ Sodium (Chloride) 250 mls @ 167 mls/hr IVPB Q24H [facility]; Protocol Last Admin: 05/30/18 21:01 Dose: 167 mls/hr Insulin Aspart (Novolog) 0 unit SC ACHS [facility] Last Admin: 05/31/18 18:00 Dose: Not Given Insulin Aspart (Novolog) 14 unit SC AC [facility] Last Admin: 05/31/18 18:07 Dose: 14 u Insulin Glargine (Lantus) 40 unit SC HS [facility] Last Admin: 05/30/18 22:17 Dose: 40 u Isosorbide Mononitrate (Imdur Er) 30 mg PO DAILY [facility] Last Admin: 05/31/18 09:24 Dose: 30 mg Ondansetron HCl (Zofran Inj) 4 mg IVP Q6H PRN PRN Reason: Nausea/Vomiting Oseltamivir Phosphate (Tamiflu Susp) 30 mg PO Q12H [facility]; Protocol Last Admin: 05/31/18 06:25 Dose: 5 ml Pantoprazole Sodium (Protonix Inj) 40 mg IVP Q12H [facility] Last Admin: 05/31/18 09:24 Dose: 40 mg Pneumococcal Polyvalent Vaccine (Pneumovax 23 Vaccine) 0.5 ml IM .ONCE ONE Stop: 06/01/18 10:01 Polyethylene Glycol (Miralax) 17 gm PO DAILY PRN PRN Reason: Constipation Last Admin: 05/30/18 04:16 Dose: 17 gm Sucralfate (Carafate Tab) 1 gm PO TID [facility] Last Admin: 05/31/18 18:06 Dose: 1 gm - Labs Labs: 05/31/18 08:43 05/31/18 08:43 PT 9.8 SECONDS (9.7-12.2) 05/23/18 10:10 INR 0.9 05/23/18 10:10 APTT 32 SECONDS (21-34) 05/23/18 10:10
--- NOTE | 2018-05-31 20:35 | CARD ---
APPROVED REPORT Date of service: 05/26/2018 EKG Measurement Heart [id number] <Conclusion> Sinus rhythm with short NC Left ventricular hypertrophy with repolarization abnormality Abnormal ECG
[2018-05-31] MEDS: Azithromycin 500 MG in Sodium Chloride 0.9% 250 ML IVPB SCH (21:02)
--- NOTE | 2018-05-31 21:18 | PN ---
DATE: 05/31/2018 ENDOCRINOLOGY FOLLOWUP NOTE LOCATION: Room 665. SUBJECTIVE: This is a 63-year-old female with recent uncontrolled type 2 insulin requiring diabetes, now being followed closely for metabolic management. Her glycemic levels are fluctuating, but improved and the glucose levels overnight have ranged from 216 to 267 mg/dL. LABORATORY DATA: Her chemistry showed a BUN of 27, sodium 133, potassium 4.8, chloride 104, CO2 of 22, glucose 250, and creatinine 2.6. ASSESSMENT AND PLAN: So at this time, we will continue the same basal and bolus insulin regimen to allow for dose equilibration and keep her on the NovoLog given as 14 units t.i.d. before meals as ordered. We will continue the Lantus given as 40 units subcu at bedtime daily as given. We will titrate incrementally as indicated to optimize metabolic control. We will also obtain serial chemistries and supplement accordingly as needed. We will follow. Rachel Brown MD
[2018-05-31] MEDS: (Lantus) Insulin Glargine, Recombinant SC SCH (22:00)
[2018-05-31] MEDS: POLYETHYLENE GLYCOL 3350 17 GM/Dose PACKET PO PRN (22:00)
[2018-05-31] MEDS: Cefepime 2 GM in Sodium Chloride 0.9% 100 ML IVPB SCH (23:47)
[2018-06-01] MEDS: Albuterol-Ipratrop 3 mg / 0.5 (3 ml) UD INH SCH ×4 (01:15→20:01)
[2018-06-01] MEDS: Linezolid 600 mg in D5W 300 ml 600 MG/300 ML BAG IVPB SCH ×2 (06:12→19:57)
[2018-06-01] MEDS: Oseltamivir 6 MG/ML PO SCH ×2 (06:21→19:56)
[2018-06-01] MEDS: (Novolog) Insulin Aspart, Recombinant 100 u/ml 10 ml vial SC SCH ×7 (08:10→23:02)
[2018-06-01] MEDS ORDERED: Pneumococcal 23-Valent Vaccine IM ONE (10:00)
--- NOTE | 2018-06-01 12:28 | CP.PCM.PN ---
Subjective - Date & Time of Evaluation Date of Evaluation: 06/01/18 Time of Evaluation: 12:27 - Subjective Subjective: Patient now calm comfortably sitting up. She is not in any distress. Oxygen saturation is better. No cough noted. No fever. On examination: Vital signs stable. Chest good air entry, no wheezing or rales noted, regular [place] noted, a bdomen nontender. No pedal edema Assessment and recommendation: 63-year-old female admitted to the hospital with hypoxic event. Hypoxic respiratory insufficiency. Improving at this time. Continue the antibiotic. As per ID patient also has a VRE. For rehab and possible oxygen to be continued and will follow the patient Objective - Vital Signs/Intake and Output Vital Signs (last 24 hours): Temp Pulse Resp BP Pulse Ox 98.3 F 82 20 157/76 H 96 06/01/18 07:00 06/01/18 08:00 06/01/18 07:00 06/01/18 07:00 06/01/18 07:00 - Medications Medications: Current Medications Acetaminophen (Tylenol 325mg Tab) 650 mg PO Q6 PRN PRN Reason: Fever >100.4 F Last Admin: 05/31/18 12:24 Dose: 650 mg Albuterol/Ipratropium (Duoneb 3 Mg/0.5 Mg (3 Ml) Ud) 3 ml INH RQ6 [facility] Last Admin: 06/01/18 01:15 Dose: Not Given Aspirin (Aspirin Chewable) 81 mg PO DAILY [facility] Last Admin: 05/25/18 12:28 Dose: Not Given Aspirin (Aspirin Chewable) 81 mg PO DAILY [facility] Last Admin: 06/01/18 10:32 Dose: 81 mg Docusate Sodium (Colace) 100 mg PO BID [facility] Last Admin: 06/01/18 10:31 Dose: 100 mg Hydralazine HCl (Apresoline) 100 mg PO Q8H [facility] Last Admin: 06/01/18 06:12 Dose: 100 mg Cefepime HCl 2 gm/ Sodium (Chloride) 100 mls @ 100 mls/hr IVPB Q24H [facility]; Protocol Last Admin: 05/31/18 23:47 Dose: 100 mls/hr Linezolid (Zyvox 600mg/300ml D5w) 600 mg in 300 mls @ 200 mls/hr IVPB Q12H [facility]; Protocol Last Admin: 06/01/18 06:12 Dose: 200 mls/hr Azithromycin 500 mg/ Sodium (Chloride) 250 mls @ 167 mls/hr IVPB Q24H [facility]; Protocol Last Admin: 05/31/18 21:02 Dose: 167 mls/hr Insulin Aspart (Novolog) 0 unit SC ACHS [facility] Last Admin: 06/01/18 12:10 Dose: Not Given Insulin Aspart (Novolog) 14 unit SC AC [facility] Last Admin: 06/01/18 12:20 Dose: 14 u Insulin Glargine (Lantus) 40 unit SC HS [facility] Last Admin: 05/31/18 22:00 Dose: 40 u Isosorbide Mononitrate (Imdur Er) 30 mg PO DAILY [facility] Last Admin: 06/01/18 10:31 Dose: 30 mg Ondansetron HCl (Zofran Inj) 4 mg IVP Q6H PRN PRN Reason: Nausea/Vomiting Oseltamivir Phosphate (Tamiflu Susp) 30 mg PO Q12H [facility]; Protocol Last Admin: 06/01/18 06:21 Dose: 5 ml Pantoprazole Sodium (Protonix Inj) 40 mg IVP Q12H [facility] Last Admin: 06/01/18 12:21 Dose: 40 mg Polyethylene Glycol (Miralax) 17 gm PO DAILY PRN PRN Reason: Constipation Last Admin: 05/31/18 22:00 Dose: 17 gm Sucralfate (Carafate Tab) 1 gm PO TID [facility] Last Admin: 06/01/18 10:31 Dose: 1 gm - Labs Labs: 05/31/18 08:43 05/31/18 08:43 PT 9.8 SECONDS (9.7-12.2) 05/23/18 10:10 INR 0.9 05/23/18 10:10 APTT 32 SECONDS (21-34) 05/23/18 10:10
--- NOTE | 2018-06-01 12:29 | CP.PCM.PN ---
Subjective - Date & Time of Evaluation Date of Evaluation: 06/01/18 Time of Evaluation: 08:00 - Subjective Subjective: afebrile day 4 Zyvox /cefepime Objective - Vital Signs/Intake and Output Vital Signs (last 24 hours): Temp Pulse Resp BP Pulse Ox 98.3 F 82 20 157/76 H 96 06/01/18 07:00 06/01/18 08:00 06/01/18 07:00 06/01/18 07:00 06/01/18 07:00 - Medications Medications: Current Medications Acetaminophen (Tylenol 325mg Tab) 650 mg PO Q6 PRN PRN Reason: Fever >100.4 F Last Admin: 05/31/18 12:24 Dose: 650 mg Albuterol/Ipratropium (Duoneb 3 Mg/0.5 Mg (3 Ml) Ud) 3 ml INH RQ6 [facility] Last Admin: 06/01/18 01:15 Dose: Not Given Aspirin (Aspirin Chewable) 81 mg PO DAILY [facility] Last Admin: 05/25/18 12:28 Dose: Not Given Aspirin (Aspirin Chewable) 81 mg PO DAILY [facility] Last Admin: 06/01/18 10:32 Dose: 81 mg Docusate Sodium (Colace) 100 mg PO BID [facility] Last Admin: 06/01/18 10:31 Dose: 100 mg Hydralazine HCl (Apresoline) 100 mg PO Q8H [facility] Last Admin: 06/01/18 06:12 Dose: 100 mg Cefepime HCl 2 gm/ Sodium (Chloride) 100 mls @ 100 mls/hr IVPB Q24H [facility]; Protocol Last Admin: 05/31/18 23:47 Dose: 100 mls/hr Linezolid (Zyvox 600mg/300ml D5w) 600 mg in 300 mls @ 200 mls/hr IVPB Q12H [facility]; Protocol Last Admin: 06/01/18 06:12 Dose: 200 mls/hr Azithromycin 500 mg/ Sodium (Chloride) 250 mls @ 167 mls/hr IVPB Q24H [facility]; Protocol Last Admin: 05/31/18 21:02 Dose: 167 mls/hr Insulin Aspart (Novolog) 0 unit SC ACHS [facility] Last Admin: 06/01/18 12:10 Dose: Not Given Insulin Aspart (Novolog) 14 unit SC AC [facility] Last Admin: 06/01/18 12:20 Dose: 14 u Insulin Glargine (Lantus) 40 unit SC HS [facility] Last Admin: 05/31/18 22:00 Dose: 40 u Isosorbide Mononitrate (Imdur Er) 30 mg PO DAILY [facility] Last Admin: 06/01/18 10:31 Dose: 30 mg Ondansetron HCl (Zofran Inj) 4 mg IVP Q6H PRN PRN Reason: Nausea/Vomiting Oseltamivir Phosphate (Tamiflu Susp) 30 mg PO Q12H [facility]; Protocol Last Admin: 06/01/18 06:21 Dose: 5 ml Pantoprazole Sodium (Protonix Inj) 40 mg IVP Q12H [facility] Last Admin: 06/01/18 12:21 Dose: 40 mg Polyethylene Glycol (Miralax) 17 gm PO DAILY PRN PRN Reason: Constipation Last Admin: 05/31/18 22:00 Dose: 17 gm Sucralfate (Carafate Tab) 1 gm PO TID [facility] Last Admin: 06/01/18 10:31 Dose: 1 gm - Labs Labs: 05/31/18 08:43 05/31/18 08:43 PT 9.8 SECONDS (9.7-12.2) 05/23/18 10:10 INR 0.9 05/23/18 10:10 APTT 32 SECONDS (21-34) 05/23/18 10:10 - Constitutional Appears: Non-toxic, Chronically Ill - Head Exam Head Exam: ATRAUMATIC, NORMAL INSPECTION, NORMOCEPHALIC - Eye Exam Eye Exam: EOMI, Normal appearance, PERRL Pupil Exam: NORMAL ACCOMODATION, PERRL - ENT Exam ENT Exam: Mucous Membranes Moist, Normal Exam - Neck Exam Neck Exam: Full ROM, Normal Inspection. absent: Lymphadenopathy - Respiratory Exam Respiratory Exam: Clear to Ausculation Bilateral, NORMAL BREATHING PATTERN - Cardiovascular Exam Cardiovascular Exam: REGULAR RHYTHM, +S1, +S2. absent: Murmur - GI/Abdominal Exam GI & Abdominal Exam: Soft, Normal Bowel Sounds. absent: Tenderness - Rectal Exam Rectal Exam: Deferred - Exam Exam: NORMAL INSPECTION - Extremities Exam Extremities Exam: Full ROM, Normal Capillary Refill, Normal Inspection. absent: Joint Swelling, Pedal Edema - Back Exam Back Exam: NORMAL INSPECTION - Neurological Exam Neurological Exam: Alert, Awake, CN II-XII Intact, Oriented x3. absent: Normal Gait - Psychiatric Exam Psychiatric exam: Depressed - Skin Skin Exam: Dry, Intact, Normal Color, Warm Assessment and Plan (1) Asthma with status asthmaticus Status: Acute (2) Congestive heart failure Status: Acute (3) Elevated troponin I measurement Status: Acute (4) History of percutaneous coronary intervention Status: Chronic (5) Morbid obesity Status: Acute (6) CKD (chronic kidney disease) stage 3, GFR 30-59 ml/min Status: Acute (7) Pneumonia Status: Acute (8) Respiratory failure Status: Acute (9) Sepsis Status: Acute - Assessment and Plan (Free Text) Assessment: day 4 zyvox /Cefepime afebrile blood cultures negative will repeat CXR on \possible d/c on PO rx ? Friday if OK with PMD and Pulm
--- NOTE | 2018-06-01 18:03 | CP.PCM.PN ---
Subjective - Date & Time of Evaluation Date of Evaluation: 06/01/18 Time of Evaluation: 18:03 - Subjective Subjective: PT refuses to go to rehab. Pt is willing to go home with a picc line for IV abx if necessary Pt reports feeling better has been walking with less sob Bp is not ideal Objective - Vital Signs/Intake and Output Vital Signs (last 24 hours): Temp Pulse Resp BP Pulse Ox 98.3 F 81 20 186/73 H 96 06/01/18 07:00 06/01/18 16:00 06/01/18 07:00 06/01/18 14:15 06/01/18 07:00 Intake and Output: 06/01/18 06/01/18 06:59 18:59 Intake Total 720 Balance 720 - Medications Medications: Current Medications Acetaminophen (Tylenol 325mg Tab) 650 mg PO Q6 PRN PRN Reason: Fever >100.4 F Last Admin: 05/31/18 12:24 Dose: 650 mg Albuterol/Ipratropium (Duoneb 3 Mg/0.5 Mg (3 Ml) Ud) 3 ml INH RQ6 [facility] Last Admin: 06/01/18 13:29 Dose: 3 ml Aspirin (Aspirin Chewable) 81 mg PO DAILY [facility] Last Admin: 05/25/18 12:28 Dose: Not Given Aspirin (Aspirin Chewable) 81 mg PO DAILY [facility] Last Admin: 06/01/18 10:32 Dose: 81 mg Docusate Sodium (Colace) 100 mg PO BID [facility] Last Admin: 06/01/18 10:31 Dose: 100 mg Hydralazine HCl (Apresoline) 100 mg PO Q6H [facility] Cefepime HCl 2 gm/ Sodium (Chloride) 100 mls @ 100 mls/hr IVPB Q24H [facility]; Protocol Last Admin: 05/31/18 23:47 Dose: 100 mls/hr Linezolid (Zyvox 600mg/300ml D5w) 600 mg in 300 mls @ 200 mls/hr IVPB Q12H [facility]; Protocol Last Admin: 06/01/18 06:12 Dose: 200 mls/hr Azithromycin 500 mg/ Sodium (Chloride) 250 mls @ 167 mls/hr IVPB Q24H [facility]; Protocol Last Admin: 05/31/18 21:02 Dose: 167 mls/hr Insulin Aspart (Novolog) 0 unit SC ACHS [facility] Last Admin: 06/01/18 12:10 Dose: Not Given Insulin Aspart (Novolog) 14 unit SC AC [facility] Last Admin: 06/01/18 12:20 Dose: 14 u Insulin Glargine (Lantus) 40 unit SC HS [facility] Last Admin: 05/31/18 22:00 Dose: 40 u Isosorbide Mononitrate (Imdur Er) 30 mg PO DAILY [facility] Last Admin: 06/01/18 10:31 Dose: 30 mg Ondansetron HCl (Zofran Inj) 4 mg IVP Q6H PRN PRN Reason: Nausea/Vomiting Oseltamivir Phosphate (Tamiflu Susp) 30 mg PO Q12H [facility]; Protocol Last Admin: 06/01/18 06:21 Dose: 5 ml Pantoprazole Sodium (Protonix Inj) 40 mg IVP Q12H [facility] Last Admin: 06/01/18 12:21 Dose: 40 mg Polyethylene Glycol (Miralax) 17 gm PO DAILY PRN PRN Reason: Constipation Last Admin: 05/31/18 22:00 Dose: 17 gm Sucralfate (Carafate Tab) 1 gm PO TID [facility] Last Admin: 06/01/18 14:14 Dose: 1 gm - Labs Labs: 05/31/18 08:43 05/31/18 08:43 PT 9.8 SECONDS (9.7-12.2) 05/23/18 10:10 INR 0.9 05/23/18 10:10 APTT 32 SECONDS (21-34) 05/23/18 10:10 - Constitutional Appears: Non-toxic - Eye Exam Eye Exam: Normal appearance - ENT Exam ENT Exam: Mucous Membranes Moist - Respiratory Exam Respiratory Exam: Rales - GI/Abdominal Exam GI & Abdominal Exam: Soft, Normal Bowel Sounds - Extremities Exam Extremities Exam: Pedal Edema (much less lung rales and trace petal edema) Assessment and Plan - Assessment and Plan (Free Text) Assessment: sp CHF Pnemonia hypoxemia She refuses rehab will find out how many more days of IV abx she is willing to go home with PIcc line if necessary but refuses rehab Will Find out about home oxygen needs adjusted bp meds
[2018-06-01] MEDS: Azithromycin 500 MG in Sodium Chloride 0.9% 250 ML IVPB SCH (22:48)
[2018-06-01] MEDS: (Lantus) Insulin Glargine, Recombinant SC SCH (23:00)
[2018-06-02] MEDS: Cefepime 2 GM in Sodium Chloride 0.9% 100 ML IVPB SCH (00:20)
[2018-06-02] MEDS: Albuterol-Ipratrop 3 mg / 0.5 (3 ml) UD INH SCH (01:53)
[2018-06-02] MEDS: Linezolid 600 mg in D5W 300 ml 600 MG/300 ML BAG IVPB SCH ×2 (05:37→18:32)
[2018-06-02] MEDS: Oseltamivir 6 MG/ML PO SCH ×2 (05:38→18:31)
--- NOTE | 2018-06-02 06:39 | PN ---
DATE: 06/01/2018 ENDOCRINOLOGY FOLLOWUP NOTE LOCATION: Room 665. SUBJECTIVE: This is a 63-year-old female with recent uncontrolled type 2 insulin-requiring diabetes, presenting here with congestive heart failure and supervening acute respiratory failure and has since then improved clinically and hemodynamically as noted thereof. Her glycemic levels are fluctuating corresponding to the variability of her oral intake as noted. Her glucose levels overnight have ranged from 172 to 196 and 229 mg/dL. LABORATORY DATA: Her chemistries showed a BUN of 27, sodium 133, potassium 4.8, chloride 104, CO2 of 22, glucose 250 and creatinine 2.6. ASSESSMENT AND PLAN: So at this time, we will continue the same basal and bolus insulin regimen to allow for a full dose equilibration especially with the variability of her oral intake as noted. We will continue the NovoLog given as 14 units 3 times daily before meals as ordered. We will also continue the basal insulin given as Lantus at 40 units subcutaneous at bedtime daily as given. We will continue the low-dose correction scale using NovoLog insulin as ordered to obviate hypoglycemia. We will obtain serial chemistries and supplement accordingly as needed. We will follow. Rachel Brown MD
[2018-06-02] MEDS: (Novolog) Insulin Aspart, Recombinant 100 u/ml 10 ml vial SC SCH ×7 (07:45→22:19)
--- NOTE | 2018-06-02 12:27 | CP.PCM.PN ---
Subjective - Date & Time of Evaluation Date of Evaluation: 06/02/18 Time of Evaluation: 09:00 - Subjective Subjective: improving no new fevers cultures of blood negative follow up cxr on possible d/c on PO rx Friday Objective - Vital Signs/Intake and Output Vital Signs (last 24 hours): Temp Pulse Resp BP Pulse Ox 98.2 F 72 20 161/79 H 99 06/02/18 08:48 06/02/18 08:48 06/02/18 08:48 06/02/18 08:48 06/02/18 08:48 Intake and Output: 06/02/18 06/02/18 06:59 18:59 Intake Total 640 Balance 640 - Medications Medications: Current Medications Acetaminophen (Tylenol 325mg Tab) 650 mg PO Q6 PRN PRN Reason: Fever >100.4 F Last Admin: 05/31/18 12:24 Dose: 650 mg Albuterol/Ipratropium (Duoneb 3 Mg/0.5 Mg (3 Ml) Ud) 3 ml INH RQ6 [facility] Last Admin: 06/02/18 01:53 Dose: Not Given Aspirin (Aspirin Chewable) 81 mg PO DAILY [facility] Last Admin: 05/25/18 12:28 Dose: Not Given Aspirin (Aspirin Chewable) 81 mg PO DAILY [facility] Last Admin: 06/02/18 11:14 Dose: 81 mg Docusate Sodium (Colace) 100 mg PO BID [facility] Last Admin: 06/02/18 11:14 Dose: 100 mg Hydralazine HCl (Apresoline) 100 mg PO Q6H [facility] Last Admin: 06/02/18 05:43 Dose: 100 mg Cefepime HCl 2 gm/ Sodium (Chloride) 100 mls @ 100 mls/hr IVPB Q24H [facility]; Protocol Last Admin: 06/02/18 00:20 Dose: 100 mls/hr Linezolid (Zyvox 600mg/300ml D5w) 600 mg in 300 mls @ 200 mls/hr IVPB Q12H [facility]; Protocol Last Admin: 06/02/18 05:37 Dose: 200 mls/hr Azithromycin 500 mg/ Sodium (Chloride) 250 mls @ 167 mls/hr IVPB Q24H [facility]; Protocol Last Admin: 06/01/18 22:48 Dose: 167 mls/hr Insulin Aspart (Novolog) 0 unit SC ACHS [facility] Last Admin: 06/02/18 12:11 Dose: Not Given Insulin Aspart (Novolog) 14 unit SC AC [facility] Last Admin: 06/02/18 07:45 Dose: 14 u Insulin Glargine (Lantus) 40 unit SC HS [facility] Last Admin: 06/01/18 23:00 Dose: 40 u Isosorbide Mononitrate (Imdur Er) 30 mg PO DAILY [facility] Last Admin: 06/01/18 10:31 Dose: 30 mg Ondansetron HCl (Zofran Inj) 4 mg IVP Q6H PRN PRN Reason: Nausea/Vomiting Oseltamivir Phosphate (Tamiflu Susp) 30 mg PO Q12H [facility]; Protocol Last Admin: 06/02/18 05:38 Dose: 30 mg Pantoprazole Sodium (Protonix Inj) 40 mg IVP Q12H [facility] Last Admin: 06/02/18 00:40 Dose: 40 mg Polyethylene Glycol (Miralax) 17 gm PO DAILY PRN PRN Reason: Constipation Last Admin: 05/31/18 22:00 Dose: 17 gm Sucralfate (Carafate Tab) 1 gm PO TID [facility] Last Admin: 06/02/18 11:14 Dose: 1 gm - Labs Labs: 05/31/18 08:43 05/31/18 08:43 PT 9.8 SECONDS (9.7-12.2) 05/23/18 10:10 INR 0.9 05/23/18 10:10 APTT 32 SECONDS (21-34) 05/23/18 10:10 - Constitutional Appears: Non-toxic, No Acute Distress, Chronically Ill - Head Exam Head Exam: ATRAUMATIC, NORMAL INSPECTION, NORMOCEPHALIC - Eye Exam Eye Exam: EOMI, Normal appearance, PERRL Pupil Exam: NORMAL ACCOMODATION, PERRL - ENT Exam ENT Exam: Mucous Membranes Moist, Normal Exam - Neck Exam Neck Exam: Full ROM, Normal Inspection. absent: Lymphadenopathy - Respiratory Exam Respiratory Exam: Clear to Ausculation Bilateral, NORMAL BREATHING PATTERN - Cardiovascular Exam Cardiovascular Exam: REGULAR RHYTHM, +S1, +S2. absent: Murmur - GI/Abdominal Exam GI & Abdominal Exam: Soft, Normal Bowel Sounds. absent: Tenderness - Rectal Exam Rectal Exam: Deferred - Extremities Exam Extremities Exam: Full ROM, Normal Capillary Refill, Normal Inspection. absent: Joint Swelling, Pedal Edema - Back Exam Back Exam: NORMAL INSPECTION - Neurological Exam Neurological Exam: Alert, Awake, CN II-XII Intact, Normal Gait, Oriented x3 - Psychiatric Exam Psychiatric exam: Normal Affect, Normal Mood - Skin Skin Exam: Dry, Intact, Normal Color, Warm Assessment and Plan (1) Asthma with status asthmaticus Status: Acute (2) Congestive heart failure Status: Acute (3) Elevated troponin I measurement Status: Acute (4) History of percutaneous coronary intervention Status: Chronic (5) Morbid obesity Status: Acute (6) CKD (chronic kidney disease) stage 3, GFR 30-59 ml/min Status: Acute (7) Pneumonia Status: Acute (8) Respiratory failure Status: Acute (9) Sepsis Status: Acute - Assessment and Plan (Free Text) Assessment: 63 yo female diabetic with HTN and CAD s/p PTCA Morbid obesity admitted with possible sepsis / resp failure Recently transferred to floors Still spiking fever despite IV antibiotics ID consulted for antibiotic management after recent transfer from ICU HPI Patient was at home, had recent increasing CHU and finally dyspnea at rest, 911 was called. On the scene pt recieved brief cpr for apparent PEA, but in retrospect probably just hypotensive. Pt came to ICU, never intubated or needed pressors, and treated with Bipap and IV antibiotics Pt has chronic CKD, sees Dr Dailey, and baseline cr 2.0, now higher. Pt now has atypical chest pain both upper left side of chest, comes and goes, repeat ecg no acute changes. The pt had an almost identical presentation to [facility] two months ago in Feb 2018, Plan: leukocytosis resolving no fever less SOB cont rx as ordered
--- NOTE | 2018-06-02 16:56 | CP.PCM.PN ---
Subjective - Date & Time of Evaluation Date of Evaluation: 06/02/18 Time of Evaluation: 16:56 - Subjective Subjective: cc; pt states she feels better no wheezing sat droped to 91 after walking having issues with insurance as they wont cover unless is 88% pt denies chest pain or sob Objective - Vital Signs/Intake and Output Vital Signs (last 24 hours): Temp Pulse Resp BP Pulse Ox 98.2 F 72 20 161/79 H 99 06/02/18 08:48 06/02/18 08:48 06/02/18 08:48 06/02/18 08:48 06/02/18 08:48 Intake and Output: 06/02/18 06/02/18 06:59 18:59 Intake Total 640 Balance 640 - Medications Medications: Current Medications Acetaminophen (Tylenol 325mg Tab) 650 mg PO Q6 PRN PRN Reason: Fever >100.4 F Last Admin: 05/31/18 12:24 Dose: 650 mg Albuterol/Ipratropium (Duoneb 3 Mg/0.5 Mg (3 Ml) Ud) 3 ml INH RQ6 [facility] Last Admin: 06/02/18 01:53 Dose: Not Given Aspirin (Aspirin Chewable) 81 mg PO DAILY [facility] Last Admin: 05/25/18 12:28 Dose: Not Given Aspirin (Aspirin Chewable) 81 mg PO DAILY [facility] Last Admin: 06/02/18 11:14 Dose: 81 mg Docusate Sodium (Colace) 100 mg PO BID [facility] Last Admin: 06/02/18 11:14 Dose: 100 mg Hydralazine HCl (Apresoline) 100 mg PO Q6H [facility] Last Admin: 06/02/18 12:36 Dose: 100 mg Cefepime HCl 2 gm/ Sodium (Chloride) 100 mls @ 100 mls/hr IVPB Q24H [facility]; Pr otocol Last Admin: 06/02/18 00:20 Dose: 100 mls/hr Linezolid (Zyvox 600mg/300ml D5w) 600 mg in 300 mls @ 200 mls/hr IVPB Q12H [facility]; Protocol Last Admin: 06/02/18 05:37 Dose: 200 mls/hr Azithromycin 500 mg/ Sodium (Chloride) 250 mls @ 167 mls/hr IVPB Q24H [facility]; Protocol Last Admin: 06/01/18 22:48 Dose: 167 mls/hr Insulin Aspart (Novolog) 0 unit SC ACHS [facility] Last Admin: 06/02/18 12:11 Dose: Not Given Insulin Aspart (Novolog) 14 unit SC AC [facility] Last Admin: 06/02/18 12:37 Dose: 14 u Insulin Glargine (Lantus) 40 unit SC HS [facility] Last Admin: 06/01/18 23:00 Dose: 40 u Isosorbide Mononitrate (Imdur Er) 30 mg PO DAILY [facility] Last Admin: 06/02/18 11:00 Dose: 30 mg Ondansetron HCl (Zofran Inj) 4 mg IVP Q6H PRN PRN Reason: Nausea/Vomiting Oseltamivir Phosphate (Tamiflu Susp) 30 mg PO Q12H [facility]; Protocol Last Admin: 06/02/18 05:38 Dose: 30 mg Pantoprazole Sodium (Protonix Inj) 40 mg IVP Q12H [facility] Last Admin: 06/02/18 12:36 Dose: 40 mg Polyethylene Glycol (Miralax) 17 gm PO DAILY PRN PRN Reason: Constipation Last Admin: 05/31/18 22:00 Dose: 17 gm Sucralfate (Carafate Tab) 1 gm PO TID [facility] Last Admin: 06/02/18 14:26 Dose: 1 gm - Labs Labs: 05/31/18 08:43 05/31/18 08:43 PT 9.8 SECONDS (9.7-12.2) 05/23/18 10:10 INR 0.9 05/23/18 10:10 APTT 32 SECONDS (21-34) 05/23/18 10:10 - Constitutional Appears: Non-toxic - Eye Exam Eye Exam: Normal appearance - ENT Exam ENT Exam: Mucous Membranes Moist - Respiratory Exam Respiratory Exam: Clear to Ausculation Bilateral - Cardiovascular Exam Cardiovascular Exam: REGULAR RHYTHM. absent: JVD - GI/Abdominal Exam GI & Abdominal Exam: Soft Assessment and Plan - Assessment and Plan (Free Text) Assessment: pneumonia htn dm parenchymal lung disease trying to get insurance to approve home oxygen will check saturations again tomorrow. discussed case with family at bedside and lining caser.
[2018-06-02] MEDS: Azithromycin 500 MG in Sodium Chloride 0.9% 250 ML IVPB SCH (21:00)
[2018-06-02] MEDS: (Lantus) Insulin Glargine, Recombinant SC SCH (22:20)
--- NOTE | 2018-06-02 23:42 | PN ---
DATE: 06/02/2018 ENDOCRINOLOGY FOLLOWUP NOTE LOCATION: Room 665. SUBJECTIVE: This is a 63-year-old female with recent uncontrolled type 2 insulin requiring diabetes, now being followed closely for metabolic management. Her glycemic levels are fluctuating, but improved. The glucose levels overnight have ranged from 172 to 196 and 229 mg/dL. LABORATORY DATA: Her chemistry showed a BUN of 27, sodium 133, potassium 4.8, chloride 104, CO2 of 22, glucose 250 and creatinine 2.6. ASSESSMENT AND PLAN: So, at this time, we will continue the same basal and bolus insulin regimen to allow for dose equilibration and keep her on the NovoLog given as 14 units subcutaneous t.i.d. before meals as ordered. We will also continue her basal insulin given as Lantus at 40 units subcutaneous at bedtime daily was given. We will titrate incrementally as indicated to optimize metabolic control. We will follow and advise accordingly. Rachel Brown MD
[2018-06-03] MEDS: Cefepime 2 GM in Sodium Chloride 0.9% 100 ML IVPB SCH ×2 (00:16→23:59)
[2018-06-03] MEDS: Albuterol-Ipratrop 3 mg / 0.5 (3 ml) UD INH SCH ×4 (01:46→20:50)
[2018-06-03] MEDS: Linezolid 600 mg in D5W 300 ml 600 MG/300 ML BAG IVPB SCH ×2 (05:00→17:32)
[2018-06-03] MEDS: Oseltamivir 6 MG/ML PO SCH ×2 (07:06→17:33)
[2018-06-03] MEDS: (Novolog) Insulin Aspart, Recombinant 100 u/ml 10 ml vial SC SCH ×7 (07:58→21:27)
--- NOTE | 2018-06-03 13:16 | RAD ---
HISTORY: f/u COMPARISON: Chest x-ray performed 05/27/18, CT chest without contrast performed 05/29/18 TECHNIQUE: Chest, one view. FINDINGS: Examination limited by habitus. LUNGS: Persistent perihilar infiltrates, right greater than left. PLEURA: No significant pleural effusion identified. No definite pneumothorax . CARDIOVASCULAR: Cardiomegaly. OSSEOUS STRUCTURES: No acute osseous abnormality identified. VISUALIZED UPPER ABDOMEN: Elevation of the right hemidiaphragm. OTHER FINDINGS: None. IMPRESSION: Persistent perihilar infiltrates, right greater than left. Cardiomegaly.
--- NOTE | 2018-06-03 16:27 | CP.PCM.PN ---
Subjective - Date & Time of Evaluation Date of Evaluation: 06/03/18 Time of Evaluation: 13:30 - Subjective Subjective: Pt is in the chair, feels well, no complaints, Bp has been high. Objective - Vital Signs/Intake and Output Vital Signs (last 24 hours): Temp Pulse Resp BP Pulse Ox 98.0 F 89 20 176/81 H 96 06/03/18 15:00 06/03/18 15:00 06/03/18 15:00 06/03/18 15:00 06/03/18 15:00 Intake and Output: 06/03/18 06/03/18 06:59 18:59 Intake Total 550 1090 Balance 550 1090 - Medications Medications: Current Medications Acetaminophen (Tylenol 325mg Tab) 650 mg PO Q6 PRN PRN Reason: Fever >100.4 F Last Admin: 06/03/18 00:20 Dose: 650 mg Albuterol/Ipratropium (Duoneb 3 Mg/0.5 Mg (3 Ml) Ud) 3 ml INH RQ6 [facility] Last Admin: 06/03/18 13:16 Dose: 3 ml Alprazolam (Xanax) 0.25 mg PO TID PRN PRN Reason: Anxiety Stop: 06/10/18 14:16 Last Admin: 06/03/18 14:38 Dose: 0.25 mg Aspirin (Aspirin Chewable) 81 mg PO DAILY [facility] Last Admin: 05/25/18 12:28 Dose: Not Given Aspirin (Aspirin Chewable) 81 mg PO DAILY [facility] Last Admin: 06/03/18 09:59 Dose: 81 mg Docusate Sodium (Colace) 100 mg PO BID [facility] Last Admin: 06/03/18 09:59 Dose: 100 mg Hydralazine HCl (Apresoline) 100 mg PO Q6H [facility] Last Admin: 06/03/18 11:22 Dose: 100 mg Cefepime HCl 2 gm/ Sodium (Chloride) 100 mls @ 100 mls/hr IVPB Q24H [facility]; Protocol Last Admin: 06/03/18 00:16 Dose: 100 mls/hr Linezolid (Zyvox 600mg/300ml D5w) 600 mg in 300 mls @ 200 mls/hr IVPB Q12H [facility]; Protocol Last Admin: 06/03/18 05:00 Dose: 200 mls/hr Azithromycin 500 mg/ Sodium (Chloride) 250 mls @ 167 mls/hr IVPB Q24H [facility]; Protocol Last Admin: 06/02/18 21:00 Dose: 167 mls/hr Insulin Aspart (Novolog) 0 unit SC ACHS [facility] Last Admin: 06/03/18 11:39 Dose: Not Given Insulin Aspart (Novolog) 14 unit SC AC [facility] Last Admin: 06/03/18 12:32 Dose: 14 u Insulin Glargine (Lantus) 40 unit SC HS [facility] Last Admin: 06/02/18 22:20 Dose: Not Given Isosorbide Mononitrate (Imdur Er) 30 mg PO DAILY [facility] Last Admin: 06/03/18 09:58 Dose: 30 mg Ondansetron HCl (Zofran Inj) 4 mg IVP Q6H PRN PRN Reason: Nausea/Vomiting Oseltamivir Phosphate (Tamiflu Susp) 30 mg PO Q12H [facility]; Protocol Last Admin: 06/03/18 07:06 Dose: 30 mg Pantoprazole Sodium (Protonix Inj) 40 mg IVP Q12H [facility] Last Admin: 06/03/18 11:22 Dose: 40 mg Polyethylene Glycol (Miralax) 17 gm PO DAILY PRN PRN Reason: Constipation Last Admin: 05/31/18 22:00 Dose: 17 gm Sucralfate (Carafate Tab) 1 gm PO TID [facility] Last Admin: 06/03/18 13:16 Dose: 1 gm - Labs Labs: 05/31/18 08:43 05/31/18 08:43 PT 9.8 SECONDS (9.7-12.2) 05/23/18 10:10 INR 0.9 05/23/18 10:10 APTT 32 SECONDS (21-34) 05/23/18 10:10 - Constitutional Appears: Well, Older Than Stated Age - Eye Exam Eye Exam: EOMI Pupil Exam: NORMAL ACCOMODATION - ENT Exam ENT Exam: Mucous Membranes Moist - Neck Exam Neck Exam: Full ROM - Respiratory Exam Respiratory Exam: NORMAL BREATHING PATTERN - Cardiovascular Exam Cardiovascular Exam: REGULAR RHYTHM - GI/Abdominal Exam GI & Abdominal Exam: Soft, Normal Bowel Sounds - Exam External exam: NORMAL EXTERNAL EXAM - Extremities Exam Extremities Exam: Full ROM - Back Exam Back Exam: NORMAL INSPECTION - Neurological Exam Neurological Exam: Alert, Awake, Oriented x3 - Psychiatric Exam Psychiatric exam: Normal Affect, Normal Mood - Skin Skin Exam: Normal Color Assessment and Plan - Assessment and Plan (Free Text) Assessment: 1. Pt has been off beta niurka since 05/29. Stopped for ? COPD?. As LV EF is normal, beta niurka not essential for diastolic related chf, so will add norvasc to current hydralazine/nitrates. If bp still no controlled, a selective b niurka can be used. 2. Lungs sound clear on exam. 3. Pt did not likely have true cardiac arrest. She was hypoxic,n the hypotensive: CPR was administered for "PEA", but pt's rapid improvement in clinical status and trival troponin level, normal LVEF, would be unlikely if PEA had truly occurred. No shock was administered. 4. Pt has had chronically elevated small tni level in the setting of kidneys disease, and in the absence of ECG changes diagnosing of [place], a new wall motion abnormality on echo or scarring on nuclear stress, a diagnosis of non stemi cannot be made. Small tni elevations in the setting of ckd are less specific. 5. Nuclear stress was normal.
--- NOTE | 2018-06-03 17:27 | CP.PCM.PN ---
Subjective - Date & Time of Evaluation Date of Evaluation: 06/03/18 - Subjective Subjective: PT had a episode of anxiety earlier needing some xanax. Better now. Pt had ambulatory oxygen eval and dropped to 87% with ambulation. Pt will need out oxygen. Pt refuses rehab and needs 2 more days of Iv abx per Dr. Vale BP elevated; Cardio added Norvasc today Objective - Vital Signs/Intake and Output Vital Signs (last 24 hours): Temp Pulse Resp BP Pulse Ox 98.0 F 89 20 176/81 H 96 06/03/18 15:00 06/03/18 15:00 06/03/18 15:00 06/03/18 15:00 06/03/18 15:00 Intake and Output: 06/03/18 06/03/18 06:59 18:59 Intake Total 550 1090 Balance 550 1090 - Medications Medications: Current Medications Acetaminophen (Tylenol 325mg Tab) 650 mg PO Q6 PRN PRN Reason: Fever >100.4 F Last Admin: 06/03/18 00:20 Dose: 650 mg Albuterol/Ipratropium (Duoneb 3 Mg/0.5 Mg (3 Ml) Ud) 3 ml INH RQ6 [facility] Last Admin: 06/03/18 13:16 Dose: 3 ml Alprazolam (Xanax) 0.25 mg PO TID PRN PRN Reason: Anxiety Stop: 06/10/18 14:16 Last Admin: 06/03/18 14:38 Dose: 0.25 mg Amlodipine Besylate (Norvasc) 10 mg PO DAILY [facility] Aspirin (Aspirin Chewable) 81 mg PO DAILY [facility] Last Admin: 05/25/18 12:28 Dose: Not Given Aspirin (Aspirin Chewable) 81 mg PO DAILY [facility] Last Admin: 06/03/18 09:59 Dose: 81 mg Docusate Sodium (Colace) 100 mg PO BID [facility] Last Admin: 06/03/18 09:59 Dose: 100 mg Hydralazine HCl (Apresoline) 100 mg PO Q6H [facility] Last Admin: 06/03/18 11:22 Dose: 100 mg Cefepime HCl 2 gm/ Sodium (Chloride) 100 mls @ 100 mls/hr IVPB Q24H [facility]; Protocol Last Admin: 06/03/18 00:16 Dose: 100 mls/hr Linezolid (Zyvox 600mg/300ml D5w) 600 mg in 300 mls @ 200 mls/hr IVPB Q12H [facility]; Protocol Last Admin: 06/03/18 05:00 Dose: 200 mls/hr Azithromycin 500 mg/ Sodium (Chloride) 250 mls @ 167 mls/hr IVPB Q24H [facility]; Protocol Last Admin: 06/02/18 21:00 Dose: 167 mls/hr Insulin Aspart (Novolog) 0 unit SC ACHS [facility] Last Admin: 06/03/18 17:09 Dose: Not Given Insulin Aspart (Novolog) 14 unit SC AC [facility] Last Admin: 06/03/18 12:32 Dose: 14 u Insulin Glargine (Lantus) 40 unit SC HS [facility] Last Admin: 06/02/18 22:20 Dose: Not Given Isosorbide Mononitrate (Imdur Er) 30 mg PO DAILY [facility] Last Admin: 06/03/18 09:58 Dose: 30 mg Ondansetron HCl (Zofran Inj) 4 mg IVP Q6H PRN PRN Reason: Nausea/Vomiting Oseltamivir Phosphate (Tamiflu Susp) 30 mg PO Q12H [facility]; Protocol Last Admin: 06/03/18 07:06 Dose: 30 mg Pantoprazole Sodium (Protonix Inj) 40 mg IVP Q12H [facility] Last Admin: 06/03/18 11:22 Dose: 40 mg Polyethylene Glycol (Miralax) 17 gm PO DAILY PRN PRN Reason: Constipation Last Admin: 05/31/18 22:00 Dose: 17 gm Sucralfate (Carafate Tab) 1 gm PO TID [facility] Last Admin: 06/03/18 13:16 Dose: 1 gm - Labs Labs: 05/31/18 08:43 05/31/18 08:43 PT 9.8 SECONDS (9.7-12.2) 05/23/18 10:10 INR 0.9 05/23/18 10:10 APTT 32 SECONDS (21-34) 05/23/18 10:10 Assessment and Plan - Assessment and Plan (Free Text) Assessment: ID; 2 more days after today needed for IV abx per ID htn norvasc added next will add chlorthalidone Anxiety xanax added DM; adjust insulin
--- NOTE | 2018-06-03 18:25 | CP.PCM.PN ---
Subjective - Date & Time of Evaluation Date of Evaluation: 06/03/18 Time of Evaluation: 08:00 - Subjective Subjective: afebrile still SOB at times CXR shows perihilar infiltrates to cont iv antibiotics total 7 days d/c on PO rx will ask Dr Santillan to re-eval Has severe COPD, CAD DM HTN OA Morbid obesity s/p Hypotension with resp distress on admission Poor prognosis Objective - Vital Signs/Intake and Output Vital Signs (last 24 hours): Temp Pulse Resp BP Pulse Ox 98.0 F 89 20 176/81 H 96 06/03/18 15:00 06/03/18 15:00 06/03/18 15:00 06/03/18 15:00 06/03/18 15:00 Intake and Output: 06/03/18 06/03/18 06:59 18:59 Intake Total 550 1090 Balance 550 1090 - Medications Medications: Current Medications Acetaminophen (Tylenol 325mg Tab) 650 mg PO Q6 PRN PRN Reason: Fever >100.4 F Last Admin: 06/03/18 00:20 Dose: 650 mg Albuterol/Ipratropium (Duoneb 3 Mg/0.5 Mg (3 Ml) Ud) 3 ml INH RQ6 [facility] Last Admin: 06/03/18 13:16 Dose: 3 ml Alprazolam (Xanax) 0.25 mg PO TID PRN PRN Reason: Anxiety Stop: 06/10/18 14:16 Last Admin: 06/03/18 14:38 Dose: 0.25 mg Amlodipine Besylate (Norvasc) 10 mg PO DAILY [facility] Last Admin: 06/03/18 17:27 Dose: 10 mg Aspirin (Aspirin Chewable) 81 mg PO DAILY [facility] Last Admin: 05/25/18 12:28 Dose: Not Given Aspirin (Aspirin Chewable) 81 mg PO DAILY [facility] Last Admin: 06/03/18 09:59 Dose: 81 mg Docusate Sodium (Colace) 100 mg PO BID [facility] Last Admin: 06/03/18 17:28 Dose: 100 mg Hydralazine HCl (Apresoline) 100 mg PO Q6H [facility] Last Admin: 06/03/18 17:32 Dose: 100 mg Cefepime HCl 2 gm/ Sodium (Chloride) 100 mls @ 100 mls/hr IVPB Q24H [facility]; Protocol Last Admin: 06/03/18 00:16 Dose: 100 mls/hr Linezolid (Zyvox 600mg/300ml D5w) 600 mg in 300 mls @ 200 mls/hr IVPB Q12H [facility]; Protocol Last Admin: 06/03/18 17:32 Dose: 200 mls/hr Azithromycin 500 mg/ Sodium (Chloride) 250 mls @ 167 mls/hr IVPB Q24H [facility]; Protocol Last Admin: 06/02/18 21:00 Dose: 167 mls/hr Insulin Aspart (Novolog) 0 unit SC ACHS [facility] Last Admin: 06/03/18 17:09 Dose: Not Given Insulin Aspart (Novolog) 14 unit SC AC [facility] Last Admin: 06/03/18 17:27 Dose: 14 u Insulin Glargine (Lantus) 40 unit SC HS [facility] Last Admin: 06/02/18 22:20 Dose: Not Given Isosorbide Mononitrate (Imdur Er) 30 mg PO DAILY [facility] Last Admin: 06/03/18 09:58 Dose: 30 mg Ondansetron HCl (Zofran Inj) 4 mg IVP Q6H PRN PRN Reason: Nausea/Vomiting Oseltamivir Phosphate (Tamiflu Susp) 30 mg PO Q12H [facility]; Protocol Last Admin: 06/03/18 17:33 Dose: Not Given Pantoprazole Sodium (Protonix Inj) 40 mg IVP Q12H [facility] Last Admin: 06/03/18 11:22 Dose: 40 mg Polyethylene Glycol (Miralax) 17 gm PO DAILY PRN PRN Reason: Constipation Last Admin: 05/31/18 22:00 Dose: 17 gm Sucralfate (Carafate Tab) 1 gm PO TID [facility] Last Admin: 06/03/18 17:28 Dose: 1 gm - Labs Labs: 05/31/18 08:43 05/31/18 08:43 PT 9.8 SECONDS (9.7-12.2) 05/23/18 10:10 INR 0.9 05/23/18 10:10 APTT 32 SECONDS (21-34) 05/23/18 10:10 - Constitutional Appears: Non-toxic, Chronically Ill - Head Exam Head Exam: NORMOCEPHALIC - Eye Exam Eye Exam: absent: Scleral icterus Pupil Exam: NORMAL ACCOMODATION - ENT Exam ENT Exam: Mucous Membranes Dry - Neck Exam Neck Exam: absent: Lymphadenopathy - Respiratory Exam Respiratory Exam: Decreased Breath Sounds - Cardiovascular Exam Cardiovascular Exam: REGULAR RHYTHM - GI/Abdominal Exam GI & Abdominal Exam: Distended, Soft. absent: Tenderness - Rectal Exam Rectal Exam: Deferred - Exam Exam: NORMAL INSPECTION - Extremities Exam Extremities Exam: Pedal Edema - Back Exam Back Exam: absent: CVA tenderness (L), CVA tenderness (R) - Neurological Exam Neurological Exam: Alert, Awake, CN II-XII Intact, Oriented x3 - Psychiatric Exam Psychiatric exam: Depressed - Skin Skin Exam: Dry Assessment and Plan (1) Asthma with status asthmaticus Status: Acute (2) Congestive heart failure Status: Acute (3) Elevated troponin I measurement Status: Acute (4) History of percutaneous coronary intervention Status: Chronic (5) Morbid obesity Status: Acute (6) CKD (chronic kidney disease) stage 3, GFR 30-59 ml/min Status: Acute (7) Pneumonia Status: Acute (8) Respiratory failure Status: Acute (9) Sepsis Status: Acute - Assessment and Plan (Free Text) Assessment: still SOB at times Needs Home O2 plus services CXR shows perihilar infiltrates to cont iv antibiotics total 7 days d/c on PO rx will ask Dr Santillan to re-eval Has severe COPD, CAD DM HTN OA Morbid obesity s/p Hypotension with resp distress on admission Poor prognosis
[2018-06-03] MEDS: Azithromycin 500 MG in Sodium Chloride 0.9% 250 ML IVPB SCH (21:00)
[2018-06-03] MEDS: (Lantus) Insulin Glargine, Recombinant SC SCH (21:28)
--- NOTE | 2018-06-03 21:29 | PN ---
DATE: 06/03/2018 ENDOCRINOLOGY FOLLOWUP NOTE LOCATION: Room 567. SUBJECTIVE: This is a 63-year-old female with recent uncontrolled type 2 insulin-requiring diabetes, presenting here with marked hyperglycemic accelerations and is now being followed closely for metabolic management. Her glycemic levels are fluctuating but improved, and the glucose levels today have raised from 183 to 196 and 225 mg/dL. LABORATORY DATA: Her chemistry showed a BUN of 27, sodium 133, potassium 4.8, chloride 104, CO2 of 22, glucose 250, and creatinine 2.6. ASSESSMENT: This is a 63-year-old female with uncontrolled and decompensated type 2 insulin-requiring diabetes, now being followed closely for metabolic management. She also has diabetic microvascular complications of retinopathy, polyneuropathy, and nephropathy with underlying chronic kidney disease as noted. PLAN OF MANAGEMENT: We will continue the same basal and bolus insulin regimen as given to allow for dose equilibration. We will continue the basal insulin given as Lantus at 40 units subcu at bedtime daily as given. We will continue the short and rapid acting insulin given as NovoLog at 14 units t.i.d. before meals as ordered. We will continue also the low-dose correction scale using NovoLog insulin as given. We will follow and advise accordingly. Rachel Brown MD
[2018-06-04] MEDS: Albuterol-Ipratrop 3 mg / 0.5 (3 ml) UD INH SCH ×4 (01:29→22:28)
[2018-06-04] MEDS: Oseltamivir 6 MG/ML PO SCH ×2 (06:03→17:31)
[2018-06-04] MEDS: Linezolid 600 mg in D5W 300 ml 600 MG/300 ML BAG IVPB SCH ×2 (06:03→17:26)
[2018-06-04 07:31] LABS: ALB/GLOB RATIO 1.4 (1.0-2.1); ALBUMIN 3.6 g/dL (3.5-5.0); CALCIUM 9.1 mg/dl (8.6-10.4)
[2018-06-04] MEDS: (Novolog) Insulin Aspart, Recombinant 100 u/ml 10 ml vial SC SCH ×7 (08:08→21:44)
[2018-06-04 11:56] LABS: SQUAMOUS EPITHIAL 11 /hpf (0-5); URINE BACTERIA RARE (<OCC); URINE BILIRUBIN NEGATIVE (NEGATIVE); URINE BLOOD NEGATIVE (NEGATIVE); URINE CLARITY Clear (Clear); URINE COLOR Yellow (YELLOW); URINE GLUCOSE (UA) 3+ mg/dL (Normal); URINE LEUKOCYTE ESTERASE NEG Leu/uL (Negative); URINE PROTEIN 3+ mg/dL (NEGATIVE); URINE UROBILINOGEN NORMAL mg/dL (0.2-1.0)
--- NOTE | 2018-06-04 12:08 | RAD ---
Chest x-ray two views HISTORY: Pneumonia. COMPARISON: 06/03/2018 FINDINGS: Diffuse prominent increased interstitial lung markings bilaterally which may represent underlying edema and or infiltrate. Superimposed more patchy confluent opacities seen projecting over the right mid to lower lung zone and left lung base laterally. Enlarged ectatic aorta. Mild cardiomegaly. Degenerative changes in the spine and shoulders. Impression: Diffuse prominent increased interstitial lung markings bilaterally which may represent underlying edema and or infiltrate. Superimposed more patchy confluent opacities seen projecting over the right mid to lower lung zone and left lung base laterally. Enlarged ectatic aorta. Mild cardiomegaly.
--- NOTE | 2018-06-04 17:40 | CP.PCM.PN ---
Subjective - Date & Time of Evaluation Date of Evaluation: 06/04/18 Time of Evaluation: 17:45 - Subjective Subjective: pt feels better no complaints this afternoon, eating dinner , pt denies any pain or sob on oxygen Objective - Vital Signs/Intake and Output Vital Signs (last 24 hours): Temp Pulse Resp BP Pulse Ox 97.9 F 86 20 154/67 H 96 06/04/18 15:00 06/04/18 15:00 06/04/18 15:00 06/04/18 15:00 06/04/18 15:00 Intake and Output: 06/04/18 06/04/18 06:59 18:59 Intake Total 1550 300 Balance 1550 300 - Medications Medications: Current Medications Acetaminophen (Tylenol 325mg Tab) 650 mg PO Q6 PRN PRN Reason: Fever >100.4 F Last Admin: 06/03/18 00:20 Dose: 650 mg Albuterol/Ipratropium (Duoneb 3 Mg/0.5 Mg (3 Ml) Ud) 3 ml INH RQ6 [facility] BEDS [facility] Last Admin: 06/04/18 13:09 Dose: 3 ml Alprazolam (Xanax) 0.25 mg PO TID PRN PRN Reason: Anxiety Stop: 06/10/18 14:16 Last Admin: 06/04/18 07:40 Dose: 0.25 mg Amlodipine Besylate (Norvasc) 10 mg PO DAILY [facility] Last Admin: 06/04/18 10:00 Dose: 10 mg Aspirin (Aspirin Chewable) 81 mg PO DAILY [facility] Last Admin: 05/25/18 12:28 Dose: Not Given Aspirin (Aspirin Chewable) 81 mg PO DAILY [facility] Last Admin: 06/04/18 09:59 Dose: 81 mg Docusate Sodium (Colace) 100 mg PO BID [facility] Last Admin: 06/04/18 17:25 Dose: 100 mg Hydralazine HCl (Apresoline) 100 mg PO Q6H [facility] Last Admin: 06/04/18 17:25 Dose: 100 mg Cefepime HCl 2 gm/ Sodium (Chloride) 100 mls @ 100 mls/hr IVPB Q24H [facility]; Protocol Last Admin: 06/03/18 23:59 Dose: 100 mls/hr Linezolid (Zyvox 600mg/300ml D5w) 600 mg in 300 mls @ 200 mls/hr IVPB Q12H [facility]; Protocol Last Admin: 06/04/18 17:26 Dose: 200 mls/hr Azithromycin 500 mg/ Sodium (Chloride) 250 mls @ 167 mls/hr IVPB Q24H [facility]; Protocol Last Admin: 06/03/18 21:00 Dose: 167 mls/hr Insulin Aspart (Novolog) 0 unit SC ACHS [facility] Last Admin: 06/04/18 16:23 Dose: Not Given Insulin Aspart (Novolog) 14 unit SC AC [facility] Last Admin: 06/04/18 17:25 Dose: 14 u Insulin Glargine (Lantus) 40 unit SC HS [facility] Last Admin: 06/03/18 21:28 Dose: Not Given Isosorbide Mononitrate (Imdur Er) 30 mg PO DAILY [facility] Last Admin: 06/04/18 10:00 Dose: 30 mg Ondansetron HCl (Zofran Inj) 4 mg IVP Q6H PRN PRN Reason: Nausea/Vomiting Oseltamivir Phosphate (Tamiflu Susp) 30 mg PO Q12H [facility]; Protocol Last Admin: 06/04/18 17:31 Dose: 30 mg Pantoprazole Sodium (Protonix Inj) 40 mg IVP Q12H [facility] 234 [facility] Last Admin: 06/04/18 12:07 Dose: 40 mg Polyethylene Glycol (Miralax) 17 gm PO DAILY PRN PRN Reason: Constipation Last Admin: 05/31/18 22:00 Dose: 17 gm Sucralfate (Carafate Tab) 1 gm PO TID [facility] Last Admin: 06/04/18 17:25 Dose: 1 gm - Labs Labs: 05/31/18 08:43 06/04/18 07:03 PT 9.8 SECONDS (9.7-12.2) 05/23/18 10:10 INR 0.9 05/23/18 10:10 APTT 32 SECONDS (21-34) 05/23/18 10:10 - Constitutional Appears: Well, Non-toxic - Eye Exam Eye Exam: Normal appearance - ENT Exam ENT Exam: Mucous Membranes Moist - Respiratory Exam Respiratory Exam: Clear to Ausculation Bilateral - Cardiovascular Exam Cardiovascular Exam: REGULAR RHYTHM. absent: JVD Assessment and Plan - Assessment and Plan (Free Text) Assessment: Pulm; I had discussed pulmonary findings with Dr. Nolasco and she will need a bronch and biopsy but will do outpatient ID; no fever cont abx oxygen arranged for home DM better , bp better today
--- NOTE | 2018-06-04 20:01 | CP.PCM.PN ---
Subjective - Date & Time of Evaluation Date of Evaluation: 06/04/18 Time of Evaluation: 09:00 - Subjective Subjective: NO FEVER LESS SOB FOR D/C ON FRIDAY IF CLEARED BY DR OTOOLE Objective - Vital Signs/Intake and Output Vital Signs (last 24 hours): Temp Pulse Resp BP Pulse Ox 97.9 F 86 20 154/67 H 96 06/04/18 15:00 06/04/18 15:00 06/04/18 15:00 06/04/18 15:00 06/04/18 15:00 Intake and Output: 06/04/18 06/05/18 18:59 06:59 Intake Total 300 Balance 300 - Medications Medications: Current Medications Acetaminophen (Tylenol 325mg Tab) 650 mg PO Q6 PRN PRN Reason: Fever >100.4 F Last Admin: 06/03/18 00:20 Dose: 650 mg Albuterol/Ipratropium (Duoneb 3 Mg/0.5 Mg (3 Ml) Ud) 3 ml INH RQ6 [facility] Last Admin: 06/04/18 13:09 Dose: 3 ml Alprazolam (Xanax) 0.25 mg PO TID PRN PRN Reason: Anxiety Stop: 06/10/18 14:16 Last Admin: 06/04/18 07:40 Dose: 0.25 mg Amlodipine Besylate (Norvasc) 10 mg PO DAILY [facility] Last Admin: 06/04/18 10:00 Dose: 10 mg Aspirin (Aspirin Chewable) 81 mg PO DAILY [facility] Last Admin: 05/25/18 12:28 Dose: Not Given Aspirin (Aspirin Chewable) 81 mg PO DAILY [facility] Last Admin: 06/04/18 09:59 Dose: 81 mg Docusate Sodium (Colace) 100 mg PO BID [facility] Last Admin: 06/04/18 17:25 Dose: 100 mg Hydralazine HCl (Apresoline) 100 mg PO Q6H [facility] Last Admin: 06/04/18 17:25 Dose: 100 mg Cefepime HCl 2 gm/ Sodium (Chloride) 100 mls @ 100 mls/hr IVPB Q24H [facility]; Protocol Last Admin: 06/03/18 23:59 Dose: 100 mls/hr Linezolid (Zyvox 600mg/300ml D5w) 600 mg in 300 mls @ 200 mls/hr IVPB Q12H [facility]; Protocol Last Admin: 06/04/18 17:26 Dose: 200 mls/hr Azithromycin 500 mg/ Sodium (Chloride) 250 mls @ 167 mls/hr IVPB Q24H [facility]; Protocol Last Admin: 06/03/18 21:00 Dose: 167 mls/hr Insulin Aspart (Novolog) 0 unit SC ACHS [facility] Last Admin: 06/04/18 16:23 Dose: Not Given Insulin Aspart (Novolog) 14 unit SC AC [facility] Last Admin: 06/04/18 17:25 Dose: 14 u Insulin Glargine (Lantus) 40 unit SC HS [facility] Last Admin: 06/03/18 21:28 Dose: Not Given Isosorbide Mononitrate (Imdur Er) 30 mg PO DAILY [facility] Last Admin: 06/04/18 10:00 Dose: 30 mg Ondansetron HCl (Zofran Inj) 4 mg IVP Q6H PRN PRN Reason: Nausea/Vomiting Oseltamivir Phosphate (Tamiflu Susp) 30 mg PO Q12H [facility]; Protocol Last Admin: 06/04/18 17:31 Dose: 30 mg Pantoprazole Sodium (Protonix Inj) 40 mg IVP Q12H [facility] Last Admin: 06/04/18 12:07 Dose: 40 mg Polyethylene Glycol (Miralax) 17 gm PO DAILY PRN PRN Reason: Constipation Last Admin: 05/31/18 22:00 Dose: 17 gm Sucralfate (Carafate Tab) 1 gm PO TID [facility] Last Admin: 06/04/18 17:25 Dose: 1 gm - Labs Labs: 05/31/18 08:43 06/04/18 07:03 PT 9.8 SECONDS (9.7-12.2) 05/23/18 10:10 INR 0.9 05/23/18 10:10 APTT 32 SECONDS (21-34) 05/23/18 10:10 - Constitutional Appears: Non-toxic, Chronically Ill - Head Exam Head Exam: NORMOCEPHALIC - Eye Exam Eye Exam: absent: Scleral icterus - ENT Exam ENT Exam: Mucous Membranes Dry - Neck Exam Neck Exam: absent: Lymphadenopathy - Respiratory Exam Respiratory Exam: Decreased Breath Sounds - Cardiovascular Exam Cardiovascular Exam: REGULAR RHYTHM - GI/Abdominal Exam GI & Abdominal Exam: Distended, Soft Assessment and Plan (1) Asthma with status asthmaticus Status: Acute (2) Congestive heart failure Status: Acute (3) Elevated troponin I measurement Status: Acute (4) History of percutaneous coronary intervention Status: Chronic (5) Morbid obesity Status: Acute (6) CKD (chronic kidney disease) stage 3, GFR 30-59 ml/min Status: Acute (7) Pneumonia Status: Acute (8) Respiratory failure Status: Acute (9) Sepsis Status: Acute
[2018-06-04] MEDS: Azithromycin 500 MG in Sodium Chloride 0.9% 250 ML IVPB SCH (21:00)
[2018-06-04] MEDS: (Lantus) Insulin Glargine, Recombinant SC SCH (21:50)
--- NOTE | 2018-06-04 23:02 | PN ---
DATE: 06/04/2018 LOCATION: Room 567. SUBJECTIVE: This is a 63-year-old female with recent uncontrolled type 2 insulin-requiring diabetes, now being followed closely for metabolic management. Her glycemic levels are fluctuating, but improved and the glucose levels overnight have ranged from 138 to 204 mg/dL. LABORATORY DATA: Her chemistry showed the BUN of 18, sodium 135, potassium 4.7, chloride 109, CO2 of 21, glucose 193, and creatinine 2.2. ASSESSMENT AND PLAN: So, at this time, we will continue the same basal and bolus insulin regimen, also because of the variability of her oral intake as noted. We will continue her NovoLog given as 14 units t.i.d. before meals as ordered. We will also continue her basal insulin given as Lantus at 40 units subcutaneously at bedtime daily as given. We will titrate incrementally as indicated to optimize metabolic control. We will follow with you. Rachel Brown MD
[2018-06-04] MEDS: Cefepime 2 GM in Sodium Chloride 0.9% 100 ML IVPB SCH (23:51)
[2018-06-05] MEDS: Albuterol-Ipratrop 3 mg / 0.5 (3 ml) UD INH SCH ×4 (02:26→19:27)
[2018-06-05] MEDS: Oseltamivir 6 MG/ML PO SCH ×2 (05:39→17:53)
[2018-06-05] MEDS: Linezolid 600 mg in D5W 300 ml 600 MG/300 ML BAG IVPB SCH ×2 (05:40→17:44)
[2018-06-05 07:47] VITALS: RESP 20
[2018-06-05] MEDS: (Novolog) Insulin Aspart, Recombinant 100 u/ml 10 ml vial SC SCH ×7 (08:34→22:03)
[2018-06-05] MEDS: Pantoprazole 40 mg EC Tab PO SCH ×2 (09:12→22:06)
--- NOTE | 2018-06-05 09:13 | CP.PCM.PN ---
Subjective - Date & Time of Evaluation Date of Evaluation: 06/05/18 Time of Evaluation: 09:17 - Subjective Subjective: Pt feels better this AM. states she had a good night sleep noted bp this AM but she states when she is in the hospital hr bp goes up be cause she feels anxious no fver no sob Objective - Vital Signs/Intake and Output Vital Signs (last 24 hours): Temp Pulse Resp BP Pulse Ox 98.0 F 81 20 175/83 H 96 06/05/18 07:00 06/05/18 07:00 06/05/18 07:00 06/05/18 07:00 06/05/18 07:00 Intake and Output: 06/05/18 06/05/18 06:59 18:59 Intake Total 750 Balance 750 - Medications Medications: Current Medications Acetaminophen (Tylenol 325mg Tab) 650 mg PO Q6 PRN PRN Reason: Fever >100.4 F Last Admin: 06/03/18 00:20 Dose: 650 mg Albuterol/Ipratropium (Duoneb 3 Mg/0.5 Mg (3 Ml) Ud) 3 ml INH RQ6 [facility] Last Admin: 06/05/18 08:00 Dose: 3 ml Alprazolam (Xanax) 0.25 mg PO TID PRN PRN Reason: Anxiety Stop: 06/10/18 14:16 Last Admin: 06/04/18 07:40 Dose: 0.25 mg Amlodipine Besylate (Norvasc) 10 mg PO DAILY [facility] Last Admin: 06/04/18 10:00 Dose: 10 mg Aspirin (Aspirin Chewable) 81 mg PO DAILY [facility] Last Admin: 05/25/18 12:28 Dose: Not Given Aspirin (Aspirin Chewable) 81 mg PO DAILY [facility] Last Admin: 06/04/18 09:59 Dose: 81 mg Chlorthalidone (Hygroton) 25 mg PO DAILY [facility] Docusate Sodium (Colace) 100 mg PO BID [facility] Last Admin: 06/04/18 17:25 Dose: 100 mg Hydralazine HCl (Apresoline) 100 mg PO Q6H [facility] Last Admin: 06/05/18 05:39 Dose: 100 mg Cefepime HCl 2 gm/ Sodium (Chloride) 100 mls @ 100 mls/hr IVPB Q24H [facility]; Protocol Last Admin: 06/04/18 23:51 Dose: 100 mls/hr Linezolid (Zyvox 600mg/300ml D5w) 600 mg in 300 mls @ 200 mls/hr IVPB Q12H [facility]; Protocol Last Admin: 06/05/18 05:40 Dose: 200 mls/hr Azithromycin 500 mg/ Sodium (Chloride) 250 mls @ 167 mls/hr IVPB Q24H [facility]; Protocol Last Admin: 06/04/18 21:00 Dose: 167 mls/hr Insulin Aspart (Novolog) 0 unit SC ACHS [facility] Last Admin: 06/05/18 08:34 Dose: Not Given Insulin Aspart (Novolog) 14 unit SC AC [facility] Last Admin: 06/05/18 08:36 Dose: Not Given Insulin Glargine (Lantus) 40 unit SC HS [facility] Last Admin: 06/04/18 21:50 Dose: 40 u Isosorbide Mononitrate (Imdur Er) 30 mg PO DAILY [facility] Last Admin: 06/04/18 10:00 Dose: 30 mg Ondansetron HCl (Zofran Inj) 4 mg IVP Q6H PRN PRN Reason: Nausea/Vomiting Oseltamivir Phosphate (Tamiflu Susp) 30 mg PO Q12H [facility]; Protocol Last Admin: 06/05/18 05:39 Dose: 30 mg Pantoprazole Sodium (Protonix Ec Tab) 40 mg PO Q12 [facility] Polyethylene Glycol (Miralax) 17 gm PO DAILY PRN PRN Reason: Constipation Last Admin: 05/31/18 22:00 Dose: 17 gm Sucralfate (Carafate Tab) 1 gm PO TID [facility] Last Admin: 06/04/18 17:25 Dose: 1 gm - Labs Labs: 05/31/18 08:43 06/04/18 07:03 PT 9.8 SECONDS (9.7-12.2) 05/23/18 10:10 INR 0.9 05/23/18 10:10 APTT 32 SECONDS (21-34) 05/23/18 10:10 - Constitutional Appears: Well, Non-toxic - Eye Exam Eye Exam: Normal appearance - ENT Exam ENT Exam: Mucous Membranes Moist - Respiratory Exam Respiratory Exam: Clear to Ausculation Bilateral - Cardiovascular Exam Cardiovascular Exam: REGULAR RHYTHM, RRR, +S1, +S2. absent: JVD - Extremities Exam Extremities Exam: Full ROM. absent: Joint Swelling Assessment and Plan - Assessment and Plan (Free Text) Assessment: ID tomorrow last dose of IV abx then home pulm much improved will follow up with Dr. Gaurav james PFT possible bronch pt smoked for many years DM; adjust insulin as necessary diet will likely be very different at home bp rechecked it is 154/76 before meds the cuff they used to report the first bp this AM was too small.
--- NOTE | 2018-06-05 18:54 | CP.PCM.PN ---
Subjective - Date & Time of Evaluation Date of Evaluation: 06/05/18 Time of Evaluation: 08:00 - Subjective Subjective: DOING WELL AFEBRILE LUNGS CLEAR D/C IN AM PO LEVAQUIN Q 48 H TO FOLLOW WITH DR OTOOLE AND DR RODRIGUES Objective - Vital Signs/Intake and Output Vital Signs (last 24 hours): Temp Pulse Resp BP Pulse Ox 97.8 F 87 20 146/75 96 06/05/18 16:30 06/05/18 16:30 06/05/18 16:30 06/05/18 16:30 06/05/18 16:30 Intake and Output: 06/05/18 06/05/18 06:59 18:59 Intake Total 750 Balance 750 - Medications Medications: Current Medications Acetaminophen (Tylenol 325mg Tab) 650 mg PO Q6 PRN PRN Reason: Fever >100.4 F Last Admin: 06/03/18 00:20 Dose: 650 mg Albuterol/Ipratropium (Duoneb 3 Mg/0.5 Mg (3 Ml) Ud) 3 ml INH RQ6 [facility] Last Admin: 06/05/18 13:25 Dose: 3 ml Alprazolam (Xanax) 0.25 mg PO TID PRN PRN Reason: Anxiety Stop: 06/10/18 14:16 Last Admin: 06/04/18 07:40 Dose: 0.25 mg Amlodipine Besylate (Norvasc) 10 mg PO DAILY [facility] Last Admin: 06/05/18 09:12 Dose: 10 mg Aspirin (Aspirin Chewable) 81 mg PO DAILY [facility] Last Admin: 05/25/18 12:28 Dose: Not Given Aspirin (Aspirin Chewable) 81 mg PO DAILY [facility] Last Admin: 06/05/18 09:12 Dose: 81 mg Docusate Sodium (Colace) 100 mg PO BID [facility] Last Admin: 06/05/18 17:43 Dose: 100 mg Hydralazine HCl (Apresoline) 100 mg PO Q6H [facility] Last Admin: 06/05/18 17:43 Dose: 100 mg Cefepime HCl 2 gm/ Sodium (Chloride) 100 mls @ 100 mls/hr IVPB Q24H [facility]; Protocol Last Admin: 06/04/18 23:51 Dose: 100 mls/hr Linezolid (Zyvox 600mg/300ml D5w) 600 mg in 300 mls @ 200 mls/hr IVPB Q12H [facility]; Protocol Last Admin: 06/05/18 17:44 Dose: 200 mls/hr Azithromycin 500 mg/ Sodium (Chloride) 250 mls @ 167 mls/hr IVPB Q24H [facility]; Protocol Last Admin: 06/04/18 21:00 Dose: 167 mls/hr Insulin Aspart (Novolog) 0 unit SC ACHS [facility] Last Admin: 06/05/18 17:43 Dose: Not Given Insulin Aspart (Novolog) 14 unit SC AC [facility] Last Admin: 06/05/18 17:42 Dose: 14 u Insulin Glargine (Lantus) 40 unit SC HS [facility] Last Admin: 06/04/18 21:50 Dose: 40 u Isosorbide Mononitrate (Imdur Er) 30 mg PO DAILY [facility] Last Admin: 06/05/18 09:13 Dose: 30 mg Ondansetron HCl (Zofran Inj) 4 mg IVP Q6H PRN PRN Reason: Nausea/Vomiting Oseltamivir Phosphate (Tamiflu Susp) 30 mg PO Q12H [facility]; Protocol Last Admin: 06/05/18 17:53 Dose: 30 mg Pantoprazole Sodium (Protonix Ec Tab) 40 mg PO Q12 [facility] Last Admin: 06/05/18 09:12 Dose: 40 mg Polyethylene Glycol (Miralax) 17 gm PO DAILY PRN PRN Reason: Constipation Last Admin: 05/31/18 22:00 Dose: 17 gm Sucralfate (Carafate Tab) 1 gm PO TID [facility] Last Admin: 06/05/18 17:43 Dose: 1 gm - Labs Labs: 05/31/18 08:43 06/04/18 07:03 PT 9.8 SECONDS (9.7-12.2) 05/23/18 10:10 INR 0.9 05/23/18 10:10 APTT 32 SECONDS (21-34) 05/23/18 10:10 - Constitutional Appears: No Acute Distress, Chronically Ill - Head Exam Head Exam: ATRAUMATIC, NORMAL INSPECTION, NORMOCEPHALIC - Eye Exam Eye Exam: EOMI, Normal appearance, PERRL Pupil Exam: NORMAL ACCOMODATION, PERRL - ENT Exam ENT Exam: Mucous Membranes Moist, Normal Exam - Neck Exam Neck Exam: Full ROM, Normal Inspection. absent: Lymphadenopathy - Respiratory Exam Respiratory Exam: Clear to Ausculation Bilateral, NORMAL BREATHING PATTERN - Cardiovascular Exam Cardiovascular Exam: REGULAR RHYTHM, +S1, +S2. absent: Murmur - GI/Abdominal Exam GI & Abdominal Exam: Soft, Normal Bowel Sounds. absent: Tenderness - Rectal Exam Rectal Exam: Deferred - Exam Exam: NORMAL INSPECTION - Extremities Exam Extremities Exam: Full ROM, Normal Capillary Refill, Normal Inspection. absent: Joint Swelling, Pedal Edema - Back Exam Back Exam: NORMAL INSPECTION - Neurological Exam Neurological Exam: Alert, Awake, CN II-XII Intact, Normal Gait, Oriented x3 - Psychiatric Exam Psychiatric exam: Normal Affect, Normal Mood - Skin Skin Exam: Dry, Intact, Normal Color, Warm Assessment and Plan (1) Asthma with status asthmaticus Status: Acute (2) Congestive heart failure Status: Acute (3) Elevated troponin I measurement Status: Acute (4) History of percutaneous coronary intervention Status: Chronic (5) Morbid obesity Status: Acute (6) CKD (chronic kidney disease) stage 3, GFR 30-59 ml/min Status: Acute (7) Pneumonia Status: Acute (8) Respiratory failure Status: Acute (9) Sepsis Status: Acute - Assessment and Plan (Free Text) Assessment: AFEBRILE LUNGS CLEAR D/C IN AM PO LEVAQUIN Q 48 H TO FOLLOW WITH DR OTOOLE AND DR RODRIGUES
[2018-06-05] MEDS: Azithromycin 500 MG in Sodium Chloride 0.9% 250 ML IVPB SCH (20:46)
[2018-06-05] MEDS: (Lantus) Insulin Glargine, Recombinant SC SCH (22:06)
[2018-06-05] MEDS: Cefepime 2 GM in Sodium Chloride 0.9% 100 ML IVPB SCH (23:48)
--- NOTE | 2018-06-06 00:55 | PN ---
DATE: 06/05/2018 ENDO FOLLOWUP NOTE. LOCATION: In room 567. SUBJECTIVE: This is a 63-year-old female with recent uncontrolled type 2 insulin-requiring diabetes, now being followed closely for metabolic management. Her glycemic levels are fluctuating once again with the variability of her oral intake as noted. Her glucose levels have from 141 to 374 mg/dL. It was 124 at bedtime last night. LABORATORY DATA: Her chemistry showed the BUN of 18, sodium 135, potassium 4.7, chloride 109, CO2 of 21, glucose 193, and creatinine 2.2. ASSESSMENT AND PLAN: So, at this time, we will continue the same basal and bolus insulin regimen to allow for dose equilibration and keep her on the Lantus given as 40 units subcutaneously at bedtime daily as given and continue also the NovoLog given as 14 units t.i.d. before meals as ordered. We will obtain serial chemistries and supplement accordingly as needed. We will follow. Rachel Brown MD
[2018-06-06] MEDS: Albuterol-Ipratrop 3 mg / 0.5 (3 ml) UD INH SCH ×3 (01:45→13:42)
[2018-06-06] MEDS: Oseltamivir 6 MG/ML PO SCH (06:25)
[2018-06-06] MEDS: Linezolid 600 mg in D5W 300 ml 600 MG/300 ML BAG IVPB SCH (06:26)
[2018-06-06] MEDS: (Novolog) Insulin Aspart, Recombinant 100 u/ml 10 ml vial SC SCH ×4 (08:02→12:35)
[2018-06-06] MEDS: Pantoprazole 40 mg EC Tab PO SCH (09:19)
--- NOTE | 2018-06-06 12:42 | CP.PCM.DIS ---
Provider - Provider Date of Admission: 05/23/18 22:59 Attending physician: Sara Freeman MD Consults: 05/24/18 07:00 Endocrinology Consult Routine Comment: Consulting Provider: Rachel Brown Consulting Physician: Rachel Brown Reason for Consult: uncontrolled BGM 05/25/18 17:40 Cardiology Consult Routine Comment: known to patient Consulting Provider: Joshua Cuellar Consulting Physician: Joshua Cuellar Reason for Consult: resp arrest/on brilinta/known to patient 05/28/18 17:17 Infectious Disease Consult Routine Comment: Consulting Provider: Juan Vale Consulting Physician: Juan Vale Reason for Consult: fever 05/28/18 17:18 Pulmonology Consult Routine Comment: Consulting Provider: Rosanna Nolasco Consulting Physician: Rosanna Nolasco Reason for Consult: desaturation and pnemonia 06/01/18 17:58 Case Management Referral Routine Comment: needs to find out home many days of IV abx Physician Instructions: please find out from Dr. Vale how many more days Reason For Exam: patient refuses rehab. Reason for Referral: Discharge Planning 06/03/18 21:43 Pulmonology Consult Routine Comment: please e]valuate Consulting Provider: Rosanna Nolasco Consulting Physician: Rosanna Nolasco Reason for Consult: pneumonia Time Spent in preparation of Discharge (in minutes): 45 Hospital Course - Lab Results Lab Results: Micro Results 06/04/18 11:47 Urine Random Urine Culture - Final No Growth (<1,000 CFU/ML) 05/28/18 19:00 Blood-Venous Blood Culture - Final NO GROWTH AFTER 5 DAYS 05/28/18 19:00 Blood-Venous Gram Stain - Final TEST NOT PERFORMED 05/28/18 19:29 Blood-Venous Blood Culture - Final NO GROWTH AFTER 5 DAYS 05/28/18 19:29 Blood-Venous Gram Stain - Final TEST NOT PERFORMED 05/27/18 23:36 Blood Blood Culture - Final NO GROWTH AFTER 5 DAYS 05/27/18 23:36 Blood Gram Stain - Final TEST NOT PERFORMED 05/27/18 23:36 Blood Blood Culture - Final NO GROWTH AFTER 5 DAYS 05/27/18 23:36 Blood Gram Stain - Final TEST NOT PERFORMED 05/30/18 19:22 Sputum Gram Stain - Final 05/30/18 19:22 Sputum Sputum Culture - Final NORMAL ORAL BRAD 05/28/18 19:29 Urine Random Urine Culture - Final Vancomycin Resistant E.faecium 05/24/18 01:51 Blood Blood Culture - Final NO GROWTH AFTER 5 DAYS 05/24/18 01:51 Blood Gram Stain - Final TEST NOT PERFORMED 05/24/18 01:50 Blood Blood Culture - Final NO GROWTH AFTER 5 DAYS 05/24/18 01:50 Blood Gram Stain - Final TEST NOT PERFORMED 05/27/18 14:32 Naris MRSA Culture - Final MRSA NOT DETECTED 05/24/18 09:31 Naris MRSA Culture (Admit) - Final MRSA NOT DETECTED Most Recent Lab Values WBC 9.6 K/uL (4.8-10.8) 05/31/18 08:43 RBC 3.25 Mil/uL (3.80-5.20) L 05/31/18 08:43 Hgb 9.6 g/dL (11.0-16.0) L 05/31/18 08:43 Hct 29.1 % (34.0-47.0) L 05/31/18 08:43 MCV 89.3 fL (81.0-99.0) 05/31/18 08:43 MCH 29.5 pg (27.0-31.0) 05/31/18 08:43 MCHC 33.1 g/dL (33.0-37.0) 05/31/18 08:43 RDW 14.6 % (11.5-14.5) H 05/31/18 08:43 Plt Count 348 K/uL (130-400) 05/31/18 08:43 MPV 10.1 fL (7.2-11.7) 05/31/18 08:43 Neut % (Auto) 70.9 % (50.0-75.0) 05/30/18 06:54 Lymph % (Auto) 18.6 % (20.0-40.0) L 05/30/18 06:54 [place] % (Auto) 7.3 % (0.0-10.0) 05/30/18 06:54 Eos % (Auto) 2.6 % (0.0-4.0) 05/30/18 06:54 Baso % (Auto) 0.6 % (0.0-2.0) 05/30/18 06:54 Neut # (Auto) 7.7 K/uL (1.8-7.0) H 05/30/18 06:54 Lymph # (Auto) 2.0 K/uL (1.0-4.3) 05/30/18 06:54 [place] # (Auto) 0.8 K/uL (0.0-0.8) 05/30/18 06:54 Eos # (Auto) 0.3 K/uL (0.0-0.7) 05/30/18 06:54 Baso # (Auto) 0.1 K/uL (0.0-0.2) 05/30/18 06:54 Neutrophils % (Manual) 82 % (50-75) H 05/27/18 22:45 Band Neutrophils % 1 % (0-2) 05/27/18 22:45 Lymphocytes % (Manual) 9 % (20-40) L 05/27/18 22:45 Monocytes % (Manual) 6 % (0-10) 05/27/18 22:45 Eosinophils % (Manual) 2 % (0-4) 05/27/18 22:45 Platelet Estimate Normal (NORMAL) 05/27/18 22:45 Large Platelets Present 05/27/18 22:45 Hypochromasia (manual) Slight 05/27/18 22:45 Microcytosis (manual) Slight 05/27/18 22:45 PT 9.8 SECONDS (9.7-12.2) 05/23/18 10:10 INR 0.9 05/23/18 10:10 APTT 32 SECONDS (21-34) 05/23/18 10:10 Puncture Site L brac 05/27/18 06:52 pCO2 33 mm/Hg (35-45) L 05/27/18 06:52 pO2 69 mm/Hg (80-100) L 05/27/18 06:52 HCO3 22.6 mmol/L (21-28) 05/27/18 06:52 ABG pH 7.41 (7.35-7.45) 05/27/18 06:52 ABG Total CO2 21.9 mmol/L (22-28) L 05/27/18 06:52 ABG O2 Saturation 97.5 % (95-98) 05/27/18 06:52 ABG Base Excess -2.9 mmol/L (-2.0-3.0) L 05/27/18 06:52 Enrique Test Na 05/27/18 06:52 ABG Potassium 4.6 mmol/L (3.6-5.2) 05/27/18 06:52 VBG pH 7.16 (7.32-7.43) L* 05/23/18 22:20 VBG pCO2 57 mmHg (40-60) 05/23/18 22:20 VBG HCO3 16.3 mmol/L 05/23/18 22:20 VBG Total CO2 22.0 mmol/L (22-28) 05/23/18 22:20 VBG O2 Sat (Calc) 49.7 % (40-65) 05/23/18 22:20 VBG Base Excess -8.9 mmol/L (0.0-2.0) L 05/23/18 22:20 VBG Potassium 4.7 mmol/L (3.6-5.2) 05/23/18 22:20 A-a O2 Difference 336.0 mm/Hg 05/24/18 08:20 Respiratory Index 1.0 05/24/18 08:20 Sodium 138.0 mmol/l (132-148) 05/27/18 06:52 Chloride 109.0 mmol/L (98-107) H 05/27/18 06:52 Glucose 223 mg/dl (65-105) H 05/27/18 06:52 Lactate 0.6 mmol/L (0.7-2.1) L 05/27/18 06:52 Liter Flow 4.0 05/27/18 06:52 Vent Mode Prvc 05/24/18 08:20 Mechanical Rate 10 05/24/18 08:20 FiO2 100.0 % 05/24/18 08:20 Tidal Volume 500 05/24/18 08:20 PEEP 5 05/24/18 08:20 Expiratory BiPAP 9 05/23/18 22:20 Crit Value Called To Dr burgess 05/23/18 22:20 Crit Value Called By Raj chatterjee 05/23/18 22:20 Crit Value Read Back Y 05/23/18 22:20 Blood Gas Notified Time 222705/23/18 22:20 Sodium 135 mmol/L (132-148) 06/04/18 07:03 Potassium 4.7 mmol/L (3.6-5.2) 06/04/18 07:03 Chloride 109 mmol/L (98-107) H 06/04/18 07:03 Carbon Dioxide 21 mmol/L (22-30) L 06/04/18 07:03 Anion Gap 10 (10-20) 06/04/18 07:03 BUN 18 mg/dL (7-17) H 06/04/18 07:03 Creatinine 2.2 mg/dL (0.7-1.2) H 06/04/18 07:03 Est GFR ( Amer) 27 06/04/18 07:03 Est GFR (Non-Af Amer) 23 06/04/18 07:03 POC Glucose (mg/dL) 157 mg/dL (65-110) H 06/06/18 06:33 Random Glucose 193 mg/dL (65-105) H D 06/04/18 07:03 Hemoglobin A1c 7.9 % (4.2-6.5) H D 05/23/18 23:40 Lactic Acid 1.0 mmol/L (0.7-2.1) 05/27/18 22:45 Calcium 9.1 mg/dl (8.6-10.4) 06/04/18 07:03 Phosphorus 3.9 mg/dL (2.5-4.5) 05/31/18 08:43 Magnesium 2.3 mg/dL (1.6-2.3) 06/04/18 07:03 Iron 25 ug/dL (37-170) L 05/26/18 06:00 TIBC 242 ug/dL (250-450) L 05/26/18 06:00 % Saturation 10 (20-55) L 05/26/18 06:00 Ferritin 59.9 ng/mL 05/26/18 06:00 Total Bilirubin 0.8 mg/dL (0.2-1.3) 06/04/18 07:03 AST 34 U/L (14-36) 06/04/18 07:03 ALT 15 U/L (9-52) 06/04/18 07:03 Alkaline Phosphatase 83 U/L (38-126) 06/04/18 07:03 Total Creatine Kinase 74 U/L (30-135) 05/26/18 06:00 CK-MB (Mass) 1.12 ng/mL (0.0-3.38) 05/26/18 06:00 Troponin I 0.1040 ng/mL (0.00-0.120) 05/26/18 17:09 NT-Pro-B Natriuret Pep 1010 pg/mL (0-900) H 05/23/18 23:07 Total Protein 6.2 g/dL (6.3-8.3) L 06/04/18 07:03 Albumin 3.6 g/dL (3.5-5.0) 06/04/18 07:03 Globulin 2.6 gm/dL (2.2-3.9) 06/04/18 07:03 Albumin/Globulin Ratio 1.4 (1.0-2.1) 06/04/18 07:03 Ethanolamine None detected 05/24/18 06:09 Procalcitonin 0.64 NG/ML (0.19-0.49) H 05/29/18 09:08 Thyroxine (T4) 7.04 ug/dL (5.5-11.0) 05/30/18 06:54 TSH 3rd Generation 1.25 mIU/L (0.46-4.68) 05/30/18 06:54 Arterial Blood Potassium 4.6 mmol/L (3.6-5.2) 05/27/18 06:52 Venous Blood Potassium 4.7 mmol/L (3.6-5.2) 05/23/18 22:20 Urine Color Yellow (YELLOW) 06/04/18 11:47 Urine Clarity Clear (Clear) 06/04/18 11:47 Urine pH 6.0 (5.0-8.0) 06/04/18 11:47 Ur Specific [place] 1.011 (1.003-1.030) 06/04/18 11:47 Urine Protein 3+ mg/dL (NEGATIVE) H 06/04/18 11:47 Urine Glucose (UA) 3+ mg/dL (Normal) H 06/04/18 11:47 Urine Ketones Negative mg/dL (NEGATIVE) 06/04/18 11:47 Urine Blood Negative (NEGATIVE) 06/04/18 11:47 Urine Nitrate Negative (NEGATIVE) 06/04/18 11:47 Urine Bilirubin Negative (NEGATIVE) 06/04/18 11:47 Urine Urobilinogen Normal mg/dL (0.2-1.0) 06/04/18 11:47 Ur Leukocyte Esterase Neg Zohaib/uL (Negative) 06/04/18 11:47 Urine WBC (Auto) 2 /hpf (0-5) 06/04/18 11:47 Urine RBC (Auto) 5 /hpf (0-3) H 06/04/18 11:47 Ur Squamous Epith Cells 11 /hpf (0-5) H 06/04/18 11:47 Urine Bacteria Rare (<OCC) 06/04/18 11:47 Butalbital Confirm TNP 05/24/18 06:09 Opiates (GC/MS) TNP 05/24/18 06:09 Urine Opiates Screen Negative (NEGATIVE) 05/23/18 23:07 Codeine Confirmation TNP 05/24/18 06:09 Morphine Confirm TNP 05/24/18 06:09 Hydrocodone Confirm TNP 05/24/18 06:09 Oxycodone Confirm TNP 05/24/18 06:09 Methadone (GC/MS) TNP 05/24/18 06:09 Methadone Confirm TNP 05/24/18 06:09 Urine Methadone Screen Negative (NEGATIVE) 05/23/18 23:07 Free Hydromorphone Conf TNP 05/24/18 06:09 Propoxyphenes TNP 05/24/18 06:09 Norpropoxyphene TNP 05/24/18 06:09 Barbiturates TNP 05/24/18 06:09 Ur Barbiturates Screen Negative (NEGATIVE) 05/23/18 23:07 Phencyclidine (PCP) TNP 05/24/18 06:09 Phencyclidine (GC/MS) TNP 05/24/18 06:09 Ur Phencyclidine Scrn Negative (NEGATIVE) 05/23/18 23:07 Amphetamines TNP 05/24/18 06:09 Amphetamines Confirm TNP 05/24/18 06:09 Ur Amphetamines Screen Negative (NEGATIVE) 05/23/18 23:07 Methamphetamine Confirm TNP 05/24/18 06:09 Methylenedioxyamph MDA TNP 05/24/18 06:09 MDMA TNP 05/24/18 06:09 Amobarbital Confirm TNP 05/24/18 06:09 Butabarbital TNP 05/24/18 06:09 Pentobarbital Confirm TNP 05/24/18 06:09 Phenobarbital Confirm TNP 05/24/18 06:09 Secobarbital Confirm TNP 05/24/18 06:09 Alprazolam Confirm TNP 05/24/18 06:09 Benzodiazepines TNP 05/24/18 06:09 U Benzodiazepines Scrn Negative (NEGATIVE) 05/23/18 23:07 Nordiazepam Confirm TNP 05/24/18 06:09 Desalkylfluraze Cnfrm TNP 05/24/18 06:09 Lorazepam Confirm TNP 05/24/18 06:09 Oxazepam Confirmation TNP 05/24/18 06:09 Cocaine & Metabolite TNP 05/24/18 06:09 Cocaine Confirmation TNP 05/24/18 06:09 Cocaethylene Confirm TNP 05/24/18 06:09 Benzoylecgonine Confrm TNP 05/24/18 06:09 Ecgonine Methyl Adeline TNP 05/24/18 06:09 U Oth Cocaine Metabols Negative (NEGATIVE) 05/23/18 23:07 U Cannabinoids Screen Negative (NEGATIVE) 05/23/18 23:07 Marijuana TNP 05/24/18 06:09 THC Confirmation TNP 05/24/18 06:09 Carboxy THC Confirm [place] 05/24/18 06:09 Drugs of Abuse Comment [place] 05/24/18 06:09 Toxicology Panel see note 05/24/18 06:09 Alcohol, Quantitative < 10 mg/dl (0-10) 05/23/18 23:07 Methyl Alcohol Level None detected 05/24/18 06:09 Isopropanol None detected 05/24/18 06:09 Acetone Level None detected 05/24/18 06:09 B-Hydroxybutyrate 0.16 mM (0.02-0.27) 05/23/18 23:07 Hepatitis A IgM Ab Negative (NEGATIVE) 05/29/18 20:01 Hep Bs Antigen Negative (NEGATIVE) 05/29/18 20:01 Hep B Core IgM Ab Negative (NEGATIVE) 05/29/18 20:01 Hepatitis C Antibody Negative (NEGATIVE) 05/29/18 20:01 HIV 1&2 Antibody Screen Negative (NEGATIVE) 05/29/18 20:01 Influenza Typ A,B (EIA) Negative for flu a/b (NEGATIVE) 05/28/18 23:56 Ur L.pneumophila Ag Negative (NEGATIVE) 05/29/18 15:21 Blood Parasites Smear Negative (NEGATIVE) 05/29/18 20:04 - Hospital Course Hospital Course: Pt was admitted to the ICU after acute pulmonary edema. Had normal stress test per dr. Knight Pt has copd with hypoxemia with exercise, will need portable oxygen. Arranged for her. Pt was treated for Pneumonia bp and insulin adjusted discussed importance of low carb diet to avoid high insulin requirement meds changed dc coreg due to copd hydralazine increased to qid chlorthalisdone discontinued added imdur 30 pt on norvasc 10 pt on losartan 100 lyrica and cymbalt disconinued she may continue Namenda levemir 40 hs and novolol 14 ac meals tid cont janumet bid and victoza qd pt to complete course of levaquin per id I personally called [facility] and made changes pt has nebulizer at home with albuterol and atrovent follow up me and Dr. Nolasco Discharge Exam - Head Exam Head Exam: NORMOCEPHALIC - ENT Exam ENT Exam: Mucous Membranes Moist - Respiratory Exam Respiratory Exam: Clear to PA & Lateral. absent: Rales, Rhonchi - Cardiovascular Exam Cardiovascular Exam: REGULAR RHYTHM, RRR, +S1, +S2. absent: JVD Discharge Plan - Follow Up Plan Condition: GOOD Instructions: Heart Healthy Diet, Diabetes Exchange Diet, Heart Failure, Adult (DC), Diabetes Diet , Sepsis, Adult (DC) Referrals: Sara Freeman MD [Staff Provider] - Rachel Brown MD [Medical Doctor] - Juan Vale MD [Staff Provider] - Joshua Cuellar MD [Medical Doctor] -
[2018-06-06 15:39] VITALS: BP 180/72; PULSE 89; TEMP 97.6; O2SAT 96
--- NOTE | 2018-06-07 14:41 | PN ---
DATE: 06/06/2018 ENDOCRINOLOGY FOLLOWUP NOTE LOCATION: Room 567. SUBJECTIVE: This is a 63-year-old female with recent uncontrolled type 2 insulin-requiring diabetes, now being followed closely for metabolic management. Her glycemic levels are fluctuating, but improved. LABORATORY DATA: The latest chemistries showed a BUN of 18, sodium 135, potassium 4.7, chloride 109, CO2 of 21, glucose 193, and creatinine 2.2. Her glucose values are fluctuating, but improved as noted. ASSESSMENT AND PLAN: So at this time, we will recommend the same dosing regimen upon discharge today as noted. We will continue the NovoLog given as 14 units t.i.d. before meals as ordered. We will also continue the basal insulin given as Lantus at 40 units subcutaneous at bedtime daily as given. We will titrate incrementally as indicated to optimize metabolic control. We will follow and advised accordingly. Rachel Brown MD
--- NOTE | 2018-06-09 15:47 | CARD ---
APPROVED REPORT Date of service: 05/30/2018 EKG Measurement Heart [id number] <Conclusion> Sinus rhythm with short [place] ST & T wave abnormality, consider lateral ischemia Abnormal ECG
== END 2018-06-06 16:55 | disposition home or self-care (01) | DRG 196 ==
LOC: C.ER 21:36 → C.9I 22:59 → C.6T 05-27 14:25 → C.5S 06-02 18:05
PROVIDERS: ADMIT Internal Medicine; ATTEND Internal Medicine
PROC: 5A09457 Assistance with Respiratory Ventilation, 24-96 Consecutive Hours, Continuous Positive Airway Pressure (ICD-10-PCS; principal; 2018-05-23)
PROC: 5A09457 Assistance with Respiratory Ventilation, 24-96 Consecutive Hours, Continuous Positive Airway Pressure (ICD-10-PCS; 2018-05-27)
PROC: 3E0234Z Introduction of Serum, Toxoid and Vaccine into Muscle, Percutaneous Approach (ICD-10-PCS; 2018-06-01)
DX: J84.10 Pulmonary fibrosis, unspecified (principal); J96.01 Acute respiratory failure with hypoxia; J18.9 Pneumonia, unspecified organism; I46.9 Cardiac arrest, cause unspecified; E11.10 Type 2 diabetes mellitus with ketoacidosis without coma; J44.0 Chronic obstructive pulmonary disease with (acute) lower respiratory infection; N17.9 Acute kidney failure, unspecified; I50.30 Unspecified diastolic (congestive) heart failure; I13.0 Hypertensive heart and chronic kidney disease with heart failure and stage 1 through stage 4 chronic kidney disease, or unspecified chronic kidney disease; J45.902 Unspecified asthma with status asthmaticus; E86.0 Dehydration; N18.3 Chronic kidney disease, stage 3 (moderate); E11.21 Type 2 diabetes mellitus with diabetic nephropathy; E11.22 Type 2 diabetes mellitus with diabetic chronic kidney disease; E11.42 Type 2 diabetes mellitus with diabetic polyneuropathy; E11.319 Type 2 diabetes mellitus with unspecified diabetic retinopathy without macular edema; E11.51 Type 2 diabetes mellitus with diabetic peripheral angiopathy without gangrene; G47.33 Obstructive sleep apnea (adult) (pediatric); I25.10 Atherosclerotic heart disease of native coronary artery without angina pectoris; I95.9 Hypotension, unspecified; L03.031 Cellulitis of right toe; F32.9 Major depressive disorder, single episode, unspecified; D63.1 Anemia in chronic kidney disease; F41.1 Generalized anxiety disorder; E78.5 Hyperlipidemia, unspecified; E78.00 Pure hypercholesterolemia, unspecified; M81.0 Age-related osteoporosis without current pathological fracture; K59.00 Constipation, unspecified; E66.9 Obesity, unspecified; F17.210 Nicotine dependence, cigarettes, uncomplicated; Z87.440 Personal history of urinary (tract) infections; Z91.14 Patient's other noncompliance with medication regimen; Z95.5 Presence of coronary angioplasty implant and graft; Z79.4 Long term (current) use of insulin; Z68.36 Body mass index [BMI] 36.0-36.9, adult; Z90.710 Acquired absence of both cervix and uterus; Z23 Encounter for immunization